=== PATIENT | female | born 1955 | race Caucasian/White ===

== ENCOUNTER 2017-12-14 11:47 | Day surgery (SDC) | payer MEDICARE, MEDICAID, SELFPAY ==
[2017-12-14 12:25] VITALS: BP 111/62; PULSE 62; RESP 16; TEMP 37.2; O2SAT 94; BMI 36.0
--- NOTE | 2017-12-14 13:45 | RAD_ITS ---
STUDY: LOW BACK PAIN. REASON FOR EXAM: Female, 62 years old. Intraoperative imaging provided for epidural block at the L4-L5 level. FLUOROSCOPY TIME (if supplied): (0:21) minutes/seconds TECHNIQUE: Fluoroscopic images were obtained. The needle is seen along the posterior aspect of the L4-L5 disc space. COMPARISON: None. FINDINGS: Intraoperative imaging provided for epidural block at the L4-L5 level. RAD/Spine 1 View Any Level IMPRESSION: Intraoperative imaging provided for epidural block at the L4-L5 level. Electronically Signed: Josh Flanagan MD at 15:03 EDT Tel [phone], Service support ,
--- NOTE | 2017-12-14 13:46 | PCM.DC ---
- Discharge Diagnoses Current Active Problems: Degenerative disc disease and lumbar radiculopathy with foraminal stenosis You will use the following diet at home:: No restrictions Your food should be the consistency of: Regular Discharge Activity: Return to Normal Activity Return to work on:: 12/04/17 May shower in (days): 1 May resume sexual activity in: No Restrictions Weight Bearing Status: Weight bearing as tolerated Call your doctor if your incision/area has: Continuous Slow Oozing, Increased Pain/ Swelling, Increased Redness, Foul Smelling Discharge, Swelling at the incision site Call your doctor if you observe: Coldness, Increased Pain, Numbness or Tingling, Inability to urinate, Inability to have a bowel movement, Uncontrolled pain Suture Line Care: Avoid Pulling/Pushing, Avoid Pinching/Bending Cleanse incision/area with: Soap & Water Allergies/Adverse Reactions: Allergies adhesive Allergy (Verified 12/11/17 15:45) Rash latex Allergy (Verified 12/11/17 15:45) Rash codeine Adverse Reaction (Verified 12/11/17 15:45) Other SEIZURES Medications to take at Discharge ALPRAZolam [Xanax] 0.5 mg PO TID 12/11/17 Aspirin [Adult Aspirin] 81 mg PO DAILY 12/11/17 Baclofen 10 mg PO BID 12/11/17 Cetirizine HCl [Zyrtec] 10 mg PO DAILY 12/11/17 Cyanocobalamin (Vitamin B-12) [Vitamin B-12] 1,000 mcg PO DAILY 12/11/17 Dicyclomine HCl 20 mg PO DAILY 12/11/17 Divalproex (ER) [Depakote ER] 250 mg PO BID 12/11/17 Duloxetine Hcl [Cymbalta] 60 mg PO DAILY 12/11/17 Escitalopram Oxalate [Lexapro] 20 mg PO DAILY 12/11/17 Fenofibrate [Lipofen] 160 mg PO DAILY 12/11/17 Furosemide [Lasix] 20 mg PO MOWEFR 12/11/17 Isosorbide Dinitrate 30 mg PO DAILY 12/11/17 Levothyroxine Sodium [Synthroid] 175 mcg PO DAILY 12/11/17 Lisinopril [Zestril] 5 mg PO DAILY 12/11/17 Metoprolol Succinate [Toprol Xl] 12.5 mg PO BID 12/11/17 Nitroglycerin [Nitrostat] 0.4 mg SUBLINGUAL Q5M PRN 12/11/17 Omeprazole 40 mg PO DAILY 12/11/17 Potassium Chloride [K-Dur] 20 meq PO DAILY 12/11/17 Pyridoxine HCl [Vitamin B-6] 50 mg PO DAILY 12/11/17 Tiotropium [place] [Spiriva 18 MCG] 1 puff INHALATION BID 12/11/17 traMADol [Ultram (G)] 50 mg PO Q6H PRN PRN 12/11/17 Primary Care Physician: Alison Craven [Primary Care Provider] - Test Results: Test results from this visit will be discussed in further detail at your follow-up appointment, if applicable. Please Follow Up With: Hayley Bernard MD
[2017-12-14] MEDS: Triamcinolone Acetonide 40 MG/ML Vial (13:55)
--- NOTE | 2017-12-14 13:56 | DCINST_ITS ---
- Discharge Diagnoses Current Active Problems: Degenerative disc disease and lumbar radiculopathy with foraminal stenosis You will use the following diet at home:: No restrictions Your food should be the consistency of: Regular Discharge Activity: Return to Normal Activity Return to work on:: 12/04/17 May shower in (days): 1 May resume sexual activity in: No Restrictions Weight Bearing Status: Weight bearing as tolerated Call your doctor if your incision/area has: Continuous Slow Oozing, Increased Pain/ Swelling, Increased Redness, Foul Smelling Discharge, Swelling at the incision site Call your doctor if you observe: Coldness, Increased Pain, Numbness or Tingling , Inability to urinate, Inability to have a bowel movement, Uncontrolled pain Suture Line Care: Avoid Pulling/Pushing, Avoid Pinching/Bending Cleanse incision/area with: Soap & Water Allergies/Adverse Reactions: Allergies adhesive Allergy (Verified 12/11/17 15:45) Rash latex Allergy (Verified 12/11/17 15:45) Rash codeine Adverse Reaction (Verified 12/11/17 15:45) Other SEIZURES Medications to take at Discharge ALPRAZolam [Xanax] 0.5 mg PO TID 12/11/17 Aspirin [Adult Aspirin] 81 mg PO DAILY 12/11/17 Baclofen 10 mg PO BID 12/11/17 Cetirizine HCl [Zyrtec] 10 mg PO DAILY 12/11/17 Cyanocobalamin (Vitamin B-12) [Vitamin B-12] 1,000 mcg PO DAILY 12/11/17 Dicyclomine HCl 20 mg PO DAILY 12/11/17 Divalproex (ER) [Depakote ER] 250 mg PO BID 12/11/17 Duloxetine Hcl [Cymbalta] 60 mg PO DAILY 12/11/17 Escitalopram Oxalate [Lexapro] 20 mg PO DAILY 12/11/17 Fenofibrate [Lipofen] 160 mg PO DAILY 12/11/17 Furosemide [Lasix] 20 mg PO MOWEFR 12/11/17 Isosorbide Dinitrate 30 mg PO DAILY 12/11/17 Levothyroxine Sodium [Synthroid] 175 mcg PO DAILY 12/11/17 Lisinopril [Zestril] 5 mg PO DAILY 12/11/17 Metoprolol Succinate [Toprol Xl] 12.5 mg PO BID 12/11/17 Nitroglycerin [Nitrostat] 0.4 mg SUBLINGUAL Q5M PRN 12/11/17 Omeprazole 40 mg PO DAILY 12/11/17 Potassium Chloride [K-Dur] 20 meq PO DAILY 12/11/17 Pyridoxine HCl [Vitamin B-6] 50 mg PO DAILY 12/11/17 Tiotropium [place] [Spiriva 18 MCG] 1 puff INHALATION BID 12/11/17 traMADol [Ultram (G)] 50 mg PO Q6H PRN PRN 12/11/17 Primary Care Physician: Alison Craven [Primary Care Provider] - Test Results: Test results from this visit will be discussed in further detail at your follow- up appointment, if applicable. Please Follow Up With: Hayley Bernard MD
[2017-12-14 14:00] VITALS: BP 111/62; BP 129/63; PULSE 64; RESP 16; TEMP 36.6; O2SAT 97
--- NOTE | 2017-12-14 14:00 | OP.PCM_ITS ---
Problem List (1) Intervertebral disc disorder with radiculopathy of lumbar region Status: Acute (2) Intervertebral disc disorder with radiculopathy of lumbar region Status: Acute Operative Report Date of Procedure: 12/14/17 Interlaminar lumbar epidural steroid injection at the level of the L4-5 under fluoroscopy guidance Under sterile conditions. Patient placed in the prone position, pressure points were padded, patient was ready from the nursing and the anesthesia team. After identification of the side and the target area for the block under guided fluoroscopy, the entry site was marked with marking pen. I used Betadine for sterilization of the skin, sterile draping were applied. Using 25-gauge needle to infiltrate the skin with local anesthesia using preservative-free lidocaine 0.5% injected 2.5 mL at site of entry. Using guided fluoroscopy, accessed the the posterior epidural space using 18- gauge Touhy needles under midline approach, rates level at L4-5 accessed the site was assisted with lateral fluoroscopy, followed by using loss-of- resistance technique using preservative-free normal saline, negative aspiration of CSF and blood. Injected contrast solution [2.5] mL under live fluoroscopy which showed good spread of the contrast to the posterior epidural space and to the targeted area of the injection at[ L4-5]. Injected [5] mL of mixture of preservative-free lidocaine and Kenalog [80] mg for the procedure which showed appropriate spread in the epidural space. [place] was removed, pressure dressing were applied. Patient tolerated the procedure well and was taken to the recovery.
[2017-12-14 14:05] VITALS: BP 111/50; BP 111/62; PULSE 62; RESP 16; O2SAT 95
--- NOTE | 2017-12-14 14:09 | OP.PCM_ITS ---
Problem List (1) Intervertebral disc disorder with radiculopathy of lumbar region Status: Acute (2) Intervertebral disc disorder with radiculopathy of lumbar region Status: Acute Report of Operation Date of Procedure: 12/14/17 Pre-Operative Diagnosis: Lumbar degenerative disease and lumbar radiculopathy Post-Operative Diagnosis: Same Surgery/Procedure Performed:: Lumbar epidural steroid injection, interlaminar mid. Approach at the L4-5 under fluoroscopy Description of Surgical Findings:: Under sterile conditions. Patient placed in the prone position, pressure points were padded, patient was ready from the nursing and the anesthesia team. After identification of the side and the target area for the block under guided fluoroscopy, the entry site was marked with marking pen. I used Betadine for sterilization of the skin, sterile draping were applied. Using 25-gauge needle to infiltrate the skin with local anesthesia using preservative-free lidocaine 0.5% injected 2.5 mL at site of entry. Using guided fluoroscopy, accessed the the posterior epidural space using 18- gauge Touhy needles under midline approach, accessed the site was assisted with lateral fluoroscopy, followed by using [id number] technique using preservative-free normal saline, negative aspiration of CSF and blood. Injected contrast solution [2.5] mL under live fluoroscopy which showed good spread of the contrast to the posterior epidural space and to the targeted area of the injection at[ L4-5]. Injected [5] mL of mixture of preservative-free lidocaine and Kenalog [80] mg for the procedure which showed appropriate spread in the epidural space. [place] was removed, pressure dressing were applied. Patient tolerated the procedure well and was taken to the recovery. Type of Anesthesia:: MAC Description of Procedure: As above noted - Complications None
[2017-12-14 14:10] VITALS: BP 103/51; BP 111/62; PULSE 61; RESP 16; O2SAT 95
[2017-12-14 14:15] VITALS: BP 108/49; BP 111/62; PULSE 61; RESP 16; TEMP 36.6; O2SAT 96
[2017-12-14 14:38] VITALS: BP 111/62
== END 2017-12-14 14:40 | disposition home or self-care (01) ==
LOC: SDC 11:55 → AC 11:56
PROVIDERS: Family Provider Internal Medicine; PCP Internal Medicine; Visit Provider Anesthesiology
PROC: 3E0S3BZ Introduction of Anesthetic Agent into Epidural Space, Percutaneous Approach (ICD-10-PCS; CPT 62322; principal; 2017-12-14 13:25)
DX: M51.16 Intervertebral disc disorders with radiculopathy, lumbar region (principal); M47.816 Spondylosis without myelopathy or radiculopathy, lumbar region; M54.40 Lumbago with sciatica, unspecified side; M70.62 Trochanteric bursitis, left hip; M13.852 Other specified arthritis, left hip; M54.6 Pain in thoracic spine; J45.909 Unspecified asthma, uncomplicated; I10 Essential (primary) hypertension; F17.200 Nicotine dependence, unspecified, uncomplicated; D64.9 Anemia, unspecified; J44.9 Chronic obstructive pulmonary disease, unspecified; K21.9 Gastro-esophageal reflux disease without esophagitis; E78.00 Pure hypercholesterolemia, unspecified; Z87.440 Personal history of urinary (tract) infections; F41.9 Anxiety disorder, unspecified; F32.9 Major depressive disorder, single episode, unspecified; E06.9 Thyroiditis, unspecified; Z79.82 Long term (current) use of aspirin; Z79.891 Long term (current) use of opiate analgesic; Z79.899 Other long term (current) drug therapy
CPT/HCPCS: 01992; 62323; 64520 ×2; 64483; 72020; 72100; J7120

== ENCOUNTER 2018-03-01 11:20 | Day surgery (SDC) | payer MEDICARE, MEDICAID, SELFPAY ==
[2018-03-01 12:05] VITALS: BP 126/59; PULSE 80; RESP 16; TEMP 36.1; O2SAT 96; BMI 37.6
--- NOTE | 2018-03-01 13:15 | RAD_ITS ---
STUDY: INTRAOPERATIVE FLUOROSCOPY. REASON FOR EXAM: Female, 62 years old. Epidural block L4-L5. TECHNIQUE: 2 frontal and a single lateral view of the lumbar spine obtained fluoroscopically are submitted for interpretation. Fluoroscopy time 16 seconds. (This dictation documents intraoperative imaging only, not the procedure). COMPARISON: None. FINDINGS: Images depict placement of needle just to the right of midline through the L4-L5 interlaminar foramen, with injection of contrast layering in the posterior epidural space posterior to L4 and L5. RAD/Spine 1 View Any Level IMPRESSION: Imaging depicts epidural injection at L4-L5 to the right of midline. Correlate with operative report. Electronically Signed: Tapan Del Cid, at 16:17 EDT Tel , Service support ,
[2018-03-01] MEDS: Triamcinolone Acetonide 40 MG/ML Vial (13:25)
[2018-03-01 13:35] VITALS: BP 126/59; BP 130/59; PULSE 84; RESP 16; TEMP 36.9; O2SAT 98
[2018-03-01 13:42] VITALS: BP 114/57; BP 126/59; PULSE 78; RESP 16; O2SAT 95
[2018-03-01 13:47] VITALS: BP 118/61; BP 126/59; PULSE 77; RESP 16; O2SAT 94
[2018-03-01 13:53] VITALS: BP 116/60; BP 126/59; PULSE 76; RESP 16; TEMP 35.9; O2SAT 93
--- NOTE | 2018-03-01 13:56 | DCINST_ITS ---
- Discharge Diagnoses Current Active Problems: Lower back pain and lumbar radiculopathy Reason(s) for Visit for Discharge Instructions: Receiving lumbar epidural steroid injection under fluoroscopy at the level of the L4-5 You will use the following diet at home:: No restrictions Your food should be the consistency of: Regular Your liquids should be the consistency of: Regular/Thin Discharge Activity: Return to Normal Activity, May not drive while taking narcotic pain medications. May shower in (days): 1 May resume sexual activity in: No Restrictions Weight Bearing Status: Weight bearing as tolerated Call your doctor if your incision/area has: Increased Pain/ Swelling, Swelling at the incision site Call your doctor if you observe: Coldness, Increased Pain, Calf discomfort, Uncontrolled pain Suture Line Care: Avoid Pulling/Pushing, Avoid Pinching/Bending Remove Dressing in (days):: 1 Cleanse incision/area with: Soap & Water Allergies/Adverse Reactions: Allergies adhesive Allergy (Verified 03/01/18 12:06) Rash latex Allergy (Verified 03/01/18 12:06) Rash codeine Adverse Reaction (Verified 03/01/18 12:06) Other SEIZURES tramadol Adverse Reaction (Verified 03/01/18 12:06) Itching Medications to take at Discharge ALPRAZolam [Xanax] 0.5 mg PO TID 12/11/17 Aspirin [Adult Aspirin] 81 mg PO DAILY 12/11/17 Baclofen 10 mg PO BID 12/11/17 Cetirizine HCl [Zyrtec] 10 mg PO DAILY 12/11/17 Cyanocobalamin (Vitamin B-12) [Vitamin B-12] 1,000 mcg PO DAILY 12/11/17 Dicyclomine HCl 20 mg PO DAILY 12/11/17 Divalproex (ER) [Depakote ER] 250 mg PO BID 12/11/17 Duloxetine Hcl [Cymbalta] 60 mg PO DAILY 12/11/17 Escitalopram Oxalate [Lexapro] 20 mg PO DAILY 12/11/17 Fenofibrate [Lipofen] 160 mg PO DAILY 12/11/17 Furosemide [Lasix] 20 mg PO MOWEFR 12/11/17 Isosorbide Dinitrate 30 mg PO DAILY 12/11/17 Levothyroxine Sodium [Synthroid] 175 mcg PO DAILY 12/11/17 Lisinopril [Zestril] 5 mg PO DAILY 12/11/17 Metoprolol Succinate [Toprol Xl] 12.5 mg PO BID 12/11/17 Nitroglycerin [Nitrostat] 0.4 mg SUBLINGUAL Q5M PRN 12/11/17 Omeprazole 40 mg PO DAILY 12/11/17 Potassium Chloride [K-Dur] 20 meq PO DAILY 12/11/17 Pyridoxine HCl [Vitamin B-6] 50 mg PO DAILY 12/11/17 Tiotropium [place] [Spiriva 18 MCG] 1 puff INHALATION BID 12/11/17 Primary Care Physician: Alison Craven [Primary Care Provider] - Test Results: Test results from this visit will be discussed in further detail at your follow- up appointment, if applicable. Please Follow Up With: Hayley Bernard MD - yo
--- NOTE | 2018-03-01 13:57 | PCM.OPRPT ---
Problem List (1) Intervertebral disc disorder with radiculopathy of lumbar region Status: Acute (2) Intervertebral disc disorder with radiculopathy of lumbar region Status: Acute Report of Operation Date of Procedure: 03/01/18 Pre-Operative Diagnosis: Lumbar degenerative disc disease and lumbar radiculopathy Post-Operative Diagnosis: Same Surgery/Procedure Performed:: Lumbar epidural steroid injection at the level of the L4-5 under fluoroscopy and conscious sedation Description of Surgical Findings:: Under sterile conditions. Patient placed in the prone position, pressure points were padded, patient was ready from the nursing and the anesthesia team. After identification of the side and the target area for the block under guided fluoroscopy, the entry site was marked with marking pen. I used Betadine for sterilization of the skin, sterile draping were applied. Using 25-gauge needle to infiltrate the skin with local anesthesia using preservative-free lidocaine 0.5% injected 2.5 mL at site of entry. Using guided fluoroscopy, accessed the the posterior epidural space using 18-gauge Touhy needles under midline approach, accessed the site was assisted with lateral fluoroscopy, followed by using [id number] technique using preservative-free normal saline, negative aspiration of CSF and blood. Injected contrast solution [2.5] mL under live fluoroscopy which showed good spread of the contrast to the posterior epidural space and to the targeted area of the injection at[ L4-5]. Injected [5] mL of mixture of preservative-free lidocaine and Kenalog [40] mg for the procedure which showed appropriate spread in the epidural space. [place] was removed, pressure dressing were applied. Patient tolerated the procedure well and was taken to the recovery. Type of Anesthesia:: Block,Axillary, Local MAC Special Medications: Lidocaine/preservative-free normal saline 0.5%. Isovue contrast. Kenalog 40 mg - Complications None
[2018-03-01 14:06] VITALS: BP 126/59
== END 2018-03-01 14:10 | disposition home or self-care (01) ==
LOC: SDC 11:22 → AC 11:31
PROVIDERS: Family Provider Internal Medicine; PCP Internal Medicine; Visit Provider Anesthesiology
PROC: 3E0S3BZ Introduction of Anesthetic Agent into Epidural Space, Percutaneous Approach (ICD-10-PCS; CPT 62322; principal; 2018-03-01 12:25)
DX: M51.16 Intervertebral disc disorders with radiculopathy, lumbar region (principal); E11.9 Type 2 diabetes mellitus without complications; I10 Essential (primary) hypertension; M19.90 Unspecified osteoarthritis, unspecified site; Z79.899 Other long term (current) drug therapy; K58.9 Irritable bowel syndrome, unspecified; E78.00 Pure hypercholesterolemia, unspecified; K21.9 Gastro-esophageal reflux disease without esophagitis; Z79.82 Long term (current) use of aspirin
CPT/HCPCS: 01992; 62323; 64483; 72020; J7120; J3490

== ENCOUNTER 2018-09-20 10:56 | Day surgery (SDC) | payer MEDICARE, MEDICAID, SELFPAY ==
[2018-09-20 12:26] VITALS: BP 120/58; PULSE 84; RESP 18; TEMP 36.4; O2SAT 95; BMI 38.5
--- NOTE | 2018-09-20 13:00 | RAD_ITS ---
PROCEDURE: Lumbar epidural L4-L5. DATE OF EXAMINATION: 20 September 2018. INDICATION: Female, 62 years old. Back pain. PHYSICIAN: Joana FLUOROSCOPY TIME (if supplied): (0:18) minutes/seconds PROCEDURE/TECHNIQUE 4, intraprocedural, fluoroscopic spot images of the L4-L5 region are submitted. A needle appears to be inserted at the L4-L5 level. There are no significant incidental findings. RAD/Spine 1 View Any Level IMPRESSION: 4, intraprocedural, fluoroscopic spot images of the L4-L5 region are submitted. A needle appears to be inserted at the L4-L5 level. There are no significant incidental findings. Comment: Fluoroscopy services provided for clinical procedure. Please refer to operating physician's procedure note for additional detail. Electronically Signed: Javier Azul MD at 11:18 EDT , Service support ,
--- NOTE | 2018-09-20 14:31 | DCINST_ITS ---
- Discharge Diagnoses Current Active Problems: Lower back pain /lower extremity pain with walking and activities due to lumbar disc degeneration, disc disorders causing lumbar radiculopathy Reason(s) for Visit for Discharge Instructions: Lumbar epidural steroid injection at the level of the L4-5 under fluoroscopy guidance You will use the following diet at home:: No restrictions, Regular, Calorie/Carbohydrate Controlled (specify 1200, 1400, etc) Your food should be the consistency of: Regular Your liquids should be the consistency of: Regular/Thin Discharge Activity: Return to Normal Activity, No Restrictions May shower in (days): 1 May resume sexual activity in: No Restrictions Weight Bearing Status: Weight bearing as tolerated Call your doctor if your incision/area has: Continuous Slow Oozing, Sudden Increased Bleeding, Increased Pain/ Swelling, Increased Redness, Foul Smelling Discharge, Swelling at the incision site Call your doctor if you observe: Fever of 101 or Higher, Coldness, Increased Pain, Calf discomfort, Uncontrolled pain Suture Line Care: Avoid Pulling/Pushing, Avoid Pinching/Bending Remove Dressing in (days):: 1 Cleanse incision/area with: Soap & Water Allergies/Adverse Reactions: Allergies adhesive Allergy (Verified 03/01/18 12:06) Rash latex Allergy (Verified 03/01/18 12:06) Rash codeine Adverse Reaction (Verified 03/01/18 12:06) Other SEIZURES tramadol Adverse Reaction (Verified 03/01/18 12:06) Itching Medications to take at Discharge ALPRAZolam [Xanax] 0.5 mg PO TID 12/11/17 Aspirin [Adult Aspirin] 81 mg PO DAILY 12/11/17 Baclofen 10 mg PO BID 12/11/17 Cetirizine HCl [Zyrtec] 10 mg PO DAILY 12/11/17 Cyanocobalamin (Vitamin B-12) [Vitamin B-12] 1,000 mcg PO DAILY 12/11/17 Dicyclomine HCl 20 mg PO DAILY 12/11/17 Divalproex (ER) [Depakote ER] 250 mg PO BID 12/11/17 Duloxetine Hcl [Cymbalta] 60 mg PO DAILY 12/11/17 Escitalopram Oxalate [Lexapro] 20 mg PO DAILY 12/11/17 Fenofibrate [Lipofen] 160 mg PO DAILY 12/11/17 Furosemide [Lasix] 20 mg PO MOWEFR 12/11/17 Isosorbide Dinitrate 30 mg PO DAILY 12/11/17 Levothyroxine Sodium [Synthroid] 175 mcg PO DAILY 12/11/17 Lisinopril [Zestril] 5 mg PO DAILY 12/11/17 Metoprolol Succinate [Toprol Xl] 12.5 mg PO BID 12/11/17 Nitroglycerin [Nitrostat] 0.4 mg SUBLINGUAL Q5M PRN 12/11/17 Omeprazole 40 mg PO DAILY 12/11/17 Potassium Chloride [K-Dur] 20 meq PO DAILY 12/11/17 Pyridoxine HCl [Vitamin B-6] 50 mg PO DAILY 12/11/17 Tiotropium [place] [Spiriva 18 MCG] 1 puff INHALATION BID 12/11/17 Primary Care Physician: Alison Craven [Primary Care Provider] - Test Results: Test results from this visit will be discussed in further detail at your follow- up appointment, if applicable. Please Follow Up With: Hayley Bernard MD
--- NOTE | 2018-09-20 14:34 | OP.PCM_ITS ---
Problem List (1) Other intervertebral disc degeneration, lumbar region Status: Acute (2) Other intervertebral disc degeneration, lumbar region Status: Acute (3) Low back pain with right-sided sciatica Status: Acute (4) Low back pain with right-sided sciatica Status: Acute (5) Low back pain with left-sided sciatica Status: Acute (6) Low back pain with left-sided sciatica Status: Acute (7) Acute bilateral low back pain with sciatica Status: Acute (8) Acute bilateral low back pain with sciatica Status: Acute (9) Intervertebral disc disorder with radiculopathy of lumbar region Status: Acute (10) Intervertebral disc disorder with radiculopathy of lumbar region Status: Acute Report of Operation Date of Procedure: 09/20/18 Pre-Operative Diagnosis: Lumbar degenerative disc disease with lumbar radiculopathy Post-Operative Diagnosis: Lumbar disc disorders with lumbar radiculopathy Surgery/Procedure Performed:: Lumbar epidural steroid injection at the level of the L4-5 under fluoroscopy guidance Description of Surgical Findings:: Under sterile conditions. Patient placed in the prone position, pressure points were padded, patient was ready from the nursing and the anesthesia team. After identification of the side and the target area for the block under guided fluoroscopy, the entry site was marked with marking pen. I used Betadine for sterilization of the skin, sterile draping were applied. Using 25-gauge needle to infiltrate the skin with local anesthesia using preservative-free lidocaine 0.5% injected 2.5 mL at site of entry. Using guided fluoroscopy, accessed the the posterior epidural space using 18- gauge Touhy needles under midline approach, accessed the site was assisted with lateral fluoroscopy, followed by using [id number]-ga-[id number] technique using preservative-free normal saline, negative aspiration of CSF and blood. Injected contrast solution [2.5] mL under live fluoroscopy which showed good spread of the contrast to the posterior epidural space and to the targeted area of the injection at[ L4-5]. Injected [5] mL of mixture of preservative-free lidocaine and Kenalog [40] mg for the procedure which showed appropriate spread in the epidural space. [place] was removed, pressure dressing were applied. Patient tolerated the procedure well and was taken to the recovery. Type of Anesthesia:: Local MAC Estimated Blood Loss (mL): None Description of Procedure: See above - Complications None
[2018-09-20] MEDS: Triamcinolone Acetonide 40 MG/ML Vial (14:43)
[2018-09-20 14:50] VITALS: BP 111/81; BP 120/58; PULSE 98; RESP 16; TEMP 36.4; O2SAT 95
[2018-09-20 14:55] VITALS: BP 120/58; BP 123/57; PULSE 93; RESP 16; O2SAT 93
[2018-09-20 15:00] VITALS: BP 120/58; BP 121/64; PULSE 92; RESP 16; O2SAT 92
[2018-09-20 15:05] VITALS: BP 120/58; BP 127/58; PULSE 93; RESP 16; TEMP 36.9; O2SAT 93
[2018-09-20 15:32] VITALS: BP 120/58
== END 2018-09-20 15:36 | disposition home or self-care (01) ==
LOC: SDC 11:04 → AC 11:46
PROVIDERS: Family Provider Internal Medicine; PCP Internal Medicine; Referring Provider Anesthesiology; Visit Provider Anesthesiology
PROC: 3E0S3BZ Introduction of Anesthetic Agent into Epidural Space, Percutaneous Approach (ICD-10-PCS; CPT 62322; principal; 2018-09-20 12:55)
DX: M51.16 Intervertebral disc disorders with radiculopathy, lumbar region (principal); M54.41 Lumbago with sciatica, right side; M54.42 Lumbago with sciatica, left side; M47.26 Other spondylosis with radiculopathy, lumbar region; M70.62 Trochanteric bursitis, left hip; F17.200 Nicotine dependence, unspecified, uncomplicated; K21.9 Gastro-esophageal reflux disease without esophagitis; E78.00 Pure hypercholesterolemia, unspecified; E11.9 Type 2 diabetes mellitus without complications; F41.9 Anxiety disorder, unspecified; F32.9 Major depressive disorder, single episode, unspecified; E06.9 Thyroiditis, unspecified; I10 Essential (primary) hypertension; J44.9 Chronic obstructive pulmonary disease, unspecified; Z87.440 Personal history of urinary (tract) infections; Z79.82 Long term (current) use of aspirin; Z79.899 Other long term (current) drug therapy
CPT/HCPCS: 62323; 64483; 72020; J7120; J3490

== ENCOUNTER → 2018-12-20 | Outpatient (CLI) | payer MEDICARE, MEDICAID, SELFPAY ==
--- NOTE | 2018-12-20 15:43 | RAD_ITS ---
STUDY: X-RAY - RIGHT SHOULDER REASON FOR EXAM: Female, 63 years old. Right shoulder 1 TECHNIQUE: 4 view(s) of the shoulder. COMPARISON: None. FINDINGS: Normal glenohumeral articulation. Normal acromioclavicular joint. Normal acromion. Normal humeral head and visualized proximal humerus. The soft tissue structures are unremarkable. There is a small calcific density lateral to the acromion. Normal visualized pulmonary apex. RAD/Shoulder min 2 Views IMPRESSION: Possible small remote avulsion fracture, spur or calcific peritendinitis. Electronically Signed: Rashard Rush MD at 16:15 EDT , Service support ,
== END | disposition home or self-care (01) ==
LOC: RAD 15:40
PROVIDERS: Family Provider Internal Medicine; PCP Internal Medicine; Referring Provider Anesthesiology; Visit Provider Anesthesiology
DX: M25.511 Pain in right shoulder (principal)
CPT/HCPCS: 73030

== ENCOUNTER → 2018-12-24 09:32 | Outpatient (CLI) | payer MEDICARE, MEDICAID, SELFPAY | PROVIDERS: Family Provider Internal Medicine; PCP Internal Medicine; Referring Provider Anesthesiology; Visit Provider Anesthesiology | DX: M54.5 Low back pain (principal) ==

== ENCOUNTER 2019-01-24 11:51 | Day surgery (SDC) | payer MEDICARE, MEDICAID, SELFPAY ==
[2019-01-24 12:30] VITALS: BP 115/65; PULSE 66; RESP 16; TEMP 36.2; O2SAT 94; BMI 37.6
[2019-01-24] MEDS: Lactated Ringers 1,000 ML 75 ML IV (12:56)
--- NOTE | 2019-01-24 14:35 | PCM.DC ---
- Discharge Diagnoses Current Active Problems: Lower back pain and lumbar radiculopathy Reason(s) for Visit for Discharge Instructions: Lumbar epidural steroid injection under fluoroscopy You will use the following diet at home:: No restrictions Your food should be the consistency of: Regular Discharge Activity: Return to Normal Activity May shower in (days): 1 May resume sexual activity in: No Restrictions Weight Bearing Status: Weight bearing as tolerated Call your doctor if your incision/area has: Continuous Slow Oozing, Increased Pain/ Swelling, Foul Smelling Discharge Call your doctor if you observe: Fever of 101 or Higher, Coldness, Increased Pain, Numbness or Tingling, Uncontrolled pain Suture Line Care: Avoid Pulling/Pushing, Avoid Pinching/Bending Remove Dressing in (days):: 1 Cleanse incision/area with: Soap & Water Instructions: What Is Osteoarthritis?, Living with Osteoarthritis, Osteoarthritis: Common Sites, Understanding Osteoarthritis, Osteoarthritis: Coping with Pain, Osteoarthritis: Managing Pain, Osteoarthritis: Injections or Surgery, Osteoarthritis: Tips for Daily Living, Osteoarthritis: Exercise Allergies/Adverse Reactions: Allergies adhesive Allergy (Verified 01/23/19 08:55) Rash latex Allergy (Verified 01/23/19 08:55) Rash codeine Adverse Reaction (Verified 01/23/19 08:55) Other SEIZURES tramadol Adverse Reaction (Verified 01/23/19 08:55) Itching Medications to take at Discharge ALPRAZolam [Xanax] 0.5 mg PO TID 12/11/17 Aspirin [Adult Aspirin] 81 mg PO DAILY 12/11/17 Baclofen 10 mg PO BID 12/11/17 Cetirizine HCl [Zyrtec] 10 mg PO DAILY 12/11/17 Cyanocobalamin (Vitamin B-12) [Vitamin B-12] 1,000 mcg PO DAILY 12/11/17 Dicyclomine HCl 20 mg PO DAILY 12/11/17 Divalproex (ER) [Depakote ER] 250 mg PO BID 12/11/17 Duloxetine Hcl [Cymbalta] 60 mg PO BID 12/11/17 Escitalopram Oxalate [Lexapro] 20 mg PO DAILY 12/11/17 Fenofibrate [Lipofen] 160 mg PO DAILY 12/11/17 Furosemide [Lasix] 20 mg PO MOWEFR 12/11/17 Isosorbide Dinitrate 30 mg PO DAILY 12/11/17 Levothyroxine Sodium [Synthroid] 175 mcg PO DAILY 12/11/17 Lisinopril [Zestril] 5 mg PO DAILY 12/11/17 Metoprolol Succinate [Toprol Xl] 12.5 mg PO BID 12/11/17 Nitroglycerin (INPATIENT USE) [Nitrostat] 0.4 mg SUBLINGUAL Q5M PRN 12/11/17 Omeprazole 40 mg PO DAILY 12/11/17 Potassium Chloride [K-Dur] 20 meq PO DAILY 12/11/17 Pyridoxine HCl [Vitamin B-6] 50 mg PO DAILY 12/11/17 Tiotropium [place] [Spiriva 18 MCG] 1 puff INHALATION BID 12/11/17 Alirocumab [Praluent Pen] 75 mg SQ QWEEK 01/23/19 Primary Care Physician: Alison Craven [Primary Care Provider] - Test Results: Test results from this visit will be discussed in further detail at your follow-up appointment, if applicable. Please Follow Up With: Hayley Bernard MD
--- NOTE | 2019-01-24 14:37 | PCM.OPRPT ---
Problem List (1) Other intervertebral disc degeneration, lumbar region Status: Acute (2) Other intervertebral disc degeneration, lumbar region Status: Acute (3) Low back pain with right-sided sciatica Status: Acute (4) Low back pain with right-sided sciatica Status: Acute (5) Low back pain with left-sided sciatica Status: Acute (6) Low back pain with left-sided sciatica Status: Acute (7) Acute bilateral low back pain with sciatica Status: Acute (8) Acute bilateral low back pain with sciatica Status: Acute (9) Intervertebral disc disorder with radiculopathy of lumbar region Status: Acute (10) Intervertebral disc disorder with radiculopathy of lumbar region Status: Acute Report of Operation Date of Procedure: 01/24/19 Pre-Operative Diagnosis: Lumbar degenerative disc disease, lumbar disc displacement, lumbar radiculopathy Post-Operative Diagnosis: Same Surgery/Procedure Performed:: Lumbar epidural steroid injection at L4-5 under fluoroscopy guidance Description of Surgical Findings:: Under sterile conditions. Patient placed in the prone position, pressure points were padded, patient was ready from the nursing and the anesthesia team. After identification of the side and the target area for the block under guided fluoroscopy, the entry site was marked with marking pen. I used Betadine for sterilization of the skin, sterile draping were applied. Using 25-gauge needle to infiltrate the skin with local anesthesia using preservative-free lidocaine 0.5% injected 2.5 mL at site of entry. Using guided fluoroscopy, accessed the the posterior epidural space using 18-gauge Touhy needles under midline approach, accessed the site was assisted with lateral fluoroscopy, followed by using [id number] technique using preservative-free normal saline, negative aspiration of CSF and blood. Injected contrast solution [2.5] mL under live fluoroscopy which showed good spread of the contrast to the posterior epidural space and to the targeted area of the injection at[ L4-5]. Injected [5] mL of mixture of preservative-free lidocaine and Kenalog [80] mg for the procedure which showed appropriate spread in the epidural space. [place] was removed, pressure dressing were applied. Patient tolerated the procedure well and was taken to the recovery. Type of Anesthesia:: Local MAC Estimated Blood Loss (mL): None Description of Procedure: See above - Complications None
[2019-01-24 14:41] LABS: Bedside Glucose 126 mg/dL (70-110)
--- NOTE | 2019-01-24 15:00 | RAD_ITS ---
PROCEDURE: Epidural block. DATE OF EXAMINATION: January 24, 2019. INDICATION: Female, 63 years old. Back pain. FLUOROSCOPY TIME (if supplied): (0:16) minutes/seconds single coned down AP view was obtained intraoperatively. The spinal needle is seen at the L4-L5 level. RAD/Spine 1 View Any Level IMPRESSION: The spinal needle is seen overlying the L4-L5 level. Electronically Signed: Josh Flanagan, at 8:45 EDT , Service support ,
[2019-01-24] MEDS: Triamcinolone Acetonide 40 MG/ML Vial (15:12)
[2019-01-24 15:22] VITALS: BP 115/65; BP 122/71; PULSE 75; RESP 18; TEMP 36.7; O2SAT 96
[2019-01-24 15:25] VITALS: BP 115/65; BP 121/67; PULSE 73; RESP 18; O2SAT 95
[2019-01-24 15:30] VITALS: BP 115/65; BP 117/68; PULSE 73; RESP 18; O2SAT 94
[2019-01-24 15:35] VITALS: BP 115/65; BP 132/58; PULSE 77; RESP 18; TEMP 36.2; O2SAT 95
[2019-01-24 15:51] VITALS: BP 115/65
== END 2019-01-24 15:52 | disposition home or self-care (01) ==
LOC: SDC 11:52 → AC 12:09
PROVIDERS: Family Provider Internal Medicine; PCP Internal Medicine; Referring Provider Anesthesiology; Visit Provider Anesthesiology
PROC: 3E0S3BZ Introduction of Anesthetic Agent into Epidural Space, Percutaneous Approach (ICD-10-PCS; CPT 62322; principal; 2019-01-24 13:25)
DX: M51.16 Intervertebral disc disorders with radiculopathy, lumbar region (principal); M51.17 Intervertebral disc disorders with radiculopathy, lumbosacral region; E11.9 Type 2 diabetes mellitus without complications; I10 Essential (primary) hypertension; K21.9 Gastro-esophageal reflux disease without esophagitis; E78.5 Hyperlipidemia, unspecified; F41.9 Anxiety disorder, unspecified; F32.9 Major depressive disorder, single episode, unspecified; E06.9 Thyroiditis, unspecified; J44.9 Chronic obstructive pulmonary disease, unspecified; F17.200 Nicotine dependence, unspecified, uncomplicated; Z79.82 Long term (current) use of aspirin; Z79.51 Long term (current) use of inhaled steroids; Z79.891 Long term (current) use of opiate analgesic; Z79.1 Long term (current) use of non-steroidal anti-inflammatories (NSAID)
CPT/HCPCS: 62323; 64483; 72020; 82962; J7120

== ENCOUNTER → 2019-02-25 | Outpatient (CLI) | payer MEDICARE, MEDICAID, SELFPAY ==
[2019-02-25 13:34] VITALS: BMI 37.6
--- NOTE | 2019-02-25 13:36 | RAD_ITS ---
STUDY: X-RAY - LUMBAR SPINE REASON FOR EXAM: Female, 63 years old. Low back pain TECHNIQUE: 4 view(s) of the lumbar spine were obtained. COMPARISON: None FINDINGS: Normal lumbar lordosis. There is no substantial scoliosis. There is a normal alignment of the vertebrae. There is multilevel endplate spondylosis of the lumbar vertebrae. There is multi-level degenerative disc disease with multi-level disc space narrowing. There is no demonstrated fracture. No evidence of instability on the flexion or extension views. The soft tissue structures are unremarkable. RAD/L/S Spine Min 4 Views IMPRESSION: Degenerative changes of the spine, as detailed above. Electronically Signed: Lester Ladd MD at 16:38 EDT , Service support ,
== END | disposition home or self-care (01) ==
LOC: HPRAD 13:36
PROVIDERS: Family Provider Internal Medicine; PCP Internal Medicine; Visit Provider Orthopaedic Surgery
DX: M54.5 Low back pain (principal)
CPT/HCPCS: 72110

== ENCOUNTER → 2019-10-23 13:51 | Outpatient (CLI) | payer OTHER, MEDICARE, MEDICAID, SELFPAY ==
[2019-10-09 14:38] VITALS: BMI 37.3
--- NOTE | 2019-10-23 14:01 | CT_ITS ---
STUDY: LOW DOSE CT LUNG CANCER SCREENING REASON FOR EXAM: Female, 63 years old. PT STATED PULM NODULE F/U, SMOKER X 50 YEARS, 1.5 PPD RADIATION DOSAGE (If Supplied By Facility): CTDIvol = ( 4.02 ) mGy, DLP = ( 147.98 ) mGycm TECHNIQUE: No contrast was administered. Low dose technique was utilized (average mAS-20 and kVp 120). COMPARISON: No relevant priors. FINDINGS: Heart and great vessels: Heart size normal. No aneurysm of the thoracic aorta. Lipomatous hypertrophy of the interatrial septum. Mild calcific atherosclerosis of the thoracic aorta. Lungs, pleura: No pneumonia, edema, or acute abnormality in the lungs. No pleural effusion. No pneumothorax. No emphysema. Nodules: 5 mm solid nodule subpleural aspect right middle lobe series 2 image 128. 2 mm diameter nodules (3 of them) posterior aspect left lung base, coronal images 195 (medially) and 214 (posteriorly) and more anteriorly coronal image 188. Mediastinum: No adenopathy or mass or hematoma. Prior thyroidectomy. Osseous:No fracture or acute osseous abnormality. Chest wall: No concerning findings. Upper abdomen: No acute findings. Prior cholecystectomy. CT/Chest without Contrast IMPRESSION: Lung RADS category 2. Suggest continued annual screening. Lipomatous hypertrophy of the interatrial septum incidentally noted. IMPORTANT NOTES FOR USE: ACR Lung-RADS Version 1.0 Assessment Categories Release Date: September 29, 2013 Category: Coded 0-4 bases on nodule(s) with highest degree of suspicion. Negative screen is defined as categories 1 and 2; a positive screen is defined as categories 3 and 4. Category 3 and 4A nodules that are unchanged on interval CT should be coded as category 2, and individuals returned to screening in 12 months. Category 4X: Category 3 or 4 nodules with additional imaging findings that increase the suspicion of lung cancer, such as spiculation, GGN that doubles in size in 1 year, enlarged lymph notes, etc. Category Modifiers: S (significant finding unrelated to lung cancer) and C (prior history of treated lung cancer) may be added to the 0-4 Lung-RADS Electronically Signed: Keon Duarte, at 22:39 EDT Tel , Service support ,
== END ==
PROVIDERS: PCP Internal Medicine; Referring Provider Internal Medicine Pulmonary Disease; Visit Provider Internal Medicine Pulmonary Disease
DX: R91.1 Solitary pulmonary nodule (principal)
CPT/HCPCS: 71250

== ENCOUNTER → 2019-12-08 11:13 | Outpatient (CLI) | payer MEDICARE, MEDICAID, SELFPAY ==
[2019-10-09 14:38] VITALS: BMI 37.3
[2019-12-08 12:03] LABS: Erythrocyte Sedimentation Rate 37 mm/hr (0-30)
[2019-12-08 12:04] LABS: Absolute Neutrophil Count 4.9 X10^3/uL (2.0-7.7); Basophil% 1.2 % (0-1); Eosinophil# 0.17 X10^3/uL; Hematocrit 39.8 % (37-47); Lymphocyte % 26.7 % (19-41); Mean Corp Hgb Conc 30.2 g/dL (32-36); Mean Corpuscular Hgb 22.4 pg (27.0-32.0); Mean Corpuscular Volume 74.3 fL (81-99); Mean Platelet Vol. 9.5 fl (6.2-12.0); Monocyte# 1.14 X10^3/uL; Monocyte% 13.2 % (0-10); NRBC Flagged by Analyzer 0 % (0-5); Neutrophil # 4.87 X10^3/uL (2.7-7.7); Neutrophil % 56.4 % (47-70); Platelet Count 370 K/mm3 (150-450); RBC Distribution Width CV 15.9 % (11.6-14.6); RBC Distribution Width SD 41.9 fl (35.1-43.9); Red Blood Count 5.36 M/mm3 (4.2-5.4); White Blood Count 8.6 K/mm3 (4.4-11.0)
== END ==
PROVIDERS: PCP Internal Medicine; Referring Provider Specialist; Visit Provider Specialist
DX: Z96.651 Presence of right artificial knee joint (principal)
CPT/HCPCS: 36415; 85025; 85652; 86140

== ENCOUNTER → 2019-12-15 11:44 | Outpatient (CLI) | payer MEDICARE, MEDICAID, SELFPAY ==
[2019-10-09 14:38] VITALS: BMI 37.3
[2019-12-15 13:35] LABS: AUTO B FLUID DILUENT BKGD CT WBC <0.1 RBC <0.01 (W<.1,R<.01)
[2019-12-15 13:36] LABS: Appearance /Synovial Fluid Sl Cl (CLEAR); Color / Synovial Fluid Yellow (Pale Yellow); RBC /Synovial Fluid 93 /mm3 (0)
[2019-12-15 13:37] LABS: Body Fluid QC Type(s) BF1Q; Synovial Fld Mononuclear WBC # 0.418 10^3/ul; Synovial Fld Mononuclear WBC % 40.9 %; Synovial Fld Polynuclear WBC # 0.604 10^3/uL; Synovial Fld Polynuclear WBC % 59.1 %
[2019-12-15 13:41] LABS: Lymph 13 %; Monocyte /Synovial Fluid 82 %; Plasma Cell /Synovial Fluid 5 %
[2019-12-16 12:43] LABS: Pathologist Comment Reviewed
== END ==
PROVIDERS: PCP Internal Medicine; Referring Provider Specialist; Visit Provider Specialist
DX: Z96.651 Presence of right artificial knee joint (principal)
CPT/HCPCS: 87015; 87070; 87075; 87101; 87116; 87205; 87206; 89050; 89051

== ENCOUNTER → 2020-10-29 11:51 | Outpatient (CLI) | payer MEDICARE, MEDICAID, SELFPAY ==
[2020-10-29 11:16] VITALS: BMI 41.4
[2020-10-29 13:35] LABS: T4 Free Direct 1.11 ng/dL (0.76-1.46)
== END ==
PROVIDERS: PCP Internal Medicine; Visit Provider Internal Medicine Endocrinology, Diabetes & Metabolism
DX: E03.9 Hypothyroidism, unspecified (principal)
CPT/HCPCS: 36415; 84439; 84443

== ENCOUNTER → 2021-05-23 15:19 | Outpatient (CLI) | payer MEDICARE, MEDICAID, SELFPAY ==
--- NOTE | 2021-05-23 15:21 | CT_ITS ---
STUDY: LOW DOSE CT LUNG CANCER SCREENING REASON FOR EXAM: Female, 65 years old. Long history of smoking. Screening for lung cancer. RADIATION DOSAGE (If Supplied By Facility): CTDIvol = ( 4.02 ) mGy, DLP = ( 137.93 ) mGycm TECHNIQUE: No contrast was administered. Low dose technique was utilized (average mAS-38 and kVp 120). 1.25 mm axial source images with a slice interval of 1.25-mm were reconstructed in lung windows. 2.5 mm axial source images with a slice interval of 2.5-mm were reconstructed in lung windows. 5.0 mm axial source images with a slice interval of 5.0-mm were reconstructed in soft tissue windows. Nodule measured using lung windows on PACS and/or independent workstation with automated measurement of minimum and maximum diameter. Nodule measurement reported as average diameter rounded to the nearest whole number. Growth is defined as an increase ins size of greater than 1.5 mm. COMPARISON: 10/23/2019. NODULES: 5 mm solid nodule subpleural aspect right middle lobe series 2 image 124. 2 mm diameter nodules (3 of them) posterior aspect left lung base There are no suspicious lung nodules There are no endobronchial lesions. There is no demonstrated pleural abnormality. Normal heart and pericardium. Lipomatous hypertrophy of the interatrial septum incidentally noted. Normal mediastinum. Normal hilar regions. Normal unenhanced pulmonary arteries. Normal aorta arch and descending thoracic aorta. Normal osseous structures. There is no demonstrated abnormality of the visualized upper abdomen. CT/Low Dose CT Lung Screening IMPRESSION: Lung-RADS category 2. Benign findings. Stable bilateral lung nodules. Recommendation: Routine screening CT scan in one year. IMPORTANT NOTES FOR USE: ACR Lung-RADS Version 1.0 Assessment Categories Release Date: September 29, 2013 Category: Coded 0-4 bases on nodule(s) with highest degree of suspicion. Negative screen is defined as categories 1 and 2; a positive screen is defined as categories 3 and 4. Category 3 and 4A nodules that are unchanged on interval CT should be coded as category 2, and individuals returned to screening in 12 months. Category 4X: Category 3 or 4 nodules with additional imaging findings that increase the suspicion of lung cancer, such as spiculation, GGN that doubles in size in 1 year, enlarged lymph notes, etc. Category Modifiers: S (significant finding unrelated to lung cancer) and C (prior history of treated lung cancer) may be added to the 0-4 Lung-RADS Electronically Signed: Ronnie Bond MD at 6:41 EST Tel , Service support ,
== END ==
PROVIDERS: PCP Internal Medicine; Referring Provider Internal Medicine Pulmonary Disease; Visit Provider Internal Medicine Pulmonary Disease
DX: Z87.891 Personal history of nicotine dependence (principal); Z12.2 Encounter for screening for malignant neoplasm of respiratory organs
CPT/HCPCS: 71271

== ENCOUNTER → 2022-01-24 | Outpatient (CLI) | payer MEDICARE, MEDICAID, SELFPAY ==
--- NOTE | 2022-01-24 15:43 | RAD_ITS ---
INDICATION: SUSPECT PNEUMONIA/ COPD EXAMINATION/TECHNIQUE: X-RAY - XR Chest 2 Views COMPARISON: None. FINDINGS: The lungs are clear. Tortuous and calcified thoracic aorta. The heart is not enlarged. No pleural effusion or pneumothorax. No acute osseous abnormalities. RAD/Chest PA and Lateral IMPRESSION: No acute radiographic abnormalities. Electronically Signed: Rk Armenta MD at 16:47 EDT ,
== END | disposition home or self-care (01) ==
LOC: MTRAD 15:42
PROVIDERS: PCP Internal Medicine; Referring Provider Internal Medicine Pulmonary Disease; Visit Provider Internal Medicine Pulmonary Disease
DX: J44.9 Chronic obstructive pulmonary disease, unspecified (principal)
CPT/HCPCS: 71046

== ENCOUNTER 2022-06-02 15:14 | Outpatient (CLI) | payer MEDICARE, MEDICAID, SELFPAY ==
[2022-06-02 16:13] LABS: Absolute Lymphocyte Count 1.43 X10^3/uL (0.83-4.51); Absolute Neutrophil Count 12.5 X10^3/uL (2.0-7.7); Basophil# 0.03 X10^3/uL; Basophil% 0.2 % (0-1); Eosinophil# 0.01 X10^3/uL; Eosinophils% 0.1 % (0-5); Hematocrit 46.3 % (37-47); Hemoglobin 15.4 g/dL (12.0-15.0); Lymphocyte # 1.43 X10^3/ul (0.83-4.51); Lymphocyte % 9.5 % (19-41); Mean Corp Hgb Conc 33.3 g/dL (32-36); Mean Corpuscular Hgb 26.7 pg (27.0-32.0); Mean Corpuscular Volume 80.4 fL (81-99); Monocyte# 0.83 X10^3/uL; Monocyte% 5.5 % (0-10); NRBC Flagged by Analyzer 0 % (0-5); Neutrophil # 12.52 X10^3/uL (2.7-7.7); Neutrophil % 83.4 % (47-70); Platelet Count 364 K/mm3 (150-450); RBC Distribution Width CV 15.6 % (11.6-14.6); RBC Distribution Width SD 44.6 fl (35.1-43.9); Red Blood Count 5.76 M/mm3 (4.2-5.4)
[2022-06-02 16:58] LABS: Estradiol 11.4 pg/mL; Follicle Stimulating Hormone 80.7 mIU/mL; Luteinizing Hormone 63.9 mIU/mL; T4 Free Direct 1.36 ng/dL (0.76-1.46); Thyroid Stim Hormone (TSH) 1.99 uIU/mL (0.358-3.74)
== END 2022-06-02 23:59 | disposition home or self-care (01) ==
LOC: WOBLAB 15:17
PROVIDERS: PCP Internal Medicine; Visit Provider Obstetrics & Gynecology
DX: N95.1 Menopausal and female climacteric states (principal)
CPT/HCPCS: 36415; 82670; 83001; 83002; 84439; 84443; 85025

== ENCOUNTER → 2023-07-06 | Outpatient (CLI) | payer MEDICARE, MEDICAID, SELFPAY ==
--- NOTE | 2023-07-06 13:57 | CT_ITS ---
STUDY: LOW DOSE CT LUNG CANCER SCREENING REASON FOR EXAM: Female, 67 years old. TOBACCO ABUSE. The patient smoked one half pack per day for 53 years. RADIATION DOSAGE (If Supplied By Facility): CTDIvol = ( 3.18 ) mGy, DLP = ( 98.87 ) mGycm TECHNIQUE: No contrast was administered. Low dose technique was utilized (average mAS-38 and kVp 120). 1.25 mm axial source images with a slice interval of 1.25-mm were reconstructed in lung windows. 2.5 mm axial source images with a slice interval of 2.5-mm were reconstructed in lung windows. 5.0 mm axial source images with a slice interval of 5.0-mm were reconstructed in soft tissue windows. COMPARISON: Comparison is made with prior study dated May 23, 2021. NODULES: Stable 5 mm partially calcified nodule in the anterior aspect of the right middle lobe as seen on axial image #124. Emphysema: Mild increased markings in the posterior aspect of the lingular segment of the left upper lobe suggestive of atelectasis and/or scarring. Endobronchial lesion: None Aorta: Atherosclerotic plaque formation. CORONARY ARTERIES: Coronary artery calcification is seen. Heart: Unremarkable Pulmonary artery: Unremarkable Mediastinal nodes: Small mediastinal lymph nodes. Other chest and abdominal findings: CT/Low Dose CT Lung Screening IMPRESSION: Lung-RADS category 2 - Continue annual screening with LDCT in 12 months. IMPORTANT NOTES FOR USE: ACR Lung-RADS Version 1.1 Assessment Categories Release Date: 2018 Category: Coded 0-4 bases on nodule(s) with highest degree of suspicion. Negative screen is defined as categories 1 and 2; a positive screen is defined as categories 3 and 4. Category 3 and 4A nodules that are unchanged on interval CT should be coded as category 2, and individuals returned to screening in 12 months. Category 4X: Category 3 or 4 nodules with additional imaging findings that increase the suspicion of lung cancer, such as spiculation, GGN that doubles in size in 1 year, enlarged lymph notes, etc. Category Modifiers: S (significant finding unrelated to lung cancer) Electronically Signed: Josh Flanagan MD at 15:24 EST ,
== END | disposition home or self-care (01) ==
LOC: CT 13:54
PROVIDERS: PCP Internal Medicine; Referring Provider Internal Medicine Pulmonary Disease; Visit Provider Internal Medicine Pulmonary Disease
DX: Z12.2 Encounter for screening for malignant neoplasm of respiratory organs (principal); Z87.891 Personal history of nicotine dependence
CPT/HCPCS: 71271

== ENCOUNTER → 2023-07-13 | Outpatient (CLI) | payer MEDICARE, MEDICAID, SELFPAY ==
--- NOTE | 2023-07-13 09:47 | VDLE_ITS ---
Reason For Study: RLE PAIN/SWELLING RIGHT LEFT GSV is normal. CFV is compressible, spontaneous, phasic, CFV is compressible, spontaneous, phasic, competent, and demonstrates normal competent and demonstrates normal augmentation. augmentation. FV is compressible, spontaneous, phasic, competent and demonstrates normal augmentation. POP V is compressible, spontaneous, phasic, competent and demonstrates normal augmentation. T/P Trunk is compressible. PTV is compressible. RT PerV is compressible. Procedure This is a venous duplex using B-mode, color flow and spectral Doppler. Exam performed in department. A preliminary report was called and/or faxed to Dr. Craven @ 10:20 am @ [phone]. VL/Venous Duplex US, Unilateral Interpretation Summary Deep veins of the right lower extremity are patent and compressible segmentally . There is no evidence of right lower extremity deep vein thrombosis. The right great sapheno us vein appears patent and compressible segmentally. Ordering Physician: Alison Craven Referring Physician: Alison Craven Performed By: Divya Goodrich, TAD, RVT
== END | disposition home or self-care (01) ==
LOC: CVS 09:46
PROVIDERS: PCP Internal Medicine; Referring Provider Internal Medicine; Visit Provider Internal Medicine
DX: M79.604 Pain in right leg (principal)
CPT/HCPCS: 93971

== ENCOUNTER 2023-10-30 13:46 | Emergency (ER) | payer MEDICARE, MEDICAID, SELFPAY ==
[2023-10-30 13:46] VITALS: BP 157/75; PULSE 82; RESP 14; TEMP 36.6; O2SAT 94; BMI 37.5
[2023-10-30 14:36] LABS: Red Blood Cells-Urine 0 SEEN /hpf (0-5); White Blood Cells 0 SEEN /hpf (0-5)
[2023-10-30 14:38] LABS: Absolute Lymphocyte Count 2.68 X10^3/uL (0.83-4.51); Absolute Neutrophil Count 7.5 X10^3/uL (2.0-7.7); Bacteria 0 SEEN /hpf (None Seen); Basophil# 0.11 X10^3/uL; Basophil% 0.9 % (0-1); Eosinophil# 0.16 X10^3/uL; Eosinophils% 1.3 % (0-5); Hematocrit 48.8 % (37-47); Hemoglobin 15.3 g/dL (12.0-15.0); Lymphocyte # 2.68 X10^3/ul (0.83-4.51); Lymphocyte % 21.8 % (19-41); Mean Corp Hgb Conc 31.4 g/dL (32-36); Mean Corpuscular Hgb 22.9 pg (27.0-32.0); Mean Corpuscular Volume 72.9 fL (81-99); Mean Platelet Vol. 9.2 fl (6.2-12.0); Monocyte# 1.77 X10^3/uL; Monocyte% 14.4 % (0-10); Mucous, Urine 0 SEEN /hpf (<or=2+); NRBC Flagged by Analyzer 0 % (0-5); Neutrophil # 7.54 X10^3/uL (2.7-7.7); Neutrophil % 61.3 % (47-70); POSITIVE DIFFERENTIAL YES; Platelet Count 373 K/mm3 (150-450); RBC Distribution Width SD 42.3 fl (35.1-43.9); Red Blood Count 6.69 M/mm3 (4.2-5.4); White Blood Count 12.3 K/mm3 (4.4-11.0)
[2023-10-30 14:39] LABS: Color, Urine Yellow (Yellow); Glucose, Dipstick Normal (Normal); Ketone-Dipstick Negative (Negative); Leukocyte Esterase-Dipstick Negative /ul (Negative); Nitrite-Dipstick Negative (Negative); Occult Blood-Urine Negative /ul (Negative); Protein-Dipstick Negative (Negative); Urine Bilirubin Dipstick Negative (Negative); Urine Clarity Sl. Cloudy (Clear); Urine Urobilinogen Normal (Normal); Urine pH 6.5 (5.0 - 8.0)
[2023-10-30 14:45] LABS: Squamous Epithelial Cells - UA 0-5 SEEN /hpf (5-10)
[2023-10-30 14:52] LABS: Anion Gap 5 (5-15); BUN 7 mg/dL (7-18); BUN/Creat Ratio 11.1 RATIO (10-20); Calcium,Total 9.9 mg/dL (8.5-10.1); Chloride 106 mmol/L (98-107); Creatinine, Serum 0.63 mg/dL (0.55-1.02); EST Glomerular Filtration Rate 99 mL/min (>60); Est Glom Filt Rate - Afr Amer 120 mL/min (>60); Estimated Creatinine Clearance 79.91 ml/min; Glucose 122 mg/dL (74-106); Potassium 3.4 mmol/L (3.5-5.1); Sodium Level 141 mmol/L (136-145)
[2023-10-30 15:05] LABS: Differential Indicated SCAN CRITERIA MET
[2023-10-30 15:16] LABS: Differential Comment SCANNED
[2023-10-30] MEDS: 0.9% Normal Saline (1000mL) 1,000 ML 150 ML IV (15:22)
[2023-10-30] MEDS: Potassium Chloride Oral Tablet 20 MEQ 40 MEQ PO (15:22)
[2023-10-30] MEDS: fentaNYL 100 MCG/2 ML Ampul 25 MCG IV (15:23)
--- NOTE | 2023-10-30 16:19 | CT_ITS ---
INDICATION: colitis EXAMINATION: CT Abdomen And Pelvis W/ Contrast Injection TECHNIQUE: Helically acquired images were obtained of the abdomen and pelvis after IV contrast. A radiation dose optimization technique was used for this scan. IV Contrast dosage and agent: IV 100mL Isovue-300 Oral contrast: None. COMPARISON: None. FINDINGS: Visualized lung bases: Unremarkable Liver: Unremarkable Gallbladder: Surgically absent. Spleen: Unremarkable Pancreas: Unremarkable Adrenal Glands: Unremarkable Kidneys: Unremarkable Vasculature: Severe aortoiliac atherosclerotic disease. GI Tract: There is circumferential long segment wall thickening of nearly the entire colon with minimal surrounding mesenteric fat stranding. Lymphadenopathy: None Peritoneum: Low-density masslike lesion in the presacral space measuring 4.6 x 4.3 x 4.1 cm. Bladder: Unremarkable Reproductive organs: Status post hysterectomy. Bones/Soft tissues: Mild scattered degenerative changes of the visualized spine. CT/Abdomen/Pelvis W IV Cont ONLY IMPRESSION: Findings suspicious for infectious versus inflammatory colitis. No focal fluid collection or free air. 4.6 cm masslike lesion in the presacral space is indeterminate. Recommend pelvic MRI with and without contrast. Electronically Signed: Rk Armenta MD at 17:18 EDT ,
--- NOTE | 2023-10-30 16:39 | EX.ED.DYSGE1 ---
HPI History of Present Illness Chief Complaint: Diarrhea Informant: patient Onset/Context/Timing Onset: Weeks Narrative Narrative: Patient presents with 3-week history of diarrhea. She states she is having multiple episodes of diarrhea daily. She does not know if there is blood in the stool as she does take iron supplements chronically. She does have a history of IBS but does not follow with a GI doctor regularly. She does not believe this is consistent with her prior IBS flares. She has not been on recent antibiotics. She has been taking Lomotil [id number] without improvement. She called her PCP a week ago and he put her on famotidine twice a day. [facility] Medical History Obesity Prediabetes Postoperative primary hypothyroidism Vitamin deficiency Vision problem Thyroid disease Rheumatoid arthritis GERD (gastroesophageal reflux disease) Osteoporosis Osteoarthritis IBS (irritable bowel syndrome) Hearing problem Frequent headaches Calcium deficiency High cholesterol High triglycerides Blood transfusion during current hospitalization Goiter COPD (chronic obstructive pulmonary disease) Diabetes Chronic bronchitis Breast lump Bleeding disorder UTI (urinary tract infection) Bone fracture Back problem Arthritis Anemia Home Medications ?Medication ?Instructions ?Recorded ?Last Taken ?Type cyanocobalamin (vitamin B-12) 1,000 mcg PO DAILY SUPPLEMENT 12/11/17 03/01/18 09:00 History 1,000 mcg tablet 1000 MCG dicyclomine 20 mg tablet 20 mg PO DAILY 12/11/17 03/01/18 09:00 History 20 MG divalproex 250 mg tablet,extended 250 mg PO BID MIGRAINES 12/11/17 03/01/18 09:00 History release 24 hr 250 MG furosemide 20 mg tablet 20 mg PO MOWEFR 12/11/17 Unknown History isosorbide dinitrate 30 mg tablet 30 mg PO DAILY HEART 12/11/17 03/01/18 09:00 History 30 MG metoprolol succinate 25 mg 12.5 mg PO BID BP 12/11/17 01/24/19 09:00 History tablet,extended release 24 hr nitroglycerin 0.4 mg sublingual 0.4 mg sublingual Q5M PRN Chest 12/11/17 Unknown History tablet Pain omeprazole 40 mg capsule,delayed 40 mg PO DAILY GERD 12/11/17 01/24/19 09:00 History release alirocumab 75 mg/mL subcutaneous 75 mg subcut .qow 10/29/20 Unknown History pen injector clonazepam 0.5 mg tablet 0.5 mg PO BID PRN 10/29/20 Unknown History gabapentin 300 mg capsule 300 mg PO TID 10/29/20 Unknown History levothyroxine 137 mcg tablet 137 mcg PO DAILY 10/29/20 Unknown History magnesium 250 mg tablet 250 mg PO DAILY 10/29/20 Unknown History ondansetron 4 mg disintegrating 4 mg PO Q8H 10/29/20 Unknown History tablet potassium chloride 20 mEq 20 meq PO DAILY 10/29/20 Unknown History tablet,extended release(part/cryst) (Klor-Con M) pyridoxine (vitamin B6) 50 mg 100 mg PO DAILY SUPPLEMENT 10/29/20 Unknown History tablet quetiapine 100 mg tablet 100 mg PO QHS 10/29/20 Unknown History similia 2 puff inhalation BID 10/29/20 Unknown History sumatriptan succinate 25 mg tablet tablet PO 10/29/20 Unknown History tizanidine 4 mg tablet 4 mg PO ONCE 10/29/20 Unknown History ciprofloxacin HCl 500 mg tablet 500 mg PO BID #20 tabs 10/30/23 Unknown Rx (Cipro) metronidazole 500 mg tablet 500 mg PO BID 10 days #20 tabs 10/30/23 Unknown Rx Allergy/AdvReac Type Severity Reaction Status Date / Time Sulfa (Sulfonamide Allergy Intermediate unknown Verified 10/30/23 13:47 Antibiotics) adhesive Allergy Rash Verified 10/30/23 13:47 latex Allergy Rash Verified 10/30/23 13:47 codeine AdvReac Other Verified 10/30/23 13:47 tramadol AdvReac Itching Verified 10/30/23 13:47 Family History Other Anemia Angina at rest Anxiety Arthritis Bleeding disorder Blood clot in vein Blood transfusion during current hospitalisation Bowel disease Colon cancer Depression Diabetes High cholesterol Hypertension Osteoporosis Respiratory disease Severe allergic reaction Thyroid disorder Surgical History H/O endoscopy h/o 5 goiters removed H/O: h/o hysterectomy h/o appendectomy h/o bilateral carpal tunnel surgery h/o right ankle surgery h/o bilateral shoulder surgery h/o right knee replacement Social History Smoking Status: Current every day smoker tobacco type: cigarettes alcohol intake: current alcohol intake frequency: 0-2 drinks per day substance use type: does not use what type of physical activity do you participate in: none ROS ROS ED Constitutional Constitutional ED: Denies chills or fever(s) Eyes Eyes: Denies change in vision ENT ENT ED: Denies rhinorrhea or sore throat Cardiovascular Cardiovascular: Denies chest pain or palpitations Respiratory/Chest Respiratory/Chest: Denies cough or dyspnea Gastrointestinal Gastrointestinal: Reports abdominal pain and diarrhea; Denies nausea or vomiting Genitourinary Genitourinary ED: Denies difficulty urinating or dysuria Musculoskeletal Musculoskeletal: Denies back pain or extremity pain Integumentary Denies Abrasions or rash Neurologic Neurologic: Denies headache(s) or weakness Allergic/Immunologic Allergic/Immunologic ED: Denies lip swelling or urticaria EXAM Physical Exam Const Vital Signs: 10/30/23 13:46 10/30/23 16:50 Temperature 98 F 98.0 F Temperature Source Temporal Oral Pulse Rate 82 77 Respiratory Rate 14 16 Blood Pressure 157/75 H 122/50 H Blood Pressure Mean 102 74 Pulse Ox 94 95 Oxygen Delivery Method Room Air Room Air Positive well nourished and well developed General Appearance ED: well developed HEENT Reports moist mucous membranes Eyes EOMs intact bilaterally Chest Wall inspection of chest normal and palpation of chest normal Resp normal respiratory effort and clear to auscultation bilaterally Cardio regular rate and regular rhythm GI GI Narrative: Abdomen soft with mild diffuse tenderness. No guarding or rebound. Active bowel sounds are noted. Extremity normal to inspection Neuro oriented x3 and no sensory deficits noted Motor Exam: strength 5/5 throughout Psych mental status grossly normal Skin no rashes or lesions noted MDM MDM MDM Narrative Medical decision making narrative: IV line established. Patient given IV fluids along with a dose of fentanyl for pain. Labwork obtained to evaluate for leukocytosis, anemia, and electrolyte derangement. Stool studies are ordered. CT scan with IV contrast obtained to evaluate for bowel wall thickening given her history of IBS. History & Record Review Discussion w/independent historian: Patient Lab Data Attestation: I reviewed the patient's lab results. Labs: Laboratory Results - last 24 hr 10/30/23 14:25 WBC 12.3 H RBC 6.69 H Hgb 15.3 H Hct 48.8 H MCV 72.9 L MCH 22.9 L MCHC 31.4 L RDW Std Deviation 42.3 RDW Coeff of Gus 18.0 H Plt Count 373 MPV 9.2 Immature Gran % (Auto) 0.300 Neut % (Auto) 61.3 Lymph % (Auto) 21.8 [place] % (Auto) 14.4 H Eos % (Auto) 1.3 Baso % (Auto) 0.9 Absolute Neuts (auto) 7.5 Absolute Lymphs (auto) 2.68 Nucleated RBC % 0 Differential Comment SCANNED Diff Path Review October foll Sodium 141 Potassium 3.4 L Chloride 106 Carbon Dioxide 30.0 Anion Gap 5 BUN 7 Creatinine 0.63 Estim Creat Clear Calc 79.91 Est GFR (MDRD) Af Amer 120 Est GFR (MDRD) Non-Af 99 BUN/Creatinine Ratio 11.1 Glucose 122 H Calcium 9.9 Urine Color Yellow Urine Clarity Sl. Cloudy Urine pH 6.5 Ur Specific [place] 1.010 Urine Protein Negative Urine Glucose (UA) Normal Urine Ketones Negative Urine Occult Blood Negative Urine Nitrite Negative Urine Bilirubin Negative Urine Urobilinogen Normal Ur Leukocyte Esterase Negative Urine RBC 0 SEEN Urine WBC 0 SEEN Ur Squamous Epith Cells 0-5 SEEN Urine Bacteria 0 SEEN Urine Mucus 0 SEEN Radiography Diagnostic Testing: Clinical Impression(s) from Imaging Studies Abdomen/Pelvis CT 10/30/23 16:19 IMPRESSION: Findings suspicious for infectious versus inflammatory colitis. No focal fluid collection or free air. 4.6 cm masslike lesion in the presacral space is indeterminate. Recommend pelvic MRI with and without contrast. Electronically Signed: Rk Armenta MD at 17:18 EDT , Treatment and Re-Evaluation :: White count slightly increased to 12.3 with normal differential. Hemoglobin concentrated at 15.3. Chemistry studies reveal slightly low potassium at 3.4. This is replaced orally. Urinalysis is unremarkable. CT scan with IV contrast is obtained. This reveals findings suspicious for infectious versus inflammatory colitis. No focal fluid collection or free air. There is a 4.6 masslike lesion in the presacral space that is indeterminate. Pelvic MRI is recommended. Test results were discussed with the patient. She does report previous knowledge of this masslike lesion in her presacral space. She states that she had it evaluated and it was determined that it was too high risk to try to biopsy the lesion. At this time we will give the patient Cipro and Flagyl for her colitis. She will follow with her primary care physician as well as Dr. Levine who she is seen in the past. Discharge Plan Triage Chief Complaint: Diarrhea ED Provider: Yue Arreguin Dx/Rx/DC Orders Clinical Impression: Colitis Instructions: ED Understanding Colitis Prescriptions: New ciprofloxacin HCl [Cipro] 500 mg tablet 500 mg PO BID Qty: 20 0RF metronidazole 500 mg tablet 500 mg PO BID 10 Days Qty: 20 0RF No Action tizanidine 4 mg tablet 4 mg PO ONCE quetiapine 100 mg tablet 100 mg PO QHS Patient Comments: TAKE 1 TABLET BY MOUTH EVERY DAY AT BEDTIME NEEDED FOR SLEEP levothyroxine 137 mcg tablet 137 mcg PO DAILY Patient Comments: TAKE 1 TABLET BY MOUTH ONCE DAILY gabapentin 300 mg capsule 300 mg PO TID sumatriptan succinate 25 mg tablet PO ondansetron 4 mg tablet,disintegrating 4 mg PO Q8H magnesium 250 mg tablet 250 mg PO DAILY clonazepam 0.5 mg tablet 0.5 mg PO BID PRN potassium chloride [Klor-Con M20] 20 mEq tablet,ER particles/crystals 20 meq PO DAILY similia 2 puff inhalation BID cyanocobalamin (vitamin B-12) 1,000 MCG tablet 1,000 mcg PO DAILY omeprazole 40 MG capsule,delayed release(DR/EC) 40 mg PO DAILY isosorbide dinitrate 30 MG tablet 30 mg PO DAILY dicyclomine 20 MG tablet 20 mg PO DAILY nitroglycerin 0.4 MG tablet 0.4 mg sublingual Q5M PRN (Reason: Chest Pain) furosemide 20 MG tablet 20 mg PO MOWEFR metoprolol succinate 25 MG tablet extended release 24 hr 12.5 mg PO BID divalproex 250 MG tablet 250 mg PO BID pyridoxine (vitamin B6) 50 mg tablet 100 mg PO DAILY alirocumab 75 mg/mL pen injector 75 mg subcut .qow Rx Instructions: EVERY OTHER WEEK Primary Care Provider: Alison Craven Referrals: Alison Craven MD [Primary Care Provider] - 1 Week Crescencio Levine MD [Non-Staff] - 10-14 Days if not better Print Language: Sudanese Disposition Disposition: Home, Self Care
[2023-10-30 16:50] VITALS: BP 122/50; PULSE 77; RESP 16; TEMP 36.7; O2SAT 95
[2023-10-30] MEDS: Ciprofloxacin 500 MG Tablet PO (17:47)
[2023-10-30] MEDS: metroNIDAZOLE 500 MG Tablet PO (17:47)
[2023-10-30] MEDS: HYDROcodone Bitartrate/Apap 5/325 Tablet PO (17:48)
[2023-10-31 14:06] LABS: Pathologist Review Reviewed
== END 2023-10-30 17:59 | disposition home or self-care (01) ==
PROVIDERS: Emergency Provider Emergency Medicine; PCP Internal Medicine; Visit Provider Emergency Medicine
DX: K52.9 Noninfective gastroenteritis and colitis, unspecified (principal); J44.9 Chronic obstructive pulmonary disease, unspecified; F17.210 Nicotine dependence, cigarettes, uncomplicated
CPT/HCPCS: 74177; 80048; 81001; 85025; 96374; 99284; J7030; Q9967

== ENCOUNTER → 2023-11-09 | Outpatient (CLI) | payer MEDICARE, MEDICAID, SELFPAY ==
[2023-11-09 17:02] LABS: Potassium 3.9 mmol/L (3.5-5.1)
== END | disposition home or self-care (01) ==
LOC: LAB 15:45
PROVIDERS: PCP Internal Medicine; Referring Provider Internal Medicine; Visit Provider Internal Medicine
DX: E87.6 Hypokalemia (principal)
CPT/HCPCS: 36415; 84132

== ENCOUNTER → 2023-11-28 | Outpatient (CLI) | payer MEDICARE, MEDICAID, SELFPAY ==
[2023-11-28 17:44] LABS: Hematocrit 42.9 % (37-47); Hemoglobin 13.5 g/dL (12.0-15.0); Mean Corp Hgb Conc 31.5 g/dL (32-36); Mean Platelet Vol. 9.3 fl (6.2-12.0); Platelet Count 241 K/mm3 (150-450); RBC Distribution Width CV 19.8 % (11.6-14.6); RBC Distribution Width SD 48.4 fl (35.1-43.9); Red Blood Count 5.88 M/mm3 (4.2-5.4); White Blood Count 9.9 K/mm3 (4.4-11.0)
[2023-11-28 18:05] LABS: Erythrocyte Sedimentation Rate 35 mm/hr (0-30)
[2023-11-30 15:09] LABS: Endomysial Antibody IgA Negative (Negative); Immunoglobulin A 181 mg/dL (87-352); t-Transglutaminase IgA <2 U/mL (0-3)
== END | disposition home or self-care (01) ==
PROVIDERS: PCP Internal Medicine; Referring Provider Internal Medicine Gastroenterology; Visit Provider Internal Medicine Gastroenterology
DX: R19.7 Diarrhea, unspecified (principal)
CPT/HCPCS: 36415; 82784; 83516; 85027; 85652; 86140; 86255

== ENCOUNTER → 2024-01-16 | Outpatient (CLI) | payer MEDICARE, MEDICAID, SELFPAY ==
--- NOTE | 2024-01-16 11:15 | MRI_ITS ---
EXAM: MR PELVIS WITHOUT AND WITH INTRAVENOUS CONTRAST CLINICAL INDICATION: SOFT TTISSUE MASS TECHNIQUE: Multiplanar and multisequence MR images of the pelvis without and with intravenous contrast. CONTRAST: IV 20ml clariscan COMPARISON: CT abdomen and pelvis October 30, 2023 FINDINGS: BOWEL: Circumferential thickening of the wall of the rectum. No adjacent fluid. APPENDIX: No evidence of acute appendicitis. INTRAPERITONEAL SPACE: Unremarkable. No ascites or other fluid collection. BLADDER: Unremarkable. OVARIES: Unremarkable as visualized. No mass or complex cyst. UTERUS/CERVIX: Unremarkable. No mass. Endometrial stripe is normal in thickness and appearance. SUBPERITONEAL SPACE: 5.5 x 3.9 cm solid enhancing mass in the presacral region, is unchanged in size compared to prior study. Along the posterior superior aspect of this mass there is at least one if not 2 other similar appearing masses which are likely related. BONES/JOINTS: Unremarkable. No suspicious lytic or blastic abnormality. SOFT TISSUES: Enhancement/signal alteration along the left greater trochanter. No pelvic wall hernia. LYMPH NODES: Unremarkable. No enlarged lymph nodes. MRI/Pelvis W/WO Contrast IMPRESSION: 1. 5.5 x 3.9 cm solid enhancing mass in the presacral region, is unchanged in size compared to prior study. Along the posterior superior aspect of this mass there is at least one if not 2 other similar appearing masses which are likely related. There is nonspecific and differential includes benign and malignant neoplasms including the possibility of sarcoma. Consider PET/CT for further evaluation as well as the possibility of CT-guided tissue diagnosis. 2. Circumferential thickening of the wall of the rectum. This may be inflammatory or related to nondistention of the rectum and is less likely neoplastic. Follow-up suggested however. 3. Mild left trochanteric bursitis suggested. Electronically Signed: Itz Lehman MD at 22:55 EDT ,
[2024-01-16 11:47] LABS: CREATININE FINGERSTICK < 1.0 mg/dL (0.55-1.02)
== END | disposition home or self-care (01) ==
PROVIDERS: PCP Internal Medicine; Referring Provider Internal Medicine; Visit Provider Internal Medicine
DX: R19.00 Intra-abdominal and pelvic swelling, mass and lump, unspecified site (principal)
CPT/HCPCS: 72197; A9575

== ENCOUNTER → 2024-04-04 | Outpatient (CLI) | payer MEDICARE, MEDICAID, SELFPAY ==
--- NOTE | 2024-04-04 15:08 | MRI_ITS ---
EXAM: MR LUMBAR SPINE WITHOUT INTRAVENOUS CONTRAST CLINICAL INDICATION: RADICULOPATHY TECHNIQUE: Multiplanar and multisequence MR images of the lumbar spine without intravenous contrast. COMPARISON: CT abdomen and pelvis, 10/30/2023 FINDINGS: VERTEBRAE: There is a T12 vertebral body hemangioma. No suspicious marrow space signal abnormalities are identified. No fracture. Normal lumbar lordosis. No spondylolysis or spondylolisthesis. SPINAL CORD: No significant abnormality. Normal position and signal intensity of the conus medullaris. Nerve roots of the cauda equina appear normal. SOFT TISSUES: No significant abnormality. VASCULATURE: Atherosclerosis of the aorta. DISCS/SPINAL CANAL/NEURAL FORAMINA: L1-L2: Mild bilateral facet arthrosis. No disc herniation, spinal canal stenosis, or neural foraminal narrowing. L2-L3: Mild bilateral facet arthrosis. No disc herniation, spinal canal stenosis, or neural foraminal narrowing. L3-L4: Mild bilateral facet arthrosis. No disc herniation, spinal canal stenosis, or neural foraminal narrowing. L4-L5: Mild bilateral facet arthrosis. No disc herniation, spinal canal stenosis, or neural foraminal narrowing. L5-S1: No significant abnormality. No disc herniation, spinal canal stenosis, or neural foraminal narrowing. MRI/Spine Lumbar (Routine) IMPRESSION: Mild degenerative changes. No disc herniation, spinal canal stenosis, or neural foraminal narrowing. No nerve root impingement. Electronically Signed: Bryan Olson DO at 12:33 EST ,
== END | disposition home or self-care (01) ==
LOC: MRI 14:53
PROVIDERS: PCP Internal Medicine
DX: M54.17 Radiculopathy, lumbosacral region (principal)
CPT/HCPCS: 72148

== ENCOUNTER 2024-04-13 16:55 | Emergency (ER) | payer MEDICARE, MEDICAID, SELFPAY ==
[2024-04-13 16:57] VITALS: BP 128/66; PULSE 77; RESP 18; TEMP 36.7; O2SAT 94
[2024-04-13 17:20] VITALS: BP 134/60; PULSE 75; RESP 19; TEMP 36.6; O2SAT 98
[2024-04-13 17:21] LABS: Absolute Lymphocyte Count 2.37 X10^3/uL (0.83-4.51); Absolute Neutrophil Count 8.3 X10^3/uL (2.0-7.7); Basophil# 0.11 X10^3/uL; Basophil% 0.9 % (0-1); Eosinophil# 0.12 X10^3/uL; Hemoglobin 12.6 g/dL (12.0-15.0); Lymphocyte # 2.37 X10^3/ul (0.83-4.51); Lymphocyte % 19.4 % (19-41); Mean Corp Hgb Conc 30.7 g/dL (32-36); Mean Corpuscular Hgb 21.2 pg (27.0-32.0); Mean Corpuscular Volume 68.9 fL (81-99); Mean Platelet Vol. 8.7 fl (6.2-12.0); Monocyte# 1.24 X10^3/uL; Monocyte% 10.1 % (0-10); NRBC Flagged by Analyzer 0 % (0-5); Neutrophil # 8.32 X10^3/uL (2.7-7.7); Neutrophil % 68.1 % (47-70); Platelet Count 418 K/mm3 (150-450); RBC Distribution Width CV 19.8 % (11.6-14.6); Red Blood Count 5.95 M/mm3 (4.2-5.4); White Blood Count 12.2 K/mm3 (4.4-11.0)
[2024-04-13] MEDS: Ondansetron 4 MG/2 ML Vial IV (17:21)
[2024-04-13] MEDS: Morphine 4 MG/ML Syringe IV ×2 (17:21→18:55)
[2024-04-13] MEDS: Dicyclomine 10 MG Capsule 20 MG PO (17:42)
[2024-04-13 17:45] LABS: Mucous, Urine 0 SEEN /hpf (<or=2+); Red Blood Cells-Urine 0 SEEN /hpf (0-5)
[2024-04-13 17:50] LABS: Color, Urine Yellow (Yellow); Glucose, Dipstick Normal (Normal); Ketone-Dipstick Negative (Negative); Leukocyte Esterase-Dipstick 100 /ul (Negative); Nitrite-Dipstick Negative (Negative); Occult Blood-Urine Negative /ul (Negative); Protein-Dipstick Negative (Negative); Urine Bilirubin Dipstick Negative (Negative); Urine Clarity Clear (Clear); Urine Urobilinogen Normal (Normal); Urine pH 6.5 (5.0 - 8.0)
[2024-04-13 18:01] VITALS: BP 122/75; PULSE 75; RESP 14; TEMP 36.4; O2SAT 95
[2024-04-13 18:03] LABS: Bacteria 3+ /hpf (None Seen); Squamous Epithelial Cells - UA 0-5 SEEN /hpf (5-10)
[2024-04-13 18:04] LABS: ALB/GLOB Ratio 0.8 RATIO (0.9-2.4); AST(SGOT) 21 U/L (15-37); Alanine Aminotransfer ALT/SGPT 19 U/L (13-56); Alkaline Phosphatase 52 U/L (45-117); Anion Gap 5 (5-15); BUN 7 mg/dL (7-18); BUN/Creat Ratio 10.3 RATIO (10-20); Calcium,Total 8.9 mg/dL (8.5-10.1); Chloride 102 mmol/L (98-107); Creatinine, Serum 0.68 mg/dL (0.55-1.02); EST Glomerular Filtration Rate 91 mL/min (>60); Est Glom Filt Rate - Afr Amer 110 mL/min (>60); Globulin 3.7 g/dL (2.2-4.2); Glucose 118 mg/dL (74-106); Lipase 18 U/L (13-75); Potassium 3.6 mmol/L (3.5-5.1); Protein, Total 6.7 g/dL (6.4-8.2); Sodium Level 138 mmol/L (136-145); Troponin-I HS 4 pg/mL (3.0-54.0)
[2024-04-13 18:04] LABS: White Blood Cells 5-10 SEEN /hpf (0-5)
[2024-04-13] MEDS: Metoclopramide 10 MG/2 ML Vial 5 MG IV (18:54)
[2024-04-13 19:00] VITALS: BP 112/54; PULSE 73; RESP 18; TEMP 36.8; O2SAT 96
[2024-04-13 20:00] VITALS: BP 144/89; PULSE 78
[2024-04-13] MEDS: Cephalexin 250 MG Capsule 500 MG PO (20:14)
[2024-04-13 20:29] VITALS: BP 144/89; PULSE 78; RESP 20; TEMP 36.9; O2SAT 97
== END 2024-04-13 20:38 | disposition home or self-care (01) ==
PROVIDERS: Emergency Provider Emergency Medicine; PCP Internal Medicine; Referring Provider Emergency Medicine; Visit Provider Emergency Medicine
DX: N39.0 Urinary tract infection, site not specified (principal); M45.9 Ankylosing spondylitis of unspecified sites in spine; M06.9 Rheumatoid arthritis, unspecified; J44.9 Chronic obstructive pulmonary disease, unspecified; E11.9 Type 2 diabetes mellitus without complications; R10.9 Unspecified abdominal pain; R11.2 Nausea with vomiting, unspecified; R19.09 Other intra-abdominal and pelvic swelling, mass and lump; F17.210 Nicotine dependence, cigarettes, uncomplicated; K58.9 Irritable bowel syndrome, unspecified; K40.90 Unilateral inguinal hernia, without obstruction or gangrene, not specified as recurrent; Q27.33 Arteriovenous malformation of digestive system vessel; E66.9 Obesity, unspecified; K21.9 Gastro-esophageal reflux disease without esophagitis; E78.2 Mixed hyperlipidemia; E89.0 Postprocedural hypothyroidism; M81.0 Age-related osteoporosis without current pathological fracture; Z88.2 Allergy status to sulfonamides; Z90.49 Acquired absence of other specified parts of digestive tract; Z87.440 Personal history of urinary (tract) infections; Z79.899 Other long term (current) drug therapy; Z79.890 Hormone replacement therapy; Z96.651 Presence of right artificial knee joint
CPT/HCPCS: 74177; 80053; 81001; 83690; 84484; 85025; 87077; 87086; 87088; 87186; 93005; 96374; 96375; 96376; 99284; Q9967; A4216; J2405

== ENCOUNTER 2025-01-25 14:17 | Emergency (ER) | payer MEDICARE, MEDICAID, SELFPAY ==
[2025-01-25 14:20] VITALS: BP 123/68; PULSE 71; RESP 18; TEMP 36.6; O2SAT 98
--- NOTE | 2025-01-25 14:35 | CT_ITS ---
PROCEDURE: ABDOMEN/PELVIS W IV CONT ONLY 01/25/2025 REASON FOR EXAM: ABD PAIN, N/V/D TECHNIQUE: ABDOMEN/PELVIS W IV CONT ONLY Coronal and Sagittal reconstruction series were provided. CONTRAST: Isovue 370 VOLUME: 93 mL One or more dose reduction techniques were used (e.g., Automated exposure control, adjustment of the mA and/or kV according to patient size, use of iterative reconstruction technique. RADIATION DOSE SUMMARY: CTDlvol: 19.95 and 23.14 mGy DLP: 1108.25 mGycm COMPARISON: April 13, 2024 CT FINDINGS: Lung bases: Clear. No pleural effusions. Liver: Unremarkable Gallbladder: Cholecystectomy clips in the gallbladder fossa. Spleen: Normal size and appearance. Pancreas: Normal appearance. No inflammatory fat stranding. Adrenals: Normal Kidneys: Simple 2 cm left kidney cortical cysts, Bosniak 1, requiring no follow- up. Kidneys are otherwise normal size, location and contour Bladder: Unremarkable Reproductive Organs: Status post hysterectomy Bowel: Normal caliber and appearance. Appendix: No evidence of appendicitis. Appendix not identified. Lymph nodes: No adenopathy. Vasculature: No significant abnormality. Peritoneum / Retroperitoneum: A 4.6 cm low-density presacral mass identified. Bones: No aggressive osseous lesion. CT/Abdomen/Pelvis W IV Cont ONLY IMPRESSION: Pre sacral low-density mass, differential diagnostic considerations would inclu de abscess, inflammatory change, infectious etiology and less likely neoplasm. No convincing evidence of enteritis or colitis Reading [facility]
--- NOTE | 2025-01-25 14:39 | EDS_ITS ---
HPI History of Present Illness Chief Complaint: Nausea/Vomiting/Diarrhea Narrative Narrative: Patient is a 69-year-old female with past medical history of prediabetes, hypothyroidism, rheumatoid arthritis, GERD, IBS, AV malformation of intestine, COPD, anemia who presents to the emergency department the chief complaint of abdominal pain nausea vomiting. Patient states that she has had her gallbladder removed as well as her appendix. She states that she for the last several weeks has not been really able to eat anything and has noted a weight loss associated with this. She states that she does not have a family doctor at this point in time therefore she has not followed up with anybody about this. Patient denies any blood in her stool. She states that she is on iron supplementation. [facility] Medical History Osteoarthritis of right knee Right knee pain Calcific tendinitis of left shoulder Left shoulder pain Obesity Prediabetes Postoperative primary hypothyroidism Vitamin deficiency Vision problem Thyroid disease Rheumatoid arthritis GERD (gastroesophageal reflux disease) Osteoporosis Osteoarthritis IBS (irritable bowel syndrome) Hearing problem Frequent headaches Calcium deficiency High cholesterol High triglycerides Blood transfusion during current hospitalization Goiter COPD (chronic obstructive pulmonary disease) Diabetes Chronic bronchitis Breast lump Bleeding disorder UTI (urinary tract infection) Bone fracture Back problem Arthritis Anemia Home Medications ?Medication ?Instructions ?Recorded ?Last Taken ?Type cyanocobalamin (vitamin B-12) 1,000 mcg PO DAILY SUPPL EMENT 12/11/17 03/01/18 09:00 History 1,000 mcg tablet 1000 MCG dicyclomine 20 mg tablet 20 mg PO DAILY 12/11/17 09/2 01/19 09:00 History 20 MG divalproex 250 mg tablet,extended 250 mg PO BID MIGRAI ROBERT 12/11/17 03/01/18 09:00 History release 24 hr 250 MG furosemide 20 mg tablet 20 mg PO MOWEFR 12/11/17 Unk nown History isosorbide dinitrate 30 mg tablet 30 mg PO DAILY HEART 12/11/17 03/01/18 09:00 History 30 MG metoprolol succinate 25 mg 12.5 mg PO BID BP 12/11/17 01/24/19 09:00 History tablet,extended release 24 hr nitroglycerin 0.4 mg sublingual 0.4 mg sublingual Q5M PRN Chest 12/11/17 Unknown History tablet Pain omeprazole 40 mg capsule,delayed 40 mg PO DAILY GERD 0 12/11/17 01/24/19 09:00 History release alirocumab 75 mg/mL subcutaneous 75 mg subcut .qow Unknown History pen injector clonazepam 0.5 mg tablet 0.5 mg PO BID PRN 10/29/20 U nknown History gabapentin 300 mg capsule 300 mg PO TID 10/29/20 Unkno wn History levothyroxine 137 mcg tablet 137 mcg PO DAILY 10/29/20 Unknown History magnesium 250 mg tablet 250 mg PO DAILY 10/29/20 Unk nown History ondansetron 4 mg disintegrating 4 mg PO Q8H 10/29/20 U nknown History tablet potassium chloride 20 mEq 20 meq PO DAILY 10/29/20 Unk nown History tablet,extended release(part/cryst) (Klor-Con M) pyridoxine (vitamin B6) 50 mg 100 mg PO DAILY SUPPLEME NT 10/29/20 Unknown History tablet quetiapine 100 mg tablet 100 mg PO QHS 10/29/20 Unkno wn History similia 2 puff inhalation BID Unknown History sumatriptan succinate 25 mg tablet tablet PO 10/29/20 Unknown History tizanidine 4 mg tablet 4 mg PO ONCE 10/29/20 Unknow n History ciprofloxacin HCl 500 mg tablet 500 mg PO BID #20 tabs 10/30/23 Unknown Rx (Cipro) metronidazole 500 mg tablet 500 mg PO BID 10 days #20 tabs 10/30/23 Unknown Rx cephalexin 500 mg capsule 500 mg PO Q12H 7 days #14 ca ps 04/13/24 Unknown Rx ondansetron 4 mg disintegrating 4 mg PO Q6H PRN nausea and 04/13/24 Unknown Rx tablet vomiting #20 tabs cephalexin 500 mg capsule 500 mg PO BID 5 days #10 cap s 01/25/25 Unknown Rx ondansetron 4 mg disintegrating 4 mg PO Q6H PRN nausea and 01/25/25 Unknown Rx tablet vomiting #20 tabs Allergy/AdvReac Type Severity Reaction Status Date / Time Sulfa (Sulfonamide Allergy Intermediate unknown Verified 01/25/25 14:23 Antibiotics) adhesive Allergy Rash Verified 01/25/25 14:23 latex Allergy Rash Verified 01/25/25 14:23 morphine Allergy Itching Verified 01/25/25 14:23 zolpidem (From Ambien) Allergy Other Verified 01/25/25 14:23 codeine AdvReac Other Verified 01/25/25 14:23 tramadol AdvReac Itching Verified 01/25/25 14:23 Family History Other Anemia Angina at rest Anxiety Arthritis Bleeding disorder Blood clot in vein Blood transfusion during current hospitalisation Bowel disease Colon cancer Depression Diabetes High cholesterol Hypertension Osteoporosis Respiratory disease Severe allergic reaction Thyroid disorder Surgical History H/O endoscopy h/o 5 goiters removed H/O: h/o hysterectomy h/o appendectomy h/o bilateral carpal tunnel surgery h/o right ankle surgery h/o bilateral shoulder surgery h/o right knee replacement Social History Smoking Status: Current every day smoker tobacco type: cigarettes alcohol intake: current alcohol intake frequency: 0-2 drinks per day substance use type: does not use what type of physical activity do you participate in: none ROS ROS ED ROS Narrative Constitutional: Complains of weight loss as noted above denies any fevers or chills Eyes: Denies double vision Cardiovascular: Denies chest pain Respiratory: Denies shortness of breath Abdomen: Complains of abdominal pain nausea vomiting diarrhea as noted above : States that she may have a urinary tract infection Neurological: Denies any numbness, weakness, tingling Musculoskeletal: Denies back pain Skin: Denies any rashes or lesions EXAM Physical Exam Narrative Exam Narrative: General: Patient was lying in bed rest comfortably did not appear to be acute distress Head: Atraumatic, normocephalic Eyes: PERRL bilaterally, EOMI Black no conjunctival injection noted Neck: Soft, supple, trachea midline Cardiovascular: Regular rate and rhythm Respiratory: Clear to auscultation bilaterally Abdomen: Tenderness to palpation in the right upper quadrant, epigastric region no rebound or guarding on exam Extremities: +5/5 strength noted in the bilateral lower extremities, radial pulses +2/4 in the bladder extremities, no pedal edema on exam Neurological: Patient following commands knew that she was at [facility] the year is 2024 Skin: Warm, dry, intact no rashes or lesions noted Const Vital Signs: 01/25/25 14:20 01/25/25 17:44 Temperature 97.9 F 97.8 F Temperature Source Oral Oral Pulse Rate 71 78 Respiratory Rate 18 14 Blood Pressure 123/68 H 145/77 H Blood Pressure Mean 86 99 Pulse Ox 98 97 Oxygen Delivery Method Room Air Room Air MDM MDM MDM Narrative Medical decision making narrative: Patient is a 69-year-old female who presented to the emergency department the chief complaint of abdominal pain nausea vomiting not tolerating oral intake. On the differential diagnosis includes but, to viral gastroenteritis, bowel obstruction, intra-abdominal mass. Once the workup is obtained reviewed she will be reevaluated. Patient will be given IV fluids and Zofran. Patient's CBC reviewed which showed no evidence leukocytosis white blood count was noted to be 10.1, hemoglobin stable 13.5, plate count of 315. Patient sodium normal 138, potassium normal 4.1, creatinine was 0.64. Patient's AST and ALT were 25 and 16 respectively. Patient lipase normal at 14. Patient uri nalysis showed positive nitrates 500 leukocyte esterase 10-25 white cells with 4+ bacteria. Patient was given a gram of Rocephin in the emergency department this was sent for culture. Patient's CT abdomen pelvis with IV contrast reviewed which showed a presacral low-density mass, differential diagnostic considerations include abscess, inflammatory change, infectious etiology and less likely neoplasm no convincing evidence of enteritis colitis. Patient is given hard copies results for her on record to follow-up with her doctors on. Called and discussed case with on-call general surgeon Dr. Wick who reviewed imaging and is recommending follow-up in the outpatient setting. Will give follow-up with him and will refer her to a new primary care physician as well. She was advised to take the antibiotics for her urinary tract infection as prescribed and return with worsening symptoms or any concerns. She also given prescription for Zofran. All question concerns answered she was discharged home in stable condition. Lab Data Labs: Laboratory Results - last 24 hr 01/25/25 01/25/25 14:50 16:10 WBC 10.1 RBC 6.09 H Hgb 13.5 Hct 43.2 MCV 70.9 L MCH 22.2 L MCHC 31.3 L RDW Std Deviation 48.3 H RDW Coeff of Gus 20.0 H Plt Count 315 MPV 9.3 Immature Gran % (Auto) 0.400 Neut % (Auto) 67.5 Lymph % (Auto) 19.8 [place] % (Auto) 10.6 H Eos % (Auto) 1.0 Baso % (Auto) 0.7 Absolute Neuts (auto) 6.8 Absolute Lymphs (auto) 2.00 Nucleated RBC % 0 Sodium 138 Potassium 4.1 Chloride 102 Carbon Dioxide 23.3 Anion Gap 13 BUN 4 Creatinine 0.64 L Estim Creat Clear Calc 72.06 Est GFR (MDRD) Non-Af 95 BUN/Creatinine Ratio 7.0 L Glucose 126 H Calcium 9.6 Total Bilirubin 0.31 AST 25 ALT 16 Alkaline Phosphatase 42 Total Protein 6.6 Albumin 3.8 Globulin 2.8 Albumin/Globulin Ratio 1.3 Lipase 14 Urine Color Yellow Urine Clarity Sl. Cloudy Urine pH 6.5 Ur Specific Mcfall 1.010 Urine Protein 30 H Urine Glucose (UA) Normal Urine Ketones Negative Urine Occult Blood 25 H Urine Nitrite Positive H Urine Bilirubin Negative Urine Urobilinogen Normal Ur Leukocyte Esterase 500 H Urine RBC 0-5 SEEN Urine WBC 10-25 SEEN Ur Squamous Epith Cells 0-5 SEEN Urine Bacteria 4+ Urine Mucus 0 SEEN Radiography Diagnostic Testing: Clinical Impression(s) from Imaging Studies Abdomen/Pelvis CT 01/25/25 14:35 IMPRESSION: Pre sacral low-density mass, differential diagnostic considerations would include abscess, inflammatory change, infectious etiology and less likely neoplasm. No convincing evidence of enteritis or colitis Reading [facility] Discharge Plan Triage Chief Complaint: Nausea/Vomiting/Diarrhea ED Provider: Jos Westfall Dx/Rx/DC Orders Clinical Impression: Abnormal computed tomography of abdomen and pelvis, Urinary tract infection, Nausea & vomiting Prescriptions: New cephalexin 500 mg capsule 500 mg PO BID 5 Days Qty: 10 0RF ondansetron 4 mg tablet,disintegrating 4 mg PO Q6H PRN (Reason: nausea and vomiting) Qty: 20 0RF No Action tizanidine 4 mg tablet 4 mg PO ONCE quetiapine 100 mg tablet 100 mg PO QHS Patient Comments: TAKE 1 TABLET BY MOUTH EVERY DAY AT BEDTIME NEEDED FOR SLEEP levothyroxine 137 mcg tablet 137 mcg PO DAILY Patient Comments: TAKE 1 TABLET BY MOUTH ONCE DAILY gabapentin 300 mg capsule 300 mg PO TID sumatriptan succinate 25 mg tablet PO ondansetron 4 mg tablet,disintegrating 4 mg PO Q8H magnesium 250 mg tablet 250 mg PO DAILY clonazepam 0.5 mg tablet 0.5 mg PO BID PRN potassium chloride [Klor-Con M20] 20 mEq tablet,ER particles/crystals 20 meq PO DAILY similia 2 puff inhalation BID cyanocobalamin (vitamin B-12) 1,000 MCG tablet 1,000 mcg PO DAILY omeprazole 40 MG capsule,delayed release(DR/EC) 40 mg PO DAILY isosorbide dinitrate 30 MG tablet 30 mg PO DAILY dicyclomine 20 MG tablet 20 mg PO DAILY nitroglycerin 0.4 MG tablet 0.4 mg sublingual Q5M PRN (Reason: Chest Pain) furosemide 20 MG tablet 20 mg PO MOWEFR metoprolol succinate 25 MG tablet extended release 24 hr 12.5 mg PO BID divalproex 250 MG tablet 250 mg PO BID pyridoxine (vitamin B6) 50 mg tablet 100 mg PO DAILY alirocumab 75 mg/mL pen injector 75 mg subcut .qow Rx Instructions: EVERY OTHER WEEK ciprofloxacin HCl [Cipro] 500 mg tablet 500 mg PO BID Qty: 20 0RF metronidazole 500 mg tablet 500 mg PO BID 10 Days Qty: 20 0RF cephalexin 500 mg capsule 500 mg PO Q12H 7 Days Qty: 14 0RF ondansetron 4 mg tablet,disintegrating 4 mg PO Q6H PRN (Reason: nausea and vomiting) Qty: 20 0RF Primary Care Provider: Alison Craven Referrals: Alison Craven MD [Primary Care Provider] - Rk Lamb MD [Med Staff - Transfer And Line Up Worker] - Braulio Wick MD [Med Staff - Active Staff] - Activity Restrictions/Additional Instructions: Follow-up on urine culture. Take antibiotics as prescribed. Return with worsening symptoms or other concerns. Show the CT scan results to your doctor that you are going to follow-up with that you were referred to. Print Language: Hong Konger Disposition Disposition: Home, Self Care
[2025-01-25] MEDS: 0.9% Normal Saline (1000mL) 1,000 ML 999 ML IV (14:52)
[2025-01-25 14:55] VITALS: BMI 32.5
[2025-01-25 14:59] LABS: Hematocrit 43.2 % (37-47); Hemoglobin 13.5 g/dL (12.0-15.0); Immature Granulocytes Count 0.040 X10^3/uL (0.0-0.0); Mean Corp Hgb Conc 31.3 g/dL (32-36); Mean Corpuscular Volume 70.9 fL (81-99); Mean Platelet Vol. 9.3 fl (6.2-12.0); NRBC Flagged by Analyzer 0 % (0-5); Platelet Count 315 K/mm3 (150-450); RBC Distribution Width CV 20.0 % (11.6-14.6); RBC Distribution Width SD 48.3 fl (35.1-43.9); Red Blood Count 6.09 M/mm3 (4.2-5.4); White Blood Count 10.1 K/mm3 (4.4-11.0)
--- OUTSIDE RECORDS SUMMARY | 2025-01-25 15:16 | XMS RPT_ITS | CCD ---
Author Organization [facility] ion [facility] Care Team Providers Care Track Walker Name Role Phone ARNULFO, TOSHIA Unavailable Unavailable ARNULFO, TOSHIA Unavailable Unavailable IMCA Unavailable Unavailable UNKNOWN, PROVIDER Unavailable Unavailable Apolonia Craven P Unavailable Unavailable Apolonia Craven MD Primary Care Provider [phone] Apolonia Craven MD Primary Care Provider [phone] DR APOLONIA CRAVEN MD Primary Care Physician JARED ROWLAND MD Attending Unavailable MARY JANE STOREY., DR. BARKSDALE Primary Care Unavailab JARED Zamudio MD Attending Unavailable MARY JANE STOREY., DR. BARKSDALE Primary Care Unavailab MD LITA Weathers Admitting Unavailabl tracy CRAVEN MD., DR. BARKSDALE Primary Care Unavailab chris WINN MD, YESSENIA Consulting Unavailable SAMSON COX MD Attending Unavailable Apolonia Craven MD Primary Care Provider [phone] MONICO POTTS Referring Unavailable LATOUF, BUTROS Primary Care Unavailable MONICO POTTS Referring Unavailable LATOUF, BUTROS Primary Care Unavailable Zulay STOREY, Rui Unavailable Dr. Apolonia Craven Primary Care Provider Dr. Anthony Pulido Attending Provider JARED ROWLAND Referring Unavailable ITAF, APOLONIA Primary Care Unavailable Apolonia Craven MD Primary Care Provider TATA BOWIE Attending Unavaila ble KELLY, MEREDYTHE A Referring Unavailable LATOUF, BUTROS Primary Care Unavailable KELLY, MEREDYTHE A Attending Unavailable KELLY, MEREDYTHE A Referring Unavailable LATOUF, BUTROS Primary Care Unavailable Crescencio Levine Attending Unavailable Crescencio Levine Referring Unavailable Latouf, Butros Primary Care Unavailable Latouf, Butros Primary Care Unavailable Yue Arreguin Attending Unavailable WestfallJos Referring Unavailable Latouf, Butros Primary Care Unavailable Jos Westfall Attending Unavailable Latouf, Butros Attending Unavailable Latouf, Butros Referring Unavailable Latouf, Butros Primary Care Unavailable Monico Babb Attending Unavailable Latouf, Butros Referring Unavailable Latouf, Butros Primary Care Unavailable Monico Babb Attending Unavailable Latouf, Butros Referring Unavailable Latouf, Butros Primary Care Unavailable Latouf, Butros Attending Unavailable Latouf, Butros Referring Unavailable Latouf, Butros Primary Care Unavailable CHRISTA COTTRELL Attending Unavailable Latouf, Butros Primary Care Unavailable LATBRITTNEYF , DR BARKSDALE Primary Care Unavailable XI PARADI TENDER-ANALOG IC DESIGN ENGINEER, PJ Lemus Attending Roland CRAVEN MD, BUTARIEL Primary Care Unavailable XI PURI-ANALOG IC DESIGN ENGINEER, PJ Lemus Attending Roland CRAVEN MD, BUTARIEL Primary Care Unavailable XI PURI-ANALOG IC DESIGN ENGINEER, PJ Lemus Attending Roland CRAVEN MD, DR BARKSDALE Primary Care Unavailable SAVANNAH PARADI TENDER-ANALOG IC DESIGN ENGINEER, FAMILIA Moran Attending Unavaila ble APOLONIA CRAVEN MD Consulting Unavailable LEÓN VILLAREAL Primary Care Unavailable LEÓN VILLAREAL Admitting Unavailable APOLONIA CRAVEN MD Referring Unavailable LEÓN VILLAREAL Attending Unavailable PROVIDER, UNKNOWN Consulting Unavailable PROVIDER, UNKNOWN Consulting Unavailable PROVIDER, UNKNOWN Consulting Unavailable APOLONIA CRAVEN MD Consulting Unavailable ALIDA VELASCO MD Attending Unavailable ALIDA VELASCO MD Admitting Unavailable ALIDA VELASCO MD Primary Care Unavailable APOLONIA CRAVEN MD Referring Unavailable PROVIDER, UNKNOWN Consulting Unavailable PROVIDER, UNKNOWN Consulting Unavailable PROVIDER, UNKNOWN Consulting Unavailable ABDULKADIRSeptember RENATO Consulting Unavailable APOLONIA CRAVEN MD Primary Care Unavailable FAMILIA NUÑEZ NP Referring Unavailable APOLONIA CRAVEN MD Attending Unavailable APOLONIA CRAVEN MD Admitting Unavailable PROVIDER, UNKNOWN Consulting Unavailable PROVIDER, UNKNOWN Consulting Unavailable APOLONIA CRAVEN MD Primary Care Unavailable LATOUF, APOLONIA STOREY Consulting Unavailable LATOUF, APOLONIA STOREY Admitting Unavailable LATOUF, APOLONIA STOREY Attending Unavailable PROVIDER, UNKNOWN Consulting Unavailable PROVIDER, UNKNOWN Consulting Unavailable PROVIDER, UNKNOWN Consulting Unavailable APOLONIA CRAVEN MD Consulting Unavailable CHRISTA DESAI DO Attending Unavailable CHRISTA DESAI DO Admitting Unavailable CHRISTA DESAI DO Primary Care Unavailable APOLONIA CRAVEN MD Referring Unavailable PROVIDER, UNKNOWN Consulting Unavailable PROVIDER, UNKNOWN Consulting Unavailable PROVIDER, UNKNOWN Consulting Unavailable APRIL GARY DO Attending Unavailable APRIL GARY DO Admitting Unavailable LATAPOLONIA LEBLANC MD Consulting Unavailable APRIL GARY DO Primary Care Unavailable LATDEANA, APOLONIA STOREY Referring Unavailable PROVIDER, UNKNOWN Consulting Unavailable PROVIDER, UNKNOWN Consulting Unavailable PROVIDER, UNKNOWN Consulting Unavailable DIONNA LEÓN E Primary Care Unavailable DIONNA LEÓN E Admitting Unavailable , SEPTEMBER ANALOG IC DESIGN ENGINEER Consulting Unavailable DIONNA LEÓN E Attending Unavailable PROVIDER, UNKNOWN Consulting Unavailable PROVIDER, UNKNOWN Consulting Unavailable APOLONIA CRAVEN MD Primary Care Unavailable LATOUNick, APOLONIA STOREY Consulting Unavailable LATOUNick, APOLONIA STOREY Admitting Unavailable LATOUF, APOLONIA STOREY Attending Unavailable PROVIDER, UNKNOWN Consulting Unavailable PROVIDER, UNKNOWN Consulting Unavailable PROVIDER, UNKNOWN Consulting Unavailable MARY JANE, APOLONIA STOREY Primary Care Unavailable LATOUNick, APOLONIA STOREY Consulting Unavailable LATOUF, APOLONIA STOREY Attending Unavailable LATOUNick, APOLONIA STOREY Admitting Unavailable PROVIDER, UNKNOWN Consulting Unavailable PROVIDER, UNKNOWN Consulting Unavailable PROVIDER, UNKNOWN Consulting Unavailable APOLONIA CRAVEN MD Primary Care Unavailable APOLONIA CRAVEN MD Consulting Unavailable LATDEANA, APOLONIA STOREY Attending Unavailable LATDEANA, APOLONIA STOREY Admitting Unavailable PROVIDER, UNKNOWN Consulting Unavailable PROVIDER, UNKNOWN Consulting Unavailable PROVIDER, UNKNOWN Consulting Unavailable APOLONIA CRAVEN MD Primary Care Unavailable LATOUAPOLONIA Romero MD Consulting Unavailable LATOUNick, APOLONIA STOREY Admitting Unavailable LATOUNick, APOLONIA STOREY Attending Unavailable PROVIDER, UNKNOWN Consulting Unavailable PROVIDER, UNKNOWN Consulting Unavailable PROVIDER, UNKNOWN Consulting Unavailable APOLONIA CRAVEN MD Primary Care Unavailable LATOUF, APOLONIA STOREY Consulting Unavailable LATOUNick, APOLONIA STOREY Admitting Unavailable LATOUNick, APOLONIA STOREY Attending Unavailable PROVIDER, UNKNOWN Consulting Unavailable PROVIDER, UNKNOWN Consulting Unavailable PROVIDER, UNKNOWN Consulting Unavailable APOLONIA CRAVEN MD Consulting Unavailable FAMILIA NUÑEZ ROPE MAKER Attending Unavailable FAMILIA NUÑEZ ROPE MAKER Admitting Unavailable FRIES, FAMILIA ROPE MAKER Primary Care Unavailable PROVIDER, UNKNOWN Consulting Unavailable PROVIDER, UNKNOWN Consulting Unavailable PROVIDER, UNKNOWN Consulting Unavailable LPAZA, MEMO Attending Unavailable PLAZA, MEMO Admitting Unavailable PLAZA, MEMO Primary Care Unavailable APOLONIA CRAVEN MD Consulting Unavailable PROVIDER, UNKNOWN Consulting Unavailable PROVIDER, UNKNOWN Consulting Unavailable PROVIDER, UNKNOWN Consulting Unavailable PLAZA, MEMO Attending Unavailable PLAZA, MEMO Admitting Unavailable PLAZA, MEMO Primary Care Unavailable APOLONIA CRAVEN MD Consulting Unavailable PROVIDER, UNKNOWN Consulting Unavailable PROVIDER, UNKNOWN Consulting Unavailable PROVIDER, UNKNOWN Consulting Unavailable PLAZA, MEMO Admitting Unavailable PLAZA, MEMO Primary Care Unavailable APOLONIA CRAVEN MD Consulting Unavailable MELA, MEMO Attending Unavailable PROVIDER, UNKNOWN Consulting Unavailable PROVIDER, UNKNOWN Consulting Unavailable PROVIDER, UNKNOWN Consulting Unavailable APOLONIA CRAVEN MD Primary Care Unavailable APOLONIA CRAVEN MD Consulting Unavailable APOLONIA CRAVEN MD Admitting Unavailable APOLONIA CRAVEN MD Attending Unavailable PROVIDER, UNKNOWN Consulting Unavailable PROVIDER, UNKNOWN Consulting Unavailable PROVIDER, UNKNOWN Consulting Unavailable KELLY, MEREDYTHE Attending Unavailable KELLY, MEREDYTHE Admitting Unavailable APOLONIA CRAVEN MD Consulting Unavailable KELLY, MEREDYTHE Primary Care Unavailable PROVIDER, UNKNOWN Consulting Unavailable PROVIDER, UNKNOWN Consulting Unavailable PROVIDER, UNKNOWN Consulting Unavailable APOLONIA CRAVEN MD Consulting Unavailable APOLONIA CRAVEN MD Primary Care Unavailable APOLONIA CRAVEN MD Admitting Unavailable APOLONIA CRAVEN MD Attending Unavailable PROVIDER, UNKNOWN Consulting Unavailable PROVIDER, UNKNOWN Consulting Unavailable PROVIDER, UNKNOWN Consulting Unavailable APOLONIA CRAVEN MD Consulting Unavailable DIONNA, LEÓN E Admitting Unavailable DIONNA, LEÓN E Primary Care Unavailable APOLONIA CRAVEN MD Referring Unavailable DIONNA, LEÓN E Attending Unavailable PROVIDER, UNKNOWN Consulting Unavailable PROVIDER, UNKNOWN Consulting Unavailable PROVIDER, UNKNOWN Consulting Unavailable APOLONIA CRAVEN MD Consulting Unavailable IRINEO GARCIA Attending Unavailable LEMIRINEO MARCIAL Admitting Unavailable IRINEO GARCIA Primary Care Unavailable APOLONIA CRAVEN MD Referring Unavailable PROVIDER, UNKNOWN Consulting Unavailable PROVIDER, UNKNOWN Consulting Unavailable PROVIDER, UNKNOWN Consulting Unavailable MELA, MEMO Attending Unavailable PLAZA, MEMO Admitting Unavailable PLAZA, MEMO Primary Care Unavailable APOLONIA CRAVEN MD Consulting Unavailable PROVIDER, UNKNOWN Consulting Unavailable PROVIDER, UNKNOWN Consulting Unavailable PROVIDER, UNKNOWN Consulting Unavailable APOLONIA CRAVEN MD Primary Care Unavailable APOLONIA CRAVEN MD Consulting Unavailable APOLONIA CRAVEN MD Attending Unavailable APOLONIA CRAVEN MD Admitting Unavailable PROVIDER, UNKNOWN Consulting Unavailable PROVIDER, UNKNOWN Consulting Unavailable PROVIDER, UNKNOWN Consulting Unavailable LATOUF, APOLONIA STOREY Primary Care Unavailable LATOUF, APOLONIA STOREY Consulting Unavailable LATOUF, APOLONIA STOREY Attending Unavailable LATOUF, APOLONIA STOREY Admitting Unavailable PROVIDER, UNKNOWN Consulting Unavailable PROVIDER, UNKNOWN Consulting Unavailable PROVIDER, UNKNOWN Consulting Unavailable MEMO PLAZA Attending Unavailable MELA, MEMO Admitting Unavailable MEMO PLAZA Primary Care Unavailable LATOUF, APOLONIA STOREY Consulting Unavailable PROVIDER, UNKNOWN Consulting Unavailable PROVIDER, UNKNOWN Consulting Unavailable PROVIDER, UNKNOWN Consulting Unavailable LATOUF, APOLONIA STOREY Primary Care Unavailable LATOUF, APOLONIA STOREY Consulting Unavailable LATOUF, APOLONIA STOREY Attending Unavailable LATOUF, APOLONIA STOREY Admitting Unavailable PROVIDER, UNKNOWN Consulting Unavailable PROVIDER, UNKNOWN Consulting Unavailable PROVIDER, UNKNOWN Consulting Unavailable MEMO PLAZA Attending Unavailable MELA, MEMO Admitting Unavailable PLAZA, MEMO Primary Care Unavailable ABDULKADIR, SEPTEMBER ANALOG IC DESIGN ENGINEER Consulting Unavailable PROVIDER, UNKNOWN Consulting Unavailable PROVIDER, UNKNOWN Consulting Unavailable LATOUF, BUTROS Primary Care Unavailable ALBERTO, ANNE-MARIE Referring Unavailable LATOUF, BUTROS Primary Care Unavailable ALBERTO, ANNE-MARIE Referring Unavailable ALBERTO, ANNE-MARIE Referring Unavailable LATOUF, BUTROS Primary Care Unavailable LATOUF, BUTROS Primary Care Unavailable ALBERTO, ANNE-MARIE Referring Unavailable LATOUF, BUTROS Primary Care Unavailable ALBERTO, ANNE-MARIE Referring Unavailable LATOUF, BUTROS Primary Care Unavailable ALBERTO, ANNE-MARIE Referring Unavailable Allergies Allergy Classification Reported Allergen(s) Allergy Type Date of Onset Reaction(s) Facility (20 sources) Adhesive agent; Translations: [ADHESIVE] Propensity to adverse reactions (disorder) 7 Other: See Comments [facility] Repository (20 sources) codeine; Translations: [CODEINE] Drug Allergy 7 Other: See Comments [facility] Repository (20 sources) natural latex rubber; Translations: [LATEX, NATURAL RUBBER] Propensity to adverse reactions (disorder) 7 Other: See Comments [facility] Repository (20 sources) traMADol; Translations: [TRAMADOL] Drug Allergy 8 Itching [facility] Repository Comment on above: itching (20 sources) zolpidem; Translations: [ZOLPIDEM TARTRATE] Drug Allergy 9 Other: See Comments [facility] Other [place] Repository (12 sources) Non-steroidal anti-inflammator y agent; Translations: [NSAIDS (NON-STEROIDAL ANTI-INFLAMMATOR Y DRUG)] Propensity to adverse reactions to drug 0 GI Upset [facility] Work Phone: (20 sources) Non-steroidal anti-inflammator y agent Propensity to adverse reactions to drug 0 GI Upset [facility] Work Phone: (6 sources) Latex; Translations: [LATEX] Allergy to substance 9 Rash, Blisters [facility] (5 sources) Sulfonamides (Antibiotic); Translations: [SULFA (SULFONAMIDE ANTIBIOTICS)] Allergy to substance 1 unknown [facility] (3 sources) Adhesive Tape; Translations: [TAPE] Drug allergy [facility] (2 sources) Aspirin; Translations: [aspirin] Drug Allergy [facility] Comment on above: History of GI bleed (2 sources) Cephalexin; Translations: [cephalexin] Drug Allergy [facility] (2 sources) ezetimibe; Translations: [ezetimibe] Drug Allergy Unknown [facility] Comment on above: Muscle pain (2 sources) HMG-CoA reductase inhibitor; Translations: [statins] Drug allergy Muscle pain (finding) [facility] (20 sources) Meperidine; Translations: [meperidine] [facility] Sulfonamides (Antibiotic); Translations: [sulfa drugs] [facility] zolpidem; Translations: [zolpidem] Drug Allergy [facility] (1 source) Sulfonamide; Translations: [sulfa drugs] Drug allergy [facility] (1 source) Latex Drug allergy (disorder) 5 [facility] Repository (1 source) Sulfonamides (Antibiotic) Drug allergy (disorder) 5 [facility] Repository (1 source) zolpidem Drug Allergy 5 [facility] Repository (1 source) Cephalexin Drug Allergy [facility] Repository (1 source) Meperidine Drug Allergy [facility] Repository (1 source) Morphine Drug Allergy [facility] Repository (1 source) Sulfonamides (Antibiotic) Drug allergy (disorder) [facility] Repository (1 source) zolpidem Drug Allergy [facility] Repository (1 source) STATINS (HMG-COA REDUCTASE INHIBITORS) Drug allergy (disorder) [facility] Repository Medications Current Medications Medication Drug Class(es) Dates Sig (Normalized) Sig (Original) Albuterol (20 sources) beta2-Adrenergic Agonist Start: 04-07-2022 albuterol 0.5, 0 Refill(s) Start Date: 04/07/22 Status: Ordered Start: 08-10-2021 albuterol (PRO VENTIL) 2.5 mg /3 mL (0.083 %) nebulizer solution Indications: Pulmonary emphysema, unspecified emphysema type (HCC) Use 3 mL via nebulizer every 6 hours as needed for wheezing/shortness of breath. OVER 5-15 MINUTES. FOR WHEEZING AND SHORTNESS OF BREATH. 3 mL 11 08/10/2021 Active Comment on above: Use 3 mL via nebuliz er every 6 hours as needed for wheezing/shortness of breath. OVER 5-15 MINUTES. FOR WHEEZING AND SHORTNESS OF BREATH. bumetanide 1 mg oral tablet (20 sources) Loop Diuretic Start: 09-15-2024 bumetanide 1 mg oral tablet Dose : 1 mg = 1 tab(s), Oral, BID, # 60 tab(s), 0 Refill(s), Pharmacy: [id number], 165.1, cm, 02/28/23 16:00:00 EDT, Height, kg, 02/28/23 16:00:00 EDT, Dosing Weight Start Date: 09/15/24 Status: Ordered Quantity: 60.0 Unit: tab(s) Repeat number: 1 Comment on above: Take 1 mg by mouth t wo times a day. busPIRone hydrochloride 7.5 mg oral tablet (20 sources) Start: 02-28-2023 busPIRone 7.5 mg oral tablet Dose : 7.5 mg = 1 tab(s), Oral, BID, # 90 tab(s), 0 Refill(s) Start Date: 02/28/23 Status: Ordered Quantity: 90.0 Unit: tab(s) Repeat number: 1 Start: 11-11-2021 take 7.5 tablets by mouth twice daily busPIRone 5 mg oral tablet 7.5, Oral, BID, 0 Refill(s) Start Date: 11/11/21 Status: Ordered take 1 tablet by fiona th twice daily busPIRone (BUSPAR) 10 mg tablet Take 10 mg by mouth two times a day. Active Comment on above: Take 10 mg by mouth two times a day. calcium carbonate 1500 mg oral tablet (20 sources) Start: 04-07-2022 calcium (as carbonate) 600 mg oral tablet Dose : 600 mg = 1 tab(s), Oral, Daily, 0 Refill(s) Start Date: 04/07/22 Status: Ordered take 1 tablet by mouth twice juan ly calcium carbonate (CALCIUM 600 ORAL) Take 1 tablet by mouth two times a day. Active take 1 tablet by mouth twice juan ly calcium carbonate (CALCIUM 600 ORAL) Take 1 tablet by mouth two times a day. 0 Active take 1 tablet by mouth once teresa y calcium carbonate (CALCIUM 600 ORAL) Take 1 tablet by mouth once daily. 0 Active Comment on above: Take 1 tablet by fiona th once daily. Take 1 tablet by fiona th two times a day. cholecalciferol 0.125 mg oral tablet (20 sources) Vitamin D take 1 tablet by mouth once daily cholecalciferol (VITAMIN D-3) 5,000 unit tab Take 5,000 Units by mouth once daily. Active Comment on above: Take 5,000 Units by mouth once daily. clonazePAM 0.5 mg oral tablet (20 sources) Benzodiazepine Start: 021 take 0.5 mg by mouth twice daily Clonazepam Active 0.5 MG PO TWICE A DAY October 28, 2020 11:00pm End: 04-10-2024 take 2 tablets by mouth every twelve hours as needed clonazePAM orally disintegrating (KLONOPIN WAFER) 0.25 mg disintegrating tablet Take 0.5 mg by mouth twice daily as needed. 04/10/2024 Discontinued Comment on above: Take 0.5 mg by mouth twice daily as needed. cyclobenzaprine hydrochloride 10 mg oral tablet (20 sources) Muscle Relaxant take 1 tablet by mouth every eight hours as needed cyclobenzaprine (FLEXERIL) 10 mg tablet Take 10 mg by mouth three times daily as needed. Active Comment on above: Take 10 mg by mouth three times daily as needed. dicyclomine hydrochloride 20 mg oral tablet (20 sources) Anticholinergic Start: 018 Bentyl 20 mg oral tablet Dose : 20 mg = 1 tab(s), Oral, QID, 0 Refill(s) Start Date: 05/08/18 Status: Ordered Repeat number: 1 take 1 tablet by mouth every six hours dicyclomine (BENTYL) 20 mg tablet Indications: Iron deficiency anemia due to chronic blood loss , Intermittent left lower quadrant abdominal pain , Mass of perirectal soft tissue Take 20 mg by mouth every 6 hours. Active Comment on above: Take 20 mg by mouth every 6 hours. 24 hr dilTIAZem hydrochloride 120 mg extended release oral capsule (20 sources) Calcium Channel Rusty Start: 3 Cartia XT 120 mg/24 hours oral capsule, extended release Dose : 120 mg = 1 cap(s), Oral, qDay, # 30 cap(s), 0 Refill(s) Start Date: 02/28/23 Status: Ordered Quantity: 30.0 Unit: cap(s) Repeat number: 1 Comment on above: Take 120 mg by mouth once daily. Famotidine (11 sources) Histamine-2 Receptor Antagonist FAMOTIDINE ORAL Take by mouth. Active ferrous sulfate 325 mg oral tablet (20 sources) Start: 2 take 1 tablet by mouth twice daily ferrous sulfate (IRON) 325 mg (65 mg iron) tablet Indications: Iron deficiency anemia due to chronic blood loss Take 1 tablet by mouth twice daily. 60 tablet 2 01/30/2022 Active Start: 08-19-2020 IRON (ferrous sulfate 325 mg) 65 mg oral tablet Dose : 325 mg = 1 tab(s), Oral, BIDM, Take with food., # 60 tab(s), 3 Refill(s) Start Date: 08/19/20 Status: Ordered Comment on above: Take 1 tablet by fiona twice daily. fluticasone propionate 0.05 mg/actuat metered dose nasal spray (20 sources) Corticosteroid Start: 10-25-2011 fluticasone 0.05 mg/inh nasal spray Dose = 2 spray(s), Nasal, qHS, 0 Refill(s) Start Date: 10/25/11 Status: Ordered Repeat number: 1 take 1 spray(s) nasal route once daily fluticasone (FLONASE) 50 mcg/actuation nasal spray Use 1 Mosier in each nostril once daily. Active Comment on above: Use 1 Mosier in each nostril once daily. 30 actuat fluticasone furoate 0.1 mg/actuat / umeclidinium 0.0625 mg/actuat / vilanterol 0.025 mg/actuat dry powder inhaler (20 sources) Anticholinergic, Corticosteroid, beta2-Adrenergic Agonist Start: 11-11-2021 vkjugqjsmtv-ydlzpjifs-b ilanter (TRELEGY ELLIPTA) 100-62.5-25 mcg inhalation powder Take by mouth DAILY (6 AM). 11/11/2021 Active Comment on above: Take by mouth DAILY (6 AM). folic acid 1 mg oral tablet (20 sources) Start: 02-28-2023 folic acid 1 mg oral tablet Dose : 1 mg = 1 tab(s), Oral, qDay, # 30 tab(s), 0 Refill(s) Start Date: 02/28/23 Status: Ordered Quantity: 30.0 Unit: tab(s) Repeat number: 1 Comment on above: Take 1 mg by mouth o nce daily. furosemide 20 mg oral tablet (20 sources) Loop Diuretic Start: 10-25-2011 Furosemide Active 20 MG PO December 10, 2017 11:00pm End: 04-10-2024 take 1 tablet by mouth once furosemide (LASIX) 20 mg tablet Take 20 mg by mouth every Sunday,Sunday,Sunday. 04/10/2024 Discontinued Comment on above: Take 20 mg by mouth every Sunday,Sunday,Sunday. gabapentin 300 mg oral capsule (20 sources) Anti-epileptic Agent Start: 021 take 300 mg by mouth three times daily Gabapentin Active 300 MG PO THREE TIMES A DAY October 28, 2020 11:00pm take 1 capsule by mouth twice da bernadette gabapentin (NEURONTIN) 300 mg capsule Take 300 mg by mouth two times a day. Active Comment on above: Take 300 mg by mouth two times a day. ipratropium bromide 0.2 mg/ml inhalation solution (20 sources) Anticholinergic ipratropium (ATROVENT) 0.02 % nebulizer solution Use 0.5 mg via nebulizer four times daily. PRN Active Comment on above: Use 0.5 mg via nebul izer four times daily. PRN 24 hr isosorbide mononitrate 30 mg extended release oral tablet (20 sources) Nitrate Vasodilator Start: 04-11-20 isosorbide mononitrate 30 mg oral tablet, extended release Dose : 30 mg = 1 tab(s), Oral, qAM, 0 Refill(s) Start Date: 04/11/18 Status: Ordered Repeat number: 1 Comment on above: Take 30 mg by mouth once daily. isosorbide dinitrate 30 mg oral tablet (3 sources) Nitrate Vasodilator Start: 12-12-19 take 30 mg by mouth once daily Isosorbide Dinitrate Active 30 MG PO DAILY December 10, 2017 11:00pm levothyroxine sodium 0.3 mg oral tablet (20 sources) l-Thyroxine Start: 09-27-19 levothyroxine 300 mcg (0.3 mg) oral tablet 0 Refill(s) Start Date: 09/26/24 Status: Ordered Repeat number: 1 Start: 11-11-2021 take 1 tablet by fiona th every other day levothyroxine 200 mcg (0.2 mg) oral tablet TAKE 1 TABLET BY MOUTH EVERY OTHER DAY ALTERNATING WITH 175 MCG Start Date: 11/11/21 Status: Ordered Start: 11-11-2021 levothyroxine 175 mcg (0.175 mg) oral tablet TAKE 1 TABLET BY MOUTH EVERY OTHER MORNING ALTERNATING WITH 200 MCG EVERY OTHER MORNING Start Date: 11/11/21 Status: Ordered Start: 10-29-2020 take 137 ug by mouth once daily Levothyroxine Active 137 MCG PO DAILY October 28, 2020 11:00pm Start: 12-11-2017 End: 10-29-2020 take 175 ug by mouth once daily Levothyroxine Discontinued 175 MCG PO DAILY December 10, 2017 11:00pm October 29, 2020 11:36am take 1 tablet by fiona th once daily levothyroxine (SYNTHROID) 300 mcg tablet Take 300 mcg by mouth once daily. Active End: 04-10-2024 levothyroxine (SYNTHROID) 20 0 mcg tablet Take 250 mcg by mouth every other day. 04/10/2024 Discontinued End: 04-10-2024 take 1 tablet by mouth every other day levothyroxine (SYNTHROID) 175 mcg tablet Take 175 mcg by mouth every other day. 04/10/2024 Discontinued take 1 tablet by fiona th every other day levothyroxine (SYNTHROID) 200 mcg tablet Take 200 mcg by mouth every other day. 0 Active Comment on above: Take 175 mcg by mout h every other day. Take 200 mcg by mout h every other day. Take 250 mcg by mout h every other day. Take 300 mcg by mout h once daily. Magnesium (3 sources) Start: 10-29-2020 take 250 mg by mouth once daily Magnesium Active 250 MG PO DAILY October 28, 2020 11:00pm Start: 10-29-2020 take 250 mg by mouth once teresa y Magnesium Active 250 MG PO DAILY October 29, 2020 12:00am magnesium oxide 400 mg oral tablet (20 sources) Start: 08-19-2020 magnesium oxid e 400 mg (240 mg elemental magnesium) oral tablet Dose : 400 mg = 1 tab(s), Oral, qDay, # 100 tab(s), 0 Refill(s) Start Date: 08/19/20 Status: Ordered Comment on above: Take by mouth once d aily. metoprolol tartrate 25 mg oral tablet (20 sources) beta-Adrenergic Rusty Start: 09-09-2020 End: 04-08-2022 metoprolol tartrate 25 mg oral tablet Dose : 25 mg = 1 tab(s), Oral, BID, Take with food, # 180 tab(s), 3 Refill(s), Pharmacy: [id number], 165.1, cm, 08/19/20 9:16:00 EDT, Height, kg, 08/19/20 9:16:00 EDT, Dosing Weight Start Date: 09/09/20 Status: Ordered Quantity: 180.0 Unit: tab(s) Repeat number: 4 Start: 12-11-2017 take 12.5 mg by mout h twice daily Metoprolol Succinate Active 12.5 MG PO TWICE A DAY December 10, 2017 11:00pm take 1 tablet by fiona th twice daily metoprolol succinate ER (TOPROL XL) 25 mg 24 hr tablet Take 25 mg by mouth twice daily. Active Comment on above: Take 25 mg by mouth twice daily. mirtazapine 15 mg oral tablet (20 sources) take 1 tablet by mouth once daily at bedtime mirtazapine (REMERON) 15 mg tablet Take 15 mg by mouth daily at bedtime. Active Comment on above: Take 15 mg by mouth daily at bedtime. nateglinide 60 mg oral tablet (20 sources) Glinide Start: 06-17-2021 take 1 tablet by mouth three times daily before mealtime nateglinide (STARLIX) 60 mg tablet Take 60 mg by mouth three times a day before meals. 06/17/2021 Active Start: 06-17-2021 take 1 tablet by fiona th once daily nateglinide (STARLIX) 60 mg tablet TAKE 1 TABLET BY MOUTH ONCE DAILY BEFORE SUPPER 0 06/17/2021 Active Comment on above: TAKE 1 TABLET BY FIONA TH ONCE DAILY BEFORE SUPPER Take 60 mg by mouth three times a day before meals. nitroglycerin 0.4 mg sublingual tablet (20 sources) Nitrate Vasodilator Start: 11-15-2021 Nitrostat 0.4 mg sublingual tablet Dose : 0.4 mg = 1 tab(s), Sublingual, q5min, PRN for chest pain, # 30 tab(s), 6 Refill(s), Pharmacy: [id number], 165.1, cm, 11/11/21 13:24:00 EDT, Height, kg, 11/11/21 13:24:00 EDT, Dosing Weight Start Date: 11/15/21 Status: Ordered Quantity: 30.0 Unit: tab(s) Repeat number: 7 Start: 12-11-2017 Nitroglycerin Active 0.4 MG SL Q5M December 10, 2017 11:00pm NITROGLYCERIN (N ITROSTAT SUBLINGUAL) Dissolve under the tongue as needed. Active NITROGLYCERIN (N ITROSTAT SUBLINGUAL) Dissolve under the tongue as needed. 0 Active Comment on above: Dissolve under the t ongue as needed. nystatin [id number] unt/ml topical cream (2 sources) Polyene Antifungal Start: nystatin 100,000 units/g topical cream Apply 1 benjy, Topical, BID, # 15 gram(s), 0 Refill(s), Cream, 105.7 Start Date: 04/07/22 Status: Ordered Quantity: 15.0 Unit: g Repeat number: 1 omeprazole 40 mg delayed release oral capsule (20 sources) Proton Pump Inhibitor Start: 8 take 1 capsule by mouth twice daily 30 minutes before breakfast omeprazole (PRILOSEC) 40 mg capsule TAKE 1 CAPSULE BY MOUTH TWICE DAILY. TAKE 30 MINUTES BEFORE BREAKFAST AND DINNER 180 capsule 3 06/10/2020 Active Start: 12-11-2017 take 40 mg by mouth once daily Omeprazole Active 40 MG PO DAILY December 10, 2017 11:00pm Comment on above: TAKE 1 CAPSULE BY [facility] TWICE DAILY. TAKE 30 MINUTES BEFORE BREAKFAST AND DINNER ondansetron 4 mg oral tablet (5 sources) Serotonin-3 Receptor Antagonist Start: 11-11-2021 Zofran 4 mg oral tablet Dose : 4 mg = 1 tab(s), Oral, q8h, 0 Refill(s) Start Date: 11/11/21 Status: Ordered Repeat number: 1 Start: 10-29-2020 take 4 mg by mouth e very eight hours Ondansetron Active 4 MG PO Q8H October 28, 2020 11:00pm potassium chloride 20 meq oral tablet (20 sources) Start: 05-08-2018 take 1 tablet by mouth at mealtime potassium chloride 20 mEq oral tablet, extended release Dose : 20 mEq = 1 tab(s), Oral, 12 (noon), Take with food, 0 Refill(s) Start Date: 05/08/18 Status: Ordered Repeat number: 1 Start: 12-11-2017 End: 10-29-2020 Potassium Chloride (Klor-Con M20) 20 mEq tablet,ER particles/crystals Active 20 MEQ PO DAILY October 28, 2020 11:00pm take 1 tablet by fiona th once daily potassium chloride 20 mEq TbER Indications: Iron deficiency anemia due to chronic blood loss , Intermittent left lower quadrant abdominal pain , Mass of perirectal soft tissue Take 1 tablet by mouth once daily. Active Comment on above: Take 1 tablet by fiona once daily. pyridoxine HCl, vitamin B6, (VITAMIN B-6 ORAL) (20 sources) take 1 tablet by mouth once daily pyridoxine HCl, vitamin B6, (VITAMIN B-6 ORAL) Indications: Iron deficiency anemia due to chronic blood loss , Intermittent left lower quadrant abdominal pain , Mass of perirectal soft tissue Take 1 tablet by mouth once daily. Active take 1 tablet by mouth once teresa y pyridoxine HCl, vitamin B6, (VITAMIN B-6 ORAL) Indications: Iron deficiency anemia due to chronic blood loss , Intermittent left lower quadrant abdominal pain , Mass of perirectal soft tissue Take 1 tablet by mouth once daily. 0 Active Comment on above: Take 1 tablet by fiona th once daily. QUEtiapine 100 mg oral tablet (20 sources) Atypical Antipsychotic Start: 10-30-19 take 100 mg by mouth at bedtime Quetiapine Active 100 MG PO AT BEDTIME October 28, 2020 11:00pm Comment on above: Take 100 mg by mouth daily at bedtime. similia (3 sources) Start: 10-30-19 take 1 puff(s) by inhalation twice daily similia Active 2 PUFF INHALATION TWICE A DAY October 28, 2020 11:00pm Start: 10-29-2020 take 1 puff(s) by in halation twice daily similia Active 2 PUFF INHALATION TWICE A DAY October 29, 2020 12:00am SUMAtriptan 25 mg oral tablet (20 sources) Serotonin-1b and Serotonin-1d Receptor Agonist Start: 10-29-2020 Sumatriptan Succinat e Active TAB PO October 28, 2020 11:00pm Start: 08-19-2020 End: 04-10-2024 SUMAtriptan 25 mg oral table t Dose : 25 mg = 1 tab(s), Oral, qDay, PRN as needed for migraine headache, 1 tab onset , may repeat in 2 hrs. MAX 8 tab(s)/24hrs, # 9 tab(s), 0 Refill(s) Start Date: 08/19/20 Status: Ordered Quantity: 9.0 Unit: tab(s) Repeat number: 1 Comment on above: Take 25 mg by mouth as needed for Migraine Headache (see administration instructions). tiZANidine 4 mg oral tablet (20 sources) Central alpha-2 Adrenergic Agonist Start: take 4 mg by mouth once Tizanidine Active 4 MG PO ONCE October 28, 2020 11:00pm Start: 08-19-2020 tiZANidine 4 m g oral capsule Dose : 4 mg = 1 cap(s), Oral, q8h, # 270 cap(s), 0 Refill(s) Start Date: 08/19/20 Status: Ordered take 1 tablet by fiona every eight hours as needed tiZANidine (ZANAFLEX) 4 mg tablet Take 4 mg by mouth every 8 hours as needed. Active Comment on above: Take 4 mg by mouth e very 8 hours as needed. traMADol hydrochloride 50 mg oral tablet (1 source) Opioid Agonist Start: 5 take 1 tablet by mouth every eight hours as needed traMADol 50 mg oral tablet TAKE 1 TABLET BY MOUTH EVERY 8 HOURS NEEDED Start Date: 09/26/24 Status: Ordered Repeat number: 1 traZODone hydrochloride 100 mg oral tablet (19 sources) Serotonin Reuptake Inhibitor take 1 tablet by mouth once daily at bedtime traZODone (DESYREL) 100 mg tablet Take 100 mg by mouth daily at bedtime. Active Comment on above: Take 100 mg by mouth daily at bedtime. Trelegy Ellipta 100 mcg-62.5 mcg-25 mcg/inh inhalation powder (2 sources) Start: 3 take 1 dose by mouth once daily Trelegy Ellipta 100 mcg-62.5 mcg-25 mcg/inh inhalation powder Dose = 1 puff(s), Inhalation, qDay, at the same time every day. Following administration, rinse mouth with water after use (do not swallow)., # 60 EA, 0 Refill(s) Start Date: 02/28/23 Status: Ordered Quantity: 60.0 Unit: EA Repeat number: 1 Start: 11-11-2021 take 1 puff(s) by [facility] once daily Trelegy Ellipta 100 mcg-62.5 mcg-25 mcg/inh inhalation powder INHALE 1 PUFF DAILY WITH GOOD ORAL CARE AFTER USE Start Date: 11/11/21 Status: Ordered divalproex sodium 250 mg delayed release oral tablet (20 sources) Mood Stabilizer, Anti-epileptic Agent Start: 04-09-2018 Depakote 250 mg oral delayed release tablet Dose : 250 mg = 1 tab(s), Oral, qDay, # 90 tab(s), 0 Refill(s) Start Date: 02/28/23 Status: Ordered Quantity: 90.0 Unit: tab(s) Repeat number: 1 Start: 12-11-2017 take 250 mg by mouth twice daily Divalproex Active 250 MG PO TWICE A DAY December 10, 2017 11:00pm Comment on above: Take 250 mg by mouth once daily. vitamin b12 1 mg oral tablet (3 sources) Vitamin B12 Start: 12-11-2017 take 1000 ug by mouth once daily Cyanocobalamin (Vitamin B-12) Active 1000 MCG PO DAILY December 10, 2017 11:00pm Vitamin B12 100 mcg oral tablet (1 source) Start: 11-26-2018 Vitamin B12 100 mcg oral tablet Dose : 100 mcg = 1 tab(s), Oral, qDay, 0 Refill(s) Start Date: 11/26/18 Status: Ordered vitamin b6 50 mg oral tablet (6 sources) Start: 10-29-2020 take 100 mg by mouth once daily Pyridoxine (Vitamin B6) Active 100 MG PO DAILY October 29, 2020 11:34am Start: 12-11-2017 End: 10-29-2020 take 50 mg by mouth once daily Pyridoxine (Vitamin B6) Discontinued 50 MG PO DAILY December 10, 2017 11:00pm October 29, 2020 11:37am Vitamin B6 100 mg oral table t (2 sources) Start: 05-08-2018 Vitamin B6 100 mg oral tablet Dose : 100 mg = 1 tab(s), Oral, qAM, 0 Refill(s) Start Date: 05/08/18 Status: Ordered Repeat number: 1 Start: 05-08-2018 Vitamin B6 100 mg oral tablet Dose : 100 mg = 1 tab(s), Oral, qAM, 0 Refill(s) Start Date: 05/08/18 Status: Ordered Vitamin D3 5000 intl units oral capsule (2 sources) Start: 05-08-2018 Vitamin D3 500 0 intl units oral capsule Dose : 5,000 International_Unit = 1 cap(s), Oral, 12 (noon), 0 Refill(s) Start Date: 05/08/18 Status: Ordered Repeat number: 1 Start: 05-08-2018 Vitamin D3 500 0 intl units oral capsule Dose : 5,000 International_Unit = 1 cap(s), Oral, 12 (noon), 0 Refill(s) Start Date: 05/08/18 Status: Ordered Completed/Discontinued Medications Medication Drug Class(es) Dates Sig (Normalized) Sig (Original) acetaminophen 325 mg / HYDROcodone bitartrate 5 mg oral tablet (20 sources) Opioid Agonist Start: 02-06-2023 End: 04-10-2024 take 1 tablet by mouth every eight hours as needed HYDROcodone-acetami nophen (NORCO) 5-325 mg per tablet Take 1 tablet by mouth every 8 hours as needed. 02/06/2023 04/10/2024 Discontinued take 1 tablet by fiona th every eight hours as needed HYDROcodone-Acetaminophen (NORCO) 7.5-32 5 mg per tablet Take 1 tablet by mouth every 8 hours as needed for pain. Active Comment on above: Take 1 tablet by fiona th every 8 hours as needed. Take 1 tablet by fiona th every 8 hours as needed for pain. 1 ml alirocumab 75 mg/ml auto-injector (20 sources) PCSK9 Inhibitor Start: 12-30-19 inject 1 mL by subcutaneous injection every other week Praluent Pen 75 mg/mL subcutaneous solution Dose : 75 mg = 1 mL, Subcutaneous, q2wk, # 3 mL, 3 Refill(s), Pharmacy: [id number], 165.1, cm, 02/28/23 16:00:00 EDT, Height, kg, 02/28/23 16:00:00 EDT, Dosing Weight Start Date: 07/30/23 Status: Ordered Quantity: 3.0 Unit: mL Repeat number: 4 Start: 10-29-2020 Alirocumab Act zeinab 75 MG SC .qow October 29, 2020 11:35am EVERY OTHER WEEK Start: 01-23-2019 End: 10-29-2020 inject 75 mg by subcutaneous injection every week Alirocumab Discontinued 75 MG SQ EVERY WEEK January 22, 2019 11:00pm October 29, 2020 11:37am EVERY OTHER WEEK Comment on above: Inject 75 mg subcuta neously every other week. ALPRAZolam 0.5 mg oral tablet (3 sources) Benzodiazepine Start: 12-12-19 End: 10-30-19 take 0.5 mg by mouth three times daily Alprazolam Discontinued 0.5 MG PO THREE TIMES A DAY December 10, 2017 11:00pm October 29, 2020 11:38am aspirin 81 mg delayed release oral tablet (3 sources) Platelet Aggregation Inhibitor, Nonsteroidal Anti-inflammatory Drug Start: 12-12-19 End: 10-30-19 21 take 81 mg by mouth once daily Aspirin Discontinued 81 MG PO DAILY December 10, 2017 11:00pm October 29, 2020 11:38am baclofen 10 mg oral tablet (3 sources) gamma-Aminobutyric Acid-ergic Agonist Start: 12-12-19 18 End: 10-30-19 21 take 10 mg by mouth twice daily Baclofen Discontinued 10 MG PO TWICE A DAY December 10, 2017 11:00pm October 29, 2020 11:38am cetirizine hydrochloride 10 mg oral tablet (3 sources) Histamine-1 Receptor Antagonist Start: 12-12-19 End: 10-30-19 21 take 10 mg by mouth once daily Cetirizine Discontinued 10 MG PO DAILY December 10, 2017 11:00pm October 29, 2020 11:39am CYANOCOBALAMIN, VITAMIN B-12, (VITAMIN B-12 ORAL) (20 sources) End: 04-10-20 24 take 1000 mg by mouth once daily CYANOCOBALAMIN, VITAMIN B-12, (VITAMIN B-12 ORAL) Take 1,000 mg by mouth once daily. 04/10/2024 Discontinued take 1000 mg by mouth once daily CYANOCOBALAMIN, VITAMIN B-12, (VITAMIN B-12 ORAL) Take 1,000 mg by mouth once daily. Active take 1000 mg by mouth once daily CYANOCOBALAMIN, VITAMIN B-12, (VITAMIN B-12 ORAL) Take 1,000 mg by mouth once daily. 0 Active Comment on above: Take 1,000 mg by fiona th once daily. DULoxetine 60 mg delayed release oral capsule (20 sources) Serotonin and Norepinephrine Reuptake Inhibitor Start: 12-12-19 End: 10-30-19 21 take 60 mg by mouth twice daily Duloxetine Discontinued 60 MG PO TWICE A DAY December 10, 2017 11:00pm October 29, 2020 11:39am Comment on above: Take 60 mg by mouth twice daily. escitalopram 20 mg oral tablet (20 sources) Serotonin Reuptake Inhibitor Start: 12-12-19 End: 10-30-19 21 take 20 mg by mouth once daily Escitalopram Oxalate Discontinued 20 MG PO DAILY December 10, 2017 11:00pm October 29, 2020 11:39am Comment on above: Take 20 mg by mouth once daily. fenofibrate 150 mg oral capsule (3 sources) Peroxisome Proliferator Receptor alpha Agonist Start: 12-12-19 End: 10-30-19 take 160 mg by mouth once daily Fenofibrate Discontinued 160 MG PO DAILY December 10, 2017 11:00pm October 29, 2020 11:39am 1 ml fentaNYL 0.05 mg/ml injection (1 source) Opioid Agonist Start: 04-10-20 End: 04-10-20 50 mcg, INTRAVENOUS, EVERY 10 MINUTES NEEDED, 2 doses, Starting on Litzy 04/10/24 at 1148, Until Litzy 04/10/24 at 1221, Severe Pain (>/=7) - Parenteral Fluconazole (1 source) Azole Antifungal Start: 04-07-20 fluconazole Dose : 150 mg =, Oral, Daily, 0 Refill(s), 105.7 Start Date: 04/07/22 Status: Ordered 10 ml iron sucrose 20 mg/ml injection (5 sources) Parenteral Iron Replacement Start: 08-30-19 End: 08-30-19 200 mg, INTRAVENOUS, ONCE, 1 dose, On Sun08/29/24 at 1600, Please conduct a 30 minute post dose observation. Start: 08-22-2024 End: 08-22-2024 200 mg, INTRAVENOUS, ONCE, 1 dose, On Sun08/22/24 at 1530, Please conduct a 30 minute post dose observation. Start: 08-15-2024 End: 08-15-2024 200 mg, INTRAVENOUS, ONCE, 1 dose, On Sun08/15/24 at 1530, Please conduct a 30 minute post dose observation. Start: 08-04-2024 End: 08-04-2024 200 mg, INTRAVENOUS, ONCE, 1 dose, On Sun08/04/24 at 1600, Please conduct a 30 minute post dose observation. Start: 04-04-2024 End: 04-04-2024 200 mg, INTRAVENOUS, ONCE, 1 dose, On Sun04/04/24 at 1100, Please conduct a 30 minute post dose observation. lidocaine 1% buffered with sodium bicarbonate 8.4% (10:1) injection 1 mL (1 source) Start: 04-10-2024 End: 04-10-2024 1 mL, INTRADERMAL, ONCE, 1 dose, On Litzy 04/10/24 at 1030, Refrigerate, Preprocedure lisinopril 5 mg oral tablet (3 sources) Angiotensin Converting Enzyme Inhibitor Start: 12-11-2017 End: 10-29-2020 take 5 mg by mouth once daily Lisinopril Discontinued 5 MG PO DAILY December 10, 2017 11:00pm October 29, 2020 11:39am predniSONE 10 mg oral tablet (15 sources) End: 04-10-2024 take 1 tablet by mouth once daily predniSONE (DELTASONE) 10 mg tablet Take 10 mg by mouth once daily. 04/10/2024 Discontinued Comment on above: Take 10 mg by mouth once daily. tiotropium 0.018 mg inhalation powder (20 sources) Anticholinergic Start: 12-11-2017 End: 10-29-2020 take 1 puff(s) by inhalation twice daily Tiotropium [place] Discontinued 1 PUFF INHALATION TWICE A DAY December 10, 2017 11:00pm October 29, 2020 11:39am take 1 puff(s) by inhalation onc e daily tiotropium bromide (SPIRIVA RESPIMAT) 1.25 mcg/actuation mist Inhale 1 Puff as instructed once daily. Active take 1 puff(s) by inhalation onc e daily tiotropium bromide (SPIRIVA RESPIMAT) 1.25 mcg/actuation mist Inhale 1 Puff as instructed once daily. 0 Active Comment on above: Inhale 1 Puff as ins tructed once daily. Problems Active Problems Problem Classification Problem Date Documented Da te Episodic/Chronic Anxiety disorders (4 sources) Anxiety; Translations: [Posttraumatic stress disorder] 04-09-2018 Chronic Cardiac and circulatory congenital anomalies (1 source) Vascular disorder; Translations: [Arteriovenous malformation, site unspecified] 08-03-2023 Chronic Cardiac dysrhythmias (2 sources) Palpitations 07-31-2019 Episodic Chronic obstructive pulmonary disease and bronchiectasis (20 sources) Pulmonary emphysema; Translations: [Emphysema, unspecified] Onset: 1 05-03-2021 Chronic Complications of surgical procedures or medical care (3 sources) Postoperative hypothyroidism; Translations: [Postprocedural hypothyroidism] 10-31-2020 Chronic Coronary atherosclerosis and other heart disease (20 sources) Angina pectoris; Translations: [Angina pectoris, unspecified] Onset: 7 04-12-2017 Chronic Deficiency and other anemia (1 source) Iron deficiency anemia secondary to blood loss (chronic) Onset: 8 Chronic Deficiency and other anemia (20 sources) Iron deficiency anemia due to blood loss; Translations: [Iron deficiency anemia secondary to blood loss (chronic)] Onset: 7 04-12-2017 Chronic Deficiency and other anemia (20 sources) Thalassemia; Translations: [Thalassemia, unspecified] Onset: 1 05-03-2021 Chronic Deficiency and other anemia (1 source) Iron deficiency anemia secondary to blood loss (chronic); Translations: [Iron deficiency anemia due to chronic blood loss] Onset: 7 Chronic Deficiency and other anemia (4 sources) Iron deficiency anemia, unspecified; Translations: [Iron deficiency anemia, unspecified] Onset: 5 Episodic Diabetes mellitus with complications (1 source) Type 2 diabetes mellitus with other specified complication; Translations: [Type 2 diabetes mellitus with other specified complication] Onset: 4 Chronic Diabetes mellitus without complication (20 sources) Type 2 diabetes mellitus without complication; Translations: [Type 2 diabetes mellitus without complications] Onset: 7 04-12-2017 Chronic Comment on above: diet controlled Diabetes mellitus without complication (3 sources) Prediabetes; Translations: [Prediabetes] 10-31-2020 Episodic Disorders of lipid metabolism (20 sources) Hyperlipidemia; Translations: [Hyperlipidemia, unspecified] Onset: 7 04-12-2017 Chronic Comment on above: 08/08/15: Chol 172, Tr ig 225, HDL 36, LDL 91. Esophageal disorders (20 sources) Gastroesophageal reflux disease; Translations: [Gastro-esophageal reflux disease without esophagitis] Onset: 7 04-12-2017 Chronic Esophageal disorders (1 source) Esophageal disorders; Translations: [Gastroesophageal reflux disease with esophagitis, unspecified whether hemorrhage] Onset: 4 Essential hypertension (20 sources) Essential hypertension; Translations: [Essential (primary) hypertension] Onset: 7 04-12-2017 Chronic Genitourinary symptoms and ill-defined conditions (1 source) Dysuria; Translations: [Dysuria] Onset: 5 Episodic Headache; including migraine (20 sources) Refractory migraine with aura; Translations: [Migraine with aura, intractable, without status migrainosus] Onset: 7 04-12-2017 Chronic Nonmalignant breast conditions (1 source) Breast lump 03-25-2024 Episodic Nutritional deficiencies (3 sources) Vitamin D deficiency, unspecified; Translations: [Vitamin D deficiency, unspecified] Onset: 5 Chronic Occlusion or stenosis of precerebral arteries (20 sources) Carotid artery stenosis; Translations: [Occlusion and stenosis of unspecified carotid artery] Onset: 6 07-31-2019 Chronic Osteoarthritis (1 source) Primary osteoarthritis, left shoulder; Translations: [Primary osteoarthritis, left shoulder] Onset: 5 Chronic Osteoporosis (1 source) Age-related osteoporosis without current pathological fracture; Translations: [Age-related osteoporosis without current pathological fracture] Onset: 4 Chronic Other connective tissue disease (1 source) Presence of right artificial knee joint; Translations: [Presence of right artificial knee joint] Onset: 5 Chronic Other connective tissue disease (1 source) Calcific tendinitis of left shoulder; Translations: [Calcific tendinitis of left shoulder] Onset: 5 Episodic Other gastrointestinal disorders (20 sources) Irritable bowel syndrome with diarrhea; Translations: [Irritable bowel syndrome with diarrhea] Onset: 7 04-12-2017 Chronic Other gastrointestinal disorders (20 sources) Malabsorption - iron; Translations: [Intestinal malabsorption, unspecified] Onset: 0 05-24-2020 Chronic Other gastrointestinal disorders (1 source) Intestinal malabsorption, unspecified; Translations: [Iron malabsorption (HCC)] Onset: 0 Chronic Other gastrointestinal disorders (1 source) Irritable bowel syndrome with diarrhea; Translations: [Irritable bowel syndrome with diarrhea] Onset: 7 Chronic Other gastrointestinal disorders (1 source) Dysphagia; Translations: [Dysphagia, unspecified] 01-18-2023 Episodic Other gastrointestinal disorders (1 source) Oropharyngeal dysphagia; Translations: [Dysphagia, oropharyngeal phase] 01-18-2023 Episodic Other gastrointestinal disorders (1 source) Dysphagia, oropharyngeal phase; Translations: [Oropharyngeal dysphagia] Onset: 3 Episodic Other gastrointestinal disorders (1 source) Acquired arteriovenous malformation; Translations: [Angiodysplasia of colon without hemorrhage] 07-19-2023 Episodic Other gastrointestinal disorders (2 sources) Disorder of gastrointestinal tract; Translations: [Angiodysplasia of colon without hemorrhage] 04-02-2024 Episodic Other gastrointestinal disorders (4 sources) Diarrhea, unspecified; Translations: [Diarrhea, unspecified] Onset: 4 Episodic Other lower respiratory disease (2 sources) Dyspnea on exertion 11-11-2021 Episodic Other lower respiratory disease (2 sources) History of chronic obstructive airway disease 08-04-2019 Episodic Other nervous system disorders (2 sources) Chronic pain syndrome 05-08-2018 Chronic Other nutritional; endocrine; and metabolic disorders (14 sources) Obesity; Translations: [Obesity, unspecified] Onset: 4 10-31-2020 Chronic Other nutritional; endocrine; and metabolic disorders (1 source) Other disorders of plasma-protein metabolism, not elsewhere classified; Translations: [Other disorders of plasma-protein metabolism, not elsewhere classified] Onset: 5 Chronic Other nutritional; endocrine; and metabolic disorders (1 source) Obesity, unspecified; Translations: [Obesity, unspecified] Onset: 5 Chronic Other nutritional; endocrine; and metabolic disorders (2 sources) Overweight 08-04-2019 Episodic Peripheral and visceral atherosclerosis (19 sources) Carotid atherosclerosis; Translations: [Intermittent claudication] Onset: 4 08-04-2019 Chronic Comment on above: Last ABIs on 010 demonstrated a [id number] obstructive disease. Residual codes; unclassified (2 sources) Preoperative state 08-04-2019 Episodic Spondylosis; intervertebral disc disorders; other back problems (8 sources) Degeneration of lumbar intervertebral disc; Translations: [Other intervertebral disc degeneration, lumbar region] Onset: 5 01-24-2019 Chronic Substance-related disorders (20 sources) Heavy cigarette smoker; Translations: [Nicotine dependence, cigarettes, uncomplicated] Onset: 8 01-15-2018 Chronic Thyroid disorders (15 sources) Hypothyroidism; Translations: [Hypothyroidism, unspecified] Onset: 3 04-09-2018 Chronic Unclassified (2 sources) Unknown / UNK(Unknown) Onset: 7 Unclassified (1 source) Breast finding 03-25-2024 Unclassified (1 source) Other intervertebral disc degeneration, lumbar region without mention of lumbar back pain or lower extremity pain; Translations: [Other intervertebral disc degeneration, lumbar region without mention of lumbar back pain or lower extremity pain] Onset: 5 Unclassified (1 source) Other intervertebral disc degeneration, lumbosacral region without mention of lumbar back pain or lower extremity pain; Translations: [Other intervertebral disc degeneration, lumbosacral region without mention of lumbar back pain or lower extremity pain] Onset: 5 Unclassified (1 source) Long-term (current) use of injectable non-insulin antidiabetic drugs; Translations: [Long-term (current) use of injectable non-insulin antidiabetic drugs] Onset: 5 Past or Other Problems Problem Classification Problem Date Documented Da te Episodic/Chronic Abdominal pain (1 source) Unspecified abdominal pain; Translations: [Unspecified abdominal pain] Onset: 4 Episodic Allergic reactions (3 sources) Allergy status to other drugs, medicaments and biological substances status; Translations: [Allergy status to narcotic agent status] Onset: 5 Episodic Deficiency and other anemia (20 sources) Iron deficiency anemia; Translations: [Iron deficiency anemia, unspecified] Onset: 8 06-07-2017 Episodic Deficiency and other anemia (1 source) Anemia, unspecified; Translations: [Anemia, unspecified] Onset: 4 Episodic E Codes: Adverse effects of medical drugs (20 sources) Iron adverse reaction; Translations: [Adverse effect of iron and its compounds, initial encounter] Onset: 7 04-13-2017 Episodic E Codes: Fall (1 source) Fall on same level from slipping, tripping and stumbling without subsequent striking against object, initial encounter; Translations: [Fall on same level from slipping, tripping and stumbling without subsequent striking against object, initial encounter] Onset: 5 Episodic E Codes: Place of occurrence (1 source) Kitchen of single-family (private) house as the place of occurrence of the external cause; Translations: [Kitchen of single-family (private) house as the place of occurrence of the external cause] Onset: 5 Episodic Fluid and electrolyte disorders (1 source) Hypokalemia; Translations: [Hypokalemia] Onset: 4 Episodic Gastrointestinal hemorrhage (20 sources) Small intestinal hemorrhage; Translations: [Gastrointestinal hemorrhage, unspecified] Onset: 4 04-02-2024 Episodic Malaise and fatigue (1 source) Other fatigue; Translations: [Other fatigue] Onset: 5 Episodic Nonspecific chest pain (5 sources) Chest pain; Translations: [Chest pain, unspecified] Onset: 5 08-04-2019 Episodic Open wounds of extremities (1 source) Laceration without foreign body of right forearm, initial encounter; Translations: [Laceration without foreign body of right forearm, initial encounter] Onset: 5 Episodic Other aftercare (1 source) Other 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 (current) 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 therapy; Translations: [Other termite 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 (current) drug therapy] Onset: 5 Episodic Other aftercare (1 source) senior care (current) use of opiate analgesic; Translations: [senior care (current) use of opiate analgesic] Onset: 5 Episodic Other aftercare (1 source) 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; Translations: [senior care (current) use of oral hypoglycemic drugs] Onset: 5 Episodic Other bone disease and musculoskeletal deformities (1 source) Other specified disorders of bone density and structure, unspecified site; Translations: [Other specified disorders of bone density and structure, unspecified site] Onset: 4 Episodic Other connective tissue disease (1 source) Trochanteric bursitis, left hip; Translations: [Trochanteric bursitis, left hip] Onset: 5 Episodic Other gastrointestinal disorders (20 sources) Congenital arteriovenous malformation of small intestine; Translations: [Angiodysplasia of colon without hemorrhage] Onset: 1 04-06-2021 Episodic Other gastrointestinal disorders (2 sources) Angiodysplasia of colon without hemorrhage; Translations: [Arteriovenous malformation of gastrointestinal tract] Onset: 4 Episodic Other gastrointestinal disorders (1 source) Intra-abdominal and pelvic swelling, mass and lump, unspecified site; Translations: [Intra-abdominal and pelvic swelling, mass and lump, unspecified site] Onset: 4 Episodic Other hematologic conditions (20 sources) Secondary polycythemia; Translations: [Secondary polycythemia] Onset: 2 08-10-2021 Episodic Other non-traumatic joint disorders (3 sources) Pain in right knee; Translations: [Pain in right knee] Onset: 9 Episodic Other non-traumatic joint disorders (3 sources) Pain in left shoulder; Translations: [Pain in left shoulder] Onset: 5 Episodic Other screening for suspected conditions (not mental disorders or infectious disease) (10 sources) Imaging of gastrointestinal tract abnormal; Translations: [Abnormal findings on diagnostic imaging of other parts of digestive tract] Onset: 4 04-02-2024 Episodic Residual codes; unclassified (1 source) Acquired absence of other specified parts of digestive tract; Translations: [Acquired absence of other specified parts of digestive tract] Onset: 5 Episodic Residual codes; unclassified (1 source) Acquired absence of other genital organ(s); Translations: [Acquired absence of other genital organ(s)] Onset: 5 Episodic Spondylosis; intervertebral disc disorders; other back problems (20 sources) Radiculopathy due to lumbar intervertebral disc disorder; Translations: [Intervertebral disc disorders with radiculopathy, lumbar region] Onset: 4 04-09-2018 Episodic Superficial injury; contusion (2 sources) Contusion of right knee, initial encounter; Translations: [Contusion of right front wall of thorax, initial encounter] Onset: 5 Episodic Unclassified (1 source) LDCT LUNG CA SCREENING Onset: 7 Unclassified (3 sources) 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 Unclassified (3 sources) h/o bilateral carpal tunnel surgery 12-21-2021 Unclassified (3 sources) h/o bilateral shoulder surgery 12-21-2021 Unclassified (3 sources) h/o right ankle surgery 12-21-2021 Unclassified (3 sources) h/o right knee replacement 12-21-2021 Results Test Name Value Interpretation Reference Range Facility CBC + DIFFon 01-17-2025 Baso # 0.03 x10EE3/UL Normal 0.00 - 0.10 [facility] Comment on above: Performed By: #### 2 85315 ####[facility],[address] [place], [place] [id number] Basophils/100 WBC (Bld) 0.3 % Normal 0.0 - 2.0 [facility] Comment on above: Performed By: #### 2 21773 ####[facility],[address] [place] [address] CBC + DIFF Normal [facility] Comment on above: Result Comment: CBC- COMPLETE BLOOD COUNT Performed By: #### 2 70931 ####[facility],[address] [place] [address] EO # 0.16 x10EE3/UL Normal 0.00 - 0.50 [facility] Comment on above: Performed By: #### 2 84974 ####[facility],[address] [place] [address] Eosinophils/100 WBC (Bld) 1.9 % Normal 0.0 - 7.0 [facility] Comment on above: Performed By: #### 2 15541 ####[facility],[address] [place] [address] Erythrocyte distribution width (RBC) [Ratio] 19.7 % High 12.0 - 15.6 [facility] Comment on above: Performed By: #### 2 24027 ####[facility],[address] [place] [address] Hematocrit (Bld) [Volume fraction] 41.5 % Normal 34.0 - 46.0 [facility] Comment on above: Performed By: #### 2 84253 ####[facility],[address] [place], [place] [id number] Hemoglobin (Bld) [Mass/Vol] 13.7 g/dL Normal 12.0 - 16.0 [facility] Comment on above: Performed By: #### 2 81325 ####[facility],[address] [place], [place] [address] Lymph # 1.78 x10EE3/UL Normal 0.80 - 2.80 [facility] Comment on above: Performed By: #### 2 75375 ####[facility],[address] [place] [address] 91030 Lymphocytes/100 WBC (Bld) 20.8 % Normal 20.0 - 45.0 [facility] Comment on above: Performed By: #### 2 67342 ####[facility],[address] [place] [address] MANUAL DIFF N/A Normal [facility] Comment on above: Performed By: #### 2 77308 ####[facility],[address] [place] [address] 78529 MCH (RBC) [Entitic mass] 23 pg Low 27 - 33 [facility] Comment on above: Performed By: #### 2 94214 ####[facility],[address] [place] [address] MCHC 33 X10 3 Normal 32 - 36 [facility] Comment on above: Performed By: #### 2 84032 ####[facility],[address] [place] [address] 64428 MCV (RBC) [Entitic vol] 70 fL Low 80 - 99 [facility] Comment on above: Performed By: #### 2 11813 ####[facility],[address] [place] [address] 61161 Hockley # 0.86 x10EE3/UL Normal 0.20 - 1.00 [facility] Comment on above: Performed By: #### 2 80704 ####[facility],[address] [place] [address] 38974 MONOS % 10.1 % High 0.0 - 10.0 [facility] Comment on above: Performed By: #### 2 93359 ####[facility],[address] [place] [address] 69750 Morphology Fabian (Bld) [Interp] N/A Normal [facility] Comment on above: Performed By: #### 2 09893 ####[facility],[address] [place] [address] 21916 Neut # 5.72 x10EE3/UL Normal 1.50 - 7.10 [facility] Comment on above: Performed By: #### 2 19975 ####[facility],[address] [place] [address] 54629 Neutrophils/100 WBC (Bld) 67.0 % Normal 46.0 - 76.0 [facility] Comment on above: Performed By: #### 2 90139 ####[facility],[address] [place] [address] 38844 PLATELET 322 x10EE3/UL Normal 150 - 450 [facility] Comment on above: Performed By: #### 2 83399 ####[facility],[address] [place] [address] 80930 Platelet mean volume (Bld) [Entitic vol] 8.0 fL Normal 6.6 - 10.5 [facility] Comment on above: Result Comment: AUTO MATED DIFFERENTIAL Performed By: #### 2 15273 ####[facility],[address] [place] [address] 29791 RBC 5.93 x 10EE6/UL High 4.10 - 5.30 [facility] Comment on above: Performed By: #### 2 20704 ####[facility],[address] [place] [address] 97082 WBC 8.5 x 10EE3/UL Normal 4.5 - 10.8 [facility] Comment on above: Performed By: #### 2 64327 ####[facility],[address] [place] [address] 98754 CMP with eGFRon 01-17-2025 AGE 69 years Normal [facility] Comment on above: Performed By: #### 2 88441 ####[facility],[address] [place] [address] 54367 Albumin [Mass/Vol] 3.0 g/dL Low 3.4 - 5.0 [facility] Comment on above: Performed By: #### 2 65593 ####[facility],[address] [place] [address] 43804 Albumin/Globulin [Mass ratio] 0.9 {ratio} Normal 0.9 - 1.6 [facility] Comment on above: Performed By: #### 2 78292 ####[facility],[address] [place] [address] 27510 ALK PHOS 43 U/L Low 46 - 116 [facility] Comment on above: Performed By: #### 2 28982 ####[facility],[address] [place] [address] 92391 ALT [Catalytic activity/Vol] 22 U/L Normal 16 - 63 [facility] Comment on above: Performed By: #### 2 57176 ####[facility],[address] [place] [address] 58439 Anion gap [Moles/Vol] 12 mmol/L Normal 10 - 20 [facility] Comment on above: Performed By: #### 2 99615 ####[facility],[address] [place] [address] 97692 AST [Catalytic activity/Vol] 19 U/L Normal 13 - 39 [facility] Comment on above: Performed By: #### 2 56564 ####[facility],[address] [place] [address] 35156 B/C RATIO 8 ratio Normal 0 - 30 [facility] Comment on above: Performed By: #### 2 46447 ####[facility],[address] [place] [address] 55180 Bilirubin [Mass/Vol] 0.4 mg/dL Normal 0.2 - 1.0 [facility] Comment on above: Performed By: #### 2 32086 ####[facility],[address] [place] [address] 21083 Calcium [Mass/Vol] 9.6 mg/dL Normal 8.5 - 10.1 [facility] Comment on above: Performed By: #### 2 20040 ####[facility],[address] [place] [address] Chloride [Moles/Vol] 105 mmol/L Normal 98 - 107 [facility] Comment on above: Performed By: #### 2 86123 ####[facility],[address] [place] [address] CMP with eGFR Normal [facility] Comment on above: Result Comment: COMP REHENSIVE METABOLIC PANEL Performed By: #### 2 61726 ####[facility],[address] [place] [address] CO2 [Moles/Vol] 26.4 mmol/L Normal 21.0 - 32.0 [facility] Comment on above: Performed By: #### 2 28563 ####[facility],[address] [place] [address] Creatinine [Mass/Vol] 0.50 mg/dL Low 0.55 - 1.02 [facility] Comment on above: Performed By: #### 2 88075 ####[facility],[address] [place] [address] GFR/1.73 sq M.predicted among non-blacks MDRD (S/P/Bld) [Vol rate/Area] mL/min/{1.73_m2} Normal 60 - 999 [facility] Comment on above: Performed By: #### 2 71672 ####[facility],[address] [place] [address] Result Comment: ACCO RDING TO THE NATIONAL KIDNEY DISEASE EDUCATION PROGRAM(NKDE), A NORMAL eGFRIS A VALUE GREATER THAN OR EQUAL TO 60 ML/MIN/1.73 SQ METERS.CHRONIC KIDNEY DISEASE: <60mL/MIN/1.73 SQ METERSKIDNEY FAILURE: <15mL/MIN/1.73 SQ METERSTHIS TEST SHOULD ONLY BE USED FOR PATIENTS 18 YEARS OF AGE AND OLDER. Globulin (S) [Mass/Vol] 3.3 g/dL Normal 1.5 - 3.8 [facility] Comment on above: Performed By: #### 2 32377 ####[facility],[address] [place] [address] 79093 Glucose [Mass/Vol] 110 mg/dL High 74 - 106 [facility] Comment on above: Performed By: #### 2 40022 ####[facility],[address] [place] [address] 56428 Potassium [Moles/Vol] 3.8 mmol/L Normal 3.5 - 5.1 [facility] Comment on above: Performed By: #### 2 29081 ####[facility],[address] [place] [address] 09953 Protein [Mass/Vol] 6.3 g/dL Low 6.4 - 8.2 [facility] Comment on above: Performed By: #### 2 54059 ####[facility],[address] [place] [address] 15394 Sodium [Moles/Vol] 140 mmol/L Normal 136 - 145 [facility] Comment on above: Performed By: #### 2 31660 ####[facility],[address] [place] [address] 33479 Urea nitrogen [Mass/Vol] 4 mg/dL Low 7 - 18 [facility] Comment on above: Performed By: #### 2 43334 ####[facility],[address] [place] [address] 61006 ED MED ADMINISTRATION DETAIL on 01-17-2025 ED MED ADMINISTRATION DETAIL Normal [facility] ED NURSES CLINICAL NOTEon ED NURSES CLINICAL NOTE Normal [facility] ED ORDER SHEET (CPOE ONLY)on 01-17-2025 ED ORDER SHEET (CPOE ONLY) Normal [facility] ED PHYSICIAN CLINICAL REPORT on 01-17-2025 ED PHYSICIAN CLINICAL REPORT Normal [facility] ED SUPER BILLon 01-17-2025 ED SUPER BILL Normal [facility] ED VISIT SUMMARYon ED VISIT SUMMARY Normal [facility] ED VITALS FLOW SHEETon 01-17 ED VITALS FLOW SHEET Normal [facility] LIPASEon 01-17-2025 Lipase [Catalytic activity/Vol] 19.0 U/L Normal 15.0 - 78.0 [facility] Comment on above: Result Comment: *PLE ASE NOTE THAT RANGES FOR LIPASE HAVE CHANGED OF 06/01/23 DUE TO AN ASSAYUPDATE BY THE [employer]UT[employer] CONSULTANT.THE NEW ASSAY RANGE IS 6-250 U/L, WITH A REFERENCERANGE OF 16-77 U/L. Performed By: #### 2 43782 ####[facility],[address] [place] [address] 01-15-2025 [facility] [place] [place] JEN ESTRADA ([id number]) 1955 [facility] Date Time Provider Department 01/15/25 ANNE-MARIE ALBERTO During your visit today, we recorded the following information about you: Lona Gonzalez 01/15/2025 2:58 PM Signed Patient called stating Dr. Craven retired before providing blood results for her. Blood work was done at [facility] 2-3 weeks ago. Patient is asking if we can request the results and review them with her. Stating she knows she lost a lot of blood, feeling very tired, grumpy and pale. Please advise Erlinda Vargas LPN 01/16/2025 8:44 AM Signed Contacted [facility] and requested lab results. They are faxing. TANISHA Polo Kara, LPN 01/22/2025 3:38 PM Signed Scanned. TANISHA Polo Brianna 01/22/2025 4:13 PM Addendum Her Hgb is normal 13.6 and has continued to improve. No anemia. She should follow up with whoever is managing thyroid though. TSH is low and T4 is high, not sure what she is currently taking but her synthroid may need to be adjusted. Anne-Marie Alberto APRN.RENATO Angie DrummondTANISHA 01/23/2025 8:21 AM Signed Left message for pt. To contact office concerning results. Angie TANISHA GlynnAngie starrTANISHA 01/23/2025 8:32 AM Signed Spoke with pts. Daughter informed her mother should follow up with whoever is managing thyroid though. TSH is low and T4 is high, not sure what she is currently taking but her synthroid may need to be adjusted. No anemia, HGB is normal and continues to improve. Daughter voiced understanding. Angie Drummond LPN Allergies As of Date: 01/15/2025 Noted Allergy Reaction ADHESIVE 04/20/2017 14 - Other: See Comments Comments: Blisters skin AMBIEN (ZOLPIDEM TARTRATE) 07/01/2018 14 - Other: See Comments CODEINE 04/20/2017 14 - Other: See Comments Comments: Seizure as a child DEMEROL (MEPERIDINE) 03/06/2023 9 - Itching LATEX, NATURAL RUBBER 04/20/2017 14 - Other: See Comments Comments: blisters NSAIDS (NON-STEROIDAL ANTI-INFLAM*03/08/2020 8 - GI Upset Comments: Has had GI bleed SULFA (SULFONAMIDE ANTIBIOTICS) 04/01/2024 9 - Itching TRAMADOL 12/18/2017 9 - Itching Date Reviewed: 08/29/2024 Reviewed by: Adrien Pike, RN - Fully Assessed Reason for Visit: Patient Question [8907] Prescriptions as of 01/23/2025 - FAMOTIDINE ORAL Take by mouth. - HYDROcodone-Acetaminop hen (NORCO) 7.5-325 mg per tablet Take 1 tablet by mouth every 8 hours as needed for pain. - bumetanide (BUMEX) 1 mg tablet Take 1 mg by mouth two times a day. - dilTIAZem CD (CARTIA XT) 120 mg 24 hr capsule Take 120 mg by mouth once daily. - busPIRone (BUSPAR) 10 mg tablet Take 10 mg by mouth two times a day. - traZODone (DESYREL) 100 mg tablet Take 100 mg by mouth daily at bedtime. - folic acid 1 mg tablet Take 1 mg by mouth once daily. - gabapentin (NEURONTIN) 300 mg capsule Take 300 mg by mouth two times a day. - levothyroxine (SYNTHROID) 300 mcg tablet Take 300 mcg by mouth once daily. - fluticasone-umeclidin- vilanter (TRELEGY ELLIPTA) 100-62.5-25 mcg inhalation powder Take by mouth DAILY (6 AM). - cyclobenzaprine (FLEXERIL) 10 mg tablet Take 10 mg by mouth three times daily as needed. - ferrous sulfate (IRON) 325 mg (65 mg iron) tablet Take 1 tablet by mouth twice daily. - nateglinide (STARLIX) 60 mg tablet Take 60 mg by mouth three times a day before meals. - albuterol (PROVENTIL) 2.5 mg /3 mL (0.083 %) nebulizer solution Use 3 mL via nebulizer every 6 hours as needed for wheezing/shortness of breath. OVER 5-15 MINUTES. FOR WHEEZING AND SHORTNESS OF BREATH. - ipratropium (ATROVENT) 0.02 % nebulizer solution Use 0.5 mg via nebulizer four times daily. PRN - tiZANidine (ZANAFLEX) 4 mg tablet Take 4 mg by mouth every 8 hours as needed. - calcium carbonate (CALCIUM 600 ORAL) Take 1 tablet by mouth two times a day. - omeprazole (PRILOSEC) 40 mg capsule TAKE 1 CAPSULE BY MOUTH TWICE DAILY. TAKE 30 MINUTES BEFORE BREAKFAST AND DINNER - mirtazapine (REMERON) 15 mg tablet Take 15 mg by mouth daily at bedtime. - QUEtiapine (SEROQUEL) 100 mg tablet Take 100 mg by mouth daily at bedtime. - alirocumab (PRALUENT PEN) 75 mg/mL Inject 75 mg subcutaneously every other week. - cholecalciferol (VITAMIN D-3) 5,000 unit tab Take 5,000 Units by mouth once daily. - magnesium oxide 400 mg magnesium tab Take by mouth once daily. - DULoxetine (CYMBALTA) 60 mg capsule Take 60 mg by mouth twice daily. - metoprolol succinate ER (TOPROL XL) 25 mg 24 hr tablet Take 25 mg by mouth twice daily. - tiotropium bromide (SPIRIVA RESPIMAT) 1.25 mcg/actuation mist Inhale 1 Puff as instructed once daily. - divalproex DR (DEPAKOTE) 250 mg EC tablet Take 250 mg by mouth once daily. - dicyclomine (BENTYL) 20 mg tablet Take 20 mg by mouth every 6 hours. - isosorbide mononitrat (more content not included)... Normal [facility] CBC + DIFFon 12-26-2024 Baso # 0.04 x10EE3/UL Normal 0.00 - 0.10 [facility] Comment on above: Performed By: #### 2 08980 ####[facility],[address] [place] [address] 34977 Basophils/100 WBC (Bld) 0.5 % Normal 0.0 - 2.0 [facility] Comment on above: Performed By: #### 2 59575 ####[facility],[address] [place] [address] CBC + DIFF Normal [facility] Comment on above: Result Comment: CBC- COMPLETE BLOOD COUNT Performed By: #### 2 85659 ####[facility],[address] [place] [address] 46219 EO # 0.20 x10EE3/UL Normal 0.00 - 0.50 [facility] Comment on above: Performed By: #### 2 23950 ####[facility],[address] [place] [address] 19399 Eosinophils/100 WBC (Bld) 2.3 % Normal 0.0 - 7.0 [facility] Comment on above: Performed By: #### 2 98457 ####[facility],[address] [place], [place] [address] Erythrocyte distribution width (RBC) [Ratio] 19.9 % High 12.0 - 15.6 [facility] Comment on above: Performed By: #### 2 60234 ####[facility],[address] [place] [address] 36163 Hematocrit (Bld) [Volume fraction] 40.6 % Normal 34.0 - 46.0 [facility] Comment on above: Performed By: #### 2 94724 ####[facility],[address] [place] [address] 93742 Hemoglobin (Bld) [Mass/Vol] 13.6 g/dL Normal 12.0 - 16.0 [facility] Comment on above: Performed By: #### 2 72487 ####[facility],[address] [place] [address] 25809 Lymph # 1.88 x10EE3/UL Normal 0.80 - 2.80 [facility] Comment on above: Performed By: #### 2 03916 ####[facility],[address] [place] [address] 62718 Lymphocytes/100 WBC (Bld) 22.4 % Normal 20.0 - 45.0 [facility] Comment on above: Performed By: #### 2 75082 ####[facility],[address] [place] [address] 21837 MANUAL DIFF N/A Normal [facility] Comment on above: Performed By: #### 2 65561 ####[facility],[address] [place] [address] 47532 MCH (RBC) [Entitic mass] 23 pg Low 27 - 33 [facility] Comment on above: Performed By: #### 2 25293 ####[facility],[address] [place] [address] 38858 MCHC 33 X10 3 Normal 32 - 36 [facility] Comment on above: Performed By: #### 2 80460 ####[facility],[address] [place] [address] 38730 MCV (RBC) [Entitic vol] 68 fL Low 80 - 99 [facility] Comment on above: Performed By: #### 2 94991 ####[facility],[address] [place] [address] 58900 Hockley # 0.64 x10EE3/UL Normal 0.20 - 1.00 [facility] Comment on above: Performed By: #### 2 92228 ####[facility],[address] [place] [address] 91259 MONOS % 7.6 % Normal 0.0 - 10.0 [facility] Comment on above: Performed By: #### 2 97941 ####[facility],[address] [place] [address] 33363 Morphology Fabian (Bld) [Interp] N/A Normal [facility] Comment on above: Performed By: #### 2 11838 ####[facility],[address] [place] [address] 77701 Neut # 5.64 x10EE3/UL Normal 1.50 - 7.10 [facility] Comment on above: Performed By: #### 2 30214 ####[facility],[address] [place] [address] 55057 Neutrophils/100 WBC (Bld) 67.1 % Normal 46.0 - 76.0 [facility] Comment on above: Performed By: #### 2 19693 ####[facility],[address] [place] [address] 88543 PLATELET 351 x10EE3/UL Normal 150 - 450 [facility] Comment on above: Performed By: #### 2 83805 ####[facility],[address] [place] [address] 98442 Platelet mean volume (Bld) [Entitic vol] 7.4 fL Normal 6.6 - 10.5 [facility] Comment on above: Result Comment: AUTO MATED DIFFERENTIAL Performed By: #### 2 38967 ####[facility],[address] [place] [address] 80672 RBC 5.96 x 10EE6/UL High 4.10 - 5.30 [facility] [facility] Comment on above: Performed By: #### 2 96154 ####[facility],[address] [place] [address] WBC 8.4 x 10EE3/UL Normal 4.5 - 10.8 [facility] Comment on above: Performed By: #### 2 98890 ####[facility],[address] [place] [address]29 FERRITIN [CCL]on 12-26-2024 Ferritin [Mass/Vol] 22.1 ng/mL Normal 14.7-205.1 [facility] Comment on above: Result Comment: [id number] [place], [place] [address]Abraham Maguire III, M.D.[id number] Performed By: #### 2 24989 ####[facility],[address] [place] [address] Order Comment: Speci men Type: BLOOD SPECIMEN Ordering Facility: [facility] Address: [address] [place] [address] Performed By: #### 2 276-4 #### [facility] CLIA [id number] [address] [place] [address] [facility] HEMOGLOBIN A1C (POM)on 12-26 Glucose [Mass/Vol] 139.9 mg/dL High 0.0 - 0.0 [facility] Comment on above: Result Comment: BLDo HEMOGLOBIN A1C REFERENCE RANGESBLDo Suggested Diagnosis HbA1c(%) HbA1C (mmol/mol Diabetic >/=6.5 >/=48 Prediabetes 5.7 - 6.4 39 - 47 Normal <5.7 <39 Performed By: #### 2 02610 ####[facility],[address] [place] [address] HbA1c (Bld) [Mass fraction] 6.5 % Normal 0.0 - 6.5 [facility] Comment on above: Performed By: #### 2 63485 ####[facility],[address] [place] [address] IRON AND TIBCon 12-26-2024 %SATURATION 5 % Normal [facility] Comment on above: Performed By: #### 2 95044 ####[facility],[address] [place], [place] [address] Iron [Mass/Vol] 18 ug/dL Low 50 - 170 [facility] Comment on above: Performed By: #### 2 15324 ####[facility],[address] [place] [address] TIBC 358 ug/dl Normal 250 - 450 [facility] Comment on above: Performed By: #### 2 73108 ####[facility],[address] [place] [address] UIBC 340 ug/dL Normal 155 - 355 [facility] Comment on above: Performed By: #### 2 79040 ####[facility],[address] [place], [place] [address] T4-FREE (FREE THYROXINE)on 0 12-26-2024 Free T4 [Mass/Vol] 1.93 ng/dL High 0.76 - 1.46 [facility] Comment on above: Result Comment: P otential of falsely elevated results when biotin concentrations are > 10ng/mL. Performed By: #### 2 85673 ####[facility],[address] [place] [address] 27894 TSHon 12-26-2024 TSH Qn 0.22 m[IU]/L Low 0.35 - 3.74 [facility] Comment on above: Performed By: #### 2 20259 ####[facility],[address] [place] [address] 18957 URINE MICROALBUMIN W/CREATIN INE, RANDOMon 12-26-2024 CREATININE UR 49.85 mg/dl Normal [facility] Comment on above: Performed By: #### 2 52884 ####[facility],[address],[place] [address] MICROALBUMIN UR 1.1 mg/dL Normal 0.1 - 11.6 [facility] Comment on above: Performed By: #### 2 98628 ####[facility],[address] [place] [address] 55425 UACR 22 mg/g Normal [facility] Comment on above: Performed By: #### 2 44340 ####[facility],[address] [place] [address] 85008 ANALYST FOOD AND BEVERAGE REPORTon 11-20-19 [employer]NA[employer]EVER[employer] REPORT Normal [facility] CBC W Auto Differential pane l (Bld)on 11-14-2024 Basophils (Bld) [#/Vol] 0.11 10*3/uL High <0.11 [facility] Comment on above: Order Comment: Speci men Type: BLOOD SPECIMEN Ordering Facility: [facility] Address: [address] [place] [address] Performed By: #### 5 7021-8 #### [facility] CLIA [id number] [address] [place] [address] [place] Basophils/100 WBC (Bld) 1.1 % Normal [facility] Comment on above: Order Comment: Speci men Type: BLOOD SPECIMEN Ordering Facility: [facility] Address: [address] [place] [address] Performed By: #### 5 7021-8 #### [facility] CLIA [id number] [address] [place] [address] [place] Differential cell count method Nom (Bld) Auto Normal [facility] Comment on above: Order Comment: Speci men Type: BLOOD SPECIMEN Ordering Facility: [facility] Address: [address] [place] [address] Performed By: #### 5 7021-8 #### [facility] CLIA [id number] [address] [place] [address] [place] Eosinophils (Bld) [#/Vol] 0.07 10*3/uL Normal <0.46 [facility] Comment on above: Order Comment: Speci men Type: BLOOD SPECIMEN Ordering Facility: [facility] Address: [address] [place] [address] Performed By: #### 5 7021-8 #### [facility] CLIA [id number] [address] [place] [address] [place] Eosinophils/100 WBC (Bld) 0.7 % Normal [facility] Comment on above: Order Comment: Speci men Type: BLOOD SPECIMEN Ordering Facility: [facility] Address: [address] [place] [address] Performed By: #### 5 7021-8 #### [facility] CLIA [id number] [address] [place] [address] [place] Erythrocyte distribution width (RBC) [Ratio] 18.5 % High 11.5-15.0 [facility] Comment on above: Order Comment: Speci men Type: BLOOD SPECIMEN Ordering Facility: [facility] Address: [address] [place] [address] Performed By: #### 5 7021-8 #### [facility] CLIA [id number] [address] [place] [address] [place] Hematocrit (Bld) [Volume fraction] 40.4 % Normal 36.0-46.0 [facility] Comment on above: Order Comment: Speci men Type: BLOOD SPECIMEN Ordering Facility: [facility] Address: [address] [place] [address] Performed By: #### 5 7021-8 #### [facility] CLIA [id number] [address] [place] [address] [place] Hemoglobin (Bld) [Mass/Vol] 12.8 g/dL Normal 11.5-15.5 [facility] Comment on above: Order Comment: Speci men Type: BLOOD SPECIMEN Ordering Facility: [facility] Address: [address] [place] [address] Performed By: #### 5 7021-8 #### [facility] CLIA [id number] [address] [place] [address] [place] Immature granulocytes (Bld) [#/Vol] 0.04 10*3/uL Normal <0.10 [facility] Comment on above: Order Comment: Speci men Type: BLOOD SPECIMEN Ordering Facility: [facility] Address: [address] [place] [address] Performed By: #### 5 7021-8 #### [facility] CLIA [id number] [address] [place] [address] [place] Immature granulocytes/100 WBC (Bld) 0.4 % Normal [facility] Comment on above: Order Comment: Speci men Type: BLOOD SPECIMEN Ordering Facility: [facility] Address: [address] [place] [address] Performed By: #### 5 7021-8 #### [facility] CLIA [id number] [address] [place] [address] [place] Lymphocytes (Bld) [#/Vol] 1.88 10*3/uL Normal 1.00-4.00 [facility] Comment on above: Order Comment: Speci men Type: BLOOD SPECIMEN Ordering Facility: [facility] Address: [address] [place] [address] Performed By: #### 5 7021-8 #### [facility] CLIA [id number] [address] [place] [address] [place] Lymphocytes/100 WBC (Bld) 19.2 % Normal [facility] Comment on above: Order Comment: Speci men Type: BLOOD SPECIMEN Ordering Facility: [facility] Address: [address] [place] [address] Performed By: #### 5 7021-8 #### [facility] CLIA [id number] [address] [place] [address] [place] MCH (RBC) [Entitic mass] 21.9 pg Low 26.0-34.0 [facility] Comment on above: Order Comment: Speci men Type: BLOOD SPECIMEN Ordering Facility: [facility] Address: [address] [place] [address] Performed By: #### 5 7021-8 #### [facility] CLIA [id number] [address] [place] [address] [place] MCHC (RBC) [Mass/Vol] 31.7 g/dL Normal 30.5-36.0 [facility] Comment on above: Order Comment: Speci men Type: BLOOD SPECIMEN Ordering Facility: [facility] Address: [address] [place] [address] Performed By: #### 5 7021-8 #### [facility] CLIA [id number] [address] [place] [address] [place] MCV (RBC) [Entitic vol] 69.1 fL Low 80.0-100.0 [facility] Comment on above: Order Comment: Speci men Type: BLOOD SPECIMEN Ordering Facility: [facility] Address: [address] [place] [address] Performed By: #### 5 7021-8 #### [facility] CLIA [id number] [address] [place] [address] [place] Monocytes (Bld) [#/Vol] 0.85 10*3/uL Normal <0.87 [facility] Comment on above: Order Comment: Speci men Type: BLOOD SPECIMEN Ordering Facility: [facility] Address: [address] [place] [address] Performed By: #### 5 7021-8 #### [facility] CLIA [id number] [address] [place] [address] [place] Monocytes/100 WBC (Bld) 8.7 % Normal [facility] Comment on above: Order Comment: Speci men Type: BLOOD SPECIMEN Ordering Facility: [facility] Address: [address] [place] [address] Performed By: #### 5 7021-8 #### [facility] CLIA [id number] [address] [place] [address] [place] Neutrophils (Bld) [#/Vol] 6.82 10*3/uL Normal 1.45-7.50 [facility] Comment on above: Order Comment: Speci men Type: BLOOD SPECIMEN Ordering Facility: [facility] Address: [address] [place] [address] Performed By: #### 5 7021-8 #### [facility] CLIA [id number] [address] [place] [address] [place] Neutrophils/100 WBC (Bld) 69.9 % Normal [facility] Comment on above: Order Comment: Speci men Type: BLOOD SPECIMEN Ordering Facility: [facility] Address: [address] [place] [address] Performed By: #### 5 7021-8 #### [facility] CLIA [id number] [address] [place] [address] [place] Nucleated RBC (Bld) [#/Vol] 10*3/uL Normal <0.01 [facility] Comment on above: Order Comment: Speci men Type: BLOOD SPECIMEN Ordering Facility: [facility] Address: [address] [place] [address] Performed By: #### 5 7021-8 #### [facility] CLIA [id number] [address] [place] [address] [place] Nucleated RBC/100 WBC (Bld) [Ratio] 0.0 /100 WBC Normal [facility] Comment on above: Order Comment: Speci men Type: BLOOD SPECIMEN Ordering Facility: [facility] Address: [address] [place] [address] Performed By: #### 5 7021-8 #### [facility] CLIA [id number] [address] [place] [address] [place] Platelet mean volume (Bld) [Entitic vol] 8.8 fL Low 9.0-12.7 [facility] Comment on above: Order Comment: Speci men Type: BLOOD SPECIMEN Ordering Facility: [facility] Address: [address] [place] [address] Performed By: #### 5 7021-8 #### [facility] CLIA [id number] [address] [place] [address] [place] Platelets (Bld) [#/Vol] 438 10*3/uL High 150-400 [facility] Comment on above: Order Comment: Speci men Type: BLOOD SPECIMEN Ordering Facility: [facility] Address: [address] [place] [address] Performed By: #### 5 7021-8 #### [facility] CLIA [id number] [address] [place] [address] [place] RBC (Bld) [#/Vol] 5.85 10*6/uL High 3.90-5.20 [facility] Comment on above: Order Comment: Speci men Type: BLOOD SPECIMEN Ordering Facility: [facility] Address: [address] [place] [address] Performed By: #### 5 7021-8 #### [facility] CLIA [id number] [address] [place] [address] [place] WBC (Bld) [#/Vol] 9.77 10*3/uL Normal 3.70-11.00 [facility] Comment on above: Order Comment: Speci men Type: BLOOD SPECIMEN Ordering Facility: [facility] Address: [address] [place] [address] Performed By: #### 5 7021-8 #### [facility] CLIA [id number] [address] [place] [address] [place] Ferritin SerPl-mCncon 06-13- 2025 Ferritin [Mass/Vol] 22.6 ng/mL Normal 14.7-205.1 [facility] Comment on above: Order Comment: Speci men Type: BLOOD SPECIMEN Ordering Facility: [facility] Address: [address] [place] [address] Performed By: #### 5 0190-8, 2275-4 #### [facility] CLIA [id number] [address] [place] [address] [place] Iron and Iron binding capaci ty panelon 11-14-2024 Iron [Mass/Vol] 13 ug/dL Low 41-186 [facility] Comment on above: Order Comment: Speci men Type: BLOOD SPECIMEN Ordering Facility: [facility] Address: [address] [place] [address] Performed By: #### 5 0190-8, 2275-09 #### [facility] CLIA [id number] [address] [place] [address] [place] [facility] Iron binding capacity [Mass/Vol] 326 ug/dL Normal 232-386 [facility] Comment on above: Order Comment: Speci men Type: BLOOD SPECIMEN Ordering Facility: [facility] Address: [address] [place] [address] Performed By: #### 5 0190-8, 2275-09 #### [facility] CLIA [id number] [address] [place] [address] [place] Iron/TIBC [Molar ratio] 4.0 % Low 15.0-57.0 [facility] Comment on above: Order Comment: Speci men Type: BLOOD SPECIMEN Ordering Facility: [facility] Address: [address] [place] [address] Performed By: #### 5 0190-8, 2275-09 #### [facility] CLIA [id number] [address] [place] [address] [place] Bacteria Ur Culton 5 Bacteria identified Cx Nom (U) ORGANISM ID: 1 50,000-<100,000 CFU/ml Normal urogenital mana Normal [facility] Comment on above: Performed By: #### 5 0190-8, 2276-4 #### [facility] CLIA [id number] [address] [place] [address] [place] URINALYSIS WITH MICROSCOPYon 10-30-2024 Amorphous NONE Normal [facility] Comment on above: Performed By: #### 2 45978 ####[facility],[address] [place] [address] 28979 Bacteria NONE Normal [facility] Comment on above: Performed By: #### 2 86582 ####[facility],[address] [place] [address] 22646 Bilirubin Ql (U) Negative Normal NORMAL: NEGATIVE [facility] Comment on above: Performed By: #### 2 13657 ####[facility],[address] [place] [address] 60161 Casts NONE Normal [facility] Comment on above: Performed By: #### 2 31266 ####[facility],[address] [place] [address] 21843 Clarity (U) clear Normal NORMAL: CLEAR [facility] Comment on above: Performed By: #### 2 93683 ####[facility],[address] [place] [address] 66081 Color (U) p.yel Normal NORMAL: YELLOW [facility] Comment on above: Performed By: #### 2 93891 ####[facility],[address] [place] [address] 95619 Crystals LM Nom (Urine sed) NONE Normal [facility] Comment on above: Performed By: #### 2 96977 ####[facility],[address] [place] [address] 34510 Epi Cells FEW Normal [facility] Comment on above: Performed By: #### 2 62626 ####[facility],[address] [place] [address] 05959 Glucose Ql (U) NORM Normal NORMAL: NORMAL [facility] Comment on above: Performed By: #### 2 20959 ####[facility],[address] [place] [address] 61382 Hemoglobin Ql (U) Negative Normal NORMAL: NEGATIVE [facility] Comment on above: Performed By: #### 2 89493 ####[facility],[address] [place] [address] 87303 Ketone Negative Normal NORMAL: NEGATIVE [facility] Comment on above: Performed By: #### 2 88204 ####[facility],[address] [place] [address] 47430 Leukocytes Negative Normal NORMAL: NEGATIVE [facility] Comment on above: Result Comment: URIN E MICROSCOPIC Performed By: #### 2 85714 ####[facility],[address] [place] [address] 33168 Mucous NONE Normal [facility] Comment on above: Performed By: #### 2 89525 ####[facility],[address] [place] [address] 99801 Nitrite Ql (U) Negative Normal NORMAL: NEGATIVE [facility] Comment on above: Performed By: #### 2 47108 ####[facility],[address] [place] [address] 85178 pH (U) 6 [pH] Normal NORMAL: 5.0-8.0 [facility] Comment on above: Performed By: #### 2 96209 ####[facility],[address] [place] [address] 17241 Protein Ql (U) Negative Normal NORMAL: NEGATIVE [facility] Comment on above: Performed By: #### 2 87065 ####[facility],[address] [place] [address] 12935 Rbc NONE Normal 0-3 / hpf [facility] Comment on above: Performed By: #### 2 23770 ####[facility],[address] [place] [address] Sp [place] 1.010 Normal NORMAL: 1.010-1.030 [facility] Comment on above: Performed By: #### 2 02607 ####[facility],[address] [place] [address] Specimen Type R Normal [facility] Comment on above: Performed By: #### 2 99752 ####[facility],[address] [place] [address] URINALYSIS WITH MICROSCOPY Normal [facility] Comment on above: Result Comment: URIN ALYSIS Performed By: #### 2 74055 ####[facility],[address] [place] [address] Urobilinog NORM Normal NORMAL: NORMAL [facility] Comment on above: Performed By: #### 2 47152 ####[facility],[address] [place] [address] Wbc NONE Normal 0-5 / hpf [facility] Comment on above: Performed By: #### 2 67701 ####[facility],[address] [place] [address] Yeast NONE Normal [facility] Comment on above: Performed By: #### 2 45238 ####[facility],[address] [place] [address] URINE CULTURE [CCL]on 2024 Bacteria identified Cx Nom (U) Normal [facility] Comment on above: Performed By: #### 2 73868 ####[facility],[address] [place], [place] [address] URINE MICROALBUMIN W/CREATIN INE, RANDOMon 10-30-2024 CREATININE UR 32.95 mg/dl Normal [facility] Comment on above: Performed By: #### 2 78246 ####[facility],[address] [place], [place] [address] MICROALBUMIN UR 0.5 mg/dL Normal 0.1 - 11.6 [facility] Comment on above: Performed By: #### 2 03194 ####[facility],[address] [place], [place] [address] UACR 15 mg/g Normal [facility] Comment on above: Performed By: #### 2 36771 ####[facility],[address] [place], [place] [address] ED MED ADMINISTRATION DETAIL on 10-28-2024 ED MED ADMINISTRATION DETAIL Normal [facility] ED NURSES CLINICAL NOTEon ED NURSES CLINICAL NOTE Normal [facility] ED ORDER SHEET (CPOE ONLY)on 10-28-2024 ED ORDER SHEET (CPOE ONLY) Normal [facility] ED PHYSICIAN CLINICAL REPORT on 10-28-2024 ED PHYSICIAN CLINICAL REPORT Normal [facility] ED SUPER BILLon 10-28-2024 ED SUPER BILL Normal [facility] ED VISIT SUMMARYon 5 ED VISIT SUMMARY Normal [facility] ED VITALS FLOW SHEETon 10-28 ED VITALS FLOW SHEET Normal [facility] ANKLE COMPLETE LTon 10-28-19 25 ANKLE COMPLETE LT Normal [facility] FOOT COMPLETE LTon 5 FOOT COMPLETE LT Normal [facility] ED MED ADMINISTRATION DETAIL on 10-20-2024 ED MED ADMINISTRATION DETAIL Normal [facility] ED NURSES CLINICAL NOTEon ED NURSES CLINICAL NOTE Normal [facility] ED ORDER SHEET (CPOE ONLY)on 10-20-2024 ED ORDER SHEET (CPOE ONLY) Normal [facility] ED PHYSICIAN CLINICAL REPORT on 10-20-2024 ED PHYSICIAN CLINICAL REPORT Normal [facility] ED SUPER BILLon 10-20-2024 ED SUPER BILL Normal [facility] ED VISIT SUMMARYon 5 ED VISIT SUMMARY Normal [facility] ED VITALS FLOW SHEETon 10-20 ED VITALS FLOW SHEET Normal [facility] CT CHEST (PE PROTOCOL)on CT CHEST (PE PROTOCOL) Normal [facility] ED MED ADMINISTRATION DETAIL on 10-03-2024 ED MED ADMINISTRATION DETAIL Normal [facility] ED NURSES CLINICAL NOTEon ED NURSES CLINICAL NOTE Normal [facility] ED ORDER SHEET (CPOE ONLY)on 10-03-2024 ED ORDER SHEET (CPOE ONLY) Normal [facility] ED PHYSICIAN CLINICAL REPORT on 10-03-2024 ED PHYSICIAN CLINICAL REPORT Normal [facility] ED SUPER BILLon 10-03-2024 ED SUPER BILL Normal [facility] ED VISIT SUMMARYon ED VISIT SUMMARY Normal [facility] ED VITALS FLOW SHEETon 10-03 ED VITALS FLOW SHEET Normal [facility] CT CHEST W/O CONTRASTon CT CHEST W/O CONTRAST Normal [facility] BMP with eGFRon 09-30-2024 AGE 68 years Normal [facility] Comment on above: Performed By: #### 2 57897 ####[facility],[address] [place], [place] [address] Anion gap [Moles/Vol] 9 mmol/L Low 10 - 20 [facility] Comment on above: Performed By: #### 2 45305 ####[facility],[address] [place], [place] [address] BMP with eGFR Normal [facility] Comment on above: Result Comment: BASI C METABOLIC PANEL Performed By: #### 2 15431 ####[facility],[address] [place] [address] 29596 Calcium [Mass/Vol] 9.5 mg/dL Normal 8.5 - 10.1 [facility] Comment on above: Performed By: #### 2 72365 ####[facility],[address] [place], [place] [address] Chloride [Moles/Vol] 103 mmol/L Normal 98 - 107 [facility] Comment on above: Performed By: #### 2 07153 ####[facility],[address] [place] [address] 65915 CO2 [Moles/Vol] 30.1 mmol/L Normal 21.0 - 32.0 [facility] Comment on above: Performed By: #### 2 74066 ####[facility],[address] [place] [address] 57994 Creatinine [Mass/Vol] 0.71 mg/dL Normal 0.55 - 1.02 [facility] Comment on above: Performed By: #### 2 71265 ####[facility],[address] [place] [address] 00948 GFR/1.73 sq M.predicted among non-blacks MDRD (S/P/Bld) [Vol rate/Area] mL/min/{1.73_m2} Normal 60 - 999 [facility] Comment on above: Performed By: #### 2 12870 ####[facility],[address] [place], [place] [address] Result Comment: ACCO RDING TO THE NATIONAL KIDNEY DISEASE EDUCATION PROGRAM(NKDE), A NORMAL eGFRIS A VALUE GREATER THAN OR EQUAL TO 60 ML/MIN/1.73 SQ METERS.CHRONIC KIDNEY DISEASE: <60mL/MIN/1.73 SQ METERSKIDNEY FAILURE: <15mL/MIN/1.73 SQ METERSTHIS TEST SHOULD ONLY BE USED FOR PATIENTS 18 YEARS OF AGE AND OLDER. Glucose [Mass/Vol] 120 mg/dL High 74 - 106 [facility] Comment on above: Performed By: #### 2 34260 ####[facility],[address] [place] [address] 63719 Potassium [Moles/Vol] 4.3 mmol/L Normal 3.5 - 5.1 [facility] [facility] Comment on above: Performed By: #### 2 36162 ####[facility],[address] [place] [address] 14925 Sodium [Moles/Vol] 138 mmol/L Normal 136 - 145 [facility] Comment on above: Performed By: #### 2 92141 ####[facility],[address] [place] [address] 77073 Urea nitrogen [Mass/Vol] 16 mg/dL Normal 7 - 18 [facility] Comment on above: Performed By: #### 2 20236 ####[facility],[address] [place] [address] 53618 HEMOGLOBIN A1C (POM)on 09-30 Glucose [Mass/Vol] 125.5 mg/dL High 0.0 - 0.0 [facility] Comment on above: Result Comment: Do HEMOGLOBIN A1C REFERENCE RANGESBLDo Suggested Diagnosis HbA1c(%) HbA1C (mmol/mol Diabetic >/=6.5 >/=48 Prediabetes 5.7 - 6.4 39 - 47 Normal <5.7 <39 Performed By: #### 2 41524 ####[facility],[address] [place] [address] 39730 HbA1c (Bld) [Mass fraction] 6.0 % Normal 0.0 - 6.5 [facility] Comment on above: Performed By: #### 2 21589 ####[facility],[address] [place] [address] 86276 LIPID PROFILEon 09-30-2024 Cholesterol [Mass/Vol] 159 mg/dL Normal 0 - 240 [facility] Comment on above: Performed By: #### 2 53820 ####[facility],[address] [place] [address] 32120 Cholesterol in HDL [Mass/Vol] 65 mg/dL High 40 - 60 [facility] Comment on above: Performed By: #### 2 10063 ####[facility],[address] [place] [address] 00106 Cholesterol in LDL [Mass/Vol] 74 mg/dL Normal 0 - 129 [facility] Comment on above: Performed By: #### 2 01196 ####[facility],[address] [place] [address] 12729 Cholesterol.total/Cho lesterol in HDL [Mass ratio] 2.4 {ratio} Normal 0.0 - 5.0 [facility] Comment on above: Performed By: #### 2 62669 ####[facility],[address] [place] [address] Lipid 1996 panel Normal [facility] Comment on above: Result Comment: LIPI D PROFILE Performed By: #### 2 11776 ####[facility],[address] [place] [address] Triglyceride [Mass/Vol] 102 mg/dL Normal 0 - 150 [facility] Comment on above: Performed By: #### 2 12996 ####[place] [address] RIBS RT UNILAT W/CHEST EXPIR ATIONon 09-30-2024 RIBS RT UNILAT W/CHEST EXPIRATION Normal [facility] SGOT (AST)on 09-30-2024 AST [Catalytic activity/Vol] 17 U/L Normal 13 - 39 [facility] Comment on above: Performed By: #### 2 63797 ####[facility],[address] [place] [address] SGPT (ALT)on 09-30-2024 ALT [Catalytic activity/Vol] 31 U/L Normal 16 - 63 [facility] Comment on above: Performed By: #### 2 86038 ####[facility],[address] [place] [address] T4-FREE (FREE THYROXINE)on 0 09-30-2024 Free T4 [Mass/Vol] 1.62 ng/dL High 0.76 - 1.46 [facility] Comment on above: Result Comment: P otential of falsely elevated results when biotin concentrations are > 10ng/mL. Performed By: #### 2 51657 ####[facility],[address] [place], [place] [address] TSHon 09-30-2024 TSH Qn 0.30 m[IU]/L Low 0.35 - 3.74 [facility] Comment on above: Performed By: #### 2 94415 ####[facility],[address] [place] [address] VITAMIN D, 25 HYDROXYon 09-03 VitD 65.00 ng/mL Normal 30.00 - 100 [facility] Comment on above: Result Comment: 25-O HD3 indicates both endogenous production and supplementation. 25-OHD2 is anindicator of exogenous sources, such as diet or supplementation. Therapy isbased on measurement of Total 25-OHD, with levels <20 ng/mL indicative ofVitamin D deficiency, while levels between 20 ng/mL and 30 ng/mL suggestinsufficiency. Optimal levels are >=30ng/mL.Vitamin D, 25-OH D3 Not EstablishedVitamin D, 25-OH D2 Not Established Performed By: #### 2 68718 ####[facility],[address] [place] [address] [place] MAMMOGRAM DIAGNOSTIC BILA TERAL W/TOMOon 09-26-2024 MA MAMMOGRAM DIAGNOSTIC BILATERAL W/OLI ORIGINAL FROM: [address] [address] PROCEDURE FOR: JEN ESTRADA [address] [place] [id number] Home: PID#: [id number] Exam#: [id number] : 1955 Age: 68 TO: PJ LAYNE [employer] [address] Fax: NO FAX EXAMINATION: DIAGNOSTIC BILATERAL MAMMOGRAM WITH TOMOSYNTHESIS, 09/26/2024 11:18 am TECHNIQUE: Tomosynthesis was performed as part of the diagnostic bilateral mammogram. 2D standard and 3D tomosynthesis combination imaging performed. Current study was also evaluated with a Computer Aided Detection (CAD) system. COMPARISON: 02/28/2024, 02/05/2024, 12/06/2021 mammograms, 03/13/2024 bilateral breast ultrasound HISTORY: ORDERING SYSTEM PROVIDED HISTORY: Reason for Exam: Left asymmetry on outside imaging. Prior breast reduction surgery. FINDINGS: BREAST DENSITY: The breasts are heterogeneously dense, which may obscure small masses. There is an asymmetry in the left breast which is stable dating back 2 12/06/2021, there may be some minimal associated calcifications which are not significantly changed dating back to 02/05/2020. There are bilateral benign breast calcifications. There are no other visible masses, area of microcalcification architectural distortion to suggest malignancy. IMPRESSION: Stable left breast asymmetry, this is stable dating back to 2021. Minimal associated calcifications are stable dating back to 02/05/2024. These findings are probably benign six-month follow-up left breast mammogram to document stability of the calcifications is recommended. Barrett zi risk calculations, generated with the history provided, report this patient's 10 year risk and lifetime risk for developing breast cancer at 3.0% and 5.1%, respectively. Based on this assessment tool, if the patient's calculated lifetime risk is below 20%, then the patient is considered at average risk for developing breast cancer. If the patient's calculated lifetime risk is at or above 20%, then the patient is considered high risk for developing breast cancer and may be a candidate for supplemental breast MRI screening in addition to annual mammographic screening per the [employer]. BIRADS: BI-RADS: 3: Probably Benign RECALL: 6 month follow-up RECALL TYPE: mammo LETTER SENT: Probably Benign BI-RADS 3 Interpreted by: Braulio Jacob MD Preliminary Report By: Braulio Jacob MD Electronically signed By Braulio Jacob MD Dictated Date: 09/26/2024 11:54:02 AM Prelim Date: 09/26/2024 1:02:57 PM Sign Date: 09/26/2024 1:02:57 PM Ordering Provider: PJ LAYNE Income Tax Preparer: NIDA ALBARRAN RT(R)(M) letter sent: Probably Benign BI-RADS 3 Mammogram BI-RADS: 3 Probably benign Normal [facility] ANALYST FOOD AND BEVERAGE REPORTon 09-25-19 ANALYST FOOD AND BEVERAGE REPORT Normal [facility] ED MED ADMINISTRATION DETAIL on 09-24-2024 ED MED ADMINISTRATION DETAIL Normal [facility] ED NURSES CLINICAL NOTEon ED NURSES CLINICAL NOTE Normal [facility] ED ORDER SHEET (CPOE ONLY)on 09-24-2024 ED ORDER SHEET (CPOE ONLY) Normal [facility] ED PHYSICIAN CLINICAL REPORT on 09-24-2024 ED PHYSICIAN CLINICAL REPORT Normal [facility] ED SUPER BILLon 09-24-2024 ED SUPER BILL Normal [facility] ED VISIT SUMMARYon ED VISIT SUMMARY Normal [facility] ED VITALS FLOW SHEETon 09-24 ED VITALS FLOW SHEET Normal [facility] KNEE COMPLETE RT MIN 4 VIEWS on 09-24-2024 KNEE COMPLETE RT MIN 4 VIEWS Normal [facility] RIBS RT UNILAT W/CHEST EXPIR ATIONon 09-24-2024 RIBS RT UNILAT W/CHEST EXPIRATION Normal [facility] Orthopedic Visit Reporton Orthopedic Visit Report [facility] [address] [place] [address] OFFICE VISIT Date of Service: 09/23/24 MR#: [id number] Acct: [id number] Name: JEN ESTRADA Rep #: [id number] : 1955 Provider: Dr. Monico lora MD Age/Sex: 68/F Location: [facility] Status: Signed Intake Vital Signs 04/13/24 16:57 09/23/24 14:35 Height 5 ft 5 in 5 ft 5 in Weight: 207 lb BMI 34.4 Intake Visit Reasons: LEFT SHOULDER Chief Complaint: Left shoulder pain Accompanied by: Self Is patient in pain?: Yes Pain scale (1-10): 6 Allergies Sulfa (Sulfonamide Antibiotics) Allergy (Intermediate, Verified 09/23/24 14:37) unknown adhesive Allergy (Verified 09/23/24 14:37) Rash latex Allergy (Verified 09/23/24 14:37) Rash zolpidem (From Ambien) Allergy (Verified 09/23/24 14:37) Other codeine Adverse Reaction (Verified 09/23/24 14:37) Other tramadol Adverse Reaction (Verified 09/23/24 14:37) Itching Medications ???Medication ???Instructions ???Recorded ???Confirmed ???Type cyanocobalamin (vitamin B-12) 1,000 mcg PO DAILY SUPPLEMENT 12/0209/23/24 History 1,000 mcg tablet dicyclomine 20 mg tablet 20 mg PO DAILY 12/11/17 09/23/24 H istory divalproex 250 mg tablet,extended 250 mg PO BID MIGRAINES 12/11/17 09/23/24 History release 24 hr furosemide 20 mg tablet 20 mg PO MOWEFR 12/11/17 09/23/24 History isosorbide dinitrate 30 mg tablet 30 mg PO DAILY HEART 12/11/17 History metoprolol succinate 25 mg 12.5 mg PO BID BP 12/11/17 5 History tablet,extended release 24 hr nitroglycerin 0.4 mg sublingual 0.4 mg sublingual Q5M PRN Chest 09/23/24 History tablet Pain omeprazole 40 mg capsule,delayed 40 mg PO DAILY GERD 12/11/1709/23 History release alirocumab 75 mg/mL subcutaneous 75 mg subcut .qow 10/29/20 5 History pen injector clonazepam 0.5 mg tablet 0.5 mg PO BID PRN 10/29/20 5 History gabapentin 300 mg capsule 300 mg PO TID 10/29/20 09/23/24 Hi story levothyroxine 137 mcg tablet 137 mcg PO DAILY 10/29/20 09/23/24 History magnesium 250 mg tablet 250 mg PO DAILY 10/29/20 09/23/24 History ondansetron 4 mg disintegrating 4 mg PO Q8H 10/29/20 09/23/24 Hist ory tablet potassium chloride 20 mEq 20 meq PO DAILY 10/29/20 09/23/24 History tablet,extended release(part/cryst) (Klor-Con M) pyridoxine (vitamin B6) 50 mg 100 mg PO DAILY SUPPLEMENT 1 09/23/24 History tablet quetiapine 100 mg tablet 100 mg PO QHS 10/29/20 09/23/24 Hi story similia 2 puff inhalation BID 10/29/20 History sumatriptan succinate 25 mg tablet tablet PO 10/29/20 09/23/24 Hist ory tizanidine 4 mg tablet 4 mg PO ONCE 10/29/20 09/23/24 His tory ciprofloxacin HCl 500 mg tablet 500 mg PO BID #20 tabs 10/30/23 Rx (Cipro) metronidazole 500 mg tablet 500 mg PO BID 10 days #20 tabs 09/23/24 Rx cephalexin 500 mg capsule 500 mg PO Q12H 7 days #14 caps 03/2709/23/24 Rx ondansetron 4 mg disintegrating 4 mg PO Q6H PRN nausea and 4 09/23/24 Rx tablet vomiting #20 tabs Have you fallen in the past year?: No PFSH Medical History Calcific tendinitis of left shoulder Left shoulder pain Obesity Prediabetes Postoperative primary hypothyroidism Vitamin deficiency Vision problem Thyroid disease Rheumatoid arthritis GERD (gastroesophageal reflux disease) Osteoporosis Osteoarthritis IBS (irritable bowel syndrome) Hearing problem Frequent headaches Calcium deficiency High cholesterol High triglycerides Blood transfusion during current hospitalization Goiter COPD (chronic obstructive pulmonary disease) Diabetes Chronic bronchitis Breast lump Bleeding disorder UTI (urinary tract infection) Bone fracture Back problem Arthritis Anemia Surgical History H/O endoscopy h/o 5 goiters removed H/O: h/o hysterectomy h/o appendectomy h/o bilateral carpal tunnel surgery h/o right ankle surgery h/o bilateral shoulder surgery h/o right knee replacement Family History Other Anemia Angina at rest Anxiety Arthritis Bleeding disorder Blood clot in vein Blood transfusion during current hospitalisation Bowel disease Colon cancer Depression Diabetes High cholesterol Hypertension Osteoporosis Respiratory disease Severe allergic reaction Thyroid disorder Social History Smoking Status: Current every day smoker tobacco type: cigarettes alcohol intake: current a (more content not included)... Normal [facility] ED MED ADMINISTRATION DETAIL on 09-04-2024 ED MED ADMINISTRATION DETAIL Normal [facility] ED NURSES CLINICAL NOTEon ED NURSES CLINICAL NOTE Normal [facility] ED ORDER SHEET (CPOE ONLY)on 09-04-2024 ED ORDER SHEET (CPOE ONLY) Normal [facility] ED PHYSICIAN CLINICAL REPORT on 09-04-2024 ED PHYSICIAN CLINICAL REPORT Normal [facility] ED PHYSICIAN DISCHARGE REPOR Ton 09-04-2024 ED PHYSICIAN DISCHARGE REPORT Normal [facility] ED SUPER BILLon 09-04-2024 ED SUPER BILL Normal [facility] ED VISIT SUMMARYon ED VISIT SUMMARY Normal [facility] ED VITALS FLOW SHEETon 09-04 ED VITALS FLOW SHEET Normal [facility] SHOULDER COMPLETE LTon 09-04 SHOULDER COMPLETE LT Normal [facility] CNPNon 09-02-2024 CNPN Telephone (HEMAWS) JEN ESTRADA ([id number]) 1955 F T Date Time Provider Department 09/02/24 RUI GRIDER During your visit today, we recorded the following information about you: Crispinmichael Reilly Connie 09/02/2024 10:20 AM Signed Patient called stating her iron is down to 5 and PCP informed her to call office for infusions. Please advise. Fern Obregon RN 09/02/2024 10:32 AM Signed Anne-Marie- She just completed 4 doses of Iron on 08/29/24. Care everywhere has labs from 08/26 and 08/29/24. JEREMY Coates Brianna 09/02/2024 11:03 AM Signed She just completed IV iron series. Ferritin is high at 221. Hgb is normal. She does not need additional IV iron at this time. It was too soon to check her labs following IV iron administration. Repeat labs in 8 weeks with OV with following week. CBC, iron studies. Happy to speak with Dr. Latouf's office if they have questions. Anne-Marie Alberto APRN.RENATO Connie Mittal 09/03/2024 9:50 AM Signed Scheduled with patient Allergies As of Date: 09/02/2024 Noted Allergy Reaction ADHESIVE 04/20/2017 14 - Other: See Comments Comments: Blisters skin AMBIEN (ZOLPIDEM TARTRATE) 07/01/2018 14 - Other: See Comments CODEINE 04/20/2017 14 - Other: See Comments Comments: Seizure as a child DEMEROL (MEPERIDINE) 03/06/2023 9 - Itching LATEX, NATURAL RUBBER 04/20/2017 14 - Other: See Comments Comments: blisters NSAIDS (NON-STEROIDAL ANTI-INFLAM*03/08/2020 8 - GI Upset Comments: Has had GI bleed SULFA (SULFONAMIDE ANTIBIOTICS) 04/01/2024 9 - Itching TRAMADOL 12/18/2017 9 - Itching Date Reviewed: 08/29/2024 Reviewed by: Adrien Pike RN - Fully Assessed Reason for Visit: Appointment [186] Primary Visit Diagnosis:Iron deficiency anemia due to chronic blood loss [D50.0] Order(s):COMPLETE BLOOD COUNT AND DIFFERENTIAL [SQCBCDIF] Order #: [id number] FUTURE FERRITIN [SQFERR] Order #: [id number] FUTURE IRON AND TIBC [SQIRON] Order #: [id number] FUTURE Prescriptions as of 09/03/2024 - FAMOTIDINE ORAL Take by mouth. - HYDROcodone-Acetaminop hen (NORCO) 7.5-325 mg per tablet Take 1 tablet by mouth every 8 hours as needed for pain. - bumetanide (BUMEX) 1 mg tablet Take 1 mg by mouth two times a day. - dilTIAZem CD (CARTIA XT) 120 mg 24 hr capsule Take 120 mg by mouth once daily. - busPIRone (BUSPAR) 10 mg tablet Take 10 mg by mouth two times a day. - traZODone (DESYREL) 100 mg tablet Take 100 mg by mouth daily at bedtime. - folic acid 1 mg tablet Take 1 mg by mouth once daily. - gabapentin (NEURONTIN) 300 mg capsule Take 300 mg by mouth two times a day. - levothyroxine (SYNTHROID) 300 mcg tablet Take 300 mcg by mouth once daily. - fluticasone-umeclidin- vilanter (TRELEGY ELLIPTA) 100-62.5-25 mcg inhalation powder Take by mouth DAILY (6 AM). - cyclobenzaprine (FLEXERIL) 10 mg tablet Take 10 mg by mouth three times daily as needed. - ferrous sulfate (IRON) 325 mg (65 mg iron) tablet Take 1 tablet by mouth twice daily. - nateglinide (STARLIX) 60 mg tablet Take 60 mg by mouth three times a day before meals. - albuterol (PROVENTIL) 2.5 mg /3 mL (0.083 %) nebulizer solution Use 3 mL via nebulizer every 6 hours as needed for wheezing/shortness of breath. OVER 5-15 MINUTES. FOR WHEEZING AND SHORTNESS OF BREATH. - ipratropium (ATROVENT) 0.02 % nebulizer solution Use 0.5 mg via nebulizer four times daily. PRN - tiZANidine (ZANAFLEX) 4 mg tablet Take 4 mg by mouth every 8 hours as needed. - calcium carbonate (CALCIUM 600 ORAL) Take 1 tablet by mouth two times a day. - omeprazole (PRILOSEC) 40 mg capsule TAKE 1 CAPSULE BY MOUTH TWICE DAILY. TAKE 30 MINUTES BEFORE BREAKFAST AND DINNER - mirtazapine (REMERON) 15 mg tablet Take 15 mg by mouth daily at bedtime. - QUEtiapine (SEROQUEL) 100 mg tablet Take 100 mg by mouth daily at bedtime. - alirocumab (PRALUENT PEN) 75 mg/mL Inject 75 mg subcutaneously every other week. - cholecalciferol (VITAMIN D-3) 5,000 unit tab Take 5,000 Units by mouth once daily. - magnesium oxide 400 mg magnesium tab Take by mouth once daily. - DULoxetine (CYMBALTA) 60 mg capsule Take 60 mg by mouth twice daily. - metoprolol succinate ER (TOPROL XL) 25 mg 24 hr tablet Take 25 mg by mouth twice daily. - tiotropium bromide (SPIRIVA RESPIMAT) 1.25 mcg/actuation mist Inhale 1 Puff as instructed once daily. - divalproex DR (DEPAKOTE) 250 mg EC tablet Take 250 mg by mouth once daily. - dicyclomine (BENTYL) 20 mg tablet Take 20 mg by mouth every 6 hours. - isosorbide mononitrate ER (IMDUR) 30 mg 24 hr tablet Take 30 mg by mouth once daily. - escitalopram oxalate (LEXAPRO) 20 mg tablet Take 20 mg by mouth once daily. - potassium chloride 20 mEq TbER Take 1 tablet by mouth once daily. - pyridoxine HCl, vitamin B6, (VITAMIN B-6 ORAL) Take 1 tablet by mouth once daily. - fluticasone (FL (more content not included)... Normal [facility] FERRITIN [CCL]on 08-27-2024 Ferritin [Mass/Vol] 221.0 ng/mL High 14.7-205.1 [facility] Comment on above: Result Comment: [facility] [place] [place] [address]Abraham Maguire III, M.D.[id number] Performed By: #### 2 44133 ####[address] [address] Order Comment: Speci men Type: BLOOD SPECIMEN Ordering Facility: [facility] Address: [address] [place] [address] Performed By: #### 2 276-4 #### [facility] CLIA [id number] [address] [place] [address] [facility] PRE-ALBUMIN [CCL]on 08-28-19 25 Prealbumin [Mass/Vol] 12 mg/dL Low 17-36 [facility] Comment on above: Result Comment: [facility] [place], [place] [address]VxzdbqAbraham Maguire III, M.D.[id number] Performed By: #### 2 73878 ####[address] [address] CBC + DIFFon 08-26-2024 ANISO 1+ Normal [facility] Comment on above: Performed By: #### 2 01382 ####[facility],[address] [place], [place] [address] Baso # 0.09 x10EE3/UL Normal 0.00 - 0.10 [facility] Comment on above: Performed By: #### 2 88094 ####[facility],[address] [place] [address] Basophils/100 WBC (Bld) 0.7 % Normal 0.0 - 2.0 [facility] Comment on above: Performed By: #### 2 51484 ####[facility],[address] [place] [address] CBC + DIFF Normal [facility] Comment on above: Result Comment: CBC- COMPLETE BLOOD COUNT Performed By: #### 2 62303 ####[place] [address] EO # 0.14 x10EE3/UL Normal 0.00 - 0.50 [facility] Comment on above: Performed By: #### 2 53452 ####[facility],[address] [place] [address] Eosinophils/100 WBC (Bld) 1.1 % Normal 0.0 - 7.0 [facility] Comment on above: Performed By: #### 2 04148 ####[facility],[address] [place] [address] Erythrocyte distribution width (RBC) [Ratio] 25.1 % High 12.0 - 15.6 [facility] Comment on above: Performed By: #### 2 64663 ####[facility],[address] [place] [address] Hematocrit (Bld) [Volume fraction] 38.8 % Normal 34.0 - 46.0 [facility] Comment on above: Performed By: #### 2 75864 ####[facility],[address] [place] [address] Hemoglobin (Bld) [Mass/Vol] 12.7 g/dL Normal 12.0 - 16.0 [facility] Comment on above: Performed By: #### 2 06122 ####[facility],[address] [place] [address] Lymph # 2.00 x10EE3/UL Normal 0.80 - 2.80 [facility] Comment on above: Performed By: #### 2 77782 ####[facility],[address] [place] [address] Lymphocytes/100 WBC (Bld) 15.5 % Low 20.0 - 45.0 [facility] Comment on above: Performed By: #### 2 74953 ####[facility],[address] [place] [address] 46380 MANUAL DIFF N/A Normal [facility] Comment on above: Performed By: #### 2 27104 ####[facility],[address] [place] [address] 41844 MCH (RBC) [Entitic mass] 22 pg Low 27 - 33 [facility] Comment on above: Performed By: #### 2 04358 ####[facility],[address] [place] [address] MCHC 33 X10 3 Normal 32 - 36 [facility] Comment on above: Performed By: #### 2 99669 ####[facility],[address] [place] [address] 39954 MCV (RBC) [Entitic vol] 67 fL Low 80 - 99 [facility] Comment on above: Performed By: #### 2 37182 ####[facility],[address] [place] [address]6738 MICROCYTES 1+ Normal [facility] Comment on above: Performed By: #### 2 47770 ####[facility],[address] [place] [address] Hockley # 1.30 x10EE3/UL High 0.20 - 1.00 [facility] Comment on above: Performed By: #### 2 26623 ####[facility],[address] [place] [address] MONOS % 10.2 % High 0.0 - 10.0 [facility] Comment on above: Performed By: #### 2 17694 ####[facility],[address] [place] [address]47 Morphology Fabian (Bld) [Interp] SEE BELOW Normal [facility] Comment on above: Performed By: #### 2 38914 ####[facility],[address] [place] [address] Neut # 9.32 x10EE3/UL High 1.50 - 7.10 [facility] Comment on above: Performed By: #### 2 02739 ####[address] [address] Neutrophils/100 WBC (Bld) 72.5 % Normal 46.0 - 76.0 [facility] Comment on above: Performed By: #### 2 89210 ####[facility],[address] [place] [address] PLATELET 391 x10EE3/UL Normal 150 - 450 [facility] Comment on above: Performed By: #### 2 28771 ####[address] [address] Platelet mean volume (Bld) [Entitic vol] 7.6 fL Normal 6.6 - 10.5 [facility] Comment on above: Result Comment: AUTO MATED DIFFERENTIAL Performed By: #### 2 41281 ####[facility],[address] [place] [address] RBC 5.78 x 10EE6/UL High 4.10 - 5.30 [facility] Comment on above: Performed By: #### 2 42041 ####[facility],[address] [place] [address] WBC 12.9 x 10EE3/UL High 4.5 - 10.8 [facility] Comment on above: Performed By: #### 2 16766 ####[address],[place] [address] Other GIANT PLATELETS SEEN Normal [facility] Comment on above: Performed By: #### 2 79167 ####[facility],[address] [place], [place] [address] HEPATIC FUNCTION PANELon Albumin [Mass/Vol] 2.9 g/dL Low 3.4 - 5.0 [facility] Comment on above: Performed By: #### 2 02330 ####[facility],[address] [place], [place] [address] ALK PHOS 50 U/L Normal 46 - 116 [facility] Comment on above: Performed By: #### 2 57444 ####[facility],[address] [place], [place] [address] ALT [Catalytic activity/Vol] 21 U/L Normal 16 - 63 [facility] Comment on above: Performed By: #### 2 18362 ####[facility],[address] [place], [place] [address] AST [Catalytic activity/Vol] 21 U/L Normal 13 - 39 [facility] Comment on above: Performed By: #### 2 59213 ####[facility],[address] [place] [address] Bilirubin [Mass/Vol] 0.3 mg/dL Normal 0.2 - 1.0 [facility] Comment on above: Performed By: #### 2 92274 ####[facility],[address] [place] [address] Bilirubin.direct [Mass/Vol] 0.1 mg/dL Normal 0.0 - 0.2 [facility] [facility] Comment on above: Performed By: #### 2 63031 ####[facility],[address] [place] [address] 58318 Hepatic function 2000 panel Normal [facility] Comment on above: Result Comment: HEPA TIC FUNCTION PROFILE Performed By: #### 2 62793 ####[facility],[address] [place] [address] 31508 Protein [Mass/Vol] 7.0 g/dL Normal 6.4 - 8.2 [facility] Comment on above: Performed By: #### 2 84554 ####[facility],[address] [place] [address] 12377 IRON AND TIBCon 08-26-2024 %SATURATION 5 % Normal [facility] Comment on above: Performed By: #### 2 56470 ####[facility],[address] [place] [address] 20456 Iron [Mass/Vol] 20 ug/dL Low 50 - 170 [facility] Comment on above: Performed By: #### 2 41011 ####[facility],[address] [place] [address] 80077 TIBC 402 ug/dl Normal 250 - 450 [facility] Comment on above: Performed By: #### 2 01253 ####[facility],[address] [place] [address] 65323 UIBC 382 ug/dL High 155 - 355 [facility] Comment on above: Performed By: #### 2 55806 ####[facility],[address] [place] [address] 42745 Prealb SerPl-mCncon 08-27-19 25 Prealbumin [Mass/Vol] 12 mg/dL Low 17-36 [facility] Comment on above: Order Comment: Speci men Type: BLOOD SPECIMEN Ordering Facility: [facility] Address: [address] [place] [address] Performed By: #### 1 4338-8 #### [facility] CLIA [id number] [address] [place] [address] [place] FT4on 08-05-2024 Free T4 [Mass/Vol] 1.56 ng/dL Normal 0.89-1.76 [facility] Comment on above: Result Comment: No te - New Reference Range in effect 19 Performed By: #### T SH, FT4 #### [facility] [address] [place] [address] 86730 TSHon 08-05-2024 TSH 5.085 mIU/mL High 0.550-4.780 [facility] Comment on above: Performed By: #### T SH, FT4 #### [facility] [address] [place] [address] 97544 CNPFara 07-22-2024 CHRISS Telephone (HEMAWS) JEN ESTRADA ([id number]) 1955 F CHT Date Time Provider Department 07/22/24 RUI GRIDER During your visit today, we recorded the following information about you: Connie Mittal 07/22/2024 10:58 AM Signed Patient called stating she had labs drawn at [place] and Dr. Craven informed her she needs iron. She states her number was at 3. Erlinda Yanes LPN 07/23/2024 4:26 PM Signed Called and left a VM at the PCP office asking for lab results. Does not have a follow up. Last apt here August 03 2023 AVS F/U in 3 months TANISHA Polo Brianna 07/24/2024 8:46 AM Signed Looks like she No Showed her 3 month OV in November with Dr. Ayon as well as the last series of IV iron that we scheduled based off of her labs in April. Her iron was very low in Mar if she has not received iron elsewhere she still needs IV iron. Does she want to come here or schedule elsewhere? Anne-Marie Alberto APRN.Erlinda Bosch LPN 07/24/2024 11:20 AM Signed Please assist in rescheduling her IV iron, was scheduled in Apr and no showed. TANISHA Polo Angela 07/24/2024 4:13 PM Addendum Spoke with patient and scheduled 1 Iron appointment. Patient wanted to schedule 4 doses. Does patient need labs and OV? Please file new order as auth has now Please advise Anne-Marie Alberto 07/25/2024 8:48 AM Signed Pt should be scheduled for 4 doses. Labs were drawn at OSH by PCP. Anne-Marie Alberto APRN.Connie Jacome 07/25/2024 12:07 PM Signed Scheduled remaining appointments. Start email sent Allergies As of Date: 07/22/2024 Noted Allergy Reaction ADHESIVE 04/20/2017 14 - Other: See Comments Comments: Blisters skin AMBIEN (ZOLPIDEM TARTRATE) 07/01/2018 14 - Other: See Comments CODEINE 04/20/2017 14 - Other: See Comments Comments: Seizure as a child DEMEROL (MEPERIDINE) 03/06/2023 9 - Itching LATEX, NATURAL RUBBER 04/20/2017 14 - Other: See Comments Comments: blisters NSAIDS (NON-STEROIDAL ANTI-INFLAM*03/08/2020 8 - GI Upset Comments: Has had GI bleed SULFA (SULFONAMIDE ANTIBIOTICS) 04/01/2024 9 - Itching TRAMADOL 12/18/2017 9 - Itching Date Reviewed: 04/10/2024 Reviewed by: Irasema Regalado RN - Fully Assessed Reason for Visit: Appointment [186] Prescriptions as of 07/25/2024 - FAMOTIDINE ORAL Take by mouth. - HYDROcodone-Acetaminop hen (NORCO) 7.5-325 mg per tablet Take 1 tablet by mouth every 8 hours as needed for pain. - bumetanide (BUMEX) 1 mg tablet Take 1 mg by mouth two times a day. - dilTIAZem CD (CARTIA XT) 120 mg 24 hr capsule Take 120 mg by mouth once daily. - busPIRone (BUSPAR) 10 mg tablet Take 10 mg by mouth two times a day. - traZODone (DESYREL) 100 mg tablet Take 100 mg by mouth daily at bedtime. - folic acid 1 mg tablet Take 1 mg by mouth once daily. - gabapentin (NEURONTIN) 300 mg capsule Take 300 mg by mouth two times a day. - levothyroxine (SYNTHROID) 300 mcg tablet Take 300 mcg by mouth once daily. - fluticasone-umeclidin- vilanter (TRELEGY ELLIPTA) 100-62.5-25 mcg inhalation powder Take by mouth DAILY (6 AM). - cyclobenzaprine (FLEXERIL) 10 mg tablet Take 10 mg by mouth three times daily as needed. - ferrous sulfate (IRON) 325 mg (65 mg iron) tablet Take 1 tablet by mouth twice daily. - nateglinide (STARLIX) 60 mg tablet Take 60 mg by mouth three times a day before meals. - albuterol (PROVENTIL) 2.5 mg /3 mL (0.083 %) nebulizer solution Use 3 mL via nebulizer every 6 hours as needed for wheezing/shortness of breath. OVER 5-15 MINUTES. FOR WHEEZING AND SHORTNESS OF BREATH. - ipratropium (ATROVENT) 0.02 % nebulizer solution Use 0.5 mg via nebulizer four times daily. PRN - tiZANidine (ZANAFLEX) 4 mg tablet Take 4 mg by mouth every 8 hours as needed. - calcium carbonate (CALCIUM 600 ORAL) Take 1 tablet by mouth two times a day. - omeprazole (PRILOSEC) 40 mg capsule TAKE 1 CAPSULE BY MOUTH TWICE DAILY. TAKE 30 MINUTES BEFORE BREAKFAST AND DINNER - mirtazapine (REMERON) 15 mg tablet Take 15 mg by mouth daily at bedtime. - QUEtiapine (SEROQUEL) 100 mg tablet Take 100 mg by mouth daily at bedtime. - alirocumab (PRALUENT PEN) 75 mg/mL Inject 75 mg subcutaneously every other week. - cholecalciferol (VITAMIN D-3) 5,000 unit tab Take 5,000 Units by mouth once daily. - magnesium oxide 400 mg magnesium tab Take by mouth once daily. - DULoxetine (CYMBALTA) 60 mg capsule Take 60 mg by mouth twice daily. - metoprolol succinate ER (TOPROL XL) 25 mg 24 hr tablet Take 25 mg by mouth twice daily. - tiotropium bromide (SPIRIVA RESPIMAT) 1.25 mcg/actuation mist Inhale 1 Puff as instructed once daily. - divalproex DR (DEPAKOTE) 250 mg EC tablet Take 250 mg by mouth once daily. - dicyclomine (BENTYL) 20 mg tablet Take 20 mg by mouth every 6 hours. - isosorbide mononitrate ER (IMDUR) 30 mg 24 hr table (more content not included)... Normal [facility] CBC + DIFF DAILYon 5 ANISO 2+ Normal [facility] Comment on above: Performed By: #### 2 23732 ####[facility],[address] [place] [address] Baso # 0.04 x10EE3/UL Normal 0.00 - 0.10 [facility] Comment on above: Performed By: #### 2 11365 ####[facility],[address] [place] [address] 37885 Basophils/100 WBC (Bld) 0.3 % Normal 0.0 - 2.0 [facility] Comment on above: Performed By: #### 2 39973 ####[facility],[address] [place] [address] CBC + DIFF DAILY Normal [facility] Comment on above: Result Comment: CBC- COMPLETE BLOOD COUNT Performed By: #### 2 29556 ####[facility],[address] [place] [address] EO # 0.05 x10EE3/UL Normal 0.00 - 0.50 [facility] Comment on above: Performed By: #### 2 80579 ####[facility],[address] [place] [address] 00876 Eosinophils/100 WBC (Bld) 0.4 % Normal 0.0 - 7.0 [facility] Comment on above: Performed By: #### 2 20837 ####[facility],[address] [place] [address] Erythrocyte distribution width (RBC) [Ratio] 20.7 % High 12.0 - 15.6 [facility] Comment on above: Performed By: #### 2 35894 ####[place] [address] Hematocrit (Bld) [Volume fraction] 34.8 % Normal 34.0 - 46.0 [facility] Comment on above: Performed By: #### 2 53362 ####[facility],[address] [place] [address] Hemoglobin (Bld) [Mass/Vol] 11.1 g/dL Low 12.0 - 16.0 [facility] Comment on above: Performed By: #### 2 61473 ####[facility],[address] [place] [address] HYPOCHROM 1+ Normal [facility] Comment on above: Performed By: #### 2 59844 ####[facility],[address] [place] [address] Lymph # 2.08 x10EE3/UL Normal 0.80 - 2.80 [facility] Comment on above: Performed By: #### 2 20775 ####[facility],[address] [place] [address] Lymphocytes/100 WBC (Bld) 17.1 % Low 20.0 - 45.0 [facility] Comment on above: Performed By: #### 2 24837 ####[facility],[address] [place] [address] MANUAL DIFF N/A Normal [facility] Comment on above: Performed By: #### 2 12328 ####[facility],[address] [place] [address] MCH (RBC) [Entitic mass] 21 pg Low 27 - 33 [facility] Comment on above: Performed By: #### 2 51041 ####[place] [address] MCHC 32 X10 3 Normal 32 - 36 [facility] Comment on above: Performed By: #### 2 79710 ####[facility],[address] [place] [address] MCV (RBC) [Entitic vol] 65 fL Low 80 - 99 [facility] Comment on above: Performed By: #### 2 96674 ####[facility],[address] [place] [address] 50551 MICROCYTES 2+ Normal [facility] Comment on above: Performed By: #### 2 77411 ####[facility],[address] [place] [address] 06381 Hockley # 0.89 x10EE3/UL Normal 0.20 - 1.00 [facility] Comment on above: Performed By: #### 2 72163 ####[facility],[address] [place] [address] 73052 MONOS % 7.3 % Normal 0.0 - 10.0 [facility] Comment on above: Performed By: #### 2 36592 ####[facility],[address] [place] [address] 82139 Morphology Fabian (Bld) [Interp] SEE BELOW Normal [facility] Comment on above: Performed By: #### 2 65770 ####[facility],[address] [place] [address] 10311 Neut # 9.12 x10EE3/UL High 1.50 - 7.10 [facility] Comment on above: Performed By: #### 2 77256 ####[facility],[address] [place] [address] 12614 Neutrophils/100 WBC (Bld) 74.9 % Normal 46.0 - 76.0 [facility] Comment on above: Performed By: #### 2 22013 ####[facility],[address] [place] [address] 10894 PLATELET 367 x10EE3/UL Normal 150 - 450 [facility] Comment on above: Performed By: #### 2 09320 ####[facility],[address] [place] [address] 48039 Platelet mean volume (Bld) [Entitic vol] 7.8 fL Normal 6.6 - 10.5 [facility] Comment on above: Result Comment: AUTO MATED DIFFERENTIAL Performed By: #### 2 17340 ####[facility],[address] [place] [address] 53953 PLT EST NORMAL Normal [facility] Comment on above: Performed By: #### 2 59719 ####[facility],[address] [place] [address] 69827 RBC 5.35 x 10EE6/UL High 4.10 - 5.30 [facility] Comment on above: Performed By: #### 2 69037 ####[facility],[address] [place] [address] 76600 WBC 12.2 x 10EE3/UL High 4.5 - 10.8 [facility] Comment on above: Performed By: #### 2 98934 ####[facility],[address] [place] [address] 58205 CMP with eGFR - DAILYon 06-06 AGE 68 years Normal [facility] Comment on above: Performed By: #### 2 71948 ####[facility],[address] [place] [address] 03788 Albumin [Mass/Vol] 2.7 g/dL Low 3.4 - 5.0 [facility] Comment on above: Performed By: #### 2 94864 ####[facility],[address] [place] [address] 54552 Albumin/Globulin [Mass ratio] 0.8 {ratio} Low 0.9 - 1.6 [facility] Comment on above: Performed By: #### 2 04286 ####[facility],[address] [place] [address] 18966 ALK PHOS 49 U/L Normal 46 - 116 [facility] Comment on above: Performed By: #### 2 16808 ####[facility],[address] [place] [address] 84646 ALT [Catalytic activity/Vol] 17 U/L Normal 16 - 63 [facility] Comment on above: Performed By: #### 2 34332 ####[facility],[address] [place] [address] 11957 Anion gap [Moles/Vol] 9 mmol/L Low 10 - 20 [facility] Comment on above: Performed By: #### 2 26433 ####[facility],[address] [place] [address] 32750 AST [Catalytic activity/Vol] 15 U/L Normal 13 - 39 [facility] Comment on above: Performed By: #### 2 22538 ####[facility],[address] [place] [address] 78698 B/C RATIO 17 ratio Normal 0 - 30 [facility] Comment on above: Performed By: #### 2 47172 ####[facility],[address] [place] [address] 60666 Bilirubin [Mass/Vol] 0.2 mg/dL Normal 0.2 - 1.0 [facility] Comment on above: Performed By: #### 2 45123 ####[facility],[address] [place] [address] 92904 Calcium [Mass/Vol] 8.7 mg/dL Normal 8.5 - 10.1 [facility] Comment on above: Performed By: #### 2 23281 ####[facility],[address] [place] [address] 51578 Chloride [Moles/Vol] 105 mmol/L Normal 98 - 107 [facility] Comment on above: Performed By: #### 2 39628 ####[facility],[address] [place] [address] 98511 CMP with eGFR - DAILY Normal [facility] Comment on above: Result Comment: COMP REHENSIVE METABOLIC PANEL Performed By: #### 2 90820 ####[facility],[address] [place] [address] 10704 CO2 [Moles/Vol] 31.0 mmol/L Normal 21.0 - 32.0 [facility] Comment on above: Performed By: #### 2 08089 ####[facility],[address] [place], [place] [address] Creatinine [Mass/Vol] 0.63 mg/dL Normal 0.55 - 1.02 [facility] Comment on above: Performed By: #### 2 99467 ####[facility],[address] [place] [address] GFR/1.73 sq M.predicted among non-blacks MDRD (S/P/Bld) [Vol rate/Area] mL/min/{1.73_m2} Normal 60 - 999 [facility] Comment on above: Performed By: #### 2 77311 ####[facility],[address] [place] [address] Result Comment: ACCO RDING TO THE NATIONAL KIDNEY DISEASE EDUCATION PROGRAM(NKDE), A NORMAL eGFRIS A VALUE GREATER THAN OR EQUAL TO 60 ML/MIN/1.73 SQ METERS.CHRONIC KIDNEY DISEASE: <60mL/MIN/1.73 SQ METERSKIDNEY FAILURE: <15mL/MIN/1.73 SQ METERS Globulin (S) [Mass/Vol] 3.6 g/dL Normal 1.5 - 3.8 [facility] Comment on above: Performed By: #### 2 31563 ####[facility],[address] [place], [place] [address] Glucose [Mass/Vol] 120 mg/dL High 74 - 106 [facility] Comment on above: Performed By: #### 2 18976 ####[facility],[address] [place] [address] 29228 Potassium [Moles/Vol] 4.4 mmol/L Normal 3.5 - 5.1 [facility] Comment on above: Performed By: #### 2 02872 ####[facility],[address] [place], [place] [address] Protein [Mass/Vol] 6.3 g/dL Low 6.4 - 8.2 [facility] Comment on above: Performed By: #### 2 46271 ####[facility],[address] [place] [address] 36732 Sodium [Moles/Vol] 141 mmol/L Normal 136 - 145 [facility] Comment on above: Performed By: #### 2 20905 ####[facility],[address] [place] [address] 14052 Urea nitrogen [Mass/Vol] 11 mg/dL Normal 7 - 18 [facility] Comment on above: Performed By: #### 2 88747 ####[facility],[address] [place] [address] 50502 LIPID PROFILEon 07-04-2024 Cholesterol [Mass/Vol] 170 mg/dL Normal 0 - 240 [facility] Comment on above: Performed By: #### 2 60436 ####[facility],[address] [place] [address] 43975 Cholesterol in HDL [Mass/Vol] 53 mg/dL Normal 40 - 60 [facility] Comment on above: Performed By: #### 2 76532 ####[facility],[address] [place] [address] 82820 Cholesterol in LDL [Mass/Vol] 99 mg/dL Normal 0 - 129 [facility] Comment on above: Performed By: #### 2 48729 ####[facility],[address] [place] [address] 78791 Cholesterol.total/Cho lesterol in HDL [Mass ratio] 3.2 {ratio} Normal 0.0 - 5.0 [facility] Comment on above: Performed By: #### 2 64666 ####[facility],[address] [place] [address] 90271 Lipid 1996 panel Normal [facility] Comment on above: Result Comment: LIPI D PROFILE Performed By: #### 2 00424 ####[facility],[address] [place] [address] 30647 Triglyceride [Mass/Vol] 92 mg/dL Normal 0 - 150 [facility] Comment on above: Performed By: #### 2 59114 ####[facility],[address] [place] [address] NM CARDIAC STRESS (SPECT) W/ LEXISCANon 07-04-2024 NM CARDIAC STRESS (SPECT) W/LEXISCAN Normal [facility] NM EXERCISE STRESS TEST (W/C ARDIAC STUDYon 07-04-2024 NM EXERCISE STRESS TEST (W/CARDIAC STUDY Normal [facility] TROPONIN I, HIGH SENSITIVITY on 07-04-2024 HS TROPONIN <4.0 Normal 0.0 - 51.4 [facility] Comment on above: Performed By: #### 2 37257 ####[facility],[address] [place] [address] HS TROPONIN 4.2 pg/mL Normal 0.0 - 51.4 [facility] Comment on above: Performed By: #### 2 91160 ####[facility],[address] [place] [address] CBC + DIFFon 07-03-2024 ANISO 2+ Normal [facility] Comment on above: Performed By: #### 2 25665 ####[facility],[address] [place] [address] Baso # 0.07 x10EE3/UL Normal 0.00 - 0.10 [facility] Comment on above: Performed By: #### 2 29450 ####[facility],[address] [place] [address] Basophils/100 WBC (Bld) 0.5 % Normal 0.0 - 2.0 [facility] Comment on above: Performed By: #### 2 46042 ####[facility],[address] [place] [address] CBC + DIFF Normal [facility] Comment on above: Result Comment: CBC- COMPLETE BLOOD COUNT Performed By: #### 2 10730 ####[facility],[address] [place] [address] EO # 0.07 x10EE3/UL Normal 0.00 - 0.50 [facility] Comment on above: Performed By: #### 2 14235 ####[facility],[address] [place] [address] 83333 Eosinophils/100 WBC (Bld) 0.5 % Normal 0.0 - 7.0 [facility] Comment on above: Performed By: #### 2 59938 ####[facility],[address] [place], [place] [address] Erythrocyte distribution width (RBC) [Ratio] 21.1 % High 12.0 - 15.6 [facility] Comment on above: Performed By: #### 2 96552 ####[facility],[address] [place] [address] Hematocrit (Bld) [Volume fraction] 36.0 % Normal 34.0 - 46.0 [facility] Comment on above: Performed By: #### 2 78311 ####[facility],[address] [place], [place] [address] Hemoglobin (Bld) [Mass/Vol] 12.0 g/dL Normal 12.0 - 16.0 [facility] Comment on above: Performed By: #### 2 65972 ####[facility],[address] [place] [address] 78913 HYPOCHROM 2+ Normal [facility] Comment on above: Performed By: #### 2 58763 ####[facility],[address] [place] [address] 40256 Lymph # 1.86 x10EE3/UL Normal 0.80 - 2.80 [facility] Comment on above: Performed By: #### 2 93879 ####[facility],[address] [place] [address] 27629 Lymphocytes/100 WBC (Bld) 12.5 % Low 20.0 - 45.0 [facility] Comment on above: Performed By: #### 2 57006 ####[facility],[address] [place] [address] Macrocytes Ql (Bld) 1+ Normal [facility] Comment on above: Performed By: #### 2 26957 ####[facility],[address] [place] [address] MANUAL DIFF N/A Normal [facility] Comment on above: Performed By: #### 2 96130 ####[facility],[address] [place] [address] MCH (RBC) [Entitic mass] 22 pg Low 27 - 33 [facility] Comment on above: Performed By: #### 2 33029 ####[facility],[address] [place] [address] MCHC 33 X10 3 Normal 32 - 36 [facility] Comment on above: Performed By: #### 2 74963 ####[facility],[address] [place] [address] MCV (RBC) [Entitic vol] 65 fL Low 80 - 99 [facility] Comment on above: Performed By: #### 2 31819 ####[facility],[address] [place] [address] MICROCYTES 2+ Normal [facility] Comment on above: Performed By: #### 2 01334 ####[facility],[address] [place] [address] Hockley # 1.31 x10EE3/UL High 0.20 - 1.00 [facility] Comment on above: Performed By: #### 2 74916 ####[facility],[address] [place] [address] MONOS % 8.8 % Normal 0.0 - 10.0 [facility] Comment on above: Performed By: #### 2 76913 ####[facility],[address] [place], [place] [address] Morphology Fabian (Bld) [Interp] SEE BELOW Normal [facility] Comment on above: Performed By: #### 2 75717 ####[facility],[address] [place] [address] 34901 Neut # 11.60 x10EE3/UL High 1.50 - 7.10 [facility] Comment on above: Performed By: #### 2 45004 ####[facility],[address] [place] [address] 26649 Neutrophils/100 WBC (Bld) 77.8 % High 46.0 - 76.0 [facility] Comment on above: Performed By: #### 2 54428 ####[facility],[address] [place] [address] 64634 PLATELET 400 x10EE3/UL Normal 150 - 450 [facility] Comment on above: Performed By: #### 2 35853 ####[facility],[address] [place] [address] 23037 Platelet mean volume (Bld) [Entitic vol] 7.1 fL Normal 6.6 - 10.5 [facility] Comment on above: Result Comment: AUTO MATED DIFFERENTIAL Performed By: #### 2 04027 ####[facility],[address] [place] [address] 01174 PLT EST NORMAL Normal [facility] Comment on above: Performed By: #### 2 52894 ####[facility],[address] [place] [address] 24368 RBC 5.56 x 10EE6/UL High 4.10 - 5.30 [facility] Comment on above: Performed By: #### 2 35748 ####[facility],[address] [place] [address] 77653 WBC 14.9 x 10EE3/UL High 4.5 - 10.8 [facility] Comment on above: Performed By: #### 2 57153 ####[facility],[address] [place] [address] 79351 Other LG PLTS PRESENT Normal [facility] Comment on above: Performed By: #### 2 33421 ####[facility],[address] [place] [address] 00554 CHEST 1 VIEWon 07-03-2024 CHEST 1 VIEW Normal [facility] CMP with eGFRon 07-03-2024 AGE 68 years Normal [facility] Comment on above: Performed By: #### 2 13368 ####[facility],[address] [place] [address] 05689 Albumin [Mass/Vol] 2.8 g/dL Low 3.4 - 5.0 [facility] Comment on above: Performed By: #### 2 71382 ####[facility],[address] [place] [address] 50938 Albumin/Globulin [Mass ratio] 0.7 {ratio} Low 0.9 - 1.6 [facility] Comment on above: Performed By: #### 2 95565 ####[facility],[address] [place] [address] 33075 ALK PHOS 53 U/L Normal 46 - 116 [facility] Comment on above: Performed By: #### 2 66443 ####[facility],[address] [place] [address] 06983 ALT [Catalytic activity/Vol] 21 U/L Normal 16 - 63 [facility] Comment on above: Performed By: #### 2 72833 ####[facility],[address] [place] [address] 29900 Anion gap [Moles/Vol] 14 mmol/L Normal 10 - 20 [facility] Comment on above: Performed By: #### 2 20433 ####[facility],[address] [place] [address] 96490 AST [Catalytic activity/Vol] 19 U/L Normal 13 - 39 [facility] Comment on above: Performed By: #### 2 99608 ####[facility],[address] [place] [address] 68114 B/C RATIO 13 ratio Normal 0 - 30 [facility] Comment on above: Performed By: #### 2 51043 ####[facility],[address] [place], [place] [address] Bilirubin [Mass/Vol] 0.2 mg/dL Normal 0.2 - 1.0 [facility] Comment on above: Performed By: #### 2 36819 ####[facility],[address] [place] [address] Calcium [Mass/Vol] 8.8 mg/dL Normal 8.5 - 10.1 [facility] Comment on above: Performed By: #### 2 95681 ####[facility],[address] [place] [address] Chloride [Moles/Vol] 102 mmol/L Normal 98 - 107 [facility] Comment on above: Performed By: #### 2 78630 ####[facility],[address] [place] [address] CMP with eGFR Normal [facility] Comment on above: Result Comment: COMP REHENSIVE METABOLIC PANEL Performed By: #### 2 95603 ####[facility],[address] [place], [place] [address] CO2 [Moles/Vol] 25.7 mmol/L Normal 21.0 - 32.0 [facility] Comment on above: Performed By: #### 2 71263 ####[facility],[address] [place], [place] [address] Creatinine [Mass/Vol] 0.71 mg/dL Normal 0.55 - 1.02 [facility] Comment on above: Performed By: #### 2 77379 ####[facility],[address] [place], [place] [address] GFR/1.73 sq M.predicted among non-blacks MDRD (S/P/Bld) [Vol rate/Area] mL/min/{1.73_m2} Normal 60 - 999 [facility] Comment on above: Performed By: #### 2 99349 ####[facility],[address] [place] [address] 48848 Result Comment: ACCO RDING TO THE NATIONAL KIDNEY DISEASE EDUCATION PROGRAM(NKDE), A NORMAL eGFRIS A VALUE GREATER THAN OR EQUAL TO 60 ML/MIN/1.73 SQ METERS.CHRONIC KIDNEY DISEASE: <60mL/MIN/1.73 SQ METERSKIDNEY FAILURE: <15mL/MIN/1.73 SQ METERSTHIS TEST SHOULD ONLY BE USED FOR PATIENTS 18 YEARS OF AGE AND OLDER. Globulin (S) [Mass/Vol] 4.0 g/dL High 1.5 - 3.8 [facility] Comment on above: Performed By: #### 2 67176 ####[facility],[address] [place] [address] 03967 Glucose [Mass/Vol] 173 mg/dL High 74 - 106 [facility] Comment on above: Performed By: #### 2 99528 ####[facility],[address] [place] [address] 13462 Potassium [Moles/Vol] 4.1 mmol/L Normal 3.5 - 5.1 [facility] Comment on above: Performed By: #### 2 04408 ####[facility],[address] [place] [address] 17127 Protein [Mass/Vol] 6.8 g/dL Normal 6.4 - 8.2 [facility] Comment on above: Performed By: #### 2 79386 ####[facility],[address] [place] [address] 17739 Sodium [Moles/Vol] 138 mmol/L Normal 136 - 145 [facility] Comment on above: Performed By: #### 2 17350 ####[facility],[address] [place] [address] 65813 Urea nitrogen [Mass/Vol] 9 mg/dL Normal 7 - 18 [facility] Comment on above: Performed By: #### 2 11206 ####[facility],[address] [place], [place] [address] ANALYST FOOD AND BEVERAGE REPORTon 07-03-19 ANALYST FOOD AND BEVERAGE REPORT Normal [facility] CT CHEST (PE PROTOCOL)on CT CHEST (PE PROTOCOL) Normal [facility] D-DIMER, QUANTITATIVEon 06-06 D-DIMER QUANT 290 ng/ml High 0 - 230 [facility] Comment on above: Performed By: #### 2 84690 ####[facility],[address] [place], [place] [address] D-DIMER, QUANTITATIVE Normal [facility] Comment on above: Result Comment: RYDER T D-DIMER Performed By: #### 2 98626 ####[facility],[address] [place], [place] [address] ED MED ADMINISTRATION DETAIL on 07-03-2024 ED MED ADMINISTRATION DETAIL Normal [facility] ED NURSES CLINICAL NOTEon ED NURSES CLINICAL NOTE Normal [facility] ED PHYSICIAN CLINICAL REPORT on 07-03-2024 ED PHYSICIAN CLINICAL REPORT Normal [facility] ED PHYSICIAN DISCHARGE REPOR Ton 07-03-2024 ED PHYSICIAN DISCHARGE REPORT Normal [facility] ED SUPER BILLon 07-03-2024 ED SUPER BILL Normal [facility] ED VISIT SUMMARYon ED VISIT SUMMARY Normal [facility] ED VITALS FLOW SHEETon 07-03 ED VITALS FLOW SHEET Normal [facility] NT-proBNPon 07-03-2024 Natriuretic peptide B (Bld) [Mass/Vol] 202 pg/mL High 0 - 125 [facility] Comment on above: Performed By: #### 2 65226 ####[facility],[address] [place], [place] [address] OPERATIVE PROCEDURESon 07-03 OPERATIVE PROCEDURES Normal [facility] TROPONINon 07-03-2024 HS TROPONIN 4.1 pg/mL Normal 0.0 - 51.4 [facility] Comment on above: Performed By: #### 2 28206 ####[facility],[address] [place] [address] 29894 HS TROPONIN 5.1 pg/mL Normal 0.0 - 51.4 [facility] Comment on above: Performed By: #### 2 23258 ####[facility],[address] [place] [address] 08730 C-REACTIVE PROTEINon 025 CRP 3.81 mg/dl High 0.00 - 0.90 [facility] Comment on above: Performed By: #### 2 71934 ####[facility],[address] [place] [address] 00125 CBC + DIFFon 07-02-2024 ANISO 2+ Normal [facility] Comment on above: Performed By: #### 2 24020 ####[facility],[address] [place] [address] 99676 Baso # 0.05 x10EE3/UL Normal 0.00 - 0.10 [facility] Comment on above: Performed By: #### 2 30320 ####[facility],[address] [place] [address] 25512 Basophils/100 WBC (Bld) 0.5 % Normal 0.0 - 2.0 [facility] Comment on above: Performed By: #### 2 65672 ####[facility],[address] [place] [address] 18484 CBC + DIFF Normal [facility] Comment on above: Result Comment: CBC- COMPLETE BLOOD COUNT Performed By: #### 2 08713 ####[facility],[address] [place] [address] 20262 EO # 0.20 x10EE3/UL Normal 0.00 - 0.50 [facility] Comment on above: Performed By: #### 2 08403 ####[facility],[address] [place] [address] 19715 Eosinophils/100 WBC (Bld) 2.1 % Normal 0.0 - 7.0 [facility] Comment on above: Performed By: #### 2 54778 ####[facility],[address] [place] [address] Erythrocyte distribution width (RBC) [Ratio] 20.6 % High 12.0 - 15.6 [facility] Comment on above: Performed By: #### 2 90059 ####[facility],[address] [place] [address] Hematocrit (Bld) [Volume fraction] 38.7 % Normal 34.0 - 46.0 [facility] Comment on above: Performed By: #### 2 77885 ####[facility],[address] [place] [address] Hemoglobin (Bld) [Mass/Vol] 12.4 g/dL Normal 12.0 - 16.0 [facility] Comment on above: Performed By: #### 2 99244 ####[facility],[address] [place] [address] Lymph # 2.12 x10EE3/UL Normal 0.80 - 2.80 [facility] Comment on above: Performed By: #### 2 23174 ####[facility],[address] [place] [address] Lymphocytes/100 WBC (Bld) 21.8 % Normal 20.0 - 45.0 [facility] Comment on above: Performed By: #### 2 16093 ####[facility],[address] [place], [place] [address] MANUAL DIFF N/A Normal [facility] Comment on above: Performed By: #### 2 97030 ####[place] [id number] MCH (RBC) [Entitic mass] 20 pg Low 27 - 33 [facility] Comment on above: Performed By: #### 2 25597 ####[place] [address] MCHC 32 X10 3 Normal 32 - 36 [facility] Comment on above: Performed By: #### 2 16687 ####[facility],[address] [place] [address] 15286 MCV (RBC) [Entitic vol] 64 fL Low 80 - 99 [facility] Comment on above: Performed By: #### 2 30958 ####[facility],[address] [place] [address] 24611 MICROCYTES 2+ Normal [facility] Comment on above: Performed By: #### 2 24761 ####[facility],[address] [place] [address] 62076 Hockley # 0.79 x10EE3/UL Normal 0.20 - 1.00 [facility] Comment on above: Performed By: #### 2 05590 ####[facility],[address] [place] [address] 54245 MONOS % 8.1 % Normal 0.0 - 10.0 [facility] Comment on above: Performed By: #### 2 98759 ####[facility],[address] [place] [address] 75066 Morphology Fabian (Bld) [Interp] SEE BELOW Normal [facility] Comment on above: Performed By: #### 2 45505 ####[facility],[address] [place] [address] 04804 Neut # 6.53 x10EE3/UL Normal 1.50 - 7.10 [facility] Comment on above: Performed By: #### 2 77330 ####[facility],[address] [place] [address] 08834 Neutrophils/100 WBC (Bld) 67.4 % Normal 46.0 - 76.0 [facility] Comment on above: Performed By: #### 2 89077 ####[facility],[address] [place] [address] 23286 PLATELET 465 x10EE3/UL High 150 - 450 [facility] Comment on above: Performed By: #### 2 09108 ####[facility],[address] [place] [address] 87429 Platelet mean volume (Bld) [Entitic vol] 7.6 fL Normal 6.6 - 10.5 [facility] Comment on above: Result Comment: AUTO MATED DIFFERENTIAL Performed By: #### 2 85544 ####[facility],[address] [place] [address] 49167 PLT EST NORMAL Normal [facility] Comment on above: Performed By: #### 2 16316 ####[facility],[address] [place] [address] 30262 RBC 6.06 x 10EE6/UL High 4.10 - 5.30 [facility] Comment on above: Performed By: #### 2 47541 ####[facility],[address] [place] [address] 57503 WBC 9.7 x 10EE3/UL Normal 4.5 - 10.8 [facility] Comment on above: Performed By: #### 2 44628 ####[facility],[address] [place] [address] 38944 CMP with eGFRon 07-02-2024 AGE 68 years Normal [facility] Comment on above: Performed By: #### 2 79313 ####[facility],[address] [place] [address] 29455 Albumin [Mass/Vol] 3.0 g/dL Low 3.4 - 5.0 [facility] Comment on above: Performed By: #### 2 11380 ####[facility],[address] [place] [address] 05955 Albumin/Globulin [Mass ratio] 0.7 {ratio} Low 0.9 - 1.6 [facility] Comment on above: Performed By: #### 2 53449 ####[facility],[address] [place] [address] 52087 ALK PHOS 50 U/L Normal 46 - 116 [facility] Comment on above: Performed By: #### 2 45147 ####[facility],[address] [place] [address] 54052 ALT [Catalytic activity/Vol] 22 U/L Normal 16 - 63 [facility] Comment on above: Performed By: #### 2 61945 ####[facility],[address] [place] [address] 17118 Anion gap [Moles/Vol] 7 mmol/L Low 10 - 20 [facility] Comment on above: Performed By: #### 2 57122 ####[facility],[address] [place] [address] 60950 AST [Catalytic activity/Vol] 18 U/L Normal 13 - 39 [facility] Comment on above: Performed By: #### 2 23943 ####[facility],[address] [place] [address] 10534 B/C RATIO 8 ratio Normal 0 - 30 [facility] Comment on above: Performed By: #### 2 24124 ####[facility],[address] [place] [address] 53991 Bilirubin [Mass/Vol] 0.3 mg/dL Normal 0.2 - 1.0 [facility] Comment on above: Performed By: #### 2 09644 ####[facility],[address] [place] [address] 12700 Calcium [Mass/Vol] 9.4 mg/dL Normal 8.5 - 10.1 [facility] Comment on above: Performed By: #### 2 82243 ####[facility],[address] [place] [address] 23623 Chloride [Moles/Vol] 103 mmol/L Normal 98 - 107 [facility] Comment on above: Performed By: #### 2 03682 ####[facility],[address] [place] [address] 81684 CMP with eGFR Normal [facility] Comment on above: Result Comment: COMP REHENSIVE METABOLIC PANEL Performed By: #### 2 26655 ####[facility],[address] [place] [address] 53699 CO2 [Moles/Vol] 31.5 mmol/L Normal 21.0 - 32.0 [facility] Comment on above: Performed By: #### 2 17050 ####[facility],[address] [place] [address] 87448 Creatinine [Mass/Vol] 0.73 mg/dL Normal 0.55 - 1.02 [facility] Comment on above: Performed By: #### 2 65056 ####[facility],[address] [place] [address] 37877 GFR/1.73 sq M.predicted among non-blacks MDRD (S/P/Bld) [Vol rate/Area] mL/min/{1.73_m2} Normal 60 - 999 [facility] Comment on above: Performed By: #### 2 65286 ####[facility],[address] [place] [address] 60191 Result Comment: ACCO RDING TO THE NATIONAL KIDNEY DISEASE EDUCATION PROGRAM(NKDE), A NORMAL eGFRIS A VALUE GREATER THAN OR EQUAL TO 60 ML/MIN/1.73 SQ METERS.CHRONIC KIDNEY DISEASE: <60mL/MIN/1.73 SQ METERSKIDNEY FAILURE: <15mL/MIN/1.73 SQ METERSTHIS TEST SHOULD ONLY BE USED FOR PATIENTS 18 YEARS OF AGE AND OLDER. Globulin (S) [Mass/Vol] 4.1 g/dL High 1.5 - 3.8 [facility] Comment on above: Performed By: #### 2 63978 ####[facility],[address] [place] [address] 86294 Glucose [Mass/Vol] 126 mg/dL High 74 - 106 [facility] Comment on above: Performed By: #### 2 58759 ####[facility],[address] [place] [address] 40114 Potassium [Moles/Vol] 4.0 mmol/L Normal 3.5 - 5.1 [facility] Comment on above: Performed By: #### 2 84841 ####[facility],[address] [place] [address] Protein [Mass/Vol] 7.1 g/dL Normal 6.4 - 8.2 [facility] Comment on above: Performed By: #### 2 60618 ####[facility],[address] [place] [address] Sodium [Moles/Vol] 137 mmol/L Normal 136 - 145 [facility] Comment on above: Performed By: #### 2 38370 ####[facility],[address] [place] [address] Urea nitrogen [Mass/Vol] 6 mg/dL Low 7 - 18 [facility] Comment on above: Performed By: #### 2 60221 ####[facility],[address] [place] [address] CPKon 07-02-2024 CPK 18 U/L Low 26 - 192 [facility] Comment on above: Performed By: #### 2 59913 ####[facility],[address] [place], [place] [address] DRUG SCREEN URINE MEDICon AMPHETAMINES Negative [facility] Comment on above: Performed By: #### 2 25436 ####[facility],[address] [place], [place] [address] B-DIAZEPINES Negative Normal [facility] Comment on above: Performed By: #### 2 79336 ####[facility],[address] [place], [place] [address] BARBITURATES Negative [facility] Comment on above: Performed By: #### 2 92639 ####[facility],[address] [place] [address] COCAINE Negative [facility] Comment on above: Performed By: #### 2 85021 ####[facility],[address] [place] [address] 29144 DRUG SCREEN URINE MEDIC Normal [facility] Comment on above: Result Comment: DRUG SCREEN - URINE Performed By: #### 2 68907 ####[facility],[address] [place] [address] 44909 METHADONE Negative Normal [facility] Comment on above: Performed By: #### 2 36230 ####[facility],[address] [place] [address] 93711 OPIATES Positive Normal [facility] Comment on above: Performed By: #### 2 38850 ####[facility],[address] [place] [address],[facility] [address] PCP Negative Normal [facility] Comment on above: Performed By: #### 2 80823 ####[facility],[address] [place], [place] [address] THC Negative Normal [facility] Comment on above: Result Comment: JARED ENTS RECEIVING PROTON PUMP INHIBITORS MAY DEMONSTRATE FALSE POSITIVETHC/CANNABINOID RESULTS. AN ALTERNATIVE CONFIRMATORY METHOD SHOULD BE CONSIDEREDTO VERIFY POSITIVE RESULTS. Performed By: #### 2 27222 ####[facility],[address] [place] [address] 93357 FERRITINon 07-02-2024 Ferritin [Mass/Vol] 15 ng/mL Normal 8 - 388 [facility] Comment on above: Performed By: #### 2 06114 ####[facility],[address] [place], [place] [address] IRON AND TIBCon 07-02-2024 %SATURATION 3 % Normal [facility] Comment on above: Performed By: #### 2 17964 ####[facility],[address] [place] [address] 89162 Iron [Mass/Vol] 12 ug/dL Low 50 - 170 [facility] Comment on above: Performed By: #### 2 25343 ####[facility],[address] [place] [address] 94295 TIBC 362 ug/dl Normal 250 - 450 [facility] Comment on above: Performed By: #### 2 42160 ####[facility],[address] [place] [address] 75153 UIBC 350 ug/dL Normal 155 - 355 [facility] Comment on above: Performed By: #### 2 70069 ####[facility],[address] [place] [address] 00944 LIPID PROFILEon 07-02-2024 Cholesterol [Mass/Vol] 201 mg/dL Normal 0 - 240 [facility] Comment on above: Performed By: #### 2 09786 ####[facility],[address] [place] [address] 14555 Cholesterol in HDL [Mass/Vol] 54 mg/dL Normal 40 - 60 [facility] Comment on above: Performed By: #### 2 42941 ####[facility],[address] [place] [address] 88380 Cholesterol in LDL [Mass/Vol] 121 mg/dL Normal 0 - 129 [facility] Comment on above: Performed By: #### 2 01210 ####[facility],[address] [place] [address] 74885 Cholesterol.total/Cho lesterol in HDL [Mass ratio] 3.7 {ratio} Normal 0.0 - 5.0 [facility] Comment on above: Performed By: #### 2 89865 ####[facility],[address] [place] [address] 70255 Lipid 1996 panel Normal [facility] Comment on above: Result Comment: LIPI D PROFILE Performed By: #### 2 05283 ####[facility],[address] [place] [address] 78930 Triglyceride [Mass/Vol] 130 mg/dL Normal 0 - 150 [facility] Comment on above: Performed By: #### 2 69463 ####[facility],[address] [place] [address] 44311 MAGNESIUMon 07-02-2024 Magnesium [Mass/Vol] 2.0 mg/dL Normal 1.8 - 2.4 [facility] Comment on above: Performed By: #### 2 90887 ####[facility],[address] [place] [address] 86950 SEDRATEon 07-02-2024 SEDRATE 28 mm/hr Normal 0 - 30 [facility] Comment on above: Performed By: #### 2 42290 ####[facility],[address] [place] [address] 03169 VITAMIN B-12on 07-02-2024 Cobalamin (Vitamin B12) [Mass/Vol] 813 pg/mL Normal 193 - 986 [facility] Comment on above: Performed By: #### 2 46407 ####[facility],[address] [place] [address] 52542 VITAMIN D, 25 HYDROXYon 06-05 VitD 55.60 ng/mL Normal 30.00 - 100 [facility] Comment on above: Result Comment: 25-O HD3 indicates both endogenous production and supplementation. 25-OHD2 is anindicator of exogenous sources, such as diet or supplementation. Therapy isbased on measurement of Total 25-OHD, with levels <20 ng/mL indicative ofVitamin D deficiency, while levels between 20 ng/mL and 30 ng/mL suggestinsufficiency. Optimal levels are >=30ng/mL.Vitamin D, 25-OH D3 Not EstablishedVitamin D, 25-OH D2 Not Established Performed By: #### 2 24617 ####[facility],[address] [place] [address] 51473 Urine Cultureon 04-15-2024 [facility] Klebsiella pneumonia e sp pneum [place]bon Count >100,000 Klebsiella pneumoniae sp pneum: REACTION Ampicillin Islt EDA Ampicillin+Sulbac Islt EDA <=2 S ceFAZolin Islt EDA <=4 S Cefepime Islt EDA <=0.12 S cefTRIAXone Islt EDA <=0.25 S Ciprofloxacin Islt EDA <=0.25 S B-Lactamase Extended Susc Islt NEG Gentamicin Islt EDA <=1 S Imipenem Islt EDA <=0.25 S levoFLOXacin Islt EDA <=0.12 S Nitrofurantoin Islt EDA 64 I Pip+Tazo Islt EDA <=4 S Tobramycin Islt EDA <=1 S TMP SMX Islt EDA <=20 S Normal [facility] Comment on above: Performed By: #### M 100.2200 ####[facility] [address] [place], [place], [address] 12 Lead EKGon 04-13-2024 12 Lead EKG [facility] Cardiovascular Services [address] [facility] [place] [address] 12 Lead EKG 04/13/24 1719 MR#: [id number] Acct: [id number] Name: JEN ESTRADA Rep #: [id number] : 1955 68 From: Gonzalez Guillermo MD Attending Dr: Status: DEP ER Ordering Dr: Jos Westfall DO Date: 04/13/24 Location: ED Sex: F C Admitted: Test Reason : ABD PAIN Blood Pressure : */* mmHG Vent. Rate : 72 BPM Atrial Rate : 72 BPM P-R Int : 164 ms QRS Dur : 98 ms QT Int : 416 ms P-R-T Axes : 61 46 65 degrees QTcB Int : 455 ms Normal sinus rhythm Incomplete right bundle branch block Borderline ECG Confirmed by JAYSON STOREY, GONZALEZ ([id number]), fan mail editor KARTHIKEYAN HORTON ([id number]) on 04/14/2024 10:21:17 AM Referred By: Jos Westfall Confirmed By: GONZALEZ GUILLERMO MD 04/14/24 1021 Date Gonzalez Guillermo MD CC: Dr. Apolonia Craven MD; Dr. Jos Westfall DO Signed Normal [facility] Abdomen/Pelvis W IV Cont ONL Yon 04-13-2024 Abdomen/Pelvis W IV Cont ONLY [facility] Imaging Services [address] [place] [address] Abdomen/Pelvis W IV Cont ONLY MR#: [id number] Acct: [id number] Name: JEN ESTRADA Rep #: [id number] : 1955 F 68 From: [place] Bob PCP: Dr. Apolonia Craven MD Status: REG ER Study: Abdomen/Pelvis W IV Cont ONLY Date of Exam: Exam# [id number] Ordering Dr: Jos Westfall DO [id number] INDICATION: abd pain EXAMINATION: CT ABDOMEN AND PELVIS with CONTRAST - CT Abdomen And Pelvis W/ Contrast Injection TECHNIQUE: Multiple axial images were obtained of the abdomen and pelvis following administration of IV contrast. Planar reconstructions obtained. A radiation dose optimization technique was used for this scan. RADIATION DOSAGE (If Supplied By Facility): CTDIvol = ( 17.21 ) mGy, DLP = ( 1087.28 ) mGycm IV Contrast dosage and agent: 100 mL Isovue-370 Oral contrast: None. COMPARISON: No pertinent previous studies for comparison.. FINDINGS: LOWER CHEST: 1. Lung bases are clear. 2. No cardiomegaly or pericardial effusion. 3. No significant coronary vascular calcifications. HEPATOBILIARY: Liver: The liver is homogeneous and shows no evidence of focal lesion. Gallbladder: The gallbladder surgically absent. No ductal dilatation. No abnormal fluid collections. Pancreas: Pancreas is normal size configuration and density. No mass is noted. Spleen: The spleen is homogeneous and normal in size. . BOWEL: Stomach: The stomach is normal in size configuration, no evidence of focal masses, abnormal calcifications. No hiatal hernia noted. Bowel: Small and large have normal configuration, no masses or bowel obstruction noted. Appendix: The appendix is not adequately visualized.: GENITOURINARY: Adrenals: Both adrenal glands are normal in size. Kidneys: Kidneys appear symmetric in size. No calcifications are seen in the collecting system. There is no hydronephrosis or surrounding fluid. There is a benign-appearing LEFT renal cyst measuring 2.2 x 2.3 cm. No evidence of masses, calcifications or obstructive uropathy. Bladder: Bladder is decompressed, no masses or calcifications. Pelvic organs: Postop changes of prior hysterectomy. There is a presacral mass which is mildly lobulated, measuring approximately 5.3 x 4.1 x 3.7 cm. Allowing for differences in technique there has been negligible interval change. No other pelvic masses or abnormal fluid collections. This mass does not appear to be arising from the rectal vault. RETROPERITONEUM: Diffuse aortic calcifications without aneurysmal dilatation. LYMPH NODES: No evidence of retroperitoneal or para-aortic masses fluid collections or adenopathy. PERITONEAL CAVITY: No ascites noted ANTERIOR ABDOMINAL WALL: There is a fat-containing RIGHT inguinal hernia without bowel involvement. BONES AND SOFT TISSUES: The skeleton shows no evidence for fractures or destructive lesions. OTHER: None CT/Abdomen/Pelvis W IV Cont ONLY IMPRESSION: 1. No bowel obstruction abscess free fluid or free air. The appendix is not visualized however no evidence of appendicitis. 2. Redemonstration of a lobulated presacral mass measuring 5.3 x 4.1 x 3.7 cm. There has been negligible change. Differential as previously reported on. 3. Bosniak type I benign-appearing LEFT renal cysts, no follow-up required. 4. No evidence of obstructive uropathy. 5. Status post cholecystectomy. 6. Incidental note of a fat-containing RIGHT inguinal hernia without bowel involvement. Incidental Findings Reference Guidance And Recommendations: Renal Cyst: Bosniak class I and II cysts are considered benign, and require no additional imaging follow-up based on consensus guidelines (JACR 2010; 7:753-773). Electronically Signed: Tapan Marsh MD at 19:45 EST , CC: Dr. Apolonia Craven MD; Dr. Jos Westfall DO Associate Music Professor: Signed Normal [facility] CBC W/Diff, Automatedon 11- 0-2023 Absolute Lymph 2.37 X10 3/uL Normal 0.83-4.51 [facility] Comment on above: Performed By: #### L 100.0100, L501.4020, L501.2450, L500.4050 ####[facility] [address] [place], [address] Absolute Neut 8.3 X10 3/uL High 2.0-7.7 [facility] Comment on above: Performed By: #### L 100.0100, L501.4020, L501.2450, L500.4050 ####[facility] [address] [place], [address] Basophils/100 WBC (Bld) 0.9 % Normal 0-1 [facility] Comment on above: Performed By: #### L 100.0100, L501.4020, L501.2450, L500.4050 ####[facility] [address] [place], [address] Eosinophils/100 WBC (Bld) 1.0 % Normal 0-5 [facility] Comment on above: Performed By: #### L 100.0100, L501.4020, L501.2450, L500.4050 ####[facility] [address] [place], [address] Erythrocyte distribution width (RBC) [Ratio] 19.8 % High 11.6-14.6 [facility] Comment on above: Performed By: #### L 100.0100, L501.4020, L501.2450, L500.4050 ####[facility] [address] [place], [address] Hematocrit (Bld) [Volume fraction] 41.0 % Normal 37-47 [facility] Comment on above: Performed By: #### L 100.0100, L501.4020, L501.2450, L500.4050 ####[facility] [address] [place], [address] Hemoglobin (Bld) [Mass/Vol] 12.6 g/dL Normal 12.0-15.0 [facility] Comment on above: Performed By: #### L 100.0100, L501.4020, L501.2450, L500.4050 ####[facility] [address] [place], [address] IG% 0.500 Normal 0.0-0.9 [facility] Comment on above: Result Comment: IG% - Immature Granulocytes (promyelocytes, myelocytes and metamyelocytes) > 1% indicates that a LEFT SHIFT is Present. Performed By: #### L 100.0100, L501.4020, L501.2450, L500.4050 ####[facility] [address] [place], [address] Lymphocytes/100 WBC (Bld) 19.4 % Normal 19-41 [facility] Comment on above: Performed By: #### L 100.0100, L501.4020, L501.2450, L500.4050 ####[facility] [address] [place], [address] MCH (RBC) [Entitic mass] 21.2 pg Low 27.0-32.0 [facility] Comment on above: Performed By: #### L 100.0100, L501.4020, L501.2450, L500.4050 ####[facility] [address] [place], [address] MCHC (RBC) [Mass/Vol] 30.7 g/dL Low 32-36 [facility] Comment on above: Performed By: #### L 100.0100, L501.4020, L501.2450, L500.4050 ####[facility] [address] [place], [address] MCV (RBC) [Entitic vol] 68.9 fL Low 81-99 [facility] Comment on above: Performed By: #### L 100.0100, L501.4020, L501.2450, L500.4050 ####[facility] [address] [place], [address] Monocytes/100 WBC (Bld) 10.1 % High 0-10 [facility] Comment on above: Performed By: #### L 100.0100, L501.4020, L501.2450, L500.4050 ####[facility] [address] [place], [address] Neutrophils/100 WBC (Bld) 68.1 % Normal 47-70 [facility] Comment on above: Performed By: #### L 100.0100, L501.4020, L501.2450, L500.4050 ####[facility] [address] [place], [address] Nucleated RBC (Bld) [#/Vol] 0 10*3/uL Normal 0-5 [facility] Comment on above: Performed By: #### L 100.0100, L501.4020, L501.2450, L500.4050 ####[facility] [address] [place], [address] Platelet mean volume (Bld) [Entitic vol] 8.7 fL Normal 6.2-12.0 [facility] Comment on above: Performed By: #### L 100.0100, L501.4020, L501.2450, L500.4050 ####[facility] [address] [place], [address] Platelets (Bld) [#/Vol] 418 10*3/uL Normal 150-450 [facility] Comment on above: Performed By: #### L 100.0100, L501.4020, L501.2450, L500.4050 ####[facility] [address] [place], [address] RBC (Bld) [#/Vol] 5.95 10*6/uL High 4.2-5.4 [facility] Comment on above: Performed By: #### L 100.0100, L501.4020, L501.2450, L500.4050 ####[facility] [address] [place], [address] RDW SD 44.0 fl High 35.1-43.9 [facility] Comment on above: Performed By: #### L 100.0100, L501.4020, L501.2450, L500.4050 ####[facility] [address] [place], [address] WBC (Bld) [#/Vol] 12.2 10*3/uL High 4.4-11.0 [facility] Comment on above: Performed By: #### L 100.0100, L501.4020, L501.2450, L500.4050 ####[facility] [address] [place], [address] Comprehensive Metabolic Prof ronnie 04-13-2024 Albumin [Mass/Vol] 3.0 g/dL Low 3.2-5.0 [facility] Comment on above: Order Comment: 'TROP ' Serial specimen #1, #2 or #3: 1 Performed By: #### L 100.0100, L501.4020, L501.2450, L500.4050 ####[facility] [address] [place], [address] Albumin/Globulin [Mass ratio] 0.8 {ratio} Low 0.9-2.4 [facility] Comment on above: Order Comment: 'TROP ' Serial specimen #1, #2 or #3: 1 Performed By: #### L 100.0100, L501.4020, L501.2450, L500.4050 ####[facility] [address] [place], [address] ALK P 52 U/L Normal 45-117 [facility] Comment on above: Order Comment: 'TROP ' Serial specimen #1, #2 or #3: 1 Performed By: #### L 100.0100, L501.4020, L501.2450, L500.4050 ####[facility] [address] [place], [address] ALT [Catalytic activity/Vol] 19 U/L Normal 13-56 [facility] Comment on above: Order Comment: 'TROP ' Serial specimen #1, #2 or #3: 1 Performed By: #### L 100.0100, L501.4020, L501.2450, L500.4050 ####[facility] [address] [place], [address] AST [Catalytic activity/Vol] 21 U/L Normal 15-37 [facility] Comment on above: Order Comment: 'TROP ' Serial specimen #1, #2 or #3: 1 Performed By: #### L 100.0100, L501.4020, L501.2450, L500.4050 ####[facility] [address] [place], [address] Bilirubin [Mass/Vol] 0.40 mg/dL Normal 0.20-1.00 [facility] Comment on above: Order Comment: 'TROP ' Serial specimen #1, #2 or #3: 1 Result Comment: For patients on eltrombopag therapy, use of Dimension [place] TBIL is not recommended. Performed By: #### L 100.0100, L501.4020, L501.2450, L500.4050 ####[facility] [address] [place], [address] BUN/CRE 10.3 RATIO Normal 10-20 [facility] Comment on above: Order Comment: 'TROP ' Serial specimen #1, #2 or #3: 1 Performed By: #### L 100.0100, L501.4020, L501.2450, L500.4050 ####[facility] [address] [place], [address] CA,Total 8.9 mg/dL Normal 8.5-10.1 [facility] Comment on above: Order Comment: 'TROP ' Serial specimen #1, #2 or #3: 1 Performed By: #### L 100.0100, L501.4020, L501.2450, L500.4050 ####[facility] [address] [place], [address] Chloride [Moles/Vol] 102 mmol/L Normal 98-107 [facility] Comment on above: Order Comment: 'TROP ' Serial specimen #1, #2 or #3: 1 Performed By: #### L 100.0100, L501.4020, L501.2450, L500.4050 ####[facility] [address] [place], [address] CO2 [Moles/Vol] 30.0 mmol/L Normal 21.0-32.0 [facility] Comment on above: Order Comment: 'TROP ' Serial specimen #1, #2 or #3: 1 Performed By: #### L 100.0100, L501.4020, L501.2450, L500.4050 ####[facility] [address] [place], [address] Creatinine [Mass/Vol] 0.68 mg/dL Normal 0.55-1.02 [facility] Comment on above: Order Comment: 'TROP ' Serial specimen #1, #2 or #3: 1 Result Comment: The validity of the calculated GFR GFRAA in patients over 70 years has not been determined. Clinical correlation is essential. Performed By: #### L 100.0100, L501.4020, L501.2450, L500.4050 ####[facility] [address] [place], [address] EST GFR - AA 110 mL/min Normal >60 [facility] Comment on above: Order Comment: 'TROP ' Serial specimen #1, #2 or #3: 1 Result Comment: Afri can [place] GFR Calc Performed By: #### L 100.0100, L501.4020, L501.2450, L500.4050 ####[facility] [address] [place], [address] GAP 5 Normal 5-15 [facility] Comment on above: Order Comment: 'TROP ' Serial specimen #1, #2 or #3: 1 Performed By: #### L 100.0100, L501.4020, L501.2450, L500.4050 ####[facility] [address] [place], [address] GFR/1.73 sq M.predicted among non-blacks MDRD (S/P/Bld) [Vol rate/Area] 91 mL/min/{1.73_m2} Normal >60 [facility] Comment on above: Order Comment: 'TROP ' Serial specimen #1, #2 or #3: 1 Result Comment: Non- GFR Calc Performed By: #### L 100.0100, L501.4020, L501.2450, L500.4050 ####[facility] [address] [place], [address] Globulin (S) [Mass/Vol] 3.7 g/dL Normal 2.2-4.2 [facility] Comment on above: Order Comment: 'TROP ' Serial specimen #1, #2 or #3: 1 Performed By: #### L 100.0100, L501.4020, L501.2450, L500.4050 ####[facility] [address] [place], [address] Glucose [Mass/Vol] 118 mg/dL High 74-106 [facility] Comment on above: Order Comment: 'TROP ' Serial specimen #1, #2 or #3: 1 Result Comment: Fast ing Glucose result from 100 to 125 mg/dL suggests IMPAIRED HOMEOSTASIS per A.D.A. criteria. Performed By: #### L 100.0100, L501.4020, L501.2450, L500.4050 ####[facility] [address] [place], [address] Potassium [Moles/Vol] 3.6 mmol/L Normal 3.5-5.1 [facility] Comment on above: Order Comment: 'TROP ' Serial specimen #1, #2 or #3: 1 Performed By: #### L 100.0100, L501.4020, L501.2450, L500.4050 ####[facility] [address] [place], [address] Sodium [Moles/Vol] 138 mmol/L Normal 136-145 [facility] Comment on above: Order Comment: 'TROP ' Serial specimen #1, #2 or #3: 1 Performed By: #### L 100.0100, L501.4020, L501.2450, L500.4050 ####[facility] [address] [place], [address] T PROT 6.7 g/dL Normal 6.4-8.2 [facility] Comment on above: Order Comment: 'TROP ' Serial specimen #1, #2 or #3: 1 Performed By: #### L 100.0100, L501.4020, L501.2450, L500.4050 ####[facility] [address] [place], [address] Urea nitrogen [Mass/Vol] 7 mg/dL Normal 7-18 [facility] Comment on above: Order Comment: 'TROP ' Serial specimen #1, #2 or #3: 1 Performed By: #### L 100.0100, L501.4020, L501.2450, L500.4050 ####[facility] [address] [place], [address] Emergency Department Summary on 04-13-2024 Emergency Department Summary [facility] Medical Records Department [address] [place] [address] Emergency Department Summary 04/13/24 MR#: [id number] Acct: [id number] Name: JEN ESTRADA Rep #: [id number] : 1955 68 From: Jos Westfall DO PCP: Dr. 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 Patient states that on she was at [facility] And had a scope with cauterization for her AV malformation. States that she has had worsening abdominal pain. States that she has had diarrhea for 2 weeks now and notes that she has not been on any recent antibiotics. Patient rates her abdominal pain a 7 of 10. States that she has severe cramping noted in the lower portion of her abdomen. Patient denies any sick contacts. [facility] Medical History Obesity Prediabetes Postoperative primary hypothyroidism Vitamin deficiency Vision problem Thyroid disease Rheumatoid arthritis GERD (gastroesophageal reflux disease) Osteoporosis Osteoarthritis IBS (irritable bowel syndrome) Hearing problem Frequent headaches Calcium deficiency High cholesterol High triglycerides Blood transfusion during current hospitalization Goiter COPD (chronic obstructive pulmonary disease) Diabetes Chronic bronchitis Breast lump Bleeding disorder UTI (urinary tract infection) Bone fracture Back problem Arthritis Anemia Home Medications ???Medication ???Instructions ???Recorded ???Last Taken ???Type cyanocobalamin (vitamin B-12) 1,000 mcg PO DAILY SUPPLEMENT 12/11/17 03/01/18 09:00 History 1,000 mcg tablet 1000 MCG dicyclomine 20 mg tablet 20 mg PO DAILY 12/11/17 03/01/18 09:00 History 20 MG divalproex 250 mg tablet,extended 250 mg PO BID MIGRAINES 12/11/17 03/01/18 09:00 History release 24 hr 250 MG furosemide 20 mg tablet 20 mg PO MOWEFR 12/11/17 Unknown History isosorbide dinitrate 30 mg tablet 30 mg PO DAILY HEART 12/11/17 03/01/18 09:00 History 30 MG metoprolol succinate 25 mg 12.5 mg PO BID BP 12/11/17 01/24/19 09:00 History tablet,extended release 24 hr nitroglycerin 0.4 mg sublingual 0.4 mg sublingual Q5M PRN Chest 12/11/17 Unknown History tablet Pain omeprazole 40 mg capsule,delayed 40 mg PO DAILY GERD 12/11/17 01/24/19 09:00 History release alirocumab 75 mg/mL subcutaneous 75 mg subcut .qow 10/29/20 Unknown History pen injector clonazepam 0.5 mg tablet 0.5 mg PO BID PRN 10/29/20 Unknown History gabapentin 300 mg capsule 300 mg PO TID 10/29/20 Unknown History levothyroxine 137 mcg tablet 137 mcg PO DAILY 10/29/20 Unknown History magnesium 250 mg tablet 250 mg PO DAILY 10/29/20 Unknown History ondansetron 4 mg disintegrating 4 mg PO Q8H 10/29/20 Unknown History tablet potassium chloride 20 mEq 20 meq PO DAILY 10/29/20 Unknown History tablet,extended release(part/cryst) (Klor-Con M) pyridoxine (vitamin B6) 50 mg 100 mg PO DAILY SUPPLEMENT 10/29/20 Unknown History tablet quetiapine 100 mg tablet 100 mg PO QHS 10/29/20 Unknown History similia 2 puff inhalation BID 10/29/20 Unknown History sumatriptan succinate 25 mg tablet tablet PO 10/29/20 Unknown History tizanidine 4 mg tablet 4 mg PO ONCE 10/29/20 Unknown History ciprofloxacin HCl 500 mg tablet 500 mg PO BID #20 tabs 10/30/23 Unknown Rx (Cipro) metronidazole 500 mg tablet 500 mg PO BID 10 days #20 tabs 10/30/23 Unknown Rx cephalexin 500 mg capsule 500 mg PO Q12H 7 days #14 caps 04/13/24 Unknown Rx ondansetron 4 mg disintegrating 4 mg PO Q6H PRN nausea and 04/13/24 Unknown Rx tablet vomiting #20 tabs Allergy/AdvReac Type Severity Reaction Status Date / Time Sulfa (Sulfonamide Allergy Intermediate unknown Verified 04/13/24 16:57 Antibiotics) adhesive Allergy Rash Verified 04/13/24 16:57 latex Allergy Rash Verified 04/13/24 16:57 zolpidem (From Ambien) Allergy Other Verified 04/13/24 16:57 codeine AdvReac Other Verified 04/13/24 16:57 tramadol AdvReac Itching Verified 04/13/24 16:57 Family History Other Anemia Angina at rest Anxiety Arthritis Bleeding disorder Blood clot in vein Blood transfusion during current hospitalisation Bowel disease Colon cancer Depression Diabetes High cholesterol Hypertension Osteoporosis Respiratory disease Severe allergic reaction Thyroid disorder Surgical History H/O endoscopy h/o 5 goite (more content not included)... Normal [facility] L501.4020on 04-13-2024 TROPONIN-I HS 4 pg/mL Normal 3.0-54.0 [facility] Comment on above: Order Comment: 'TROP ' Serial specimen #1, #2 or #3: 1 Result Comment: Plea se Note: New Test Units and Gender Specific Reference Ranges. For more information see Policy Stat Procedure [place] High Sensitivity Troponin (TNIH) and attachments. Performed By: #### L 100.0100, L501.4020, L501.2450, L500.4050 ####[facility] [address] [place], [address] Lipaseon 04-13-2024 Lipase [Catalytic activity/Vol] 18 U/L Normal 13-75 [facility] Comment on above: Order Comment: 'TROP ' Serial specimen #1, #2 or #3: 1 Result Comment: Plea se note: LIPASE revised reference range effective 22. New Lipase methodology. Expected to produce lower values than the previous assay method. NEW Reference Range: 13 - 75 U/L Performed By: #### L 100.0100, L501.4020, L501.2450, L500.4050 ####[facility] [address] [place], [address] Urinalysis, Completeon 04-13 WBC 5-10 SEEN Normal 0-5 [facility] Comment on above: Order Comment: CLEAN CATCH Performed By: #### L 400.0001 ####[facility] [address] [place], [address] BACTERIA 3+ /hpf Normal None Seen [facility] Comment on above: Order Comment: CLEAN CATCH Performed By: #### L 400.0001 ####[facility] [address] [place], [address] EPI,SQUAMOUS 0-5 SEEN Normal 5-10 [facility] Comment on above: Order Comment: CLEAN CATCH Performed By: #### L 400.0001 ####[facility] [address] [place], [address] Mucus Ql (Urine sed) 0 SEEN Normal [facility] Comment on above: Order Comment: CLEAN CATCH Performed By: #### L 400.0001 ####[facility] [address] [place], [address] RBC 0 SEEN Normal 0-5 [facility] Comment on above: Order Comment: CLEAN CATCH Performed By: #### L 400.0001 ####[facility] [address] [place], [address] ANES POSTPROC EVALon 024 ANES POSTPROC EVAL HNO ID: [id number] Author: SULMA REYNA MD Service: Anesthesiology Author Type: Anesthesiologist Type: Anesthesia Postprocedure Evaluation Filed: 04/10/2024 13:35 Note Text: POST ANESTHESIA EVALUATION NOTE : 1955 Procedure Summary Date: 04/10/24 Room / Location: [facility] Anesthesia Start: 1025 Anesthesia Stop: 1121 Procedure: ENTEROSCOPY Diagnosis: Small bowel bleed not requiring more than 4 units of blood in 24 hours, ICU, or surgery Arteriovenous malformation of gastrointestinal tract Abnormal findings on examination of gastrointestinal tract Blood in stool (Obscure gastrointestinal bleeding) Scheduled Providers: Tata Bowie MD Responsible Provider: Sulma Reyna MD Anesthesia Type: MAC ASA Status: 3 Anesthesia Type: MAC Last Vitals Vitals Value Taken Time BP 120/64 04/10/24 1250 Temp 36.3 ?C (97.3 ?F) 04/10/24 1117 Pulse 68 04/10/24 1250 Resp 16 04/10/24 1250 SpO2 94 % 04/10/24 1250 Post Anesthesia Patient Status Patient Evaluation: PACU. PACU/ICU Patient Condition: stable. Anticipated Disposition: phase 2 then home. Neurological Status: aware and responsive. Pulmonary Status: breathing comfortably on room air Airway Control: returned to baseline unsupported. Cardiovascular Status: stable. Pain Management: clinically adequate Postoperative Hydration: acceptable. Intraoperative Events: no significant anesthesia events Post Operative Nausea/Vomiting Status: no significant post operative nausea or vomiting Recommendation: continue current plan of care. Anesthesia Observations No Documentation SIGNATURE: Sulma Reyna MD PATIENT NAME: Jen Estrada DATE: April 10, 2024 TIME: 1:35 PM CSN: [id number] Normal [facility] ANES PRE-OPon 04-10-2024 ANES PRE-OP HNO ID: [id number] Author: SULMA REYNA MD Service: Anesthesiology Author Type: Anesthesiologist Type: Anesthesia Preprocedure Evaluation Filed: 04/10/2024 10:20 Note Text: ANESTHESIOLOGY DAY OF SURGERY NOTE : 1955 Procedure Information Date/Time: 04/10/24 1015 Scheduled providers: Tata Bowie MD Procedure: ENTEROSCOPY [facility]: [facility] Estimated body mass index is 36.94 kg/m? as calculated from the following: Height as of this encounter: 165.1 cm (5' 5). Weight as of this encounter: 100.7 kg (222 lb). Most recent hematocrit and potassium results: Hematocrit 46.1 08/03/2023 Potassium 4.3 11/17/2021 Relevant Problems CARDIO (+) Angina pectoris without myocardial infarction (HCC) (+) Carotid atherosclerosis (+) Essential hypertension (+) Intractable migraine with aura without status migrainosus (+) Jejunal AV malformation (+) Stenosis of carotid artery ENDO (+) Controlled type 2 diabetes mellitus without complication, without long-term current use of insulin (HCC) (+) Hypothyroidism GI (+) Gastroesophageal reflux disease NEURO-PSYCH (+) Intractable migraine with aura without status migrainosus PULMONARY (+) Pulmonary emphysema (HCC) I - PHYSICAL EVALUATION AIRWAY Patient intubated: No. Mallampati: II. TM distance: >3 FB. Neck ROM: full ROM without neurological symptoms. Mouth opening: adequate. Short neck: no. Thick neck: no II - ANESTHESIA PLAN ASA Score: 3 Anesthetic Plan: MAC The patient is a current smoker. NPO Status: adequate Beta Rusty Administration of chronic beta rusty medication planned. Monitoring Plan Monitoring plan: standard ASA. Post Procedure Analgesic Plan Postoperative analgesic plan: parenteral or oral opioids. Informed Consent Anesthetic risks, benefits, alternatives, personnel and consent discussed: yes. Patient / Responsible Alliance Party agrees to proceed: yes Patient / Surrogate agrees to blood products: blood products not planned Significant changes in the patient condition since the History and Physical, not otherwise documented in primary service progress note: no. Potential Anesthesia issues that may suggest increased risk of complications or contraindication to planned procedure: none. Vitals Value Taken Time BP 148/67 04/10/24 1013 Pulse 73 04/10/24 1013 Resp 25 04/10/24 1013 Temp 36.3 ?C (97.3 ?F) 04/10/24 1013 SpO2 96 % 04/10/24 1013 Outpatient Medications as of 04/10/2024 Medication Sig FAMOTIDINE ORAL Take by mouth. HYDROcodone-Acetaminop hen (NORCO) 7.5-325 mg per tablet Take 1 tablet by mouth every 8 hours as needed for pain. bumetanide (BUMEX) 1 mg tablet Take 1 mg by mouth two times a day. dilTIAZem CD (CARTIA XT) 120 mg 24 hr capsule Take 120 mg by mouth once daily. busPIRone (BUSPAR) 10 mg tablet Take 10 mg by mouth two times a day. folic acid 1 mg tablet Take 1 mg by mouth once daily. gabapentin (NEURONTIN) 300 mg capsule Take 300 mg by mouth two times a day. levothyroxine (SYNTHROID) 300 mcg tablet Take 300 mcg by mouth once daily. predniSONE (DELTASONE) 10 mg tablet Take 10 mg by mouth once daily. fluticasone-umeclidin- vilanter (TRELEGY ELLIPTA) 100-62.5-25 mcg inhalation powder Take by mouth DAILY (6 AM). cyclobenzaprine (FLEXERIL) 10 mg tablet Take 10 mg by mouth three times daily as needed. ferrous sulfate (IRON) 325 mg (65 mg iron) tablet Take 1 tablet by mouth twice daily. nateglinide (STARLIX) 60 mg tablet Take 60 mg by mouth three times a day before meals. tiZANidine (ZANAFLEX) 4 mg tablet Take 4 mg by mouth every 8 hours as needed. calcium carbonate (CALCIUM 600 ORAL) Take 1 tablet by mouth two times a day. omeprazole (PRILOSEC) 40 mg capsule TAKE 1 CAPSULE BY MOUTH TWICE DAILY. TAKE 30 MINUTES BEFORE BREAKFAST AND DINNER (Patient taking differently: Take 40 mg by mouth once daily.) cholecalciferol (VITAMIN D-3) 5,000 unit tab Take 5,000 Units by mouth once daily. magnesium oxide 400 mg magnesium tab Take by mouth once daily. DULoxetine (CYMBALTA) 60 mg capsule Take 60 mg by mouth twice daily. metoprolol succinate ER (TOPROL XL) 25 mg 24 hr tablet Take 25 mg by mouth twice daily. isosorbide mononitrate ER (IMDUR) 30 mg 24 hr tablet Take 30 mg by mouth once daily. escitalopram oxalate (LEXAPRO) 20 mg tablet Take 20 mg by mouth once daily. pyridoxine HCl, vitamin B6, (VITAMIN B-6 ORAL) Take 1 tablet by mouth once daily. traZODone (DESYREL) 100 mg tablet Take 100 mg by mouth daily at bedtime. (Patient not taking: Reported on 04/02/2024) HYDROcodone-acetaminop hen (NORCO) 5-325 mg per tablet Take 1 tablet by mouth every 8 hours as needed. levothyroxine (SYNTHROID) 175 mcg tablet Take 175 mcg by mouth every other day. (Patient not taking: Reported on 02/23/2023) levothyroxine (SYNTHROID) 200 mcg tablet Take 250 mcg by mouth every other day. albuterol (PROVENTIL) 2.5 mg /3 mL (0.083 %) nebulizer solution Use 3 mL via neb (more content not included)... Normal [facility] Enteroscopy Study observatio n Narrativeon 04-10-2024 [facility] Gastrointestinal Endoscopy Patient Name: Jen Estrada Procedure Date: 04/10/2024 10:08 AM Date of : 1955 Admit Type: Outpatient Room: [place] [id number] Gender: Female Note Status: Finalized Attending MD: Tata Bowie MD, [id number] Procedure: Small bowel enteroscopy Indications: Obscure gastrointestinal bleeding. History of AVMs. Providers: Tata Bowie MD Patient Profile: Refer to note in patient chart for documentation of history and physical. Referring Physician: Kelvin Campbell MD (Referring MD) Medicines: Monitored Anesthesia Care Complications: No immediate complications. Requesting Provider: Kelvin Campbell MD Procedure: Pre-Anesthesia Assessment: - Prior to the procedure, a History and Physical was performed, and patient medications and allergies were reviewed. The patient is competent. The risks and benefits of the procedure and the sedation options and risks were discussed with the patient. All questions were answered and informed consent was obtained. Patient identification and proposed procedure were verified by the physician, the nurse and the anesthesiologist in the procedure room. Mental Status Examination: alert and oriented. Airway Examination: normal oropharyngeal airway and neck mobility. Respiratory Examination: clear to auscultation. CV Examination: normal. Prophylactic Antibiotics: The patient does not require prophylactic antibiotics. Prior Anticoagulants: The patient has taken no anticoagulant or antiplatelet agents. ASA Grade Assessment: III - A patient with severe systemic disease. After reviewing the risks and benefits, the patient was deemed in satisfactory condition to undergo the procedure. The anesthesia plan was to use monitored anesthesia care (MAC). Immediately prior to administration of medications, the patient was re-assessed for adequacy to receive sedatives. The heart rate, respiratory rate, oxygen saturations, blood pressure, adequacy of pulmonary ventilation, and response to care were monitored throughout the procedure. The physical status of the patient was re-assessed after the procedure. After obtaining informed consent, the endoscope was passed under direct vision. Throughout the procedure, the patient's blood pressure, pulse, and oxygen saturations were monitored continuously. The Colonoscope was introduced through the mouth and advanced to the proximal ileum. I was present and participated during the entire procedure, including non-garcia portions, and during the administration and monitoring of Moderate Sedation. The small bowel enteroscopy was accomplished without difficulty. The patient tolerated the procedure well. Moderate Sedation: An independent trained observer was present and continuously monitored the patient. Findings: The examined esophagus was normal. Diffuse moderately erythematous mucosa with linear erythema without bleeding was found in the gastric antrum. This was suggestive of GAVE. Biopsies were taken with a cold forceps for histology to evaluate for H. Pylori, dysplasia and GAVE. One angiodysplastic lesion with no bleeding was found in the duodenal bulb. Coagulation for hemostasis using argon plasma at 0.8 liters/minute and 20 tatum was successful. Three angiodysplastic lesions, one of them bleeding, were found in the proximal jejunum and in the mid-jejunum. Coagulation for hemostasis using argon beam at 0.8 liters/minute and 20 tatum was successful. An area in the proximal ileum was successfully injected with 1 mL Debi ink for tattooing. Estimated Blood Loss: (more content not included)... PROVATION [facility] Radiology Study observation (narrative) [facility] GLUCOSE, BLOOD (POC)on 04-10 Glucose [Mass/Vol] 193 mg/dL Abnormal 74 - 99 mg/dL [facility] Comment on above: Location:[facility], [address], [place], [address] The Accu-Chek Inform II glucose meter has not been approved for testing on patients receiving intensive medical intervention or therapy and results from this point of care glucose test should not be used for patient management decisions in these cases. Inaccurate results may also occur from other interfering factors, such as N-acetylcysteine (blood concentrations of greater than 5mg/dL), galactose, extremes of hematocrit (<10 or >65), or high doses of ascorbic acid (vitamin C) greater than 3mg/dL. Consider alternate testing mechanisms (e.g. core lab, blood gas instrument) in the above situations. Interpretation and review of laboratory results Abnormal [facility] HISTORY PHYSICALon HISTORY PHYSICAL HNO ID: [id number] Author: NELIA KLINE APRN.ANALOG IC DESIGN ENGINEER Service: Anesthesiology Author Type: Nurse Practitioner Type: H&P Filed: 04/10/2024 10:13 Note Text: HANDP completed 04/02/24 by Rivera Victor APRN.ANALOG IC DESIGN ENGINEER. [facility] NURSING PROGon 04-10-2024 NURSING PROG HNO ID: [id number] Author: JUSTINA HALE, RN Service: Nursing Author Type: Registered Nurse Type: Nursing Progress Note Filed: 04/10/2024 12:07 Note Text: Dr Bowie notified of pt c/o abd pain. Pt abd soft. Dr Reyna also notified and also notified of pulse ox. Order for fentanyl received and pt medicated. [facility] SURGICAL PATHOLOGYon 024 CASE REPORT [facility] Comment on above: Order Comment: Speci men Type: TISSUE SPECIMEN Ordering Facility: [facility] Address: [address] [place] [address] Result Comment: Surg ica Pathology Report Case: [id number] Authorizing Provider: Tata Bowie, Collected: 04/10/2024 11:13 AM Ordering Location: [facility] Received: 04/11/2024 09:54 AM Pathologist: Annie Aguilar MD Specimen: Stomach, Antrum, Biopsy, r/o H Pylori, r/o dysplasia, evaluate for GAVE Performed By: #### S #### [facility] CLIA [id number] [address] [place] [address] Roxann Palma reviewed the case and agrees with the diagnosis. [facility] Comment on above: Order Comment: Speci men Type: TISSUE SPECIMEN Ordering Facility: [facility] Address: [address] [place] [address] Performed By: #### S #### [facility] CLIA [id number] [address] FINAL DIAGNOSIS [facility] Comment on above: Order Comment: Speci men Type: TISSUE SPECIMEN Ordering Facility: [facility] Address: [address] [place] [address] Result Comment: A. S tomach, antrum, biopsy: - Reactive gastropathy. No morphologic evidence of Helicobacter pylori. Performed By: #### S #### [facility] CLIA [id number] [address] [place] [address] FINAL PERFORMING LAB Normal [facility] Comment on above: Order Comment: Speci men Type: TISSUE SPECIMEN Ordering Facility: [facility] Address: [address] [place] [address] Result Comment: Diag nostic interpretation performed at [facility], [address] [place] [address] CLIA# [id number] Osteopathic Neurologist: Anthony Ambrosio M.D. Performed By: #### S #### [facility] CLIA [id number] [address] [place] [address] GROSS DESCRIPTION Normal [facility] Comment on above: Order Comment: Speci men Type: TISSUE SPECIMEN Ordering Facility: [facility] Address: [address] [place] [address] Result Comment: A. S tomach, Antrum, Biopsy Received in formalin labeled stomach antrum biopsy R/O H. pylori R/O dysplasia, evaluate for GAVE are multiple pieces of christine, soft tissue aggregating to 0.8 x 0.5 x 0.3 cm. Totally submitted in one cassette. Gross examination performed at [facility], [address] [place] [address] CLIA# [id number] [facility] April 11, 2024 3:35 PM Performed By: #### S #### [facility] CLIA [id number] [address] [place] [address] Small bowel enteroscopyon Small bowel enteroscopy [facility] Gastrointestinal Endoscopy Patient Name: Jen Estrada Procedure Date: 04/10/2024 10:08 AM Date of : 1955 Admit Type: Outpatient Room: [place] [id number] Gender: Female Note Status: Finalized Attending MD: Tata Bowie MD, [id number] Procedure: Small bowel enteroscopy Indications: Obscure gastrointestinal bleeding. History of AVMs. Providers: Tata Bowie MD Patient Profile: Refer to note in patient chart for documentation of history and physical. Referring Physician: Kelvin Campbell MD (Referring MD) Medicines: Monitored Anesthesia Care Complications: No immediate complications. Requesting Provider: Kelvin Campbell MD Procedure: Pre-Anesthesia Assessment: - Prior to the procedure, a History and Physical was performed, and patient medications and allergies were reviewed. The patient is competent. The risks and benefits of the procedure and the sedation options and risks were discussed with the patient. All questions were answered and informed consent was obtained. Patient identification and proposed procedure were verified by the physician, the nurse and the anesthesiologist in the procedure room. Mental Status Examination: alert and oriented. Airway Examination: normal oropharyngeal airway and neck mobility. Respiratory Examination: clear to auscultation. CV Examination: normal. Prophylactic Antibiotics: The patient does not require prophylactic antibiotics. Prior Anticoagulants: The patient has taken no anticoagulant or antiplatelet agents. ASA Grade Assessment: III - A patient with severe systemic disease. After reviewing the risks and benefits, the patient was deemed in satisfactory condition to undergo the procedure. The anesthesia plan was to use monitored anesthesia care (MAC). Immediately prior to administration of medications, the patient was re-assessed for adequacy to receive sedatives. The heart rate, respiratory rate, oxygen saturations, blood pressure, adequacy of pulmonary ventilation, and response to care were monitored throughout the procedure. The physical status of the patient was re-assessed after the procedure. After obtaining informed consent, the endoscope was passed under direct vision. Throughout the procedure, the patient's blood pressure, pulse, and oxygen saturations were monitored continuously. The Colonoscope was introduced through the mouth and advanced to the proximal ileum. I was present and participated during the entire procedure, including non-garcia portions, and during the administration and monitoring of Moderate Sedation. The small bowel enteroscopy was accomplished without difficulty. The patient tolerated the procedure well. Moderate Sedation: An independent trained observer was present and continuously monitored the patient. Findings: The examined esophagus was normal. Diffuse moderately erythematous mucosa with linear erythema without bleeding was found in the gastric antrum. This was suggestive of GAVE. Biopsies were taken with a cold forceps for histology to evaluate for H. Pylori, dysplasia and GAVE. One angiodysplastic lesion with no bleeding was found in the duodenal bulb. Coagulation for hemostasis using argon plasma at 0.8 liters/minute and 20 tatum was successful. Three angiodysplastic lesions, one of them bleeding, were found in the proximal jejunum and in the mid-jejunum. Coagulation for hemostasis using argon beam at 0.8 liters/minute and 20 tatum was successful. An area in the proximal ileum was successfully injected with 1 mL Debi ink for tattooing. Estimated Blood Loss: Estimated blood loss was minimal. Impression: - Normal esophagus. - Diffuse moderately erythematous mucosa with linear erythema without bleeding was found in the gastric antrum. This was suggestive of GAVE. Biopsies were taken with a cold forceps for histology to evaluate for H. Pylori, dysplasia and GAVE - One non-bleeding angiodysplastic lesion in the duodenum. Treated with argon plasma coagulation (APC). - Three angiodysplastic lesions, one of them bleeding, were found in the proximal jejunum and in the mid-jejunum. Treated with argon beam coagulation. - An area in the distal jejunum successfully injected. Recommendation: - Discharge patient to home (ambulatory). - Follow up with referring provider Procedure Code(s): --- Professional --- 76965, Small intestinal endoscopy, enteroscopy beyond second portion of duodenum, including ileum; with biopsy, single or multiple 54219, Unlisted procedure, small intestine --- Technical --- 02732, Small intestinal endoscopy, enteroscopy beyond second portion of duodenum, including ileum; with biopsy, single or multiple 80661, Unlisted procedure, small intestine Diagnosis Code(s): --- Professional --- K31.89, Other diseases (more content not included)... Normal [facility] CBC + DIFFon 04-07-2024 Baso # 0.05 x10EE3/UL Normal 0.00 - 0.10 [facility] Comment on above: Performed By: #### 2 87884 ####[facility],[address] [place] [address] 14738 Basophils/100 WBC (Bld) 0.4 % Normal 0.0 - 2.0 [facility] Comment on above: Performed By: #### 2 70957 ####[facility],[address] [place] [address] 21881 CBC + DIFF Normal [facility] Comment on above: Result Comment: CBC- COMPLETE BLOOD COUNT Performed By: #### 2 74905 ####[facility],[address] [place] [address] 55076 CELL COUNT 100 Normal [facility] Comment on above: Performed By: #### 2 47053 ####[facility],[address] [place] [address] 18569 EO 1.0 % Normal 0.0 - 7.0 [facility] Comment on above: Performed By: #### 2 20636 ####[facility],[address] [place] [address] 72220 EO # 0.12 x10EE3/UL Normal 0.00 - 0.50 [facility] Comment on above: Performed By: #### 2 26988 ####[facility],[address] [place] [address] 57859 Eosinophils/100 WBC (Bld) 0.9 % Normal 0.0 - 7.0 [facility] Comment on above: Performed By: #### 2 73723 ####[facility],[address] [place] [address] 34773 Erythrocyte distribution width (RBC) [Ratio] 18.8 % High 12.0 - 15.6 [facility] Comment on above: Performed By: #### 2 44607 ####[facility],[address] [place] [address] 01891 Hematocrit (Bld) [Volume fraction] 38.3 % Normal 34.0 - 46.0 [facility] Comment on above: Performed By: #### 2 46623 ####[facility],[address] [place] [address] 31055 Hemoglobin (Bld) [Mass/Vol] 12.2 g/dL Normal 12.0 - 16.0 [facility] Comment on above: Performed By: #### 2 01382 ####[facility],[address] [place] [address] 47862 Lymph # 2.09 x10EE3/UL Normal 0.80 - 2.80 [facility] Comment on above: Performed By: #### 2 15086 ####[facility],[address] [place] [address] 10585 Lymphocytes/100 WBC (Bld) 16.2 % Low 20.0 - 45.0 [facility] Comment on above: Performed By: #### 2 80027 ####[facility],[address] [place] [address] 37600 Lymphocytes/100 WBC (Bld) 14 % Low 20 - 45 [facility] Comment on above: Performed By: #### 2 88042 ####[facility],[address] [place] [address] 99528 MANUAL DIFF SEE BELOW Normal [facility] Comment on above: Performed By: #### 2 26247 ####[facility],[address] [place], [place] [address] MCH (RBC) [Entitic mass] 21 pg Low 27 - 33 [facility] Comment on above: Performed By: #### 2 26633 ####[facility],[address] [place] [address] 18277 MCHC 32 X10 3 Normal 32 - 36 [facility] Comment on above: Performed By: #### 2 30464 ####[facility],[address] [place] [address] 70006 MCV (RBC) [Entitic vol] 68 fL Low 80 - 99 [facility] Comment on above: Performed By: #### 2 30794 ####[facility],[address] [place] [address] 07835 MICROCYTES 1+ Normal [facility] Comment on above: Performed By: #### 2 24583 ####[facility],[address] [place] [address] 45524 Hockley # 0.94 x10EE3/UL Normal 0.20 - 1.00 [facility] Comment on above: Performed By: #### 2 69735 ####[facility],[address] [place] [address] 46784 MONOS 4 % Normal 0 - 10 [facility] Comment on above: Performed By: #### 2 66101 ####[facility],[address] [place] [address] 07092 MONOS % 7.3 % Normal 0.0 - 10.0 [facility] Comment on above: Performed By: #### 2 38642 ####[facility],[address] [place] [address] 80378 Morphology Fabian (Bld) [Interp] SEE BELOW Normal [facility] Comment on above: Performed By: #### 2 19617 ####[facility],[address] [place] [address] 02835 Neut # 9.69 x10EE3/UL High 1.50 - 7.10 [facility] Comment on above: Performed By: #### 2 36167 ####[facility],[address] [place] [address] 16405 Neutrophils/100 WBC (Bld) 75.3 % Normal 46.0 - 76.0 [facility] Comment on above: Performed By: #### 2 62429 ####[facility],[address] [place] [address] 85971 PLATELET 446 x10EE3/UL Normal 150 - 450 [facility] Comment on above: Performed By: #### 2 61009 ####[facility],[address] [place] [address] 46023 Platelet mean volume (Bld) [Entitic vol] 7.7 fL Normal 6.6 - 10.5 [facility] Comment on above: Result Comment: AUTO MATED DIFFERENTIAL Performed By: #### 2 39495 ####[facility],[address] [place] [address] 41781 PLT EST INCREASED Normal [facility] Comment on above: Performed By: #### 2 38999 ####[facility],[address] [place], [place] [address] RBC 5.67 x 10EE6/UL High 4.10 - 5.30 [facility] Comment on above: Performed By: #### 2 32763 ####[facility],[address] [place] [address] 30464 SEGS 81 % High 46 - 76 [facility] Comment on above: Performed By: #### 2 82317 ####[facility],[address] [place], [place] [address] WBC 12.9 x 10EE3/UL High 4.5 - 10.8 [facility] Comment on above: Performed By: #### 2 75544 ####[facility],[address] [place], [place] [address] Other FEW GIANT PLATELETS Normal [facility] Comment on above: Performed By: #### 2 99969 ####[facility],[address] [place], [place] [address] CNOVSPon 04-04-2024 CNOVSP Visit (SP) Office (HEMA[facility]) JEN ESTRADA ([id number]) 1955 F CHT Date Time Provider Department 04/04/24 11:00 AM TREATMENT RM [facility] During your visit today, we recorded the following information about you: Temperature Pulse Respiration Blood pressure 97.7 degrees 74/minute 18/minute 122/69 Referring Provider: ANNE-MARIE ALBERTO [[id number]] Allergies As of Date: 04/04/2024 Noted Allergy Reaction ADHESIVE 04/20/2017 14 - Other: See Comments Comments: Blisters skin AMBIEN (ZOLPIDEM TARTRATE) 07/01/2018 14 - Other: See Comments CODEINE 04/20/2017 14 - Other: See Comments Comments: Seizure as a child DEMEROL (MEPERIDINE) 03/06/2023 9 - Itching LATEX, NATURAL RUBBER 04/20/2017 14 - Other: See Comments Comments: blisters NSAIDS (NON-STEROIDAL ANTI-INFLAM*03/08/2020 8 - GI Upset Comments: Has had GI bleed SULFA (SULFONAMIDE ANTIBIOTICS) 04/01/2024 9 - Itching TRAMADOL 12/18/2017 9 - Itching Date Reviewed: 04/02/2024 Reviewed by: Daksha Davidson, RN - Fully Assessed Primary Visit Diagnosis:Gastroesopha geal reflux disease with esophagitis, unspecified whether hemorrhage [K21.00] Other Visit Diagnoses:Adverse effect of iron, subsequent encounter [T45.4X5D] Iron deficiency anemia due to chronic blood loss [D50.0] Iron malabsorption [K90.9] Irritable bowel syndrome with diarrhea [K58.0] Jejunal AV malformation [K55.20] Order(s):TREATMENT PARAMETER-NOT NEEDED [[id number]] Order #: [id number]: 1 BCN NURSING COMMUNICATION [[id number]] Order #: [id number]: 1 STANDING N NURSING COMMUNICATION [[id number]] Order #: [id number]: 1 STANDING [] iron sucrose 200 mg injection (VENOFER)Disp: Rfl: NaCl 0.9% iv infusionDisp: Rfl: diphenhydrAMINE 50 mg injection (BENADRYL)Disp: Rfl: hydrocortisone sodium succinate (PF) 100 mg injection (Solu-CORTEF)Disp: Rfl: EPINEPHrine HCl (PF) 1 mg/mL (1 mL) 0.3 mg injectionDisp: Rfl: N NURSING COMMUNICATION [[id number]] Order #: [id number]: 1 STANDING Prescriptions as of 04/04/2024 - FAMOTIDINE ORAL Take by mouth. - HYDROcodone-Acetaminop hen (NORCO) 7.5-325 mg per tablet Take 1 tablet by mouth every 8 hours as needed for pain. - bumetanide (BUMEX) 1 mg tablet Take 1 mg by mouth two times a day. - dilTIAZem CD (CARTIA XT) 120 mg 24 hr capsule Take 120 mg by mouth once daily. - busPIRone (BUSPAR) 10 mg tablet Take 10 mg by mouth two times a day. - traZODone (DESYREL) 100 mg tablet Take 100 mg by mouth daily at bedtime. - folic acid 1 mg tablet Take 1 mg by mouth once daily. - gabapentin (NEURONTIN) 300 mg capsule Take 300 mg by mouth two times a day. - levothyroxine (SYNTHROID) 300 mcg tablet Take 300 mcg by mouth once daily. - predniSONE (DELTASONE) 10 mg tablet Take 10 mg by mouth once daily. - fluticasone-umeclidin- vilanter (TRELEGY ELLIPTA) 100-62.5-25 mcg inhalation powder Take by mouth DAILY (6 AM). - HYDROcodone-acetaminop hen (NORCO) 5-325 mg per tablet Take 1 tablet by mouth every 8 hours as needed. - cyclobenzaprine (FLEXERIL) 10 mg tablet Take 10 mg by mouth three times daily as needed. - ferrous sulfate (IRON) 325 mg (65 mg iron) tablet Take 1 tablet by mouth twice daily. - levothyroxine (SYNTHROID) 175 mcg tablet Take 175 mcg by mouth every other day. - levothyroxine (SYNTHROID) 200 mcg tablet Take 250 mcg by mouth every other day. - nateglinide (STARLIX) 60 mg tablet Take 60 mg by mouth three times a day before meals. - albuterol (PROVENTIL) 2.5 mg /3 mL (0.083 %) nebulizer solution Use 3 mL via nebulizer every 6 hours as needed for wheezing/shortness of breath. OVER 5-15 MINUTES. FOR WHEEZING AND SHORTNESS OF BREATH. - ipratropium (ATROVENT) 0.02 % nebulizer solution Use 0.5 mg via nebulizer four times daily. PRN - tiZANidine (ZANAFLEX) 4 mg tablet Take 4 mg by mouth every 8 hours as needed. - calcium carbonate (CALCIUM 600 ORAL) Take 1 tablet by mouth two times a day. - omeprazole (PRILOSEC) 40 mg capsule TAKE 1 CAPSULE BY MOUTH TWICE DAILY. TAKE 30 MINUTES BEFORE BREAKFAST AND DINNER - SUMAtriptan (IMITREX) 25 mg tablet Take 25 mg by mouth as needed for Migraine Headache (see administration instructions). - mirtazapine (REMERON) 15 mg tablet Take 15 mg by mouth daily at bedtime. - QUEtiapine (SEROQUEL) 100 mg tablet Take 100 mg by mouth daily at bedtime. - alirocumab (PRALUENT PEN) 75 mg/mL Inject 75 mg subcutaneously every other week. - clonazePAM orally disintegrating (KLONOPIN WAFER) 0.25 mg disintegrating tablet Take 0.5 mg by mouth twice daily as needed. - cholecalciferol (VITAMIN D-3) 5,000 unit tab Take 5,000 Units by mouth once daily. - magnesium oxide 400 mg magnesium tab Take by mouth once daily. - DULoxetine (CYMBALTA) 60 mg capsule Take 60 mg by mouth twice daily. - metoprolol succinate ER (TOPROL XL) 25 mg 24 hr tablet Take 25 mg by mouth twice daily (more content not included)... Normal [facility] Spine Lumbar (Routine)on Spine Lumbar (Routine) [facility] Imaging Services [address] [place] [address] [id number] Spine Lumbar (Routine) MR#: [id number] Acct: [id number] Name: JEN ESTRADA Rep #: [id number] : 1955 F 68 From: Bryan britt DO PCP: Dr. Apolonia Craven MD Status: [facility] Study: Spine Lumbar (Routine) Date of Exam: 04/04/24 Exam# [id number] Ordering Dr: MEMO PLAZA [id number] EXAM: MR LUMBAR SPINE WITHOUT INTRAVENOUS CONTRAST CLINICAL INDICATION: RADICULOPATHY TECHNIQUE: Multiplanar and multisequence MR images of the lumbar spine without intravenous contrast. COMPARISON: CT abdomen and pelvis, 10/30/2023 FINDINGS: VERTEBRAE: There is a T12 vertebral body hemangioma. No suspicious marrow space signal abnormalities are identified. No fracture. Normal lumbar lordosis. No spondylolysis or spondylolisthesis. SPINAL CORD: No significant abnormality. Normal position and signal intensity of the conus medullaris. Nerve roots of the cauda equina appear normal. SOFT TISSUES: No significant abnormality. VASCULATURE: Atherosclerosis of the aorta. DISCS/SPINAL CANAL/NEURAL FORAMINA: L1-L2: Mild bilateral facet arthrosis. No disc herniation, spinal canal stenosis, or neural foraminal narrowing. L2-L3: Mild bilateral facet arthrosis. No disc herniation, spinal canal stenosis, or neural foraminal narrowing. L3-L4: Mild bilateral facet arthrosis. No disc herniation, spinal canal stenosis, or neural foraminal narrowing. L4-L5: Mild bilateral facet arthrosis. No disc herniation, spinal canal stenosis, or neural foraminal narrowing. L5-S1: No significant abnormality. No disc herniation, spinal canal stenosis, or neural foraminal narrowing. MRI/Spine Lumbar (Routine) IMPRESSION: Mild degenerative changes. No disc herniation, spinal canal stenosis, or neural foraminal narrowing. No nerve root impingement. Electronically Signed: Bryan Olson DO at 12:33 EST , CC: MEMO PLAZA; Dr. Apolonia Craven MD Associate Music Professor: Signed [facility] ANES PRE-OPon 04-02-2024 ANES PRE-OP HNO ID: [id number] Author: MARIBEL MAK MD Service: Anesthesiology Author Type: Physician Type: Anesthesia Preprocedure Evaluation Filed: 04/02/2024 13:16 Note Text: ANESTHESIOLOGY DAY OF SURGERY NOTE : 1955 Procedure Information Date/Time: 04/02/24 1400 Scheduled providers: Kelvin Campbell MD Procedure: EGD DIAGNOSTIC Location: [facility] Estimated body mass index is 36.94 kg/m? as calculated from the following: Height as of this encounter: 165.1 cm (5' 5). Weight as of this encounter: 100.7 kg (222 lb). Most recent hematocrit and potassium results: Hematocrit 46.1 08/03/2023 Potassium 4.3 11/17/2021 Relevant Problems CARDIO (+) Angina pectoris without myocardial infarction (HCC) (+) Carotid atherosclerosis (+) Essential hypertension (+) Intractable migraine with aura without status migrainosus (+) Jejunal AV malformation (+) Stenosis of carotid artery ENDO (+) Controlled type 2 diabetes mellitus without complication, without long-term current use of insulin (HCC) (+) Hypothyroidism GI (+) Gastroesophageal reflux disease NEURO-PSYCH (+) Intractable migraine with aura without status migrainosus PULMONARY (+) Pulmonary emphysema (HCC) I - PHYSICAL EVALUATION AIRWAY Patient intubated: No. Tracheostomy tube not present Mallampati: II. TM distance: >3 FB. Neck ROM: full ROM without neurological symptoms. Mouth opening: adequate. Short neck: no. Thick neck: no DENTAL Dental findings: teeth intact. Additional exam findings: no II - ANESTHESIA PLAN ASA Score: 3 Anesthetic Plan: MAC The patient is a current smoker. 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 Beta Rusty Monitoring Plan Monitoring plan: standard ASA. Post Procedure Analgesic Plan Postoperative analgesic plan: multimodal analgesia. Informed Consent Anesthetic risks, benefits, alternatives, personnel and consent discussed: yes. Patient / Responsible Alliance Party agrees to proceed: yes Patient / Surrogate agrees to blood products: blood products not planned Significant changes in the patient condition since the History and Physical, not otherwise documented in primary service progress note: no. Potential Anesthesia issues that may suggest increased risk of complications or contraindication to planned procedure: none. Vitals Value Taken Time BP 128/60 04/02/24 1254 Pulse 77 04/02/24 1254 Resp 20 04/02/24 1254 Temp 36 ?C (96.8 ?F) 04/02/24 1254 SpO2 96 % 04/02/24 1254 Outpatient Medications as of 04/02/2024 Medication Sig HYDROcodone-Acetaminop hen (NORCO) 7.5-325 mg per tablet Take 1 tablet by mouth every 8 hours as needed for pain. bumetanide (BUMEX) 1 mg tablet Take 1 mg by mouth two times a day. dilTIAZem CD (CARTIA XT) 120 mg 24 hr capsule Take 120 mg by mouth once daily. busPIRone (BUSPAR) 10 mg tablet Take 10 mg by mouth two times a day. folic acid 1 mg tablet Take 1 mg by mouth once daily. gabapentin (NEURONTIN) 300 mg capsule Take 300 mg by mouth two times a day. levothyroxine (SYNTHROID) 300 mcg tablet Take 300 mcg by mouth once daily. fluticasone-umeclidin- vilanter (TRELEGY ELLIPTA) 100-62.5-25 mcg inhalation powder Take by mouth DAILY (6 AM). ferrous sulfate (IRON) 325 mg (65 mg iron) tablet Take 1 tablet by mouth twice daily. nateglinide (STARLIX) 60 mg tablet Take 60 mg by mouth three times a day before meals. ipratropium (ATROVENT) 0.02 % nebulizer solution Use 0.5 mg via nebulizer four times daily. PRN calcium carbonate (CALCIUM 600 ORAL) Take 1 tablet by mouth two times a day. SUMAtriptan (IMITREX) 25 mg tablet Take 25 mg by mouth as needed for Migraine Headache (see administration instructions). alirocumab (PRALUENT PEN) 75 mg/mL Inject 75 mg subcutaneously every other week. magnesium oxide 400 mg magnesium tab Take by mouth once daily. metoprolol succinate ER (TOPROL XL) 25 mg 24 hr tablet Take 25 mg by mouth twice daily. isosorbide mononitrate ER (IMDUR) 30 mg 24 hr tablet Take 30 mg by mouth once daily. potassium chloride 20 mEq TbER Take 1 tablet by mouth once daily. fluticasone (FLONASE) 50 mcg/actuation nasal spray Use 1 Mosier in each nostril once daily. FAMOTIDINE ORAL Take by mouth. (Patient not taking: Reported on 04/02/2024) traZODone (DESYREL) 100 mg tablet Take 100 mg by mouth daily at bedtime. (Patient not taking: Reported on 04/02/2024) predniSONE (DELTASONE) 10 mg tablet Take 10 mg by mouth once daily. HYDROcodone-acetaminop hen (NORCO) 5-325 mg per tablet Take 1 tablet by mouth every 8 hours as needed. cyclobenzaprine (FLEXERIL) 10 mg tablet Take 10 mg by mouth three times daily as needed. levothyroxine (SYNTHROID) 175 mcg tablet Take 175 mcg by mouth every other day. (Patient not taking: Reported on 02/23/2023) levothyroxine (SYNTHROID) 200 mcg tablet Take 250 mcg by mouth (more content not included)... Normal [facility] HISTORY PHYSICALon 4 HISTORY PHYSICAL HNO ID: [id number] Author: RIVERA VICTOR APRN.ANALOG IC DESIGN ENGINEER Service: Anesthesiology Author Type: Nurse Practitioner Type: H&P Filed: 04/02/2024 13:27 Note Text: HISTORY AND PHYSICAL EXAMINATION SERVICE DATE: 04/02/2024 SERVICE TIME: 1:03 PM PRIMARY CARE PHYSICIAN: Apolonia Craven MD REASON FOR VISIT: The reason for this visit is To perform a comprehensive review of the patients past medical history, assess their current health status and obtain any additional testing required based on anesthesia guidelines. To assess and identify potential anesthesia problems, particularly those that may suggest potential complications or contraindications to the planned procedure. The patient has the following: ACTIVE PROBLEM LIST Iron Deficiency Anemia Due to Chronic Blood Loss Gastroesophageal Reflux Disease Essential Hypertension Angina Pectoris Without Myocardial Infarction (Hcc) Controlled Type 2 Diabetes Mellitus Without Complication, Without Long-Term Current Use of Insulin ([facility]) Hyperlipidemia Irritable Bowel Syndrome With Diarrhea Intractable Migraine With Aura Without Status Migrainosus Iron Adverse Reaction Iron Deficiency Anemia Heavy Cigarette Smoker Iron Malabsorption Jejunal Av Malformation Thalassemia Pulmonary Emphysema (Hcc) Secondary Polycythemia Carotid Atherosclerosis Hypothyroidism Obesity Peripheral Vascular Disease (Hcc) Stenosis of Carotid Artery Small Bowel Bleed Not Requiring More Than 4 Units of Blood in 24 Hours, Icu, Or Surgery Pre-Op Examination Subjective CHIEF COMPLAINT: Preoperative Examination HPI: Patient present to [facility] for the above procedure. Patient here for routine Upper GI Endoscopy screening. Patient reports diarrhea, and blood in stool. Reports she had several EGDs prior. 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 Denies any abdominal pain. Patient denies any other problems at this time. Denies any family history of Colon cancer or other Gastric ca. Patient agreed to planned procedure. METS: Walk indoors, such as around the house (1.75 METs) Patient denies any CP/SOB with above activity. PAST MEDICAL HISTORY Diagnosis Date Anemia Angina at rest (HCC) pt denies at this time Anxiety Asthma COPD (chronic obstructive pulmonary disease) (HCC) Degenerative disc disease, lumbar Depression Diabetes (HCC) Fibromyalgia GERD (gastroesophageal reflux disease) History of transfusion Hypertension Hypothyroid IBS (irritable bowel syndrome) diarrhea predominant Mental disorder anxiety Migraines Migraines Neuropathy Presacral mass Snoring PAST SURGICAL HISTORY Procedure Laterality Date ANKLE SURGERY HX right ankle positive hardware APPENDECTOMY HX BREAST REDUCTION CARPAL TUNNEL right and left wrist surgery SECTION HX CHOLECYSTECTOMY HX COLONOSCOPY AND POLYPECTOMY 2015 [place] -benign polyp COLONOSCOPY FLX DX W/COLLJ SPEC WHEN PFRMD 04/24/2017 Colonoscopy ESOPHAGOGASTRODUODENOS COPY TRANSORAL DIAGNOSTIC 04/24/2017 EGD F EGD WITH DILATATION ESOPHAGEAL in [place] FOOT SURGERY HX left foot HERNIA REPAIR HX abdomen HYSTERECTOMY HYSTERECTOMY HX OTHER right and left shoulder surgery OTHER 5 goiters removed PAST SURGICAL HISTORY OF cardiac cath THYROIDECTOMY TOTAL/COMPLETE TONSILLECTOMY AND ADENOIDECTOMY HX TOTAL KNEE REPLACEMENT right knee FAMILY HISTORY Problem Relation Age of Onset other (bleeding liver) Mother COPD Father other (sarcoidosis) Sister Heart Brother Hypertension Brother Stroke Sister Hypertension Sister SOCIAL HISTORY: Social History Tobacco Use Smoking status: Every Day Current packs/day: 1.50 Average packs/day: 1.5 packs/day for 50.0 years (75.0 ttl pk-yrs) Types: Cigarettes Smokeless tobacco: Never Vaping Use Vaping status: Never Used Substance Use Topics Alcohol use: No Drug use: No Prior to Admission medications as of 04/02/24 1318 Medication Sig Last Dose Taking HYDROcodone-Acetaminop hen (NORCO) 7.5-325 mg per tablet Take 1 tablet by mouth every 8 hours as needed for pain. 04/01/2024 Yes bumetanide (BUMEX) 1 mg tablet Take 1 mg by mouth two times a day. 04/01/2024 Yes dilTIAZem CD (CARTIA XT) 120 mg 24 hr capsule Take 120 mg by mouth once daily. 04/02/2024 at 0830 Yes busPIRone (BUSPAR) 10 mg tablet Take 10 mg by mouth two times a day. 04/01/2024 Yes folic acid 1 mg tablet Take 1 mg by mouth once daily. 03/31/2024 Yes gabapentin (NEURONTIN) 300 mg capsule Take 300 mg by mouth two times a day. 04/01/2024 Yes levothyroxine (SYNTHROID) 300 mcg tablet Take 300 mcg by mouth once daily. 04/02/2024 at 0830 Yes fluticasone-umeclidin- vilanter (TRELEGY ELLIPTA) 100-62.5-25 mcg inhalation powder Take by mouth DAILY (6 AM). 04/02/2024 at 0830 Yes ferrous sulfate (IRON) 325 mg (65 mg iron) tablet Take 1 tablet by mouth twice daily. 04/01/2024 Yes nateglinide (STARLIX) 60 mg tablet Take 60 mg b (more content not included)... Normal [facility] [place] 03-27-2024 [place] Telephone (GENJAMARCUS) JEN ESTRADA ([id number]) 1955 [facility] Date Time Provider Department 03/27/24 SUSANNE WILDE During your visit today, we recorded the following information about you: Susanne Wilde LPN 03/27/2024 4:08 PM Signed Spoke with patient and patient today. Offered 04/02 appointment for EGD [address] Dr. Campbell at 2pm in [facility]. Patient accepted. No other questions. Susanne Wilde LPN Allergies As of Date: 03/27/2024 Noted Allergy Reaction ADHESIVE 04/20/2017 14 - Other: See Comments Comments: Blisters skin AMBIEN (ZOLPIDEM TARTRATE) 07/01/2018 14 - Other: See Comments CODEINE 04/20/2017 14 - Other: See Comments Comments: Seizure as a child DEMEROL (MEPERIDINE) 03/06/2023 9 - Itching LATEX, NATURAL RUBBER 04/20/2017 14 - Other: See Comments Comments: blisters NSAIDS (NON-STEROIDAL ANTI-INFLAM*03/08/2020 8 - GI Upset Comments: Has had GI bleed TRAMADOL 12/18/2017 9 - Itching Date Reviewed: 08/03/2023 Reviewed by: Anne-Marie Alberto - Fully Assessed Reason for Visit: Appointment [[id number]] Prescriptions as of 03/27/2024 - HYDROcodone-Acetaminop hen (NORCO) 7.5-325 mg per tablet Take 1 tablet by mouth every 8 hours as needed for pain. - bumetanide (BUMEX) 1 mg tablet Take 1 mg by mouth two times a day. - dilTIAZem CD (CARTIA XT) 120 mg 24 hr capsule Take 120 mg by mouth once daily. - busPIRone (BUSPAR) 10 mg tablet Take 10 mg by mouth two times a day. - traZODone (DESYREL) 100 mg tablet Take 100 mg by mouth daily at bedtime. - folic acid 1 mg tablet Take 1 mg by mouth once daily. - gabapentin (NEURONTIN) 300 mg capsule Take 300 mg by mouth two times a day. - levothyroxine (SYNTHROID) 300 mcg tablet Take 300 mcg by mouth once daily. - predniSONE (DELTASONE) 10 mg tablet Take 10 mg by mouth once daily. - fluticasone-umeclidin- vilanter (TRELEGY ELLIPTA) 100-62.5-25 mcg inhalation powder Take by mouth DAILY (6 AM). - HYDROcodone-acetaminop hen (NORCO) 5-325 mg per tablet Take 1 tablet by mouth every 8 hours as needed. - cyclobenzaprine (FLEXERIL) 10 mg tablet Take 10 mg by mouth three times daily as needed. - ferrous sulfate (IRON) 325 mg (65 mg iron) tablet Take 1 tablet by mouth twice daily. - levothyroxine (SYNTHROID) 175 mcg tablet Take 175 mcg by mouth every other day. - levothyroxine (SYNTHROID) 200 mcg tablet Take 250 mcg by mouth every other day. - nateglinide (STARLIX) 60 mg tablet Take 60 mg by mouth three times a day before meals. - albuterol (PROVENTIL) 2.5 mg /3 mL (0.083 %) nebulizer solution Use 3 mL via nebulizer every 6 hours as needed for wheezing/shortness of breath. OVER 5-15 MINUTES. FOR WHEEZING AND SHORTNESS OF BREATH. - ipratropium (ATROVENT) 0.02 % nebulizer solution Use 0.5 mg via nebulizer four times daily. PRN - tiZANidine (ZANAFLEX) 4 mg tablet Take 4 mg by mouth every 8 hours as needed. - calcium carbonate (CALCIUM 600 ORAL) Take 1 tablet by mouth two times a day. - omeprazole (PRILOSEC) 40 mg capsule TAKE 1 CAPSULE BY MOUTH TWICE DAILY. TAKE 30 MINUTES BEFORE BREAKFAST AND DINNER - SUMAtriptan (IMITREX) 25 mg tablet Take 25 mg by mouth as needed for Migraine Headache (see administration instructions). - mirtazapine (REMERON) 15 mg tablet Take 15 mg by mouth daily at bedtime. - QUEtiapine (SEROQUEL) 100 mg tablet Take 100 mg by mouth daily at bedtime. - alirocumab (PRALUENT PEN) 75 mg/mL Inject 75 mg subcutaneously every other week. - clonazePAM orally disintegrating (KLONOPIN WAFER) 0.25 mg disintegrating tablet Take 0.5 mg by mouth twice daily as needed. - cholecalciferol (VITAMIN D-3) 5,000 unit tab Take 5,000 Units by mouth once daily. - magnesium oxide 400 mg magnesium tab Take by mouth once daily. - DULoxetine (CYMBALTA) 60 mg capsule Take 60 mg by mouth twice daily. - metoprolol succinate ER (TOPROL XL) 25 mg 24 hr tablet Take 25 mg by mouth twice daily. - tiotropium bromide (SPIRIVA RESPIMAT) 1.25 mcg/actuation mist Inhale 1 Puff as instructed once daily. - divalproex DR (DEPAKOTE) 250 mg EC tablet Take 250 mg by mouth once daily. - dicyclomine (BENTYL) 20 mg tablet Take 20 mg by mouth every 6 hours. - isosorbide mononitrate ER (IMDUR) 30 mg 24 hr tablet Take 30 mg by mouth once daily. - escitalopram oxalate (LEXAPRO) 20 mg tablet Take 20 mg by mouth once daily. - potassium chloride 20 mEq TbER Take 1 tablet by mouth once daily. - pyridoxine HCl, vitamin B6, (VITAMIN B-6 ORAL) Take 1 tablet by mouth once daily. - CYANOCOBALAMIN, VITAMIN B-12, (VITAMIN B-12 ORAL) Take 1,000 mg by mouth once daily. - fluticasone (FLONASE) 50 mcg/actuation nasal spray Use 1 Mosier in each nostril once daily. - NITROGLYCERIN (NITROSTAT SUBLINGUAL) Dissolve under the tongue as needed. - furosemide (LASIX) 20 mg tablet Take 20 mg by mouth ev (more content not included)... Normal [facility] Telephone ([facility]) JEN ESTRADA ([id number]) 1955 F T Date Time Provider Department 03/27/24 RISSA PERSON GASTPR During your visit today, we recorded the following information about you: Rissa Person RN 03/27/2024 10:29 AM Signed GI Pre-Procedure Spoke with patient: Yes Confirmed date scheduled and patient report time: Yes Procedure Planned:Esophagogastro duodenoscopy(EGD) for control of bleeding,dilation(any means),imaging,tube placement Is the patient on blood thinners?no Procedure Instructions given to patient: Yes, and they verbalized their understanding of instructions given Patient instructed to take prescribed preparation prior to procedure:Yes, and they verbalized their understanding of instructions given Patient instructed to have family/friend present for procedure transport home:Patient/patient insurance claims representative was told that if they do not have a responsible adult accompany them to their procedure; and remain in the endoscopy area until they are discharged; that their procedure cannot be done with sedation or anesthesia and may be cancelled. and They verbalized their understanding and agree to have a responsible adult accompany the patient to their procedure and remain in the endoscopy area. Any barriers to Patient learning: Patient/Patient Bakelite Molder responded appropriately on phone. Type of instruction given: Verbal by telephone contact. Rissa Person RN Allergies As of Date: 03/27/2024 Noted Allergy Reaction ADHESIVE 04/20/2017 14 - Other: See Comments Comments: Blisters skin AMBIEN (ZOLPIDEM TARTRATE) 07/01/2018 14 - Other: See Comments CODEINE 04/20/2017 14 - Other: See Comments Comments: Seizure as a child DEMEROL (MEPERIDINE) 03/06/2023 9 - Itching LATEX, NATURAL RUBBER 04/20/2017 14 - Other: See Comments Comments: blisters NSAIDS (NON-STEROIDAL ANTI-INFLAM*03/08/2020 8 - GI Upset Comments: Has had GI bleed TRAMADOL 12/18/2017 9 - Itching Date Reviewed: 08/03/2023 Reviewed by: Anne-Marie Alberto - Fully Assessed Prescriptions as of 03/27/2024 - HYDROcodone-Acetaminop hen (NORCO) 7.5-325 mg per tablet Take 1 tablet by mouth every 8 hours as needed for pain. - bumetanide (BUMEX) 1 mg tablet Take 1 mg by mouth two times a day. - dilTIAZem CD (CARTIA XT) 120 mg 24 hr capsule Take 120 mg by mouth once daily. - busPIRone (BUSPAR) 10 mg tablet Take 10 mg by mouth two times a day. - traZODone (DESYREL) 100 mg tablet Take 100 mg by mouth daily at bedtime. - folic acid 1 mg tablet Take 1 mg by mouth once daily. - gabapentin (NEURONTIN) 300 mg capsule Take 300 mg by mouth two times a day. - levothyroxine (SYNTHROID) 300 mcg tablet Take 300 mcg by mouth once daily. - predniSONE (DELTASONE) 10 mg tablet Take 10 mg by mouth once daily. - fluticasone-umeclidin- vilanter (TRELEGY ELLIPTA) 100-62.5-25 mcg inhalation powder Take by mouth DAILY (6 AM). - HYDROcodone-acetaminop hen (NORCO) 5-325 mg per tablet Take 1 tablet by mouth every 8 hours as needed. - cyclobenzaprine (FLEXERIL) 10 mg tablet Take 10 mg by mouth three times daily as needed. - ferrous sulfate (IRON) 325 mg (65 mg iron) tablet Take 1 tablet by mouth twice daily. - levothyroxine (SYNTHROID) 175 mcg tablet Take 175 mcg by mouth every other day. - levothyroxine (SYNTHROID) 200 mcg tablet Take 250 mcg by mouth every other day. - nateglinide (STARLIX) 60 mg tablet Take 60 mg by mouth three times a day before meals. - albuterol (PROVENTIL) 2.5 mg /3 mL (0.083 %) nebulizer solution Use 3 mL via nebulizer every 6 hours as needed for wheezing/shortness of breath. OVER 5-15 MINUTES. FOR WHEEZING AND SHORTNESS OF BREATH. - ipratropium (ATROVENT) 0.02 % nebulizer solution Use 0.5 mg via nebulizer four times daily. PRN - tiZANidine (ZANAFLEX) 4 mg tablet Take 4 mg by mouth every 8 hours as needed. - calcium carbonate (CALCIUM 600 ORAL) Take 1 tablet by mouth two times a day. - omeprazole (PRILOSEC) 40 mg capsule TAKE 1 CAPSULE BY MOUTH TWICE DAILY. TAKE 30 MINUTES BEFORE BREAKFAST AND DINNER - SUMAtriptan (IMITREX) 25 mg tablet Take 25 mg by mouth as needed for Migraine Headache (see administration instructions). - mirtazapine (REMERON) 15 mg tablet Take 15 mg by mouth daily at bedtime. - QUEtiapine (SEROQUEL) 100 mg tablet Take 100 mg by mouth daily at bedtime. - alirocumab (PRALUENT PEN) 75 mg/mL Inject 75 mg subcutaneously every other week. - clonazePAM orally disintegrating (KLONOPIN WAFER) 0.25 mg disintegrating tablet Take 0.5 mg by mouth twice daily as needed. - cholecalciferol (VITAMIN D-3) 5,000 unit tab Take 5,000 Units by mouth once daily. - magnesium oxide 400 mg magnesium tab Take by mouth once daily. - DULoxetine (CYMBALTA) 60 mg capsule Take 60 mg by mouth twice daily. - metoprolol succinate ER (TOPROL XL) 25 mg 24 hr tablet T (more content not included)... Normal [facility] OVA & PARASITE EXAM [CCL]on 03-24-2024 OVA AND PARASITE EXAM See Below Normal [facility] Comment on above: Result Comment: OVA AND PARASITE EXAM No Parasites SeenThis test can not identify the presence of Cryptosporidium, Cyclospora orCystoisospora (order CRYSPO); Microsporidia (order MICSPO) or considerordering STGIPI (molecular test to detect common infectious causes ofdiarrhea).A single negative test result does not rule out a parasitic infection. Due tointermittent shedding of parasites, it is recommended that three specimenscollected over a 7 day period are submitted to improve detection sensitivity.SOURCE: [facility] [place], [place] [address]Pwvsnc Andrez PIERRE M.D.[id number] Performed By: #### [id number] ####[address] [address] C DIFF COMPLETEon 03-20-2024 C DIFF COMPLETE Normal [facility] Comment on above: Performed By: #### [id number] ####[address] [address] O+P Spec Microon 03-20-2024 Ova and parasites identified LM Nom (Unsp spec) OVA AND PARASITE EXAM: No Parasites Seen Normal [facility] Comment on above: Performed By: #### 5 [id number] #### [facility] CLIA [id number] [address] [place] [address] [place] STOOL CULTURE [KATELYN]on Stool culture STOOL CULTURE [KATELYN] 03/25/24.1025.DNP.COMP LETE Normal [facility] Comment on above: Performed By: #### 2 [id number] ####[facility],[address] [place] [id number] CNPNon 03-18-2024 CNPN Telephone (HEMAWS) JEN ESTRADA ([id number]) 1955 F [facility] Date Time Provider Department 03/18/24 RUI GRIDER During your visit today, we recorded the following information about you: Connie Mittal 03/18/2024 9:51 AM Signed Patient called stating her PCP told her to make appointment with office. Her iron is down to 3. Patient was not sure if PCP sent lab results to office or not. Please advise. Rosalba Lay LPN 03/18/2024 10:30 AM Signed Requested lab results. TANISHA Vyas Melanie, LPN 03/18/2024 3:29 PM Signed Lab results placed on Dr. Grider's desk. TANISHA Vyas Brianna 03/19/2024 3:20 PM Signed OSH labs reviewed. No anemia HGB 13 HCT 39.6. Would recommend PO iron MWF with vit c or OJ. PCP can recheck labs in 3 months, can repeat IV iron if no improvements on PO. Anne-Marie Alberto APRN.Fern Barnes RN 03/20/2024 2:14 PM Signed Call to patient, no answer. Left message to call back. Please give patient instructions per Anne-Marie Alberto CNP. JEREMY Coates Cathleen, JEREMY 03/20/2024 3:43 PM Signed Call to patient, states she takes 2 iron pills daily and has been for years. JEREMY Coates Brianna 03/21/2024 2:07 PM Signed In that case. She could probably use a little IV iron. Looks like she had another GI bleed recently. Has follow up with GI scheduled. I don't know that the PO iron is truly giving her much benefit. Plan for IV iron sucrose 200 mg weekly x4 PSR: Can you please schedule ? Thank you, Anne-Marie Alberto APRN. Rosalba Magallanes LPN 03/24/2024 10:39 AM Signed Plan for IV iron sucrose 200 mg weekly x4 PSR: Can you please schedule ? Connie Mittal 03/24/2024 11:47 AM Signed Scheduled with patient Start email sent Allergies As of Date: 03/18/2024 Noted Allergy Reaction ADHESIVE 04/20/2017 14 - Other: See Comments Comments: Blisters skin AMBIEN (ZOLPIDEM TARTRATE) 07/01/2018 14 - Other: See Comments CODEINE 04/20/2017 14 - Other: See Comments Comments: Seizure as a child DEMEROL (MEPERIDINE) 03/06/2023 9 - Itching LATEX, NATURAL RUBBER 04/20/2017 14 - Other: See Comments Comments: blisters NSAIDS (NON-STEROIDAL ANTI-INFLAM*03/08/2020 8 - GI Upset Comments: Has had GI bleed TRAMADOL 12/18/2017 9 - Itching Date Reviewed: 08/03/2023 Reviewed by: Anne-Marie Alberto - Fully Assessed Reason for Visit: Appointment [186] Prescriptions as of 03/24/2024 - HYDROcodone-Acetaminop hen (NORCO) 7.5-325 mg per tablet Take 1 tablet by mouth every 8 hours as needed for pain. - bumetanide (BUMEX) 1 mg tablet Take 1 mg by mouth two times a day. - dilTIAZem CD (CARTIA XT) 120 mg 24 hr capsule Take 120 mg by mouth once daily. - busPIRone (BUSPAR) 10 mg tablet Take 10 mg by mouth two times a day. - traZODone (DESYREL) 100 mg tablet Take 100 mg by mouth daily at bedtime. - folic acid 1 mg tablet Take 1 mg by mouth once daily. - gabapentin (NEURONTIN) 300 mg capsule Take 300 mg by mouth two times a day. - levothyroxine (SYNTHROID) 300 mcg tablet Take 300 mcg by mouth once daily. - predniSONE (DELTASONE) 10 mg tablet Take 10 mg by mouth once daily. - fluticasone-umeclidin- vilanter (TRELEGY ELLIPTA) 100-62.5-25 mcg inhalation powder Take by mouth DAILY (6 AM). - HYDROcodone-acetaminop hen (NORCO) 5-325 mg per tablet Take 1 tablet by mouth every 8 hours as needed. - cyclobenzaprine (FLEXERIL) 10 mg tablet Take 10 mg by mouth three times daily as needed. - ferrous sulfate (IRON) 325 mg (65 mg iron) tablet Take 1 tablet by mouth twice daily. - levothyroxine (SYNTHROID) 175 mcg tablet Take 175 mcg by mouth every other day. - levothyroxine (SYNTHROID) 200 mcg tablet Take 250 mcg by mouth every other day. - nateglinide (STARLIX) 60 mg tablet Take 60 mg by mouth three times a day before meals. - albuterol (PROVENTIL) 2.5 mg /3 mL (0.083 %) nebulizer solution Use 3 mL via nebulizer every 6 hours as needed for wheezing/shortness of breath. OVER 5-15 MINUTES. FOR WHEEZING AND SHORTNESS OF BREATH. - ipratropium (ATROVENT) 0.02 % nebulizer solution Use 0.5 mg via nebulizer four times daily. PRN - tiZANidine (ZANAFLEX) 4 mg tablet Take 4 mg by mouth every 8 hours as needed. - calcium carbonate (CALCIUM 600 ORAL) Take 1 tablet by mouth two times a day. - omeprazole (PRILOSEC) 40 mg capsule TAKE 1 CAPSULE BY MOUTH TWICE DAILY. TAKE 30 MINUTES BEFORE BREAKFAST AND DINNER - SUMAtriptan (IMITREX) 25 mg tablet Take 25 mg by mouth as needed for Migraine Headache (see administration instructions). - mirtazapine (REMERON) 15 mg tablet Take 15 mg by mouth daily at bedtime. - QUEtiapine (SEROQUEL) 100 mg tablet Take 100 mg by mouth daily at bedtime. - alirocumab (PRALUENT PEN) 75 mg/mL Inject 75 mg subcutaneously every other week. - clonazePAM orally disintegratin (more content not included)... Normal [facility] CBC + DIFFon 03-13-2024 Baso # 0.07 x10EE3/UL Normal 0.00 - 0.10 [facility] Comment on above: Performed By: #### 2 97051 ####[place] [address] Basophils/100 WBC (Bld) 0.4 % Normal 0.0 - 2.0 [facility] Comment on above: Performed By: #### 2 59916 ####[facility],[address] [place] [address] CBC + DIFF Normal [facility] Comment on above: Result Comment: CBC- COMPLETE BLOOD COUNT Performed By: #### 2 54264 ####[place] [address] EO # 0.11 x10EE3/UL Normal 0.00 - 0.50 [facility] Comment on above: Performed By: #### 2 60363 ####[facility],[address] [place] [address] Eosinophils/100 WBC (Bld) 0.7 % Normal 0.0 - 7.0 [facility] Comment on above: Performed By: #### 2 84138 ####[place] [address] Erythrocyte distribution width (RBC) [Ratio] 17.1 % High 12.0 - 15.6 [facility] Comment on above: Performed By: #### 2 16870 ####[facility],[address] [place] [address] Hematocrit (Bld) [Volume fraction] 39.6 % Normal 34.0 - 46.0 [facility] Comment on above: Performed By: #### 2 41405 ####[facility],[address] [place] [address] Hemoglobin (Bld) [Mass/Vol] 13.0 g/dL Normal 12.0 - 16.0 [facility] Comment on above: Performed By: #### 2 07252 ####[facility],[address] [place] [address] Lymph # 1.90 x10EE3/UL Normal 0.80 - 2.80 [facility] Comment on above: Performed By: #### 2 91656 ####[facility],[address] [place] [address] Lymphocytes/100 WBC (Bld) 11.6 % Low 20.0 - 45.0 [facility] Comment on above: Performed By: #### 2 16835 ####[facility],[address] [place], [place] [id number] MANUAL DIFF N/A Normal [facility] Comment on above: Performed By: #### 2 89596 ####[facility],[address] [place], [place] [address] MCH (RBC) [Entitic mass] 23 pg Low 27 - 33 [facility] Comment on above: Performed By: #### 2 08250 ####[facility],[address] [place], [place] [address] MCHC 33 X10 3 Normal 32 - 36 [facility] Comment on above: Performed By: #### 2 57716 ####[facility],[address] [place], [place] [address] MCV (RBC) [Entitic vol] 69 fL Low 80 - 99 [facility] Comment on above: Performed By: #### 2 62373 ####[facility],[address] [place] [address]27[address] Hockley # 1.41 x10EE3/UL High 0.20 - 1.00 [facility] Comment on above: Performed By: #### 2 80010 ####[facility],[address] [place] [address] 34918 MONOS % 8.6 % Normal 0.0 - 10.0 [facility] Comment on above: Performed By: #### 2 61767 ####[facility],[address] [place] [address]9628 Morphology Fabian (Bld) [Interp] N/A Normal [facility] Comment on above: Performed By: #### 2 35714 ####[facility],[address] [place] [address]7800 Neut # 12.85 x10EE3/UL High 1.50 - 7.10 [facility] Comment on above: Performed By: #### 2 99962 ####[facility],[address] [place] [address] 87926 Neutrophils/100 WBC (Bld) 78.7 % High 46.0 - 76.0 [facility] Comment on above: Performed By: #### 2 84142 ####[facility],[address] [place] [address] 27183 PLATELET 407 x10EE3/UL Normal 150 - 450 [facility] Comment on above: Performed By: #### 2 01518 ####[facility],[address] [place] [address] 16827 Platelet mean volume (Bld) [Entitic vol] 7.8 fL Normal 6.6 - 10.5 [facility] Comment on above: Result Comment: AUTO MATED DIFFERENTIAL Performed By: #### 2 40309 ####[facility],[address] [place] [address] 83156 RBC 5.71 x 10EE6/UL High 4.10 - 5.30 [facility] Comment on above: Performed By: #### 2 53533 ####[facility],[address] [place] [address] 76658 WBC 16.3 x 10EE3/UL High 4.5 - 10.8 [facility] Comment on above: Performed By: #### 2 70861 ####[facility],[address] [place] [address] 77800 FERRITINon 03-13-2024 Ferritin [Mass/Vol] 19 ng/mL Normal 8 - 388 [facility] Comment on above: Performed By: #### 2 53534 ####[facility],[address] [place] [address] 35177 FOLATESon 03-13-2024 FOLATES 41.8 ng/ml Normal 8.6 - 58.9 [facility] Comment on above: Performed By: #### 2 69709 ####[facility],[address] [place] [address] 71166 HEMOGLOBIN A1C (POM)on 03-13 Glucose [Mass/Vol] 154.2 mg/dL High 0.0 - 0.0 [facility] Comment on above: Result Comment: BLDo HEMOGLOBIN A1C REFERENCE RANGESBLDo Suggested Diagnosis HbA1c(%) HbA1C (mmol/mol Diabetic >/=6.5 >/=48 Prediabetes 5.7 - 6.4 39 - 47 Normal <5.7 <39 Performed By: #### 2 96868 ####[facility],[address] [place] [address] 88032 HbA1c (Bld) [Mass fraction] 7.0 % High 0.0 - 6.5 [facility] Comment on above: Performed By: #### 2 91611 ####[facility],[address] [place] [address] 54893 IRON AND TIBCon 03-13-2024 %SATURATION 3 % Normal [facility] Comment on above: Performed By: #### 2 05729 ####[facility],[address] [place] [address] 74598 Iron [Mass/Vol] 13 ug/dL Low 50 - 170 [facility] Comment on above: Performed By: #### 2 35178 ####[facility],[address] [place] [address] 92420 TIBC 421 ug/dl Normal 250 - 450 [facility] Comment on above: Performed By: #### 2 56750 ####[facility],[address] [place] [address] 77957 UIBC 408 ug/dL High 155 - 355 [facility] Comment on above: Performed By: #### 2 57855 ####[facility],[address] [place] [address] 19594 MICROALBUMIN RANDOM URINE W/ CREATININEon 03-13-2024 CREATININE UR 217.13 mg/dl Normal [facility] Comment on above: Result Comment: Micr oalbumin/Creat Ratio Performed By: #### 2 81150 ####[facility],[address] [place] [address] 04377 MICROALBUMIN UR 0.6 mg/dL Normal 0.1 - 11.6 [facility] Comment on above: Performed By: #### 2 78093 ####[facility],[address] [place] [address] 29926 UACR 3 mg/g Normal [facility] Comment on above: Performed By: #### 2 28271 ####[facility],[address] [place] [address] 69638 US BREAST BILAT COMPLETEon 1 US BREAST BILAT COMPLETE Normal [facility] VITAMIN B-12on 03-13-2024 Cobalamin (Vitamin B12) [Mass/Vol] 484 pg/mL Normal 193 - 986 [facility] Comment on above: Performed By: #### 2 77164 ####[facility],[address] [place] [address] 99468 ANALYST FOOD AND BEVERAGE REPORTon 03-12-20 ANALYST FOOD AND BEVERAGE REPORT Normal [facility] 3D MAMM BILAT DIAGNOSTICon 0 02-28-2024 3D MAMM BILAT DIAGNOSTIC Normal [facility] CBC + DIFFon 02-14-2024 Baso # 0.07 x10EE3/UL Normal 0.00 - 0.10 [facility] Comment on above: Performed By: #### 2 91866 ####[facility],[address] [place] [address] 99523 Basophils/100 WBC (Bld) 0.4 % Normal 0.0 - 2.0 [facility] Comment on above: Performed By: #### 2 39702 ####[facility],[address] [place] [address] 50983 Basophils/100 WBC (Bld) 2.0 % Normal 0.0 - 2.0 [facility] Comment on above: Performed By: #### 2 29830 ####[facility],[address] [place] [address] 95670 CBC + DIFF Normal [facility] Comment on above: Result Comment: CBC- COMPLETE BLOOD COUNT Performed By: #### 2 96119 ####[facility],[address] [place] [address] 86507 CELL COUNT 100 Normal [facility] Comment on above: Performed By: #### 2 81977 ####[facility],[address] [place] [address] 18902 EO # 0.09 x10EE3/UL Normal 0.00 - 0.50 [facility] Comment on above: Performed By: #### 2 55428 ####[facility],[address] [place] [address] 38132 Eosinophils/100 WBC (Bld) 0.5 % Normal 0.0 - 7.0 [facility] Comment on above: Performed By: #### 2 98550 ####[facility],[address] [place] [address] 95624 Erythrocyte distribution width (RBC) [Ratio] 17.2 % High 12.0 - 15.6 [facility] Comment on above: Performed By: #### 2 06698 ####[facility],[address] [place] [address] 01122 Hematocrit (Bld) [Volume fraction] 42.0 % Normal 34.0 - 46.0 [facility] Comment on above: Performed By: #### 2 41532 ####[facility],[address] [place] [address] 22296 Hemoglobin (Bld) [Mass/Vol] 13.8 g/dL Normal 12.0 - 16.0 [facility] Comment on above: Performed By: #### 2 37099 ####[facility],[address] [place] [address] 37045 Lymph # 2.68 x10EE3/UL Normal 0.80 - 2.80 [facility] Comment on above: Performed By: #### 2 27656 ####[facility],[address] [place] [address] 83218 Lymphocytes/100 WBC (Bld) 16.3 % Low 20.0 - 45.0 [facility] Comment on above: Performed By: #### 2 48697 ####[facility],[address] [place] [address] 81093 Lymphocytes/100 WBC (Bld) 17 % Low 20 - 45 [facility] Comment on above: Performed By: #### 2 37858 ####[facility],[address] [place] [address] 98727 MANUAL DIFF SEE BELOW Normal [facility] Comment on above: Performed By: #### 2 73159 ####[facility],[address] [place] [address] 98628 MCH (RBC) [Entitic mass] 24 pg Low 27 - 33 [facility] Comment on above: Performed By: #### 2 48129 ####[facility],[address] [place] [address] 72510 MCHC 33 X10 3 Normal 32 - 36 [facility] Comment on above: Performed By: #### 2 06347 ####[facility],[address] [place] [address] MCV (RBC) [Entitic vol] 72 fL Low 80 - 99 [facility] Comment on above: Performed By: #### 2 78209 ####[facility],[address] [place] [address] MICROCYTES 2+ Normal [facility] Comment on above: Performed By: #### 2 60188 ####[facility],[address] [place] [address] Hockley # 1.26 x10EE3/UL High 0.20 - 1.00 [facility] Comment on above: Performed By: #### 2 83625 ####[facility],[address] [place] [address] MONOS 11 % High 0 - 10 [facility] Comment on above: Performed By: #### 2 68901 ####[facility],[address] [place] [address] MONOS % 7.7 % Normal 0.0 - 10.0 [facility] Comment on above: Performed By: #### 2 29259 ####[facility],[address] [place] [address] Morphology Fabian (Bld) [Interp] SEE BELOW Normal [facility] Comment on above: Performed By: #### 2 48283 ####[facility],[address] [place] [address] Neut # 12.32 x10EE3/UL High 1.50 - 7.10 [facility] Comment on above: Performed By: #### 2 46294 ####[facility],[address] [place] [address] Neutrophils/100 WBC (Bld) 75.0 % Normal 46.0 - 76.0 [facility] Comment on above: Performed By: #### 2 72702 ####[facility],[address],[place] [address] PLATELET 387 x10EE3/UL Normal 150 - 450 [facility] Comment on above: Performed By: #### 2 30085 ####[facility],[address] [place] [address] 36119 Platelet mean volume (Bld) [Entitic vol] 8.0 fL Normal 6.6 - 10.5 [facility] Comment on above: Result Comment: AUTO MATED DIFFERENTIAL Performed By: #### 2 56812 ####[facility],[address] [place] [address] 26205 RBC 5.85 x 10EE6/UL High 4.10 - 5.30 [facility] Comment on above: Performed By: #### 2 88732 ####[facility],[address] [place] [address] 06602 SEGS 70 % Normal 46 - 76 [facility] Comment on above: Performed By: #### 2 18788 ####[facility],[address] [place] [address] 17955 WBC 16.4 x 10EE3/UL High 4.5 - 10.8 [facility] Comment on above: Performed By: #### 2 55019 ####[facility],[address] [place] [address] 99717 FERRITINon 02-14-2024 Ferritin [Mass/Vol] 22 ng/mL Normal 8 - 388 [facility] Comment on above: Performed By: #### 2 55013 ####[facility],[address] [place] [address] 71830 FOLATESon 02-14-2024 FOLATES 57.2 ng/ml Normal 8.6 - 58.9 [facility] Comment on above: Performed By: #### 2 92251 ####[facility],[address] [place] [address] 16875 HEMOGLOBIN A1C (POM)on 02-13 Glucose [Mass/Vol] 145.6 mg/dL High 0.0 - 0.0 [facility] Comment on above: Result Comment: BLDo HEMOGLOBIN A1C REFERENCE RANGESBLDo Suggested Diagnosis HbA1c(%) HbA1C (mmol/mol Diabetic >/=6.5 >/=48 Prediabetes 5.7 - 6.4 39 - 47 Normal <5.7 <39 Performed By: #### 2 13745 ####[facility],[address] [place] [address] 09551 HbA1c (Bld) [Mass fraction] 6.7 % High 0.0 - 6.5 [facility] Comment on above: Performed By: #### 2 20570 ####[facility],[address] [place] [address] 70927 IRON AND TIBCon 02-14-2024 %SATURATION 4 % Normal [facility] Comment on above: Performed By: #### 2 33518 ####[facility],[address] [place] [address] 96632 Iron [Mass/Vol] 16 ug/dL Low 50 - 170 [facility] Comment on above: Performed By: #### 2 59214 ####[facility],[address] [place] [address] 77690 TIBC 407 ug/dl Normal 250 - 450 [facility] Comment on above: Performed By: #### 2 02165 ####[facility],[address] [place] [address] 82043 UIBC 391 ug/dL High 155 - 355 [facility] Comment on above: Performed By: #### 2 06502 ####[facility],[address] [place] [address] 94647 URINE MICROALBUMIN W/CREATIN INE, RANDOMon 02-14-2024 CREATININE UR 67.43 mg/dl Normal [facility] Comment on above: Performed By: #### 2 67911 ####[facility],[address] [place] [address] 96074 MICROALBUMIN UR 0.7 mg/dL Normal 0.1 - 11.6 [facility] Comment on above: Performed By: #### 2 10471 ####[facility],[address] [place] [address] 98285 UACR 10 mg/g Normal [facility] Comment on above: Performed By: #### 2 50825 ####[facility],[address] [place] [address] 78622 VITAMIN B-12on 02-14-2024 Cobalamin (Vitamin B12) [Mass/Vol] 555 pg/mL Normal 193 - 986 [facility] Comment on above: Performed By: #### 2 27242 ####[facility],[address] [place] [address] 19525 3D MAMM BILAT SCREENon 02-04 3D MAMM BILAT SCREEN Normal [facility] CREATININE FINGERSTICKon CREATININE WB < 1.0 Normal 0.55-1.02 [facility] Comment on above: Performed By: #### L 9100.0200 #### [facility] [address] [place], [place], [address] Pelvis W/WO Contraston 01-15 Pelvis W/WO Contrast [facility] [address] [place], [place] [address] Pelvis W/WO Contrast MR#: [id number] Acct: [id number] Name: JEN ESTRADA Rep #: [id number] : 1955 F 68 From: Itz Lehman MD PCP: Dr. Apolonia Craven MD Status: [facility] CL Study: Pelvis W/WO Contrast Date of Exam: 01/16/24 Exam# [id number] Ordering Dr: Apolonia Craven [place] [id number] EXAM: MR PELVIS WITHOUT AND WITH INTRAVENOUS CONTRAST CLINICAL INDICATION: SOFT TTISSUE MASS TECHNIQUE: Multiplanar and multisequence MR images of the pelvis without and with intravenous contrast. CONTRAST: IV 20ml clariscan COMPARISON: CT abdomen and pelvis October 30, 2023 FINDINGS: BOWEL: Circumferential thickening of the wall of the rectum. No adjacent fluid. APPENDIX: No evidence of acute appendicitis. INTRAPERITONEAL SPACE: Unremarkable. No ascites or other fluid collection. BLADDER: Unremarkable. OVARIES: Unremarkable as visualized. No mass or complex cyst. UTERUS/CERVIX: Unremarkable. No mass. Endometrial stripe is normal in thickness and appearance. SUBPERITONEAL SPACE: 5.5 x 3.9 cm solid enhancing mass in the presacral region, is unchanged in size compared to prior study. Along the posterior superior aspect of this mass there is at least one if not 2 other similar appearing masses which are likely related. BONES/JOINTS: Unremarkable. No suspicious lytic or blastic abnormality. SOFT TISSUES: Enhancement/signal alteration along the left greater trochanter. No pelvic wall hernia. LYMPH NODES: Unremarkable. No enlarged lymph nodes. MRI/Pelvis W/WO Contrast IMPRESSION: 1. 5.5 x 3.9 cm solid enhancing mass in the presacral region, is unchanged in size compared to prior study. Along the posterior superior aspect of this mass there is at least one if not 2 other similar appearing masses which are likely related. There is nonspecific and differential includes benign and malignant neoplasms including the possibility of sarcoma. Consider PET/CT for further evaluation as well as the possibility of CT-guided tissue diagnosis. 2. Circumferential thickening of the wall of the rectum. This may be inflammatory or related to nondistention of the rectum and is less likely neoplastic. Follow-up suggested however. 3. Mild left trochanteric bursitis suggested. Electronically Signed: Itz Lehman MD at 22:55 EDT , CC: Dr. Apolonia Craven MD Associate Music Professor: Signed Normal [facility] Celiac Disease Profileon ENDOMYSIAL IGA Negative Normal Negative [facility] Comment on above: Performed By: #### L 100.0500, L101.9900, L501.6710, L3410.2400 ####[facility] [address] [place], [address] IMMUNOGLOB A QN 181 mg/dL Normal 87-352 [facility] Comment on above: Result Comment: Perf ormed at: - [facility] [address] [id number] Thermodynamics Professor: Crescencio Mcclendon PhD, Phone: [phone] Performed By: #### L 100.0500, L101.9900, L501.6710, L3410.2400 ####[facility] [address] [place], [place], [id number] tTG IGA <2 Normal 0-3 [facility] Comment on above: Result Comment: Nega tive 0 - 3 Weak Positive 4 - 10 Positive >10 Tissue Transglutaminase (tTG) has been identified as the endomysial antigen. Studies have demonstr- ated that endomysial IgA antibodies have over 99% specificity for gluten sensitive enteropathy. Performed By: #### L 100.0500, L101.9900, L501.6710, L3410.2400 ####[facility] [address] [place], [place], [id number] CBC-Complete Blood Cnt No Di ffon 11-28-2023 Erythrocyte distribution width (RBC) [Ratio] 19.8 % High 11.6-14.6 [facility] Comment on above: Performed By: #### L 100.0500, L101.9900, L501.6710, L3410.2400 #### [facility] [address] [place], [place], [id number] Hematocrit (Bld) [Volume fraction] 42.9 % Normal 37-47 [facility] Comment on above: Performed By: #### L 100.0500, L101.9900, L501.6710, L3410.2400 #### [facility] [address] [place], [place], [id number] Hemoglobin (Bld) [Mass/Vol] 13.5 g/dL Normal 12.0-15.0 [facility] Comment on above: Performed By: #### L 100.0500, L101.9900, L501.6710, L3410.2400 #### [facility] [address] [place], [address] MCH (RBC) [Entitic mass] 23.0 pg Low 27.0-32.0 [facility] Comment on above: Performed By: #### L 100.0500, L101.9900, L501.6710, L3410.2400 #### [facility] [address] [place], [address] MCHC (RBC) [Mass/Vol] 31.5 g/dL Low 32-36 [facility] Comment on above: Performed By: #### L 100.0500, L101.9900, L501.6710, L3410.2400 #### [facility] [address] [place], [address] MCV (RBC) [Entitic vol] 73.0 fL Low 81-99 [facility] Comment on above: Performed By: #### L 100.0500, L101.9900, L501.6710, L3410.2400 #### [facility] [address] [place], [address] Platelet mean volume (Bld) [Entitic vol] 9.3 fL Normal 6.2-12.0 [facility] Comment on above: Performed By: #### L 100.0500, L101.9900, L501.6710, L3410.2400 #### [facility] [address] [place], [address] Platelets (Bld) [#/Vol] 241 10*3/uL Normal 150-450 [facility] Comment on above: Performed By: #### L 100.0500, L101.9900, L501.6710, L3410.2400 #### [facility] [address] [place], [address] RBC (Bld) [#/Vol] 5.88 10*6/uL High 4.2-5.4 [facility] Comment on above: Performed By: #### L 100.0500, L101.9900, L501.6710, L3410.2400 #### [facility] [address] [place], [address] RDW SD 48.4 fl High 35.1-43.9 [facility] Comment on above: Performed By: #### L 100.0500, L101.9900, L501.6710, L3410.2400 #### [facility] [address] [place], [address] WBC (Bld) [#/Vol] 9.9 10*3/uL Normal 4.4-11.0 [facility] Comment on above: Performed By: #### L 100.0500, L101.9900, L501.6710, L3410.2400 #### [facility] [address] [place], [address] CRPon 11-28-2023 C-REACTIVE PROT 59.90 mg/L High 0.0-3.0 [facility] Comment on above: Result Comment: C-Re active Protein (CRP) provides useful information for the diagnosis, therapy and monitoring of inflammatory processes and associated diseases. For the evaluation of Relative Risk for Cardiovascular Disease, a High Sensitivity CRP (HSCRP) should be ordered. Performed By: #### L 100.0500, L101.9900, L501.6710, L3410.2400 #### [facility] [address] [place], [address] Erythrocyte Sed Rateon 11-27 SED RATE 35 mm/hr High 0-30 [facility] Comment on above: Performed By: #### L 100.0500, L101.9900, L501.6710, L3410.2400 ####[facility] [address] [place], [address] Potassiumon 11-09-2023 Potassium [Moles/Vol] 3.9 mmol/L Normal 3.5-5.1 [facility] Comment on above: Performed By: #### L 501.5600 #### [facility] [address] [place], [place], [address] CBC W/Diff, Automatedon 10-03 PATH REV Reviewed Normal [facility] Comment on above: Result Comment: MILD MATURE MONOCYTOSIS Microcytic anemia. Clinical correlation suggested. Ranjeet Metzger D.O. 10/31/23 AMENDED REPORT 10/31/23 1405 PATH REV previously reported as: October alphonso Performed By: #### L 500.2500, L100.0100 #### [facility] [address] [place], [place], [address] Abdomen/Pelvis W IV Cont ONL Yon 10-30-2023 Abdomen/Pelvis W IV Cont ONLY [facility] Imaging Services [address] [place] [address] Abdomen/Pelvis W IV Cont ONLY MR#: [id number] Acct: [id number] Name: JEN ESTRADA Rep #: [id number] : 1955 F 67 From: Rk steve MD PCP: Dr. Apolonia Craven MD Status: REG ER Study: Abdomen/Pelvis W IV Cont ONLY Date of Exam: Exam# [id number] Ordering Dr: Yue Arreguin [place] [id number] INDICATION: colitis EXAMINATION: CT Abdomen And Pelvis W/ Contrast Injection TECHNIQUE: Helically acquired images were obtained of the abdomen and pelvis after IV contrast. A radiation dose optimization technique was used for this scan. IV Contrast dosage and agent: IV 100mL Isovue-300 Oral contrast: None. COMPARISON: None. FINDINGS: Visualized lung bases: Unremarkable Liver: Unremarkable Gallbladder: Surgically absent. Spleen: Unremarkable Pancreas: Unremarkable Adrenal Glands: Unremarkable Kidneys: Unremarkable Vasculature: Severe aortoiliac atherosclerotic disease. GI Tract: There is circumferential long segment wall thickening of nearly the entire colon with minimal surrounding mesenteric fat stranding. Lymphadenopathy: None Peritoneum: Low-density masslike lesion in the presacral space measuring 4.6 x 4.3 x 4.1 cm. Bladder: Unremarkable Reproductive organs: Status post hysterectomy. Bones/Soft tissues: Mild scattered degenerative changes of the visualized spine. CT/Abdomen/Pelvis W IV Cont ONLY IMPRESSION: Findings suspicious for infectious versus inflammatory colitis. No focal fluid collection or free air. 4.6 cm masslike lesion in the presacral space is indeterminate. Recommend pelvic MRI with and without contrast. Electronically Signed: Rk Armenta MD at 17:18 EDT , CC: Dr. Apolonia Craven MD; Dr. Yue Arreguin MD Associate Music Professor: Signed Normal [facility] Basic Metabolic Profile (BMP )on 10-30-2023 BUN/CRE 11.1 RATIO Normal 10-20 [facility] Comment on above: Performed By: #### L 500.2500, L100.0100 #### [facility] [address] [place], [address] CA,Total 9.9 mg/dL Normal 8.5-10.1 [facility] Comment on above: Performed By: #### L 500.2500, L100.0100 #### [facility] [address] [place], [address] Chloride [Moles/Vol] 106 mmol/L Normal 98-107 [facility] Comment on above: Performed By: #### L 500.2500, L100.0100 #### [facility] [address] [place], [address] CO2 [Moles/Vol] 30.0 mmol/L Normal 21.0-32.0 [facility] Comment on above: Performed By: #### L 500.2500, L100.0100 #### [facility] [address] [place], [address] Creatinine [Mass/Vol] 0.63 mg/dL Normal 0.55-1.02 [facility] Comment on above: Result Comment: The validity of the calculated GFR GFRAA in patients over 70 years has not been determined. Clinical correlation is essential. Performed By: #### L 500.2500, L100.0100 #### [facility] [address] [place], [address] ECRCL 79.91 ml/min Normal [facility] Comment on above: Performed By: #### L 500.2500, L100.0100 #### [facility] [address] [place], [address] EST GFR - AA 120 mL/min Normal >60 [facility] Comment on above: Result Comment: Afri can [place] GFR Calc Performed By: #### L 500.2500, L100.0100 #### [facility] [address] [place], [address] GAP 5 Normal 5-15 [facility] Comment on above: Performed By: #### L 500.2500, L100.0100 #### [facility] [address] [place], [address] GFR/1.73 sq M.predicted among non-blacks MDRD (S/P/Bld) [Vol rate/Area] 99 mL/min/{1.73_m2} Normal >60 [facility] Comment on above: Result Comment: Non- GFR Calc Performed By: #### L 500.2500, L100.0100 #### [facility] [address] [place], [address] Glucose [Mass/Vol] 122 mg/dL High 74-106 [facility] Comment on above: Result Comment: Fast ing Glucose result from 100 to 125 mg/dL suggests IMPAIRED HOMEOSTASIS per A.D.A. criteria. Performed By: #### L 500.2500, L100.0100 #### [facility] [address] [place], [address] Potassium [Moles/Vol] 3.4 mmol/L Low 3.5-5.1 [facility] Comment on above: Performed By: #### L 500.2500, L100.0100 #### [facility] [address] [place], [address] Sodium [Moles/Vol] 141 mmol/L Normal 136-145 [facility] Comment on above: Performed By: #### L 500.2500, L100.0100 #### [facility] [address] [place], [address] Urea nitrogen [Mass/Vol] 7 mg/dL Normal 7-18 [facility] Comment on above: Performed By: #### L 500.2500, L100.0100 #### [facility] [address] [place], [address] Emergency Department Summary on 10-30-2023 Emergency Department Summary [facility] Medical Records Department [address] [place] [address] Emergency Department Summary 10/30/23 MR#: [id number] Acct: [id number] Name: JEN ESTRADA Rep #: [id number] : 1955 67 From: Yue Arreguin MD PCP: Dr. Apolonia Craven MD Status:DEP ER Location: ED HPI History of Present Illness Chief Complaint: Diarrhea Informant: patient Onset/Context/Timing Onset: Weeks Narrative Narrative: Patient presents with 3-week history of diarrhea. She states she is having multiple episodes of diarrhea daily. She does not know if there is blood in the stool as she does take iron supplements chronically. She does have a history of IBS but does not follow with a GI doctor regularly. She does not believe this is consistent with her prior IBS flares. She has not been on recent antibiotics. She has been taking Lomotil brme-uaa-uwepsie without improvement. She called her PCP a week ago and he put her on famotidine twice a day. [facility] Medical History Obesity Prediabetes Postoperative primary hypothyroidism Vitamin deficiency Vision problem Thyroid disease Rheumatoid arthritis GERD (gastroesophageal reflux disease) Osteoporosis Osteoarthritis IBS (irritable bowel syndrome) Hearing problem Frequent headaches Calcium deficiency High cholesterol High triglycerides Blood transfusion during current hospitalization Goiter COPD (chronic obstructive pulmonary disease) Diabetes Chronic bronchitis Breast lump Bleeding disorder UTI (urinary tract infection) Bone fracture Back problem Arthritis Anemia Home Medications ???Medication ???Instructions ???Recorded ???Last Taken ???Type cyanocobalamin (vitamin B-12) 1,000 mcg PO DAILY SUPPLEMENT 12/11/17 03/01/18 09:00 History 1,000 mcg tablet 1000 MCG dicyclomine 20 mg tablet 20 mg PO DAILY 12/11/17 03/01/18 09:00 History 20 MG divalproex 250 mg tablet,extended 250 mg PO BID MIGRAINES 12/11/17 03/01/18 09:00 History release 24 hr 250 MG furosemide 20 mg tablet 20 mg PO MOWEFR 12/11/17 Unknown History isosorbide dinitrate 30 mg tablet 30 mg PO DAILY HEART 12/11/17 03/01/18 09:00 History 30 MG metoprolol succinate 25 mg 12.5 mg PO BID BP 12/11/17 01/24/19 09:00 History tablet,extended release 24 hr nitroglycerin 0.4 mg sublingual 0.4 mg sublingual Q5M PRN Chest 12/11/17 Unknown History tablet Pain omeprazole 40 mg capsule,delayed 40 mg PO DAILY GERD 12/11/17 01/24/19 09:00 History release alirocumab 75 mg/mL subcutaneous 75 mg subcut .qow 10/29/20 Unknown History pen injector clonazepam 0.5 mg tablet 0.5 mg PO BID PRN 10/29/20 Unknown History gabapentin 300 mg capsule 300 mg PO TID 10/29/20 Unknown History levothyroxine 137 mcg tablet 137 mcg PO DAILY 10/29/20 Unknown History magnesium 250 mg tablet 250 mg PO DAILY 10/29/20 Unknown History ondansetron 4 mg disintegrating 4 mg PO Q8H 10/29/20 Unknown History tablet potassium chloride 20 mEq 20 meq PO DAILY 10/29/20 Unknown History tablet,extended release(part/cryst) (Klor-Con M) pyridoxine (vitamin B6) 50 mg 100 mg PO DAILY SUPPLEMENT 10/29/20 Unknown History tablet quetiapine 100 mg tablet 100 mg PO QHS 10/29/20 Unknown History similia 2 puff inhalation BID 10/29/20 Unknown History sumatriptan succinate 25 mg tablet tablet PO 10/29/20 Unknown History tizanidine 4 mg tablet 4 mg PO ONCE 10/29/20 Unknown History ciprofloxacin HCl 500 mg tablet 500 mg PO BID #20 tabs 10/30/23 Unknown Rx (Cipro) metronidazole 500 mg tablet 500 mg PO BID 10 days #20 tabs 10/30/23 Unknown Rx Allergy/AdvReac Type Severity Reaction Status Date / Time Sulfa (Sulfonamide Allergy Intermediate unknown Verified 10/30/23 13:47 Antibiotics) adhesive Allergy Rash Verified 10/30/23 13:47 latex Allergy Rash Verified 10/30/23 13:47 codeine AdvReac Other Verified 10/30/23 13:47 tramadol AdvReac Itching Verified 10/30/23 13:47 Family History Other Anemia Angina at rest Anxiety Arthritis Bleeding disorder Blood clot in vein Blood transfusion during current hospitalisation Bowel disease Colon cancer Depression Diabetes High cholesterol Hypertension Osteoporosis Respiratory disease Severe allergic reaction Thyroid disorder Surgical History H/O endoscopy h/o 5 goiters removed H/O: h/o hysterectomy h/o appendectomy h/o bilateral carpal tunnel surgery h/o right ankle surgery h/o bilateral shoulder surgery h/o right knee replacement Social History Smoking Status: Current every day smoker tobacco type: cigarettes alcohol i (more content not included)... Normal [facility] Urinalysis, Completeon 10-29 EPI,SQUAMOUS 0-5 SEEN Normal 5-10 [facility] Comment on above: Order Comment: COLLE CTOR TO SPECIFY Performed By: #### L 400.0001 #### [facility] [address] [place], [address] BACTERIA 0 SEEN Normal None Seen [facility] Comment on above: Order Comment: BOBBY CTOR TO SPECIFY Performed By: #### L 400.0001 #### [facility] [address] [place], [address] Mucus Ql (Urine sed) 0 SEEN Normal [facility] Comment on above: Order Comment: BOBBY CTOR TO SPECIFY Performed By: #### L 400.0001 #### [facility] [address] [place], [address] RBC 0 SEEN Normal 0-5 [facility] Comment on above: Order Comment: BOBBY CTOR TO SPECIFY Performed By: #### L 400.0001 #### [facility] [address] [place], [address] WBC 0 SEEN Normal 0-5 [facility] Comment on above: Order Comment: BOBBY CTOR TO SPECIFY Performed By: #### L 400.0001 #### [facility] [address] [place], [address] US CAROTID ARTERIES [facility] LABon 09-14-2023 US CAROTID ARTERIES [facility] Non-Invasive V[facility] Carotid Duplex Bilateral/Complete Date of service/time: 09/14/2023 3:41:16 PM Name: MRS. JEN ESTRADA Date of : 1955 Age: 67 years Gender: F Clinical Indication Carotid stenosis. TECHNIQUE -------- A carotid duplex ultrasound examination was performed, including grayscale imaging and color Doppler and spectral Doppler examination of the below mentioned arteries. FINDINGS -------- RIGHT SIDE Common carotid artery: Proximal: PSV: 80 cm/s. EDV: 23 cm/s. Distal: PSV: 71 cm/s. EDV: 22 cm/s. Internal carotid artery: Proximal: PSV: 76 cm/s. EDV: 26 cm/s. Distal: PSV: 96 cm/s. EDV: 24 cm/s. Moderate calcified plaque at proximal. ICA/CCA Ratio: 1.3 External carotid artery: Proximal: PSV: 146 cm/s. EDV: 20 cm/s. Subclavian artery: Proximal: PSV: 153 cm/s. Vertebral artery: PSV: 55 cm/s. EDV: 14 cm/s. LEFT SIDE Common carotid artery: Proximal: PSV: 90 cm/s. EDV: 25 cm/s. Distal: PSV: 65 cm/s. EDV: 27 cm/s. Internal carotid artery: Proximal: PSV: 298 cm/s. EDV: 80 cm/s. Distal: PSV: 100 cm/s. EDV: 28 cm/s. Severe calcified, shadowing and irregular plaque at proximal. ICA/CCA Ratio: 4.6 External carotid artery: Proximal: PSV: 239 cm/s. EDV: 22 cm/s. Subclavian artery: Proximal: PSV: 108 cm/s. Vertebral artery: PSV: 52 cm/s. EDV: 15 cm/s. IMPRESSION RIGHT SIDE Internal carotid artery: 20-39% stenosis. Vertebral artery: Patent and antegrade flow noted. LEFT SIDE Internal carotid artery: 60-79% stenosis. Vertebral artery: Patent and antegrade flow noted. Technologist: Lona Chau RVT, RN Ordering physician: JARED ROWLAND Interpreting physician: Toni Garg MD Final CC [email or web address] [facility] Image : [id number] See Link below for Image Normal [facility] US Carotid arteries - bilate ralon 09-14-2023 [facility] Enteroscopy Study observatio n Narrativeon 07-19-2023 [facility] GLUCOSE, BLOOD (POC)on 07-19 Glucose [Mass/Vol] 124 mg/dL Abnormal 74 - 99 mg/dL [facility] CNTHERAPYon 01-18-2023 CNTHERAPY OT/PT/Speech Visit ([facility]) NATALIEJEN ([id number]) 1955 F Date Time Provider Department 01/18/23 9:50 AM BORIS TOMLINSON [facility] Date Time Provider Department Center 01/18/2023 9:50 AM [id number], MEGAN [facility] Reason for Visit: Speech Instrumental Swallow Eval [3660] Speech Discharge [3488] Primary Visit Diagnosis:Dysphagia, unspecified type [R13.10] Allergies As of Date: 01/18/2023 Noted Allergy Reaction ADHESIVE 04/20/2017 14 - Other: See Comments Comments: Blisters skin AMBIEN (ZOLPIDEM TARTRATE) 07/01/2018 14 - Other: See Comments CODEINE 04/20/2017 14 - Other: See Comments Comments: Seizure as a child LATEX, NATURAL RUBBER 04/20/2017 14 - Other: See Comments Comments: blisters NSAIDS (NON-STEROIDAL ANTI-INFLAM*03/08/2020 8 - GI Upset Comments: Has had GI bleed TRAMADOL 12/18/2017 9 - Itching Date Reviewed: 08/10/2021 Reviewed by: Alisha Peña Ma, MA - Fully Assessed Prescriptions as of 01/18/2023 - ferrous sulfate (IRON) 325 mg (65 mg iron) tablet Take 1 tablet by mouth twice daily. - levothyroxine (SYNTHROID) 175 mcg tablet Take 175 mcg by mouth every other day. - levothyroxine (SYNTHROID) 200 mcg tablet Take 200 mcg by mouth every other day. - nateglinide (STARLIX) 60 mg tablet TAKE 1 TABLET BY MOUTH ONCE DAILY BEFORE SUPPER - albuterol (PROVENTIL) 2.5 mg /3 mL (0.083 %) nebulizer solution Use 3 mL via nebulizer every 6 hours as needed for wheezing/shortness of breath. OVER 5-15 MINUTES. FOR WHEEZING AND SHORTNESS OF BREATH. - ipratropium (ATROVENT) 0.02 % nebulizer solution Use 0.5 mg via nebulizer four times daily. PRN - tiZANidine (ZANAFLEX) 4 mg tablet Take 4 mg by mouth every 8 hours as needed. - calcium carbonate (CALCIUM 600 ORAL) Take 1 tablet by mouth once daily. - omeprazole (PRILOSEC) 40 mg capsule TAKE 1 CAPSULE BY MOUTH TWICE DAILY. TAKE 30 MINUTES BEFORE BREAKFAST AND DINNER - SUMAtriptan (IMITREX) 25 mg tablet Take 25 mg by mouth as needed for Migraine Headache (see administration instructions). - mirtazapine (REMERON) 15 mg tablet Take 15 mg by mouth daily at bedtime. - QUEtiapine (SEROQUEL) 100 mg tablet Take 100 mg by mouth daily at bedtime. - alirocumab (PRALUENT PEN) 75 mg/mL Inject 75 mg subcutaneously every other week. - clonazePAM orally disintegrating (KLONOPIN WAFER) 0.25 mg disintegrating tablet Take 0.5 mg by mouth twice daily as needed. - cholecalciferol (VITAMIN D-3) 5,000 unit tab Take 5,000 Units by mouth once daily. - magnesium oxide 400 mg magnesium tab Take by mouth once daily. - DULoxetine (CYMBALTA) 60 mg capsule Take 60 mg by mouth twice daily. - metoprolol succinate ER (TOPROL XL) 25 mg 24 hr tablet Take 25 mg by mouth twice daily. - tiotropium bromide (SPIRIVA RESPIMAT) 1.25 mcg/actuation mist Inhale 1 Puff as instructed once daily. - divalproex DR (DEPAKOTE) 250 mg EC tablet Take 250 mg by mouth once daily. - dicyclomine (BENTYL) 20 mg tablet Take 20 mg by mouth every 6 hours. - isosorbide mononitrate ER (IMDUR) 30 mg 24 hr tablet Take 30 mg by mouth once daily. - escitalopram oxalate (LEXAPRO) 20 mg tablet Take 20 mg by mouth once daily. - potassium chloride 20 mEq TbER Take 1 tablet by mouth once daily. - pyridoxine HCl, vitamin B6, (VITAMIN B-6 ORAL) Take 1 tablet by mouth once daily. - CYANOCOBALAMIN, VITAMIN B-12, (VITAMIN B-12 ORAL) Take 1,000 mg by mouth once daily. - fluticasone (FLONASE) 50 mcg/actuation nasal spray Use 1 [place]ier in each nostril once daily. - NITROGLYCERIN (NITROSTAT SUBLINGUAL) Dissolve under the tongue as needed. - furosemide (LASIX) 20 mg tablet Take 20 mg by mouth every Sunday,Sunday, y. Normal [facility] XR MOD BARIUM SWALLOW W SPEE Peggy 01-18-2023 XR MOD BARIUM SWALLOW W SPEECH * * *Final Report* * * DATE OF EXAM: Jan 18 2023 10:31AM FVX [id number] - XR MOD BARIUM SWALLOW W SPEECH / PROCEDURE REASON: Oropharyngeal dysphagia * * * * Physician Interpretation * * * * MODIFIED BARIUM SWALLOW CLINICAL DATA: Dysphagia. TECHNIQUE: The examination was performed by the speech pathologist. Fluoroscopic guidance was provided. Fluoroscopic Radiation Summary: Plane A, Air Kerma: 86.0 mGy Plane B, Air Kerma: Dose Area Product (DAP): Fluoro time: 2:45 min:sec RESULT: ... (See speech pathologist's report.) Associate Music Professor: JOHNY Transcribe Date/Time: Jan 18 2023 3:27P Dictated by : RAOUL SOARES MD This examination was interpreted and the report reviewed and electronically signed by: RAOUL SOARES MD on Jan 18 2023 3:28PM EST [id number] [facility] XR MODIFIED BARIUM SWALLOW W SPEECH THERAPYon 01-18-2023 [facility] Absolute lymphocyte counton 06-02-2022 Lymphocytes Auto (Unsp spec) [#/Vol] 1.43 10*3/uL 0.83-4.51 [facility] Work Phone: Basophil percentageon 2021 Basophils/100 WBC (Bld) 0.2 % 0-1 [facility] Work Phone: Eosinophils/100 WBC (Bld) 0.1 % 0-5 [facility] Work Phone: Neutrophils (Bld) [#/Vol] 12.5 10*3/uL 2.0-7.7 [facility] Work Phone: Neutrophils/100 WBC (Bld) 83.4 % 47-70 [facility] Work Phone: WBC (Bld) [#/Vol] 15.0 10*3/uL 4.4-11.0 [facility] Work Phone: Blood erythrocytes count (nu mber/volume)on 06-02-2022 RBC (Bld) [#/Vol] 5.76 10*6/uL 4.2-5.4 [facility] Work Phone: Blood hemoglobin measurement (mass/volume)on 06-02-2022 Hemoglobin (Bld) [Mass/Vol] 15.4 g/dL 12.0-15.0 [facility] Work Phone: Blood lymphocytes/100 leukoc yteson 06-02-2022 Lymphocytes/100 WBC (Bld) 9.5 % 19-41 [facility] Work Phone: Blood monocytes/100 leukocyt eson 06-02-2022 Monocytes/100 WBC (Bld) 5.5 % 0-10 [facility] Work Phone: Blood platelet mean volumeon 06-02-2022 Platelet mean volume (Bld) [Entitic vol] 9.0 fL 6.2-12.0 [facility] Work Phone: Determination of erythrocyte mean corpuscular volume (MCV)on 06-02-2022 MCV (RBC) [Entitic vol] 80.4 fL 81-99 [facility] Work Phone: Hematocrit Auto (Bld) [Volum e fraction]on 06-02-2022 Hematocrit (Bld) [Volume fraction] 46.3 % 37-47 [facility] Work Phone: Laboratory - Chemistry and C hemistry - challengeon 06-02-2022 Free T4 [Mass/Vol] 1.36 ng/dL 0.76-1.46 [facility] Work Phone: Laboratory - Hematology and Cell countson 06-02-2022 Erythrocyte distribution width (RBC) [Entitic vol] 44.6 fL 35.1-43.9 [facility] Work Phone: Erythrocyte distribution width (RBC) [Ratio] 15.6 % 11.6-14.6 [facility] Work Phone: Immature granulocytes/100 WBC (Bld) 1.300 % 0.0-0.9 [facility] Work Phone: Comment on above: IG% - Immature Granu locytes (promyelocytes, myelocytes and metamyelocytes) > 1% indicates that a LEFT SHIFT is Present. MCH (RBC) [Entitic mass] 26.7 pg 27.0-32.0 [facility] Work Phone: Nucleated RBC/100 WBC (Bld) [Ratio] 0 % 0-5 [facility] Work Phone: MCHC Auto (RBC) [Mass/Vol]on 06-02-2022 MCHC (RBC) [Mass/Vol] 33.3 g/dL 32-36 [facility] Work Phone: No Panel Informationon 06-02 Follicle Stimulating Hormone 80.7 mIU/mL [facility] Work Phone: Comment on above: NORMAL REFERENCE RAN GES FEMALE FOLLICULAR 2.3 - 12.6 mIU/mL MID-CYCLE PEAK 5.2 - 17.5 mIU/mL LUTEAL 1.7 - 12.9 mIU/mL POST-MENOPAUSAL ON MHT 5.9 - 72.8 mIU/mL NOT ON MHT 12.7 - 132.2 mlU/mL MALE 0.7 - 10.8 mIU/mL Luteinizing Hormone 63.9 mIU/mL [facility] Work Phone: Comment on above: NORMAL REFERENCE RAN GES FEMALE FOLLICULAR 1.9 - 26.2 mIU/mL MID-CYCLE PEAK 22.8 - 76.1 mIU/mL LUTEAL 0.6 - 16.6 mIU/mL POST-MENOPAUSAL ON MHT 1.1 - 52.4 mIU/mL NOT ON MHT 8.6 - 61.8 mIU/mL MALE 1.2 - 10.6 mIU/mL Thyroid Stimulating Hormone (TSH) 1.99 uIU/mL 0.358-3.74 [facility] Work Phone: Platelets bldon 06-02-2022 Platelets (Bld) [#/Vol] 364 10*3/uL 150-450 [facility] Work Phone: Serum or plasma estradiol (E 2) measurement (mass/volume)on 06-02-2022 E2 [Mass/Vol] 11.4 pg/mL [facility] Work Phone: Comment on above: NORMAL REFERENCE RAN GES FEMALE FOLLICULAR 21.4 - 164.8 pg/mL MID-CYCLE PEAK 49.9 - 367.2 pg/mL LUTEAL 40.2 - 259.0 pg/mL POST-MENOPAUSAL ON MHT <11.0 - 462.1 pg/mL NOT ON MHT <11.0 - 58.3 pg/mL MALE <11.0 - 52.5 pg/mL NOTE:[employer] HAS CONFIRMED THE DRUG FULVETRANT (FASLODEX) MAY CAUSE FALSELY ELEVATED ESTRADIOL RESULTS WHEN USING THIS TEST METHOD. IF PATIENT IS TAKING FULVESTRANT AN ALTERNATIVE METHOD SHOULD BE USED TO DETERMINE ESTRADIOL CONCENTRATION. .Auto Diffon 04-08-2022 Basophil, Absolute 0.2 10 3/mcL Normal 0.0-0.3 [facility] ([place]) Comment on above: Performed By: #### B MP, LIPID, TSH, GFR #### [address] [address] Basophils/100 WBC (Bld) 1.4 % Normal 0.0-2.5 [facility] ([place]) Comment on above: Performed By: #### B MP, LIPID, TSH, GFR #### [address] [address] Eosinophil, Absolute 0.0 10 3/mcL Normal 0.0-0.7 [facility] ([place]) Comment on above: Performed By: #### B MP, LIPID, TSH, GFR #### [address] [address] Eosinophils/100 WBC (Bld) 0.0 % Normal 0.0-6.0 [facility] ([place]) Comment on above: Performed By: #### B MP, LIPID, TSH, GFR #### [address] [address] Lymphocyte, Absolute 1.2 10 3/mcL Normal 0.9-4.3 [facility] ([place]) Comment on above: Performed By: #### B MP, LIPID, TSH, GFR #### [address] [address] Lymphocytes/100 WBC (Bld) 10.4 % Low 20.0-40.0 [facility] ([place] Comment on above: Performed By: #### B MP, LIPID, TSH, GFR #### [address] [address] Monocyte, Absolute 1.0 10 3/mcL Normal 0.1-1.4 [facility] ([place]) Comment on above: Performed By: #### B MP, LIPID, TSH, GFR #### [address] [address] Monocytes/100 WBC (Bld) 8.5 % Normal 2.0-13.0 [facility] ([place] Comment on above: Performed By: #### B MP, LIPID, TSH, GFR #### [address] [address] Neutrophils/100 WBC (Bld) 79.7 % High 50.0-75.0 [facility] ([place] Comment on above: Performed By: #### B MP, LIPID, TSH, GFR #### [address] [address] .GFRon 04-08-2022 GFR Non- >60 Normal [facility] ([place] Comment on above: Result Comment: GFR Population mean for , Non- Americans Ages 20-29 = 116 mL/min/1.73 sq.m. Ages 30-39 = 107 mL/min/1.73 sq.m. Ages 40-49 = 99 mL/min/1.73 sq.m. Ages 50-59 = 93 mL/min/1.73 sq.m. Ages 60-69 = 85 mL/min/1.73 sq.m. Ages 70+ = 75 mL/min/1.73 sq.m. Chronic Kidney Disease: Less than 60 mL/min/1.73 square meters End Stage Renal Disease: Less than 15 mL/min/1.73 square meters Performed By: #### T SH #### [address] [address] GFR >60 Normal [facility] ([place]) Comment on above: Result Comment: GFR Population mean for , Non- Americans Ages 20-29 = 116 mL/min/1.73 sq.m. Ages 30-39 = 107 mL/min/1.73 sq.m. Ages 40-49 = 99 mL/min/1.73 sq.m. Ages 50-59 = 93 mL/min/1.73 sq.m. Ages 60-69 = 85 mL/min/1.73 sq.m. Ages 70+ = 75 mL/min/1.73 sq.m. Chronic Kidney Disease: Less than 60 mL/min/1.73 square meters End Stage Renal Disease: Less than 15 mL/min/1.73 square meters Performed By: #### T SH #### [address] [address] GFR >60 Normal [facility] ([place] Comment on above: Result Comment: GFR Population mean for , Non- Americans Ages 20-29 = 116 mL/min/1.73 sq.m. Ages 30-39 = 107 mL/min/1.73 sq.m. Ages 40-49 = 99 mL/min/1.73 sq.m. Ages 50-59 = 93 mL/min/1.73 sq.m. Ages 60-69 = 85 mL/min/1.73 sq.m. Ages 70+ = 75 mL/min/1.73 sq.m. Chronic Kidney Disease: Less than 60 mL/min/1.73 square meters End Stage Renal Disease: Less than 15 mL/min/1.73 square meters Performed By: #### M G, GFR, TROPHS, CMP #### [address] [address] GFR Non- >60 Normal [facility] ([place] Comment on above: Result Comment: GFR Population mean for , Non- Americans Ages 20-29 = 116 mL/min/1.73 sq.m. Ages 30-39 = 107 mL/min/1.73 sq.m. Ages 40-49 = 99 mL/min/1.73 sq.m. Ages 50-59 = 93 mL/min/1.73 sq.m. Ages 60-69 = 85 mL/min/1.73 sq.m. Ages 70+ = 75 mL/min/1.73 sq.m. Chronic Kidney Disease: Less than 60 mL/min/1.73 square meters End Stage Renal Disease: Less than 15 mL/min/1.73 square meters Performed By: #### M G, GFR, TROPHS, CMP #### [address] [address] .NEUABSon 04-08-2022 Neutrophil, Absolute 9.4 10 3/mcL High 2.3-8.1 [facility] ([place] Comment on above: Performed By: #### B MP, LIPID, TSH, GFR #### [address] [address] BMPon 04-08-2022 BUN/Creatinine Ratio 20.0 ratio Normal 10.0-22.0 [facility] ([place] Comment on above: Performed By: #### B MP, LIPID, TSH, GFR #### [address] [address] Calcium [Mass/Vol] 9.0 mg/dL Normal 8.7-10.4 [facility] ([place]) Comment on above: Performed By: #### B MP, LIPID, TSH, GFR #### [address] [address] Chloride [Moles/Vol] 108 mmol/L Normal 98-110 [facility] ([place] Comment on above: Performed By: #### B MP, LIPID, TSH, GFR #### [address] [address] CO2 [Moles/Vol] 29 mmol/L Normal 22-32 [facility] ([place] Comment on above: Performed By: #### B MP, LIPID, TSH, GFR #### [address] [address] Creatinine [Mass/Vol] 0.55 mg/dL Normal 0.50-1.20 [facility] ([place]) Comment on above: Performed By: #### B MP, LIPID, TSH, GFR #### [address] [address] Electrolyte Balance 3.0 mEq/L Low 4.0-15.0 [facility] ([place]) Comment on above: Performed By: #### B MP, LIPID, TSH, GFR #### [place] [id number] Glucose [Mass/Vol] 145 mg/dL High 82-115 [facility] ([place] Comment on above: Performed By: #### B MP, LIPID, TSH, GFR #### [place] [address] Potassium [Moles/Vol] 4.4 mmol/L Normal 3.5-5.0 [facility] ([place] Comment on above: Result Comment: Spec imen slightly hemolyzed. Performed By: #### B MP, LIPID, TSH, GFR #### [address] [address] Sodium [Moles/Vol] 140 mmol/L Normal 136-145 [facility] ([place] Comment on above: Performed By: #### B MP, LIPID, TSH, GFR #### [address] [address] Urea nitrogen [Mass/Vol] 11.0 mg/dL Normal 8.0-22.0 [facility] ([place] Comment on above: Performed By: #### B MP, LIPID, TSH, GFR #### [address] [address] CBCon 04-08-2022 Erythrocyte distribution width (RBC) [Ratio] 22.7 % High 11.5-15.5 [facility] ([place] Comment on above: Performed By: #### B MP, LIPID, TSH, GFR #### [place] [address] Hematocrit (Bld) [Volume fraction] 44.0 % Normal 34.0-46.0 [facility] ([place] Comment on above: Performed By: #### B MP, LIPID, TSH, GFR #### [place] [id number] Hgb 14.1 G/dL Normal 12.0-16.0 [facility] ([place] Comment on above: Performed By: #### B MP, LIPID, TSH, GFR #### [place] [address] MCH (RBC) [Entitic mass] 24.9 pg Low 27.0-33.0 [facility] [place] Comment on above: Performed By: #### B MP, LIPID, TSH, GFR #### [place] [address] MCHC 32.0 G/dL Normal 32.0-36.0 [facility] ([place] Comment on above: Performed By: #### B MP, LIPID, TSH, GFR #### [place] [address] MCV (RBC) [Entitic vol] 77.8 fL Low 80.0-99.0 [facility] ([place] Comment on above: Performed By: #### B MP, LIPID, TSH, GFR #### [place] [address] Platelet 252 10 3/mcL Normal 150-450 [facility] ([place] Comment on above: Performed By: #### B MP, LIPID, TSH, GFR #### [place] [address] Platelet mean volume (Bld) [Entitic vol] 7.3 fL Normal 6.6-10.5 [facility] ([place] Comment on above: Performed By: #### B MP, LIPID, TSH, GFR #### [place] [id number] RBC 5.65 10 6/mcL High 4.10-5.30 [facility] ([place] Comment on above: Performed By: #### B MP, LIPID, TSH, GFR #### [address] [address] WBC 11.8 10 3/mcL High 4.5-10.8 [facility] ([place] Comment on above: Performed By: #### B MP, LIPID, TSH, GFR #### [place] [phone] CMPon 04-08-2022 Albumin Level 3.3 G/dL Normal 3.2-4.8 [facility] ([place] Comment on above: Performed By: #### M G, GFR, TROPHS, CMP #### [place] [address] Albumin/Globulin [Mass ratio] 1.1 {ratio} Normal 0.9-1.6 [facility] ([place] Comment on above: Performed By: #### M G, GFR, TROPHS, CMP #### [place] [address] ALP [Catalytic activity/Vol] 67 U/L Normal 38-126 [facility] ([place] Comment on above: Performed By: #### M G, GFR, TROPHS, CMP #### [place] [address] ALT [Catalytic activity/Vol] 19 U/L Normal 10-49 [facility] ([place] Comment on above: Performed By: #### M G, GFR, TROPHS, CMP #### [place] [address] AST [Catalytic activity/Vol] 24 U/L Normal 8-34 [facility] ([place] Comment on above: Performed By: #### M G, GFR, TROPHS, CMP #### [place] [address] Bili Total 0.20 mg/dL Normal 0.20-1.20 [facility] ([place] Comment on above: Result Comment: Use of this assay is not recommended for patients undergoing treatment with eltrombopag due to the potential for falsely elevated results. Performed By: #### M G, GFR, TROPHS, CMP #### [address] [address] BUN/Creatinine Ratio 18.9 ratio Normal 10.0-22.0 [facility] ([place] Comment on above: Performed By: #### M G, GFR, TROPHS, CMP #### [address] [address] Calcium [Mass/Vol] 9.0 mg/dL Normal 8.7-10.4 [facility] ([place] Comment on above: Performed By: #### M G, GFR, TROPHS, CMP #### [address] [address] Chloride [Moles/Vol] 105 mmol/L Normal 98-110 [facility] ([place] Comment on above: Performed By: #### M G, GFR, TROPHS, CMP #### [address] [address] CO2 [Moles/Vol] 26 mmol/L Normal 22-32 [facility] ([place] Comment on above: Performed By: #### M G, GFR, TROPHS, CMP #### [address] [address] Creatinine [Mass/Vol] 0.53 mg/dL Normal 0.50-1.20 [facility] ([place] Comment on above: Performed By: #### M G, GFR, TROPHS, CMP #### [address] [address] Electrolyte Balance 5.0 mEq/L Normal 4.0-15.0 [facility] ([place] Comment on above: Performed By: #### M G, GFR, TROPHS, CMP #### [address] [address] Globulin 2.9 G/dL Normal 1.5-3.8 [facility] ([place] Comment on above: Performed By: #### M G, GFR, TROPHS, CMP #### [address] [address] Glucose [Mass/Vol] 158 mg/dL High 82-115 [facility] ([place] Comment on above: Performed By: #### M G, GFR, TROPHS, CMP #### [address] [address] Potassium [Moles/Vol] 4.5 mmol/L Normal 3.5-5.0 [facility] ([place] Comment on above: Result Comment: Spec imen slightly hemolyzed. Performed By: #### M G, GFR, TROPHS, CMP #### [address] [address] Sodium [Moles/Vol] 136 mmol/L Normal 136-145 [facility] ([place] Comment on above: Performed By: #### M G, GFR, TROPHS, CMP #### [address] [address] Total Protein 6.2 G/dL Normal 5.7-8.2 [facility] ([place] Comment on above: Result Comment: No te - New Reference Range in effect 19 Performed By: #### M G, GFR, TROPHS, CMP #### [address] [address] Urea nitrogen [Mass/Vol] 10.0 mg/dL Normal 8.0-22.0 [facility] ([place] Comment on above: Performed By: #### M G, GFR, TROPHS, CMP #### [address] [address] LABORATORYOrdered By: Zena Yee on 04-08-2022 Blood Glucose Testing Reason Routine (04/08/22 11:17 AM) [facility] Glucose [Mass/Vol] 196 mg/dL Invalid Interpretation Code 82 - 115 mg/dL [facility] Blood Glucose Testing Reason Routine (04/08/22 6:58 AM) [facility] Glucose [Mass/Vol] 109 mg/dL Invalid Interpretation Code 82 - 115 mg/dL [facility] LABORATORYOrdered By: SYSTEM SYSTEM on 04-08-2022 Basophils (Bld) [#/Vol] 0.2 103/mcL Invalid Interpretation Code 0.0 - 0.3 10^3/mcL Workflow SS Basophils/100 WBC (Bld) 1.4 % Invalid Interpretation Code 0.0 - 2.5 % AH Workflow SS Calcium [Mass/Vol] 9.0 mg/dL Invalid Interpretation Code 8.7 - 10.4 mg/dL ADM SS Chloride [Moles/Vol] 108 mmol/L Invalid Interpretation Code 98 - 110 mEq/L ADM SS CO2 [Moles/Vol] 29 mmol/L Invalid Interpretation Code 22 - 32 mEq/L ADM SS Creatinine [Mass/Vol] 0.55 mg/dL Invalid Interpretation Code 0.50 - 1.20 mg/dL ADM SS Electrolyte Balance 3.0 mEq/L Invalid Interpretation Code 4.0 - 15.0 mEq/L ADM SS Eosinophils (Bld) [#/Vol] 0.0 103/mcL Invalid Interpretation Code 0.0 - 0.7 10^3/mcL Workflow SS Eosinophils/100 WBC (Bld) 0.0 % Invalid Interpretation Code 0.0 - 6.0 % Workflow SS Erythrocyte distribution width (RBC) [Ratio] 22.7 % Invalid Interpretation Code 11.5 - 15.5 % Workflow SS GFR/1.73 sq M.predicted among blacks MDRD (S/P/Bld) [Vol rate/Area] ml/min/1.73sqm Invalid Interpretation Code ADM SS GFR/1.73 sq M.predicted among non-blacks MDRD (S/P/Bld) [Vol rate/Area] ml/min/1.73sqm Invalid Interpretation Code ADM SS Glucose [Mass/Vol] 145 mg/dL Invalid Interpretation Code 82 - 115 mg/dL ADM SS Hematocrit (Bld) [Volume fraction] 44.0 % Invalid Interpretation Code 34.0 - 46.0 % Workflow SS Hemoglobin (Bld) [Mass/Vol] 14.1 G/dL Invalid Interpretation Code 12.0 - 16.0 G/dL Workflow SS Lymphocytes (Bld) [#/Vol] 1.2 103/mcL Invalid Interpretation Code 0.9 - 4.3 10^3/mcL Workflow SS Lymphocytes/100 WBC (Bld) 10.4 % Invalid Interpretation Code 20.0 - 40.0 % AH Workflow SS MCH (RBC) [Entitic mass] 24.9 pg Invalid Interpretation Code 27.0 - 33.0 pg AH Workflow SS MCHC 32.0 G/dL Invalid Interpretation Code 32.0 - 36.0 G/dL AH Workflow SS MCV (RBC) [Entitic vol] 77.8 fL Invalid Interpretation Code 80.0 - 99.0 fL AH Workflow SS Monocytes (Bld) [#/Vol] 1.0 103/mcL Invalid Interpretation Code 0.1 - 1.4 10^3/mcL AH Workflow SS Monocytes/100 WBC (Bld) 8.5 % Invalid Interpretation Code 2.0 - 13.0 % AH Workflow SS Neutrophils (Bld) [#/Vol] 9.4 103/mcL Invalid Interpretation Code 2.3 - 8.1 10^3/mcL AH Workflow SS Neutrophils/100 WBC (Bld) 79.7 % Invalid Interpretation Code 50.0 - 75.0 % AH Workflow SS Platelet mean volume (Bld) [Entitic vol] 7.3 fL Invalid Interpretation Code 6.6 - 10.5 fL AH Workflow SS Platelets (Bld) [#/Vol] 252 103/mcL Invalid Interpretation Code 150 - 450 10^3/mcL AH Workflow SS Potassium [Moles/Vol] 4.4 mmol/L Invalid Interpretation Code 3.5 - 5.0 mEq/L ADM SS Comment on above: Result Comment: Spec imen slightly hemolyzed. RBC (Bld) [#/Vol] 5.65 106/mcL Invalid Interpretation Code 4.10 - 5.30 10^6/mcL AH Workflow SS Sodium [Moles/Vol] 140 mmol/L Invalid Interpretation Code 136 - 145 mEq/L ADM SS TSH Qn 0.700 mIU/mL Invalid Interpretation Code 0.550 - 4.780 mIU/mL AH ADM SS Urea nitrogen [Mass/Vol] 11.0 mg/dL Invalid Interpretation Code 8.0 - 22.0 mg/dL ADM SS Urea nitrogen/Creatinine [Mass ratio] 20.0 ratio Invalid Interpretation Code 10.0 - 22.0 ratio AH ADM SS WBC (Bld) [#/Vol] 11.8 103/mcL Invalid Interpretation Code 4.5 - 10.8 10^3/mcL AH Workflow SS Troponin I.cardiac DL <= 0.01 ng/mL [Mass/Vol] ng/L Invalid Interpretation Code 0.00 - 34.00 ng/L AH ADM SS TSH Qn 0.630 mIU/mL Invalid Interpretation Code 0.550 - 4.780 mIU/mL AH ADM SS LABORATORYOrdered By: Darlene welsh on 04-08-2022 Cholesterol [Mass/Vol] 130 mg/dL Invalid Interpretation Code 50 - 199 mg/dL ADM SS Cholesterol in HDL [Mass/Vol] 50 mg/dL Invalid Interpretation Code 40 - 59 mg/dL ADM SS Cholesterol in LDL [Mass/Vol] 59 mg/dL Invalid Interpretation Code 0 - 129 mg/dL ADM SS Triglyceride [Mass/Vol] 107 mg/dL Invalid Interpretation Code 3 - 149 mg/dL ADM SS LIPIDon 04-08-2022 Cholesterol [Mass/Vol] 130 mg/dL Normal 50-199 [facility] ([place] Comment on above: Result Comment: Chol esterol Reference Interval: Less than 200 Desirable 200-239 Borderline high risk 240 and above High risk Performed By: #### T SH #### [address] [address] Cholesterol in HDL [Mass/Vol] 50 mg/dL Normal 40-59 [facility] ([place] Comment on above: Performed By: #### T SH #### [address] [address] Cholesterol in LDL [Mass/Vol] 59 mg/dL Normal 0-129 [facility] ([place] Comment on above: Performed By: #### T SH #### [address] [address] Triglyceride [Mass/Vol] 107 mg/dL Normal 3-149 [facility] ([place] Comment on above: Performed By: #### T SH #### [address] [address] MGon 04-08-2022 Magnesium [Mass/Vol] 1.8 mg/dL Normal 1.6-2.4 [facility] ([place] Comment on above: Performed By: #### M G, GFR, TROPHS, CMP #### [address] [address] NM MYOCARDIAL SPECT STRESS/R ESTon 04-08-2022 NM MYOCARDIAL SPECT STRESS/REST ORIGINAL EXAMINATION: CARDIAC SPECT04/08/2022 10:29 am TECHNIQUE: Lexiscan dose: 0.4 mg IV Radiopharmaceutical (rest and stress doses): Tc-99m Sestamibi IV 8.5 and 27 mCi SPECT acquisition and processing: Images reconstructed into short, vertical long, and horizontal long axis planes. Wall motion evaluation and quantitative LVEF assessment. COMPARISON: November 27, 2018 HISTORY: ORDERING SYSTEM PROVIDED HISTORY: CP FINDINGS: Decreased perfusion involving the inferior wall non attenuation corrected post stress images resolves on attenuation corrected post-stress images, likely represents soft tissue attenuation. There is no stress-induced reversible perfusion abnormality. No fixed perfusion defect is seen to suggest infarction. The left ventricular end-diastolic volume is 82 mL. Gated imaging demonstrates no regional wall motion abnormality. Estimated left ventricular ejection fraction is 56 %. TID ratio is normal at 0.96. Low-dose attenuation correction CT demonstrates no coronary atherosclerotic calcifications. The heart is normal in size. No pericardial or pleural effusion is seen. There is no focal consolidation. IMPRESSION: 1. No stress-induced reversible perfusion abnormality is seen. 2. Cardiac systolic function is normal with estimated ejection fraction of 56 %. Interpreted by: Braydon Padilla MD Preliminary Report By: Braydon Padilla MD Electronically signed By Braydon Padilla MD Dictated Date: 04/08/2022 11:29:52 AM Prelim Date: 04/08/2022 11:38:34 AM Sign Date: 04/08/2022 11:38:34 AM Ordering Provider: YESSENIA Cummings [facility] 04-08-2022 Troponin I High Sensitivity <2.50 Normal 0.00-34.00 [facility]) Comment on above: Result Comment: If t he High Sensitive Troponin result is below the 99th percentile value (<45 ng/L) at the first blood draw, at least two additional blood samples should be drawn before results are interpreted as negative for AMI. Performed By: #### T #### [place] [address] Troponin I High Sensitivity 2.62 ng/L Normal 0.00-34.00 [facility]) Comment on above: Result Comment: If t he High Sensitive Troponin result is below the 99th percentile value (<45 ng/L) at the first blood draw, at least two additional blood samples should be drawn before results are interpreted as negative for AMI. Performed By: #### M G, GFR, TROPHS, CMP #### [place] [address] TSHon 04-08-2022 TSH 0.700 mIU/mL Normal 0.550-4.780 [facility] ([place]) Comment on above: Result Comment: No te - New Reference Range in effect 19 Performed By: #### T SH #### [place] [address] TSH 0.630 mIU/mL Normal 0.550-4.780 [facility] ([place] Comment on above: Result Comment: No te - New Reference Range in effect 19 Performed By: #### T SH #### [place] [address] LABORATORYOrdered By: SYSTEM SYSTEM on 04-07-2022 Albumin BCP dye [Mass/Vol] 3.3 G/dL Invalid Interpretation Code 3.2 - 4.8 G/dL ADM SS Albumin/Globulin [Mass ratio] 1.1 {ratio} Invalid Interpretation Code 0.9 - 1.6 ratio ADM SS ALP [Catalytic activity/Vol] 67 U/L Invalid Interpretation Code 38 - 126 U/L ADM SS ALT No additional P-5'-P [Catalytic activity/Vol] 19 U/L Invalid Interpretation Code 10 - 49 U/L ADM SS AST [Catalytic activity/Vol] 24 U/L Invalid Interpretation Code 8 - 34 U/L ADM SS Bilirubin [Mass/Vol] 0.20 mg/dL Invalid Interpretation Code 0.20 - 1.20 mg/dL ADM SS Calcium [Mass/Vol] 9.0 mg/dL Invalid Interpretation Code 8.7 - 10.4 mg/dL ADM SS Chloride [Moles/Vol] 105 mmol/L Invalid Interpretation Code 98 - 110 mEq/L ADM SS CO2 [Moles/Vol] 26 mmol/L Invalid Interpretation Code 22 - 32 mEq/L ADM SS Creatinine [Mass/Vol] 0.53 mg/dL Invalid Interpretation Code 0.50 - 1.20 mg/dL ADM SS Electrolyte Balance 5.0 mEq/L Invalid Interpretation Code 4.0 - 15.0 mEq/L AH ADM SS GFR/1.73 sq M.predicted among blacks MDRD (S/P/Bld) [Vol rate/Area] ml/min/1.73sqm Invalid Interpretation Code AH ADM SS GFR/1.73 sq M.predicted among non-blacks MDRD (S/P/Bld) [Vol rate/Area] ml/min/1.73sqm Invalid Interpretation Code ADM SS Globulin 2.9 G/dL Invalid Interpretation Code 1.5 - 3.8 G/dL ADM SS Glucose [Mass/Vol] 158 mg/dL Invalid Interpretation Code 82 - 115 mg/dL ADM SS Magnesium [Mass/Vol] 1.8 mg/dL Invalid Interpretation Code 1.6 - 2.4 mg/dL ADM SS Potassium [Moles/Vol] 4.5 mmol/L Invalid Interpretation Code 3.5 - 5.0 mEq/L ADM SS Comment on above: Result Comment: Spec imen slightly hemolyzed. Protein [Mass/Vol] 6.2 G/dL Invalid Interpretation Code 5.7 - 8.2 G/dL ADM SS Sodium [Moles/Vol] 136 mmol/L Invalid Interpretation Code 136 - 145 mEq/L ADM SS Troponin I.cardiac DL <= 0.01 ng/mL [Mass/Vol] 2.62 ng/L Invalid Interpretation Code 0.00 - 34.00 ng/L ADM SS Urea nitrogen [Mass/Vol] 10.0 mg/dL Invalid Interpretation Code 8.0 - 22.0 mg/dL ADM SS Urea nitrogen/Creatinine [Mass ratio] 18.9 ratio Invalid Interpretation Code 10.0 - 22.0 ratio ADM SS LABORATORYOrdered By: Brandy Grimes on 04-07-2022 Blood Glucose Testing Reason Routine (04/07/22 8:36 PM) [facility] Glucose [Mass/Vol] 142 mg/dL Invalid Interpretation Code 82 - 115 mg/dL [facility] Comment on above: Result Comment: JEREMY cruz otified Hemoglobin A1con 06-04-2021 Glucose [Mass/Vol] 114 mg/dL Normal [facility] Comment on above: Performed By: #### H BA1C #### [facility] Routine Lab [address] [place], [place] [address] HbA1c (Bld) [Mass fraction] 5.6 % Normal 4.3-5.6 [facility] Comment on above: Performed By: #### H BA1C #### [facility] Routine Lab [address] [place], [place] [address] Hemoglobin A1con 12-30-2020 Glucose [Mass/Vol] 146 mg/dL Normal [facility] Reference Lab Comment on above: Performed By: #### H BA1C #### [facility] Routine Lab [address] [place], [place] [address] HbA1c (Bld) [Mass fraction] 6.7 % High 4.3-5.6 [facility] Comment on above: Performed By: #### H BA1C #### [facility] Routine Lab [address] [place], [place] [address] Hemoglobin A1con 10-27-2020 Glucose [Mass/Vol] 134 mg/dL Normal [facility] Reference [facility] Comment on above: Performed By: #### H BA1C #### [facility] Routine Lab [address] [place], [place] [address] HbA1c (Bld) [Mass fraction] 6.3 % High 4.3-5.6 [facility] Comment on above: Performed By: #### H BA1C #### [facility] Routine Lab [address] [place], [place] [address] Hemoglobin A1con 10-26-2020 Glucose [Mass/Vol] 134 mg/dL Normal [facility] Comment on above: Performed By: #### H BA1C #### [facility] Routine Lab [address] [place], [place] [address] HbA1c (Bld) [Mass fraction] 6.3 % High 4.3-5.6 [facility] Comment on above: Performed By: #### H BA1C #### [facility] Routine Lab [address] [place], [place] [address] Hemoglobin A1con 08-27-2020 Glucose [Mass/Vol] 128 mg/dL Normal [facility] Comment on above: Performed By: #### H BA1C #### [facility] Routine Lab [address] [place], [place] [address] HbA1c (Bld) [Mass fraction] 6.1 % High 4.3-5.6 [facility] Comment on above: Performed By: #### H BA1C #### [facility] Routine Lab [address] [place], [place] [address] Hemoglobin A1con 07-24-2020 Glucose [Mass/Vol] 105 mg/dL Normal [facility] Comment on above: Performed By: #### H BA1C #### [facility] Routine Lab [address] [place], [place] [address] HbA1c (Bld) [Mass fraction] 5.3 % Normal 4.3-5.6 [facility] Comment on above: Performed By: #### H BA1C #### [facility] Routine Lab [address] [place] [address] PROGRESSon 07-30-2018 Protein mass conc HNO ID: [id number] Author: Rama HernandezCt) TOBIAS Tiwari Service: (none) Author Type: Clinical Survey Technologist Type: Progress Notes Filed: 07/30/2018 10:38 AM Note Text: NAME:Jen Estrada DATE: July 30, 2018 [facility]#: [id number] Lower Extremity X-Ray(s): Knee, AP / Lat / Merchant Right and Wt. Bearing COMPLETED TECH ID SIGN: JOSE MICHAEL [facility] XR KNEE 3V AP/LAT/MERCHANT R Ton 07-30-2018 XR KNEE 3V AP/LAT/MERCHANT RT * * *Final Report* * * DATE OF EXAM: Jul 30 2018 10:37AM MDO 5209 - XR KNEE 3V AP/LAT/MERCHANT RT / PROCEDURE REASON: M25.561-Right knee pain, unspecified chronicity * * * * Physician Interpretation * * * * EXAMINATION: XR KNEE 3V AP/LAT/MERCHANT RT CLINICAL HISTORY: RIGHT KNEE PAIN-TKA Right knee pain, unspecified chronicity Technique: XR KNEE 3V AP/LAT/MERCHANT RT -- RIGHT knee with 3 views on 3 images Comparison: None RESULT: Patient is status post right total knee arthroplasty. The orthopedic hardware appears intact without radiographic evidence of loosening. No acute fracture. No right knee joint effusion. IMPRESSION: Right total hip arthroplasty without acute osseous abnormality or joint effusion. Associate Music Professor: PSCB Transcribe Date/Time: Jul 30 2018 11:53A Dictated by : NICOLE DUNLAP MD This examination was interpreted and the report reviewed and electronically signed by: NICOLE DUNLAP MD on Jul 30 2018 11:55AM EST [id number] Normal [facility] LUNG SCREENINGon 01-23-[address] LUNG SCREENINGOrdering Physician: Erick Sales MD01/22/2017 1:30 PMLOW-DOSE NONCONTRAST SCREENING CHEST CTClinical Statement: Screening for malignant neoplasm of respiratorytract, high risk patient, smoking history, patient also states pain,cough and shortness of breathComparison: Chest CT February 28, 2016 and January 22, 2015FINDINGS: Routine low-dose noncontrast chest CT was performed perscreening protocol. Lack of contrast and low-dose technique, limitsoverall evaluation.The heart size is normal. There is no pericardial effusion. Thethoracic aorta is mildly atherosclerotic but nonaneurysmal. There isno mediastinal mass, fluid, or lymphadenopathy. There is no hilar massor adenopathy within the confines of a noncontrast study. Esophagus isunremarkable. There are post surgical changes at the thoracic inletwith surgical clips indicating prior thyroidectomy.The trachea and main bronchi are widely patent. The lungs are clearand well-expanded. There is no acute infiltrate or parenchymalconsolidati on. No pleural effusion. There is a stable noncalcified 4-5mm nodule within the right upper lobe anteriorly, just above the rightminor fissure, image #[id number]. No additional or new lung nodules.Limited imaging through the upper abdomen is compromised by artifactfrom low-dose technique. Cholecystectomy clips are noted. There ismoderate degenerative disease of the mid and lower thoracic spine withpartial bridging endplate spurring at multiple levels. No concerningbone lesions. No axillary lymphadenopathy.IMPRES SHAILESH:Stable noncalcified 4-5 mm right upper lobe nodule. Stability fromAugust 2014 implies a benign process.Otherwise, no acute intrathoracic process.Lung RADS category 2: Benign findings. Recommend follow-up low-dosescreening chest CT in 12 months per NCCN clinical guidelines. ---- Electronic Signature on File ----Signed By: Alee [email or web address] ictated: 01/22/2017 2:38 PMSigned: 01/22/2017 2:48 PM Reported By: MIGUEL A BHATT M.D. Signed By: MIGUEL A BHATT M.D. [facility] Vital Signs Date Time Vital Sign Value Performing Clinician [place] 08-29-2024 15:26-0400 Body temperature 98.01 [degF] Treatment Wstr Work Phone: [facility] 08-29-2024 15:26-0400 Diastolic blood pressure 67 mm[Hg] Treatment Wstr Work Phone: [facility] 08-29-2024 15:26-0400 Heart rate 78 /min Treatment Wstr Work Phone: [facility] 08-29-2024 15:26-0400 Respiratory rate 18 /min Treatment Wstr Work Phone: [facility] 08-29-2024 15:26-0400 SaO2% (BldA) [Mass fraction] 95 % Treatment Wstr Work Phone: [facility] 08-29-2024 15:26-0400 Systolic blood pressure 119 mm[Hg] Treatment Wstr Work Phone: [facility] 08-22-2024 15:05-0400 Body temperature 98.2 [degF] Treatment Wstr Work Phone: [facility] 08-22-2024 15:05-0400 Diastolic blood pressure 83 mm[Hg] Treatment Wstr Work Phone: [facility] 08-22-2024 15:05-0400 Heart rate 82 /min Treatment Wstr Work Phone: [facility] 08-22-2024 15:05-0400 SaO2% (BldA) [Mass fraction] 97 % Treatment Wstr Work Phone: [facility] 08-22-2024 15:05-0400 Systolic blood pressure 144 mm[Hg] Treatment Wstr Work Phone: [facility] 08-15-2024 15:28-0400 Body temperature 96.8 [degF] Treatment Wstr Work Phone: [facility] 08-15-2024 15:28-0400 Diastolic blood pressure 53 mm[Hg] Treatment Wstr Work Phone: [facility] 08-15-2024 15:28-0400 Heart rate 70 /min Treatment Wstr Work Phone: [facility] 08-15-2024 15:28-0400 SaO2% (BldA) [Mass fraction] 97 % Treatment Wstr Work Phone: [facility] 08-15-2024 15:28-0400 Systolic blood pressure 116 mm[Hg] Treatment Wstr Work Phone: [facility] 08-04-2024 15:52-0500 Diastolic blood pressure 71 mm[Hg] Treatment Wstr Work Phone: [facility] 08-04-2024 15:52-0500 Heart rate 79 /min Treatment Wstr Work Phone: [facility] 08-04-2024 15:52-0500 Systolic blood pressure 137 mm[Hg] Treatment Wstr Work Phone: [facility] 08-04-2024 15:28-0500 Body temperature 98.29 [degF] Treatment Wstr Work Phone: [facility] 08-04-2024 15:28-0500 Respiratory rate 18 /min Treatment Wstr Work Phone: [facility] 08-04-2024 15:28-0500 SaO2% (BldA) [Mass fraction] 97 % Treatment Wstr Work Phone: [facility] 04-10-2024 12:50-0500 Diastolic blood pressure 64 mm[Hg] Tata Bowie MD Work Phone: [facility] 04-10-2024 12:50-0500 Heart rate 68 /min Tata Bowie MD Work Phone: [facility] 04-10-2024 12:50-0500 Respiratory rate 16 /min Tata Bowie MD Work Phone: [facility] 04-10-2024 12:50-0500 SaO2% (BldA) [Mass fraction] 94 % Tata Bowie MD Work Phone: [facility] 04-10-2024 12:50-0500 Systolic blood pressure 120 mm[Hg] Tata Bowie MD Work Phone: [facility] 04-10-2024 11:17-0500 Body temperature 97.3 [degF] Tata Bowie MD Work Phone: [facility] 04-10-2024 10:13-0500 Body height 165.1 cm Taat Bowie MD Work Phone: [facility] 04-10-2024 10:13-0500 Body mass index (BMI) [Ratio] 36.94 kg/m2 Tata Bowie MD Work Phone: [facility] 04-10-2024 10:13-0500 Body weight 100.7 kg Tata Bowie MD Work Phone: [facility] 04-04-2024 11:02-0400 Body temperature 97.7 [degF] Treatment Wstr Work Phone: [facility] 04-04-2024 11:02-0400 Diastolic blood pressure 69 mm[Hg] Treatment Wstr Work Phone: [facility] 04-04-2024 11:02-0400 Heart rate 74 /min Treatment Wstr Work Phone: [facility] 04-04-2024 11:02-0400 Respiratory rate 18 /min Treatment Wstr Work Phone: [facility] 04-04-2024 11:02-0400 SaO2% (BldA) [Mass fraction] 96 % Treatment Wstr Work Phone: [facility] 04-04-2024 11:02-0400 Systolic blood pressure 122 mm[Hg] Treatment Wstr Work Phone: [facility] 04-02-2024 12:54-0400 Body height 165.1 cm Kelvin Campbell MD Work Phone: [facility] 04-02-2024 12:54-0400 Body mass index (BMI) [Ratio] 36.94 kg/m2 Kelvin Campbell MD Work Phone: [facility] 04-02-2024 12:54-0400 Body temperature 96.8 [degF] Kelvin Campbell MD Work Phone: [facility] 04-02-2024 12:54-0400 Body weight 100.7 kg Kelvin Campbell MD Work Phone: [facility] 04-02-2024 12:54-0400 Diastolic blood pressure 60 mm[Hg] Kelvin Campbell MD Work Phone: [facility] 04-02-2024 12:54-0400 Heart rate 77 /min Kelvin Campbell MD Work Phone: [facility] 04-02-2024 12:54-0400 Respiratory rate 20 /min Kelvin Campbell MD Work Phone: [facility] 04-02-2024 12:54-0400 SaO2% (BldA) [Mass fraction] 96 % Kelvin Campbell MD Work Phone: [facility] 04-02-2024 12:54-0400 Systolic blood pressure 128 mm[Hg] Kelvin Campbell MD Work Phone: [facility] 08-03-2023 09:23-0500 Body temperature 97.3 [degF] Anne-Marie Alberto Work Phone: [facility] 08-03-2023 09:23-0500 Body weight 111.58 kg Anne-Marie Alberto Work Phone: [facility] 08-03-2023 09:23-0500 Diastolic blood pressure 84 mm[Hg] Anne-Marie Alberto Work Phone: [facility] 08-03-2023 09:23-0500 Heart rate 101 /min Anne-Marie Alberto Work Phone: [facility] 08-03-2023 09:23-0500 SaO2% (BldA) [Mass fraction] 97 % Anne-Marie Alberto Work Phone: [facility] 08-03-2023 09:23-0500 Systolic blood pressure 116 mm[Hg] Anne-Marie Alberto Work Phone: [facility] 07-19-2023 08:40-0500 Diastolic blood pressure 74 mm[Hg] Ronnie Hoffmann MD Work Phone: [facility] 07-19-2023 08:40-0500 Heart rate 91 /min Ronnie Hoffmann MD Work Phone: [facility] 07-19-2023 08:40-0500 Respiratory rate 16 /min Ronnie Hoffmann MD Work Phone: [facility] 07-19-2023 08:40-0500 SaO2% (BldA) [Mass fraction] 96 % Ronnie Hoffmann MD Work Phone: [facility] 07-19-2023 08:40-0500 Systolic blood pressure 162 mm[Hg] Ronnie Hoffmann MD Work Phone: [facility] 07-19-2023 08:25-0500 Body temperature 96.8 [degF] Ronnie Hoffmann MD Work Phone: [facility] 07-19-2023 07:25-0500 Body height 162.6 cm Ronnie Hoffmann MD Work Phone: [facility] 07-19-2023 07:25-0500 Body weight 110.22 kg Ronnie Hoffmann MD Work Phone: [facility] 04-25-2023 13:48-0500 Body temperature 97.39 [degF] Rui Grider MD Work Phone: [facility] 04-25-2023 13:48-0500 Body weight 111.58 kg Rui Grider MD Work Phone: [facility] 04-25-2023 13:48-0500 Diastolic blood pressure 72 mm[Hg] Rui Grider MD Work Phone: [facility] 04-25-2023 13:48-0500 Heart rate 90 /min Rui Grider MD Work Phone: [facility] 04-25-2023 13:48-0500 SaO2% (BldA) [Mass fraction] 96 % Rui Grider MD Work Phone: [facility] 04-25-2023 13:48-0500 Systolic blood pressure 110 mm[Hg] Rui Grider MD Work Phone: [facility] 04-11-2023 13:00-0500 Body temperature 98.29 [degF] Treatment Wstr Work Phone: [facility] 04-11-2023 13:00-0500 Diastolic blood pressure 66 mm[Hg] Treatment Wstr Work Phone: [facility] 04-11-2023 13:00-0500 Heart rate 90 /min Treatment Wstr Work Phone: [facility] 04-11-2023 13:00-0500 Systolic blood pressure 145 mm[Hg] Treatment Wstr Work Phone: [facility] 03-30-2023 14:30-0400 Body temperature 98.91 [degF] Treatment Wstr Work Phone: [facility] 03-30-2023 14:30-0400 Diastolic blood pressure 84 mm[Hg] Treatment Wstr Work Phone: [facility] 03-30-2023 14:30-0400 Heart rate 89 /min Treatment Wstr Work Phone: [facility] 03-30-2023 14:30-0400 SaO2% (BldA) [Mass fraction] 95 % Treatment Wstr Work Phone: [facility] 03-30-2023 14:30-0400 Systolic blood pressure 126 mm[Hg] Treatment Wstr Work Phone: [facility] 02-23-2023 15:16-0400 Body height 165 cm Rui Grider MD Work Phone: [facility] 02-23-2023 15:16-0400 Body temperature 98.4 [degF] Rui Grider MD Work Phone: [facility] 02-23-2023 15:16-0400 Body weight 108.86 kg Rui Grider MD Work Phone: [facility] 02-23-2023 15:16-0400 Diastolic blood pressure 75 mm[Hg] Rui Grider MD Work Phone: [facility] 02-23-2023 15:16-0400 Heart rate 83 /min Rui Grider MD Work Phone: [facility] 02-23-2023 15:16-0400 SaO2% (BldA) [Mass fraction] 93 % Rui Grider MD Work Phone: [facility] 02-23-2023 15:16-0400 Systolic blood pressure 113 mm[Hg] Rui Grider MD Work Phone: [facility] 04-08-2022 14:54-0400 Body temperature 97.34 [degF] LITA SCALES MD [facility] 04-08-2022 14:54-0400 Diastolic blood pressure 74 mm[Hg] LITA SCALES MD [address] [place] [id number] 04-08-2022 14:54-0400 Heart rate 75 /min LITA SCALES MD [address] [place] [id number] 04-08-2022 14:54-0400 Respiratory rate 20 /min LITA SCALES MD [address] [place] [id number] 04-08-2022 14:54-0400 Systolic blood pressure 116 mm[Hg] LITA SCALES MD [address] [place] [id number] 04-08-2022 11:20-0400 Heart rate 95 /min LITA SCALES MD [address] [place] [id number] 04-08-2022 11:20-0400 Respiratory rate 20 /min LITA SCALES MD [address] [place] [id number] 04-08-2022 11:01-0400 Body temperature 97.88 [degF] LITA SCALES MD [address] [place] [id number] 04-08-2022 11:01-0400 Diastolic blood pressure 76 mm[Hg] LITA SCALES MD [address] [place] [id number] 04-08-2022 11:01-0400 Heart rate 95 /min LITA SCALES MD [address] [place] [id number] 04-08-2022 11:01-0400 Mean blood pressure 101 mm[Hg] LITA SCALES MD [address] [place] [id number] 04-08-2022 11:01-0400 Reason For Taking VItal Signs LITA SCALES MD [address] [place] [id number] 04-08-2022 11:01-0400 Respiratory rate 20 /min LITA SCALES MD [address] [place] [id number] 04-08-2022 11:01-0400 Systolic blood pressure 152 mm[Hg] LITA SCALES MD [address] [place] [id number] 11-05-2022 10:52-0400 Heart rate 95 /min LITA SCALES MD [address] [place] [id number] 04-08-2022 10:46-0400 Heart rate 98 /min LITA SCALES MD [address] [place] [id number] 04-08-2022 10:46-0400 Reason For Taking VItal Signs LITA SCALES MD [address] [place] [id number] 04-08-2022 06:48-0400 Heart rate 94 /min LITA SCALES MD [address] [place] [id number] 04-08-2022 05:44-0400 Body temperature 97.7 [degF] LITA SCALES MD [address] [place] [id number] 04-08-2022 05:44-0400 diastolic 94 mm[Hg] LITA SCALES MD [address] [place] [id number] 04-08-2022 05:44-0400 Diastolic blood pressure 80 mm[Hg] LITA SCALES MD [address] [place] [id number] 04-08-2022 05:44-0400 Mean blood pressure 127 mm[Hg] LITA SCALES MD [address] [place] [id number] 04-08-2022 05:44-0400 Mean blood pressure 103 mm[Hg] LITA SCALES MD [address] [place] [id number] 04-08-2022 05:44-0400 Reason For Taking VItal Signs LITA SCALES MD [address] [place] [id number] 04-08-2022 05:44-0400 systolic 195 mm[Hg] LITA SCALES MD [address] [place] [id number] 04-08-2022 05:44-0400 Systolic blood pressure 148 mm[Hg] LITA SCALES MD [address] [place] [id number] 04-08-2022 04:36-0400 Diastolic Blood Pressure NBP 62 1 LITA SCALES MD [address] [place] [id number] 04-08-2022 04:36-0400 Systolic Blood Pressure NBP 158 1 LITA SCALES MD [facility] 04-07-2022 23:29-0400 Heart rate 74 /min LITA SCALES MD [facility] 04-07-2022 23:14-0400 Diastolic Blood Pressure NBP 54 1 LITA SCALES MD [facility] 04-07-2022 23:14-0400 Systolic Blood Pressure NBP 152 1 LITA SCALES MD [address] 04-07-2022 19:05-0400 Body height 165.1 cm LITA SCALES MD [facility] 04-07-2022 19:05-0400 Body weight 105.7 kg LITA SCALES MD [facility] 04-07-2022 19:05-0400 Body weight 38.78 kg/m2 LITA SCALES MD [facility] Encounters Encounter Date Encounter Type Care Provider Facility Start: 01-19-2025 ambulatory MEMO PLAZA [facility] Start: 01-17-2025 End: 01-17-2025 [facility] Start: 01-15-2025 End: 01-23-2025 Telephone encounter Anne-Marie Alberto Work Phone: Hematology/Oncology Comment on above: Patient Question Start: 12-26-2024 End: 12-26-2024 ambulatory CARTER PANCHAL [facility] Start: 11-18-2024 End: 11-18-2024 ambulatory MEMO PLAZA [facility] Start: 11-14-2024 End: 11-14-2024 ambulatory APOLONIA CRAVEN Facility:[facility] Start: 10-30-2024 End: 10-30-2024 ambulatory APOLONIA STOREY [facility] Start: 10-27-2024 End: 10-27-2024 Emergency department patient visit APRIL DO COOKIE [facility] Start: 10-24-2024 ambulatory APOLONIA STOREY [facility] Start: 10-17-2024 End: 10-17-2024 Emergency department patient visit APOLONIA STOREY [facility] Start: 10-03-2024 ambulatory Monico Babb Facility :[facility] Start: 10-02-2024 End: 10-02-2024 Emergency department patient visit APOLONIA STOREY [facility] Start: 09-30-2024 End: 09-30-2024 ambulatory APOLONIA STOREY [facility] Start: 09-29-[address] APOLONIA WATSON MD Facility:A Start: 09-26-2024 End: 09-26-[address] APOLONIA CRAVEN MD Facility:[facility] Start: 09-26-2024 End: 09-26-[address] APOLONIA CRAVEN MD Facility:[facility] Start: 09-26-2024 End: 09-26-2024 Patient encounter procedure PJ LAYNE [facility] Start: 09-24-2024 End: 09-24-2024 Emergency department patient visit APOLONIA STOREY [facility] Start: 09-24-2024 End: 09-24-2024 ambulatory MEMO PLAZA [facility] Start: 09-23-2024 End: 09-23-2024 ambulatory Monico Babb Facility:[facility] Start: 09-04-2024 End: 09-04-2024 Emergency department patient visit APOLONIA STOREY [facility] Start: 09-02-2024 End: 09-03-2024 Telephone encounter Rui Grider MD Work Phone: Hematology/Oncology Comment on above: Appointment Start: 08-29-2024 End: 08-29-2024 ambulatory Treatment Rm 15 [facility] Work Phone: Hematology/Oncology Comment on above: Gastroesophageal ref lux disease with esophagitis, unspecified whether hemorrhage (Primary Dx); Adverse effect of iron, subsequent encounter; Iron deficiency anemia due to chronic blood loss; Iron malabsorption; Irritable bowel syndrome with diarrhea; Jejunal AV malformation Start: 08-26-2024 End: 08-26-2024 ambulatory APOLONIA STOREY [facility] Start: 08-22-2024 End: 08-22-2024 ambulatory Treatment Rm 15 [facility] Work Phone: Hematology/Oncology Comment on above: Gastroesophageal ref lux disease with esophagitis, unspecified whether hemorrhage (Primary Dx); Adverse effect of iron, subsequent encounter; Iron deficiency anemia due to chronic blood loss; Iron malabsorption; Irritable bowel syndrome with diarrhea; Jejunal AV malformation Start: 08-15-2024 End: 08-15-2024 ambulatory Treatment 14 [facility] Work Phone: Hematology/Oncology Comment on above: Gastroesophageal ref lux disease with esophagitis, unspecified whether hemorrhage (Primary Dx); Adverse effect of iron, subsequent encounter; Iron deficiency anemia due to chronic blood loss; Iron malabsorption; Irritable bowel syndrome with diarrhea; Jejunal AV malformation Start: 08-05-2024 End: 08-05-[address] APOLONIA CRAVEN MD Facility:[facility] Start: 08-04-2024 End: 08-04-2024 ambulatory Treatment 17 [facility] Work Phone: Hematology/Oncology Comment on above: Gastroesophageal ref lux disease with esophagitis, unspecified whether hemorrhage (Primary Dx); Adverse effect of iron, subsequent encounter; Iron deficiency anemia due to chronic blood loss; Iron malabsorption; Irritable bowel syndrome with diarrhea; Jejunal AV malformation Start: 07-22-2024 End: 07-25-2024 Telephone encounter Rui Grider MD Work Phone: Hematology/Oncology Comment on above: Appointment Start: 07-03-2024 End: 07-04-2024 ambulatory APOLONIA ANDREWSNick [facility] Start: 07-02-2024 End: 07-02-2024 [facility] Start: 05-13-2024 ambulatory MEMO PLAZA [facility] Start: 04-13-2024 End: 04-13-2024 Emergency department patient visit Jos Westfall Facility:[facility] Start: 04-10-2024 ambulatory TATA BOWIE Facility:[facility] Start: 04-10-2024 End: 04-10-2024 Subsequent hospital visit by physician Tata Bowie MD Work Phone: [facility] Comment on above: Small bowel bleed no t requiring more than 4 units of blood in 24 hours, ICU, or surgery [K92.2] Start: 04-07-2024 End: 04-07-2024 ambulatory KELVIN CAMPBELL [facility] Start: 04-04-2024 End: 04-04-2024 ambulatory ANNE-MARIE ALBERTO Hematology/Oncology Comment on above: Gastroesophageal ref lux disease with esophagitis, unspecified whether hemorrhage (Primary Dx); Adverse effect of iron, subsequent encounter; Iron deficiency anemia due to chronic blood loss; Iron malabsorption; Irritable bowel syndrome with diarrhea; Jejunal AV malformation Start: 04-04-2024 End: 04-04-2024 Patient encounter procedure Treatment Rm 16 J[facility] Work Phone: Hematology/Oncology Start: 04-04-2024 End: 04-04-2024 ambulatory CHRISTA COTTRELL Facility:[facility] Start: 04-02-2024 End: 04-02-2024 Orders Only Kelvin Campbell MD Work Phone: [facility] Comment on above: Small bowel bleed no t requiring more than 4 units of blood in 24 hours, ICU, or surgery (Primary Dx); Arteriovenous malformation of gastrointestinal tract; Abnormal findings on examination of gastrointestinal tract; Blood in stool Start: 04-02-2024 End: 04-02-2024 Preprocedural examination done Kelvin Campbell MD Work Phone: [facility] Start: 03-27-2024 End: 03-27-2024 Telephone encounter Rissa Person RN Gastroenterology Comment on above: Appointment Start: 03-20-2024 End: 03-20-2024 ambulatory APOLONIA CRAVEN [facility] Start: 03-18-2024 End: 03-24-2024 Telephone encounter Rui Grider MD Work Phone: Hematology/Oncology Comment on above: Appointment Start: 03-13-2024 End: 03-13-2024 [facility] Start: 03-10-2024 End: 03-10-2024 ambulatory MEMO PLAZA [facility] Start: 02-28-2024 End: 02-28-2024 [facility] Start: 02-18-2024 End: 02-18-2024 Telephone encounter Monico Potts MD Work Phone: Gastroenterology Comment on above: Patient Question Start: 02-14-2024 End: 02-14-2024 ambulatory APOLONIA STOREY [facility] Start: 02-05-2024 End: 02-05-2024 ambulatory APOLONIA STOREY [facility] Start: 01-16-2024 End: 01-16-2024 ambulatory [facility] Facility:[facility] Start: 11-28-2023 End: 11-28-2023 ambulatory [facility] Facility:[facility] Start: 11-09-2023 End: 11-09-2023 ambulatory [facility] Facility:[facility] Start: 10-30-2023 End: 10-30-2023 Emergency department patient visit [facility] Facility:[facility] Start: 09-14-2023 ambulatory JARED ROWLAND Facil ity:[id number] Start: 09-14-2023 End: 09-14-2023 Subsequent hospital visit by physician Alka Ignacio [place] [facility] Comment on above: Stenosis of carotid artery, unspecified laterality [I65.29] Start: 09-03-2023 Transcribe Orders Jared camacho MD Work Phone: [facility] Comment on above: Stenosis of carotid artery, unspecified laterality (Primary Dx) Start: 08-21-2023 Telephone encounter Rui rosario MD Work Phone: Hematology/Oncology Comment on above: Results Start: 08-03-2023 End: 08-03-2023 ambulatory Anne-Marie Alberto Work Phone: Hematology/Oncology Comment on above: Iron deficiency anem ia due to chronic blood loss (Primary Dx); Chronic obstructive pulmonary disease, unspecified COPD type (HCC); AVM (arteriovenous malformation) Start: 08-03-2023 End: 08-03-2023 Patient encounter procedure Anne-Marie Alberto Work Phone[facility] Start: 07-19-2023 End: 07-19-2023 Subsequent hospital visit by physician Ronnie Hoffmann MD Work Phone: Gastroenterology Comment on above: Iron deficiency anem ia, unspecified iron deficiency anemia type [D50.9] Start: 07-13-2023 Non-patient / Non-visit Dr. Rodney Craven Work Phone: [facility] Start: 07-13-2023 End: 07-13-[address] Apolonia Craven Work Phone: [facility] Work Phone: Start: 07-13-2023 End: 07-13-[address] [facility]olonia Craven [facility] Phone: Start: 07-12-2023 Telephone encounter Natacha Parks RNresearch worker encyclopedia Comment on above: Appointment Confirma tion (Pre-procedure instructions) Start: 07-06-2023 End: 07-06-[address] Apolonia Craven Work Phone: [facility] Work Phone: Start: 04-25-2023 End: 04-25-2023 ambulatory Rui Grider MD Work Phone: Hematology/Oncology Comment on above: Iron deficiency anem ia due to chronic blood loss (Primary Dx) Start: 04-25-2023 End: 04-25-2023 Patient encounter procedure Rui Grider MD Work Phone: [facility] Start: 04-11-2023 End: 04-11-2023 ambulatory Treatment Rm 5 [facility] Work Phone: Hematology/Oncology Comment on above: Iron malabsorption ( Primary Dx); Iron deficiency anemia due to chronic blood loss; Adverse effect of iron, subsequent encounter Start: 03-30-2023 End: 03-30-2023 ambulatory Treatment Rm 11 [facility] Work Phone: Hematology/Oncology Comment on above: Iron malabsorption ( Primary Dx); Iron deficiency anemia due to chronic blood loss; Adverse effect of iron, subsequent encounter Start: 03-27-2023 Telephone encounter Rui rosario MD Work Phone: Hematology/Oncology Comment on above: Appointment Start: 02-27-2023 Telephone encounter Rui rosario MD Work Phone: Hematology/Oncology Comment on above: Appointment Start: 02-26-2023 Telephone encounter Rui rosario MD Work Phone: Hematology/Oncology Comment on above: Orders Start: 02-23-2023 End: 02-23-2023 ambulatory Rui Grider MD Work Phone: Hematology/Oncology Comment on above: Iron deficiency anem ia due to chronic blood loss (Primary Dx) Start: 02-23-2023 End: 02-23-2023 Patient encounter procedure Rui Grider MD Work Phone: [facility] Start: 01-18-2023 End: 01-18-2023 ambulatory MONICO POTTS Facility:[facility] Start: 01-18-2023 End: 01-18-2023 ambulatory Boris Tomlinson CCC-RESEARCH ENVIRONMENTAL SCIENTIST Work Phone: [facility] Comment on above: Dysphagia, unspecifi ed type (Primary Dx) Start: 01-18-2023 End: 01-18-2023 Subsequent hospital visit by physician Gi/Gu 1 [facility] Work Phone: Radiology Comment on above: Oropharyngeal dyspha melchor [R13.12] Start: 08-23-2022 Telephone encounter Monico lobato MD Work Phone: Gastroenterology Comment on above: Patient Update Start: 06-02-2022 End: 06-02-2022 ambulatory [facility] Work Phone: Start: 06-02-2022 End: 06-02-2022 Patient encounter procedure [facility], [place] bi solutions architect Off Start: 04-07-2022 End: 04-08-2022 ambulatory MD LITA SCALES Facility:A Start: 04-07-2022 End: 04-08-2022 Observation LITA SCALES MD [facility] Start: 01-30-2022 Telephone encounter Holly Bowden MD Work Phone: Hematology/Oncology Comment on above: Patient Question Start: 01-24-2022 End: 01-24-2022 ambulatory [facility] Work Phone: Start: 01-24-2022 End: 01-24-2022 Patient encounter procedure [facility], [place] Start: 12-27-2021 End: 12-28-2021 ambulatory JARED ROWLAND MD Facility:A Start: 11-22-2021 Telephone encounter Holly Bowden MD Work Phone: Hematology/Oncology Comment on above: Results Start: 11-11-2021 ambulatory JARED ROWLAND MD Faci lity:A Start: 11-04-2021 Telephone encounter Holly Bowden MD Work Phone: Hematology/Oncology Comment on above: Orders Start: 10-28-2021 Telephone encounter Holly Bowden MD Work Phone: Hematology/Oncology Comment on above: Patient Update Start: 07-30-2018 End: 07-30-2018 [facility] encounter procedure [facility] Start: 07-03-2017 Ambulatory [facility] Facility: [facility] Start: 01-22-2017 Ambulatory PROVIDER UNKNOWN Facili ty:[facility] Procedures Date Procedure Procedure Detail Performing Clinician Start: 04-10-2024 Gluc bld gluc mntr d ev cleared fda spec home use Tata Bowie MD Work Phone: Start: 04-10-2024 Endoscopy upper smal l intestine Kelvin Campbell MD Work Phone: Start: 02-05-2024 Bone density scan BRADY CRAVEN Start: 09-14-2023 Duplex scan extracra nial art compl bi study Jared Rowland MD Work Phone: Start: 07-19-2023 Gluc bld gluc mntr d ev cleared fda spec home use Atif Snow APRN.COLLECT ON DELIVERY CLERK Work Phone: Start: 07-19-2023 Endoscopy upper smal l intestine Monico Potts MD Work Phone: Start: 07-06-[address] Apolonia Craven Work Phone: Start: 01-18-2023 Radiologic exam swal low function contrast study Monico Potts MD Work Phone: Start: 04-08-2022 Cardiovascular stres s testing PJ LAYNE PARADI TENDER-ANALOG IC DESIGN ENGINEER Start: 01-24-2022 Plain chest X-ray Start: 12-27-2021 Echocardiography PJ LAYNE PARADI TENDER-ANALOG IC DESIGN ENGINEER Start: 03-21-2018 Adult depression scr eening assessment Holly Bowden MD Work Phone: Start: 04-24-2017 Colonoscopy Holly Bowden MD Work Phone: Start: 03-07-2010 Cardiac catheterization LITA SCALES MD Appendectomy LITA AQUINO MD Arthroplasty of knee VICENTA SCALES MD Comment on above: R section LITA PRESSLEY MD Cholecystectomy LITA COOLEY MD Decompression of med mark nerve LITA SCALES MD Gallbladder structur e (body structure) LITA SCALES MD H/O: hysterectomy h/o hysterectomy Hernia repair LITA LOVE MD History of appendectomy h/o appendectomy Hysterectomy LITA AQUINO MD Reduction mammoplast y, bilateral LITA SCALES MD Repair of shoulder LITA SCALES MD Comment on above: bilateral Thyroidectomy LITA LOVE MD Tonsillectomy LITA LOVE MD Plan of Treatment Date Care Activity Detail Author Start: 04-04-2025 BP Controlled (<130/80) BP Controlled (<130/80) [facility] Start: 02-02-2025 Influenza vaccination Influenza Vaccine (#1) [facility] Start: 11-05-2024 End: 11-05-2024 ambulatory 11/05/2024 11:30 AM EDT Visit (SP) Office Hematology/Oncology [address] [place] [address] Anne-Marie Alberto [address] [place] [address] 8 WK OV/LABS 10/28* Hematology/Oncology Comment on above: 8 WK OV/LABS 10/28* Start: 10-28-2024 End: 10-28-2024 ambulatory 10/28/2024 3:00 PM EDT Results Only [facility] [address] [place] [address] CBC/IRON STUDIES* [facility] Comment on above: CBC/IRON STUDIES* Start: 10-28-2024 End: 01-27-2025 CBC W Auto Differential panel - Blood COMPLETE BLOOD COUNT AND DIFFERENTIAL Lab STAT Iron deficiency anemia due to chronic blood loss Expected: 10/28/2024 (Approximate), Expires: 01/27/2025 [facility] Work Phone: Comment on above: Expected: 10/28/2024 (Approximate), Expi res: 01/27/2025 Start: 10-28-2024 End: 01-27-2025 Ferritin [Mass/volume] in Serum or Plasma FERRITIN Lab Routine Iron deficiency anemia due to chronic blood loss Expected: 10/28/2024 (Approximate), Expires: 01/27/2025 [facility] Comment on above: Expected: 10/28/2024 (Approximate), Expi res: 01/27/2025 Start: 10-28-2024 End: 01-27-2025 Iron and Iron binding capacity panel - Serum or Plasma IRON AND TIBC Lab Routine Iron deficiency anemia due to chronic blood loss Expected: 10/28/2024 (Approximate), Expires: 01/27/2025 [facility] Comment on above: Expected: 10/28/2024 (Approximate), Expi res: 01/27/2025 Start: 08-29-2024 End: 08-29-2024 ambulatory 08/29/2024 3:00 PM EDT Infusion Center Hematology/Oncology [address] [place] [address] 2ND Hematology/Oncology Comment on above: 2ND Start: 08-25-2024 End: 08-25-2024 ambulatory 08/25/2024 3:30 PM EDT Infusion Center Hematology/Oncology [address] [place] [address] 2ND Hematology/Oncology Comment on above: 2ND Start: 08-22-2024 End: 08-22-2024 ambulatory 08/22/2024 3:00 PM EDT Infusion Center Hematology/Oncology [address] [place] [address] 2ND Hematology/Oncology Comment on above: 2ND Start: 08-18-2024 End: 08-18-2024 ambulatory 08/18/2024 3:00 PM EDT Infusion Center Hematology/Oncology [address] [place] [address] 2ND Hematology/Oncology Comment on above: 2ND Start: 08-11-2024 End: 08-11-2024 ambulatory 08/11/2024 3:00 PM EDT Infusion Center Hematology/Oncology [address] [place] [address] 2ND Hematology/Oncology Comment on above: 2ND Start: 08-04-2024 End: 08-04-2024 ambulatory 08/04/2024 3:30 PM EST [facility] Hematology/Oncology [address] [place] [address] 2ND Hematology/Oncology Comment on above: 2ND Start: 06-04-2024 Advance Directive Discussion Advance Directive Discussion [facility] Start: 06-04-2024 Medicare Advantage Annual Wellness Visit Medicare Advantage Annual Wellness Visit [facility] Start: 04-25-2024 BP Controlled (<130/80) BP Controlled (<130/80) [facility] Start: 04-17-2024 End: 04-17-2024 ambulatory Hematology/Oncology Comment on above: 2ND Start: 04-11-2024 End: 04-11-2024 ambulatory Hematology/Oncology Comment on above: 2ND Start: 04-10-2024 End: 04-10-2024 Patient encounter procedure 04/10/2024 10:30 AM EST Appointment [facility] [address] [place] [address] Tata Bowie MD [address] [place] [address] [facility] Start: 04-04-2024 End: 04-04-2024 ambulatory 04/04/2024 11:00 AM EDT Visit (SP) Office Hematology/Oncology [address] [place] [address] 2ND Hematology/Oncology Comment on above: 2ND Start: 04-03-2024 End: 04-03-2024 Patient encounter procedure 04/03/2024 9:00 AM EDT Appointment Gastroenterology [address] [place] [id number] Ronnie Hoffmann MD [address] [place] [id number] Small bowel bleed not requiring more than 4 units of blood in 24 hours, ICU, or ... Gastroenterology Comment on above: Small bowel bleed not requiring more manpreet n 4 units of blood in 24 hours, ICU, or ... Start: 04-02-2024 End: 07-02-2024 CBC W Auto Differential panel - Blood COMPLETE BLOOD COUNT AND DIFFERENTIAL Lab Routine Small bowel bleed not requiring more than 4 units of blood in 24 hours, ICU, or surgery Blood in stool Expected: 04/02/2024, Expires: 07/02/2024 [facility] Comment on above: Expected: 04/02/2024, Expires: Start: 03-28-2024 End: 03-28-2024 ambulatory 03/28/2024 2:00 PM EDT Visit (SP) Office Hematology/Oncology [address] [place], [place] [address] 2ND Hematology/Oncology Comment on above: 2ND Start: 02-24-2024 BP Controlled (<130/80) BP Controlled (<130/80) [facility] Start: 02-03-2024 Covid-19 Vaccine () Covid-19 Vaccine () [facility] Start: 02-03-2024 Covid-19 Vaccine () Covid-19 Vaccine () [facility] Start: 02-03-2024 Influenza vaccination [facility] Start: 07-25-2023 Hepatitis B screening URINE ALBUMIN:CREATININE RATIO [facility] Start: 07-25-2023 Hepatitis B surface antibody level LDL CHOLESTEROL [facility] Start: 06-29-2023 Hemoglobin A1c measurement HbA1C [facility] Start: 06-29-2023 Hemoglobin A1c/Hemoglobin.total in Blood HBA1C [facility] Start: 06-04-2023 Advance Directive Discussion Advance Directive Discussion [facility] Start: 06-04-2023 Behavioral Health Screening Behavioral Health Screening [facility] Start: 06-04-2023 Depression Assessment Depression Assessment [facility] Start: 04-06-2023 Shingrix Vaccine (2 of 2) Shingrix Vaccine (2 of 2) [facility] Start: 03-29-2023 Hepatitis B screening URINE ALBUMIN:CREATININE RATIO [facility] Start: 03-07-2023 End: 02-24-2024 Cobalamin (Vitamin B12) [Mass/volume] in Serum or Plasma VITAMIN B12 BLOOD Lab Routine Iron deficiency anemia due to chronic blood loss Expected: 03/07/2023 (Approximate), Expires: 02/24/2024 [facility] Work Phone: Comment on above: Expected: 03/07/2023 (Approximate), Expi res: 02/24/2024 Start: 03-07-2023 End: 02-24-2024 Ferritin [Mass/volume] in Serum or Plasma FERRITIN BLD Lab Routine Iron deficiency anemia due to chronic blood loss Expected: 03/07/2023 (Approximate), Expires: 02/24/2024 [facility] Work Phone: Comment on above: Expected: 03/07/2023 (Approximate), Expi res: 02/24/2024 Start: 03-07-2023 End: 02-24-2024 Iron and Iron binding capacity panel - Serum or Plasma IRON + TIBC Lab Routine Iron deficiency anemia due to chronic blood loss Expected: 03/07/2023 (Approximate), Expires: 02/24/2024 [facility] Work Phone: Comment on above: Expected: 03/07/2023 (Approximate), Expi res: 02/24/2024 Start: 02-02-2023 Covid-19 Vaccine () Covid-19 Vaccine () [facility] Start: 02-02-2023 Influenza vaccination [facility] Start: 01-22-2023 Hemoglobin A1c/Hemoglobin.total in Blood HBA1C [facility] Start: 09-27-2022 Hemoglobin A1c/Hemoglobin.total in Blood HBA1C [facility] Start: 08-10-2022 BP CONTROLLED (<130/80) BP CONTROLLED (<130/80) [facility] Start: 06-25-2022 Hemoglobin A1c/Hemoglobin.total in Blood HBA1C [facility] Start: 06-04-2022 ADVANCE DIRECTIVE DISCUSSION ADVANCE DIRECTIVE DISCUSSION [facility] Start: 06-04-2022 DEPRESSION ASSESSMENT DEPRESSION ASSESSMENT [facility] Start: 04-24-2022 Colonoscopy COLONOSCOPY [facility] Start: 04-24-2022 COLORECTAL CANCER SCREENING COLORECTAL CANCER SCREENING [facility] Start: 04-24-2022 Screening for malignant neoplasm of colon [facility] Start: 03-17-2022 Hemoglobin A1c/Hemoglobin.total in Blood HBA1C [facility] Start: 02-02-2022 Influenza vaccination INFLUENZA (#1) [facility] Start: 09-10-2021 COVID-19 VACCINE (4 - Booster for Pfizer series) COVID-19 VACCINE (4 - Booster for Pfizer series) [facility] Start: 07-07-2021 COVID-19 VACCINE (4 - Booster for Pfizer series) COVID-19 VACCINE (4 - Booster for Pfizer series) [facility] Start: 07-07-2021 COVID-19 VACCINE (4 - Pfizer series) COVID-19 VACCINE (4 - Pfizer series) [facility] Start: 06-04-2021 ADVANCE DIRECTIVE DISCUSSION ADVANCE DIRECTIVE DISCUSSION [facility] Start: 12-08-2019 BONE DENSITY BONE DENSITY [facility] Start: 12-08-2019 Bone Density Screening Bone Density Screening [facility] Start: 12-08-2019 Screening for osteoporosis Bone Density Screening [facility] Start: 03-21-2019 Adult depression screening assessment DEPRESSION SCREENING [facility] Start: 2014 Hepatitis B Vaccine (1 of 3 - Risk 3-dose series) Hepatitis B Vaccine (1 of 3 - Risk 3-dose series) [facility] Start: 2014 RSV Vaccine (1 - 1-dose 60+ series) RSV Vaccine (1 - 1-dose 60+ series) [facility] Start: 2004 Influenza vaccination LUNG CANCER SCREENING [facility] Start: 2004 Screening for malignant neoplasm of lung Lung Cancer Screening [facility] Start: 2004 SHINGRIX VACCINE (1 of 2) SHINGRIX VACCINE (1 of 2) [facility] Start: 12-08-1999 COLOGUARD (FIT-DNA) COLOGUARD (FIT-DNA) [facility] Start: 12-08-[address] COLONOGRAPHY [facility] Start: 12-08-1999 FECAL OCCULT BLOOD FECAL OCCULT BLOOD [facility] Start: 12-08-1999 Screening for malignant neoplasm of colon [facility] Start: 12-08-1999 SIGMOIDOSCOPY SIGMOIDOSCOPY [facility] Start: 1994 Mammography [facility] Start: 1994 Screening for malignant neoplasm of breast Mammogram Screening [facility] Start: 1984 Zoledronic acid therapy ALPHA-1 ANTITRYPSIN DEFICIENCY SCREENING [facility] Start: 1973 SHINGRIX VACCINE (1 of 2) SHINGRIX VACCINE (1 of 2) [facility] Start: 1973 Urine microalbumin profile [facility] Start: 1972 ANNUAL PCP TEAM CHRONIC DISEASE VISIT ANNUAL PCP TEAM CHRONIC DISEASE VISIT [facility] Start: 1972 Anxiety Screening Anxiety Screening [facility] Start: 1972 BP CONTROLLED (<130/80) BP CONTROLLED (<130/80) [facility] Start: 1972 Depression Screening Depression Screening [facility] Start: 1972 Hepatitis B surface antibody level LDL CHOLESTEROL [facility] Start: 1972 HEPATITIS C SCREENING HEPATITIS C SCREENING [facility] Start: 1972 Hepatitis C screening Hepatitis C Screening [facility] Start: 1972 SPIROMETRY SPIROMETRY [facility] Start: 1964 3 comp foot exam completed DIABETIC FOOT EXAM [facility] Start: 1964 Diabetic foot examination Diabetic Foot Exam [facility] Start: 1964 Glaucoma screening Dilated Retinal Exam [facility] Start: 1964 Hepatitis B screening URINE ALBUMIN:CREATININE RATIO [facility] Start: 1964 Hepatitis C antibody, confirmatory test DILATED RETINAL EXAM [facility] Start: 1964 Meningococcal B Vaccine (1 of 4 - Increased Risk) Meningococcal B Vaccine (1 of 4 - Increased Risk) [facility] Start: 1960 Pneumococcal Vaccine: 65+ (1 - PCV) Pneumococcal Vaccine: 65+ (1 - PCV) [facility] Start: 1960 PNEUMOCOCCAL: 65+ (1 - PCV) PNEUMOCOCCAL: 65+ (1 - PCV) [facility] Start: 1956 Meningococcal Conjugate Vaccine (1 - Risk 2-dose series) Meningococcal Conjugate Vaccine (1 - Risk 2-dose series) [facility] Start: 03-09-1956 Hib Vaccine (1 of 1 - Risk 1-dose series) Hib Vaccine (1 of 1 - Risk 1-dose series) [facility] End: 02-23-2024 CBC W Auto Differential panel - Blood CBC + DIFF Lab Routine Iron deficiency anemia due to chronic blood loss Once per week for 6 Occurrences starting 02/23/2023 until 02/23/2024 [facility] Work Phone: Comment on above: Once per week for 6 Occurrences starting 02/23/2023 until 02/23/2024 End: 04-24-2024 CBC W Auto Differential panel - Blood CBC + DIFF Lab Routine Iron deficiency anemia due to chronic blood loss Once per month for 12 Occurrences starting 04/25/2023 until 04/24/2024 [facility] Work Phone: Comment on above: Once per month for 12 Occurrences starti ng 04/25/2023 until 04/24/2024 End: 04-02-2025 ENTEROSCOPY ENTEROSCOPY Endoscopy Routine Small bowel bleed not requiring more than 4 units of blood in 24 hours, ICU, or surgery Arteriovenous malformation of gastrointestinal tract Abnormal findings on examination of gastrointestinal tract Blood in stool 1 Occurrences starting 04/02/2024 until 04/02/2025 [facility] Work Phone: Comment on above: 1 Occurrences starting 04/02/2024 until 04/02/2025 SURGICAL PATHOLOGY SURGICAL PATH OLOGY Lab Routine Small bowel bleed not requiring more than 4 units of blood in 24 hours, ICU, or surgery Arteriovenous malformation of gastrointestinal tract Abnormal findings on examination of gastrointestinal tract Blood in stool Release Upon Ordering for 1 Occurrences starting 04/10/2024 [facility] Work Phone: Comment on above: Release Upon Ordering for 1 Occurrences starting 04/10/2024 End: 09-02-2024 US Carotid arteries - bilateral US CAROTID ARTERIES [facility] Vascular Lab Routine Stenosis of carotid artery, unspecified laterality 1 Occurrences starting 09/03/2023 until 09/02/2024 [facility] Work Phone: Comment on above: 1 Occurrences starting 09/03/2023 until 09/02/2024 [facility] Immunizations Immunization Date Immunization Notes Care Provider Fa [facility] 03-03-2022 influenza virus vacc ine, unspecified formulation Rui Grider MD Work Phone: [facility] 08-18-2020 SARS-CoV-2 mRNA (tozinameran) vaccine LITA SCALES MD [facility] [place] Comment on above: Result Comment: 2nd Dose Given this Date 01-10-2011 pneumococcal polysaccharide vaccine, 23 valyudi SCALES MD [facility] Payers Date Payer Category Payer Medicare (Managed Care) GABRIELE RUEDA HMO [id number] 2023 Self-pay [id number] 2023 Medicare HUMANA MEDICARE HU[employer]NA GOLD PLUS [id number] 2023-Present [phone] [address] [address] [place] [address] O [id number] 2022 Private Health Insurance [facility] [id number] 2019 Unknown GABRIELE GAMBINO S AND [employer] O [id number] 2019-Present [phone] [address] [place] [address] O [id number] 2019 Unknown [id number] [id number]. [id number] 2019 Unknown [id number] 2017 Medicaid MEDICAID [facility] MEDICAID [id number] 2017-Present [phone] [address] [place] [address] Medicaid [id number] 2017 Medicaid [id number]. [id number]. [id number] 2017 Medicaid [id number] 2009 Private Health Insurance [id number] 1954 Unknown [id number] 2.16.840.1.376043.3.579.2. 627 1954 Unknown [id number] 2.16840.1.550269.3.579.2. 627 1954 Unknown [id number] 2.16.840.1.507564.3.579.2. 627 1954 Unknown [id number] 2.16.840.1.474978.3.579.2. 627 1954 Unknown [id number] 2.16840.1.125439.3.579.2. 627 1954 Unknown [id number] 2.16840.1.875029.3.579.2. 627 1954 Unknown [id number] 2.16.840.1.501586.3.579.2. 627 1954 Unknown [id number] 2.16.840.1.934163.3.579.2. 651 1954 Unknown [id number] 2.16.840.1.676477.3.579.2. 651 1954 Unknown [id number] 2.16.840.1.329635.3.579.2. 651 1954 Unknown [id number] 2.16.840.1.973328.3.579.2. 651 1954 Unknown [id number] 2.16.840.1.818443.3.579.2. 1954 Unknown [id number] 2.16.840.1.024919.3.579.2. 1954 Unknown [id number] 2.16.840.1.926197.3.579.2. 1954 Unknown [id number] 2.16.840.1.502904.3.579.2. 1954 Unknown [id number] 2.16.840.1.955423.3.579.2. 1954 Unknown [id number] 2.16.840.1.563933.3.579.2. 1954 Unknown [id number] 2.16.840.1.344508.3.579.2. 1954 Unknown [id number] 2.16.840.1.744951.3.579.2. 1954 Unknown [id number] 2.16.840.1.303709.3.579.2. 1954 Unknown [id number] 2.16.840.1.109778.3.579.2. 1954 Unknown [id number] 2.16.840.1.298198.3.579.2. 1954 Unknown [id number] 2.16.840.1.278956.3.579.2. 1954 Unknown [id number] 2.16.840.1.603798.3.579.2. 1954 Unknown [id number] 2.16.840.1.829454.3.579.2. 1954 Unknown [id number] 2.16.840.1.941753.3.579.2. 651 1954 Unknown [id number] 2.16.840.1.209913.3.579.2. 651 1954 Unknown [id number] 2.16.840.1.174365.3.579.2. 64 1954 Unknown [id number] 2.16.840.1.844584.3.579.2. 64 1954 Unknown [id number] 2.16.840.1.342950.3.579.2. 64 1954 Unknown [id number] 2.16.840.1.435463.3.579.2. 1954 Unknown [id number] 2.16.840.1.951709.3.579.2. 1954 Unknown [id number] 2.16.840.1.200463.3.579.2. 1954 Unknown [id number] 2.16.840.1.595076.3.579.2. 64 Medicare MEDICARE PART A B [id number] Unknown [id number] 2.16.840.1.452060.3.579.2. 462 Unknown [id number] 2.16.840.1.761426.3.579.2. 462 Unknown [id number] 2.16.840.1.403053.3.579.2. 462 Unknown [id number] 2.16.840.1.194638.3.579.2. 462 Unknown [id number] 2.16.840.1.115894.3.579.2. 462 Unknown [id number] 2.16.840.1.429619.3.579.2. 462 Unknown [id number] 2.16.840.1.148538.3.579.2. 462 Unknown [id number] 2.16.840.1.209071.3.579.2. 462 Social History Date Type Detail Facility Start: 04-12-2017 End: 08-10-2021 Tobacco smoking status NHIS Smokes tobacco daily [facility] History of tobacco use Cigarette Smoker C [facility] Start: 04-12-2017 End: 12-25-2022 Cigarettes smoked current (pack per day) - Reported 1.5 [facility] Start: 04-12-2017 End: 08-10-2021 Tobacco use and exposure Smokeless tobacco non-user [facility] Start: 08-10-2021 End: 04-10-2024 Alcohol intake Current non-drinker of alcohol (finding) [facility] Start: 1955 Sex Assigned At Not on file C [facility] Start: 10-29-2020 End: 10-29-2020 Tobacco smoking status NHIS Unknown if ever smoked [facility] Start: 01-23-2019 Cigarettes [facility] Start: 1955 Sex Assigned At Female A [facility] Start: 08-19-2020 End: 09-26-2024 Tobacco smoking status Heavy tobacco smoker (finding) [facility] Start: 08-10-2021 End: 12-25-2022 Tobacco use panel [facility] Start: 05-05-2012 Adult Depression Screening Assessment 5 [facility] Sexual Orientation [facility] [place] Start: 04-29-2019 Sex Female (finding) [facility] Functional Status Date Assessment Result Facility 04-08-2022 Functional Status Non-Slip footw ear, Room check performed [facility] 04-08-2022 Functional Status Setup [facility] 04-08-2022 Functional Status [facility] 04-08-2022 Functional Status [facility] 04-07-2022 Functional Status [facility] 04-07-2022 Functional Status Sensory Deficits None A [facility] Mental Status Date Assessment Result Facility 04-08-2022 Mental Status Orientation Oriented x 4 [facility] 04-08-2022 Mental Status [facility] 04-08-2022 Mental Status [facility] 04-08-2022 Mental Status [facility] Clinical Notes 11-01-2021 to 01-23-2025 Telephone Encounter - Angie Drummond LPN - 01/23/2025 8:31 AM EDTTelephone Encounter - Angie Drummond LPN - 01/23/2025 8:31 AM EDTTelephone Encounter - Anne-Marie Alberto - 01/22/2025 4:06 PM EDT Note Date & Type Note Facility 01-23-2025 Telephone encounter Note Spoke with pts. Daughter informed her mother should follow up with whoever is managing thyroid though. TSH is low and T4 is high, not sure what she is currently taking but her synthroid may need to be adjusted. No anemia, HGB is normal and continues to improve. Daughter voiced understanding. Angie Drummond LPN [facility] 01-23-2025 Miscellaneous Notes Spoke with pts. Daughter informed her mother should follow up with whoever is managing thyroid though. TSH is low and T4 is high, not sure what she is currently taking but her synthroid may need to be adjusted. No anemia, HGB is normal and continues to improve. Daughter voiced understanding. Angie Drummond LPN Left message for pt. To contact office concerning results. Angie Drummond LPN Her Hgb is normal 13.6 and has continued to improve. No anemia. She should follow up with whoever is managing thyroid though. TSH is low and T4 is high, not sure what she is currently taking but her synthroid may need to be adjusted. Anne-Marie Alberto APRN.ANALOG IC DESIGN ENGINEER Scanned. Erlinda Yanes LPN Contacted [facility] and requested lab results. They are faxing. Erlinda Yanes LPN Patient called stating Dr. Craven retired before providing blood results for her. Blood work was done at [facility] 2-3 weeks ago. Patient is asking if we can request the results and review them with her. Stating she knows she lost a lot of blood, feeling very tired, grumpy and pale. Please advise Lona Gonzalez documented in this encounter [facility] 01-23-2025 Telephone encounter Note Left message for pt. To contact office concerning results. Angie Drummond LPN [facility] 01-22-2025 Telephone encounter Note Her Hgb is normal 13.6 and has continued to improve. No anemia. She should follow up with whoever is managing thyroid though. TSH is low and T4 is high, not sure what she is currently taking but her synthroid may need to be adjusted. Anne-Marie Alberto APRN.ANALOG IC DESIGN ENGINEER [facility] Work Phone: 01-22-2025 Telephone encounter Note Scanned. Erlinda Yanes LPN [facility] 01-16-2025 Telephone encounter Note Contacted [facility] and requested lab results. They are faxing. Erlinda Yanes LPN [facility] 01-15-2025 Telephone encounter Note Patient called stating Dr. Craven retired before providing blood results for her. Blood work was done at [facility] 2-3 weeks ago. Patient is asking if we can request the results and review them with her. Stating she knows she lost a lot of blood, feeling very tired, grumpy and pale. Please advise Lona Gonzalez [facility] 09-03-2024 Telephone encounter Note Scheduled with patient [facility] Work Phone: 09-03-2024 Miscellaneous Notes Scheduled with patient She just completed IV iron series. Ferritin is high at 221. Hgb is normal. She does not need additional IV iron at this time. It was too soon to check her labs following IV iron administration. Repeat labs in 8 weeks with OV with following week. CBC, iron studies. Happy to speak with Dr. Craven's office if they have questions. Anne-Marie Alberto APRN.ANALOG IC DESIGN ENGINEER Anne-Marie- She just completed 4 doses of Iron on 08/29/24. Care everywhere has labs from 08/26 and 08/29/24. Milka Obregon, JEREMY Patient called stating her iron is down to 5 and PCP informed her to call office for infusions. Please advise. documented in this encounter [facility] 09-02-2024 Telephone encounter Note She just completed IV iron series. Ferritin is high at 221. Hgb is normal. She does not need additional IV iron at this time. It was too soon to check her labs following IV iron administration. Repeat labs in 8 weeks with OV with following week. CBC, iron studies. Happy to speak with Dr. Craven's office if they have questions. Anne-Marie Alberto APRN.ANALOG IC DESIGN ENGINEER [facility] 09-02-2024 Telephone encounter Note Anne-Marie- She just completed 4 doses of Iron on 08/29/24. Care everywhere has labs from 08/26 and 08/29/24. Milka Obregon RN [facility] Work Phone: 09-02-2024 Telephone encounter Note Patient called stating her iron is down to 5 and PCP informed her to call office for infusions. Please advise. [facility] 07-25-2024 Telephone encounter Note Scheduled remaining appointments. Start email sent [facility] Work Phone: 07-25-2024 Miscellaneous Notes Scheduled remaining appointments. Start email sent Pt should be scheduled for 4 doses. Labs were drawn at OSH by PCP. Anne-Marie Alberto APRN.ANALOG IC DESIGN ENGINEER Spoke with patient and scheduled 1 Iron appointment. Patient wanted to schedule 4 doses. Does patient need labs and OV? Please file new order as auth has now Please advise Please assist in rescheduling her IV iron, was scheduled in Apr and no showed. Erlinda Ynaes LPN Looks like she No Showed her 3 month OV in November with Dr. Ayon as well as the last series of IV iron that we scheduled based off of her labs in April. Her iron was very low in Mar if she has not received iron elsewhere she still needs IV iron. Does she want to come here or schedule elsewhere? Anne-Marie Alberto APRN.ANALOG IC DESIGN ENGINEER Called and left a VM at the PCP office asking for lab results. Does not have a follow up. Last apt here August 03 2023 AVS F/U in 3 months Erlinda Yanes LPN Patient called stating she had labs drawn at [place] and Dr. Craven informed her she needs iron. She states her number was at 3. documented in this encounter [facility] 07-25-2024 Telephone encounter Note Pt should be scheduled for 4 doses. Labs were drawn at OSH by PCP. Anne-Marie Alberto APRN.ANALOG IC DESIGN ENGINEER [facility] Work Phone: 07-24-2024 Telephone encounter Note Spoke with patient and scheduled 1 Iron appointment. Patient wanted to schedule 4 doses. Does patient need labs and OV? Please file new order as auth has now Please advise [facility] 07-24-2024 Telephone encounter Note Please assist in rescheduling her IV iron, was scheduled in Apr and no showed. Erlinda Yanes LPN [facility] 07-24-2024 Telephone encounter Note Looks like she No Showed her 3 month OV in November with Dr. Ayon as well as the last series of IV iron that we scheduled based off of her labs in April. Her iron was very low in Mar if she has not received iron elsewhere she still needs IV iron. Does she want to come here or schedule elsewhere? Anne-Marie Alberto APRN.ANALOG IC DESIGN ENGINEER [facility] 07-23-2024 Telephone encounter Note Called and left a VM at the PCP office asking for lab results. Does not have a follow up. Last apt here August 03 2023 AVS F/U in 3 months Erlinda Yanes LPN [facility] 07-22-2024 Telephone encounter Note Patient called stating she had labs drawn at [place] and Dr. Craven informed her she needs iron. She states her number was at 3. [facility] 04-10-[address] Bowie notified of pt c/o abd pain. Pt abd soft. Dr Reyna also notified and also notified of pulse ox. Order for fentanyl received and pt medicated. [facility] 04-10-[address] Bowie notified of pt c/o abd pain. Pt abd soft. Dr Reyna also notified and also notified of pulse ox. Order for fentanyl received and pt medicated. documented in this encounter [facility] 04-10-2024 History and physical note H&P completed 04/02/24 by Rivera Victor APRN.CNP. [facility] Work Phone: 04-10-2024 History and physical note H&P completed 04/02/24 by Rivera Victor APRN.CNP. documented in this encounter [facility] 04-02-2024 History and physical note HISTORY AND PHYSICAL EXAMINATION SERVICE DATE: 04/02/2024 SERVICE TIME: 1:03 PM PRIMARY CARE PHYSICIAN: Apolonia Craven MD REASON FOR VISIT: The reason for this visit is To perform a comprehensive review of the patients past medical history, assess their current health status and obtain any additional testing required based on anesthesia guidelines. To assess and identify potential anesthesia problems, particularly those that may suggest potential complications or contraindications to the planned procedure. The patient has the following: ACTIVE PROBLEM LIST Iron Deficiency Anemia Due to Chronic Blood Loss Gastroesophageal Reflux Disease Essential Hypertension Angina Pectoris Without Myocardial Infarction (Hcc) Controlled Type 2 Diabetes Mellitus Without Complication, Without Long-Term Current Use of Insulin (Hcc) Hyperlipidemia Irritable Bowel Syndrome With Diarrhea Intractable Migraine With Aura Without Status Migrainosus Iron Adverse Reaction Iron Deficiency Anemia Heavy Cigarette Smoker Iron Malabsorption Jejunal Av Malformation Thalassemia Pulmonary Emphysema (Hcc) Secondary Polycythemia Carotid Atherosclerosis Hypothyroidism Obesity Peripheral Vascular Disease (Hcc) Stenosis of Carotid Artery Small Bowel Bleed Not Requiring More Than 4 Units of Blood in 24 Hours, Icu, Or Surgery Pre-Op Examination Subjective CHIEF COMPLAINT: Preoperative Examination HPI: Patient present to [facility] for the above procedure. Patient here for routine Upper GI Endoscopy screening. Patient reports diarrhea, and blood in stool. Reports she had several EGDs prior. 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 Denies any abdominal pain. Patient denies any other problems at this time. Denies any family history of Colon cancer or other Gastric ca. Patient agreed to planned procedure. METS: Walk indoors, such as around the house (1.75 METs) Patient denies any CP/SOB with above activity. PAST MEDICAL HISTORY Diagnosis Date Anemia Angina at rest (HCC) pt denies at this time Anxiety Asthma COPD (chronic obstructive pulmonary disease) (HCC) Degenerative disc disease, lumbar Depression Diabetes (HCC) Fibromyalgia GERD (gastroesophageal reflux disease) History of transfusion Hypertension Hypothyroid IBS (irritable bowel syndrome) diarrhea predominant Mental disorder anxiety Migraines Migraines Neuropathy Presacral mass Snoring PAST SURGICAL HISTORY Procedure Laterality Date ANKLE SURGERY HX right ankle positive hardware APPENDECTOMY HX BREAST REDUCTION CARPAL TUNNEL right and left wrist surgery SECTION HX CHOLECYSTECTOMY HX COLONOSCOPY & POLYPECTOMY 2015 [place] -benign polyp COLONOSCOPY FLX DX W/COLLJ SPEC WHEN PFRMD 04/24/2017 Colonoscopy ESOPHAGOGASTRODUODENOSCOPY TRANSORAL DIAGNOSTIC 04/24/2017 EGD F EGD WITH DILATATION ESOPHAGEAL in [place] FOOT SURGERY HX left foot HERNIA REPAIR HX abdomen HYSTERECTOMY HYSTERECTOMY HX OTHER right and left shoulder surgery OTHER 5 goiters removed PAST SURGICAL HISTORY OF cardiac cath THYROIDECTOMY TOTAL/COMPLETE TONSILLECTOMY AND ADENOIDECTOMY HX TOTAL KNEE REPLACEMENT right knee FAMILY HISTORY Problem Relation Age of Onset other (bleeding liver) Mother COPD Father other (sarcoidosis) Sister Heart Brother Hypertension Brother Stroke Sister Hypertension Sister SOCIAL HISTORY: Social History Tobacco Use Smoking status: Every Day Current packs/day: 1.50 Average packs/day: 1.5 packs/day for 50.0 years (75.0 ttl pk-yrs) Types: Cigarettes Smokeless tobacco: Never Vaping Use Vaping status: Never Used Substance Use Topics Alcohol use: No Drug use: No Prior to Admission medications as of 04/02/24 1318 Medication Sig Last Dose Taking HYDROcodone-Acetaminophen (NORCO) 7.5-325 mg per tablet Take 1 tablet by mouth every 8 hours as needed for pain. 04/01/2024 Yes bumetanide (BUMEX) 1 mg tablet Take 1 mg by mouth two times a day. 04/01/2024 Yes dilTIAZem CD (CARTIA XT) 120 mg 24 hr capsule Take 120 mg by mouth once daily. 04/02/2024 at 0830 Yes busPIRone (BUSPAR) 10 mg tablet Take 10 mg by mouth two times a day. 04/01/2024 Yes folic acid 1 mg tablet Take 1 mg by mouth once daily. 03/31/2024 Yes gabapentin (NEURONTIN) 300 mg capsule Take 300 mg by mouth two times a day. 04/01/2024 Yes levothyroxine (SYNTHROID) 300 mcg tablet Take 300 mcg by mouth once daily. 04/02/2024 at 0830 Yes etuwbwdazav-cuxyqgcrh-fbtiyrbd (TRELEGY ELLIPTA) 100-62.5-25 mcg inhalation powder Take by mouth DAILY (6 AM). 04/02/2024 at 0830 Yes ferrous sulfate (IRON) 325 mg (65 mg iron) tablet Take 1 tablet by mouth twice daily. 04/01/2024 Yes nateglinide (STARLIX) 60 mg tablet Take 60 mg by mouth three times a day before meals. 04/01/2024 Yes ipratropium (ATROVENT) 0.02 % nebulizer solution Use 0.5 mg via nebulizer four times daily. PRN Yes calcium carbonate (CALCIUM 600 ORAL) Take 1 tablet by mouth two times a day. 03/31/2024 Yes SUMAtriptan (IMITREX) 25 mg tablet Take 25 mg by mouth as needed for Migraine Headache (see administration instructions). Yes alirocumab (PRALUENT PEN) 75 mg/mL Inject 75 mg subcutaneously every other week. Yes magnesium oxide 400 mg magnesium tab Take by mouth once daily. 04/01/2024 Yes metoprolol succinate ER (TOPROL XL) 25 mg 24 hr tablet Take 25 mg by mouth twice daily. 04/02/2024 at 9830 Yes isosorbide mononitrate ER (IMDUR) 30 mg 24 hr tablet Take 30 mg by mouth once daily. 04/02/2024 at 0830 Yes potassium chloride 20 mEq TbER Take 1 tablet by mouth once daily. 04/01/2024 Yes fluticasone (FLONASE) 50 mcg/actuation nasal spray Use 1 [place] in each nostril once daily. Yes FAMOTIDINE ORAL Take by mouth. Patient not taking: Reported on 04/02/2024 Not Taking traZODone (DESYREL) 100 mg tablet Take 100 mg by mouth daily at bedtime. Patient not taking: Reported on 04/02/2024 Not Taking predniSONE (DELTASONE) 10 mg tablet Take 10 mg by mouth once daily. HYDROcodone-acetaminophen (NORCO) 5-325 mg per tablet Take 1 tablet by mouth every 8 hours as needed. cyclobenzaprine (FLEXERIL) 10 mg tablet Take 10 mg by mouth three times daily as needed. levothyroxine (SYNTHROID) 175 mcg tablet Take 175 mcg by mouth every other day. Patient not taking: Reported on 02/23/2023 levothyroxine (SYNTHROID) 200 mcg tablet Take 250 mcg by mouth every other day. albuterol (PROVENTIL) 2.5 mg /3 mL (0.083 %) nebulizer solution Use 3 mL via nebulizer every 6 hours as needed for wheezing/shortness of breath. OVER 5-15 MINUTES. FOR WHEEZING AND SHORTNESS OF BREATH. tiZANidine (ZANAFLEX) 4 mg tablet Take 4 mg by mouth every 8 hours as needed. omeprazole (PRILOSEC) 40 mg capsule TAKE 1 CAPSULE BY MOUTH TWICE DAILY. TAKE 30 MINUTES BEFORE BREAKFAST AND DINNER Patient taking differently: Take 40 mg by mouth once daily. 03/29/2024 mirtazapine (REMERON) 15 mg tablet Take 15 mg by mouth daily at bedtime. QUEtiapine (SEROQUEL) 100 mg tablet Take 100 mg by mouth daily at bedtime. clonazePAM orally disintegrating (KLONOPIN WAFER) 0.25 mg disintegrating tablet Take 0.5 mg by mouth twice daily as needed. cholecalciferol (VITAMIN D-3) 5,000 unit tab Take 5,000 Units by mouth once daily. DULoxetine (CYMBALTA) 60 mg capsule Take 60 mg by mouth twice daily. tiotropium bromide (SPIRIVA RESPIMAT) 1.25 mcg/actuation mist Inhale 1 Puff as instructed once daily. Patient not taking: Reported on 02/23/[address] (DEPAKOTE) 250 mg EC tablet Take 250 mg by mouth once daily. dicyclomine (BENTYL) 20 mg tablet Take 20 mg by mouth every 6 hours. escitalopram oxalate (LEXAPRO) 20 mg tablet Take 20 mg by mouth once daily. pyridoxine HCl, vitamin B6, (VITAMIN B-6 ORAL) Take 1 tablet by mouth once daily. CYANOCOBALAMIN, VITAMIN B-12, (VITAMIN B-12 ORAL) Take 1,000 mg by mouth once daily. NITROGLYCERIN (NITROSTAT SUBLINGUAL) Dissolve under the tongue as needed. furosemide (LASIX) 20 mg tablet Take 20 mg by mouth every Sunday,Sunday,Sunday. No medication comments found. ALLERGIES Allergen Reactions Adhesive Other: See Comments Blisters skin Ambien [Zolpidem Ta* Other: See Comments Codeine Other: See Comments Seizure as a child Demerol [Meperidine] Itching Latex, Natural Rubb* Other: See Comments blisters Nsaids (Non-Steroid* GI Upset Has had GI bleed Sulfa (Sulfonamide * Itching Tramadol Itching COMPLETE REVIEW OF SYSTEMS: PAIN ASSESSMENT: Pain Pain Level: 0 Pain Assessment: Assessment Tool: Verbal (Numeric Rating or Visual Analog Scale) General: No weight loss, malaise or fevers. Neuro: No neurological symptoms or problems; no hx of seizure or stroke, + migraines Respiratory: No history of current cough, wheezing, dyspnea, or recent pneumonia; no hx of asthma, +COPD, + smoker, no ALEX Cardiovascular: + HTN requiring medication, + history of chest pain, no palpitations, CHF, [place], cardiac surgery or stents, + carotid atherosclerosis, + PVD, + hx of angina GI: see HPI : No history of dysuria, frequency or incontinence, stones or chronic kidney disease Endocrine: + Diabetes, +thyroid disease Hematology: No history of bleeding or clotting disorder. + anemia Oncology: No history of oncological symptoms or problems. Psych: No history of psychiatric symptoms or problems. Musculoskeletal: Negative for joint pain or swelling, back pain or muscle pain. Skin: Negative for lesions, rash and itching. Objective PHYSICAL EXAM: MENTAL STATUS: alert, oriented to person, place and time HEENT: Normocephalic/atraumatic, pharynx clear LUNGS: CTA, no wheezing CARDIAC: RRR, no murmur ABDOMEN: Abdomen soft, non-tender, BS normal, No masses or organomegaly EXTREMITIES: 2+ pedal pulses, no pedal edema 04/02/24 1254 BP: 128/60 Pulse: 77 Resp: 20 Temp: 36 C (96.8 F) TempSrc: Temporal Artery SpO2: 96% Weight: 100.7 kg (222 lb) Height: 165.1 cm (5' 5) Body mass index is 36.94 kg/m . Patient has the following medical conditions which may affect franky-operative course Problem List Items Addressed This Visit Unprioritized Carotid atherosclerosis - Primary Overview Comment on above: Last ABIs on 03/14/2010 demonstrated a ileq-ln-hmkkgdje obstructive disease. Current Assessment & Plan US 09/14/23 RIGHT SIDE Internal carotid artery: 20-39% stenosis. Vertebral artery: Patent and antegrade flow noted. LEFT SIDE Internal carotid artery: 60-79% stenosis. Vertebral artery: Patent and antegrade flow noted. Controlled type 2 diabetes mellitus without complication, without long-term current use of insulin ([facility]) Current Assessment & Plan On Starlix 03/13/24 - 7% Essential hypertension Current Assessment & Plan Stable on bumex, diltiazem, metoprolol , imdur Follows by [facility] Gastroesophageal reflux disease Current Assessment & Plan EGD today Heavy cigarette smoker Current Assessment & Plan Daily 1.5 ppd smoker x 50 + years Hypothyroidism Current Assessment & Plan Stable on synthroid Intractable migraine with aura without status migrainosus Current Assessment & Plan Reports haven't had one in several months Iron deficiency anemia Current Assessment & Plan 03/13/24 H&H = 13.0/39.6 Iron - 13 TIBC - 421 Ferritin - 19 %Saturation - 3 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 Current Assessment & Plan Reports had KATHERINE that demonstrated moderate obstructive ds Pre-op examination Current Assessment & Plan Medical conditions which may affect the perioperative course were address in today's visit. Pulmonary emphysema (HCC) Current Assessment & Plan On Albuterol, Spiriva, Trelegy Pt uses rescue inhaler as needed - maybe once a month. Denies hospitalization or pneumonia in the last 6 months. Instructed to use inhaler as prescribed and bring DOS. Small bowel bleed not requiring more than 4 units of blood in 24 hours, ICU, or surgery Current Assessment & Plan EGD today Relevant Orders EGD DIAGNOSTIC Diagnosis: Small bowel bleed not requiring more than 4 units of blood in 24 hours, ICU, or surgery [K92.2] Planned Procedure: EGD The Following Tests/Procedures Have Been Initiated: IV start and Maintenance fluid for the procedure. ANESTHESIA FINDINGS: Significant Anesthesia Considerations: None FAMILY PROBLEMS WITH ANESTHESIA: no history of adverse anesthetic event Planned Anesthetic: MAC I spent a total of 20 minutes on the date of the service which included preparing to see the patient, xfdo-sa-[id number] patient care, completing clinical documentation, and performing a medically appropriate examination. Instructions Given to Patient: Patient given verbal preop instructions and voices comprehension and compliance. SIGNATURE: Rivera Victor APRN.CNP PATIENT NAME: Jen Estrada DATE: April 02, 2024 TIME: 12:35 PM PAGER/CONTACT #: [facility] 04-02-2024 History and physical note HISTORY AND PHYSICAL EXAMINATION SERVICE DATE: 04/02/2024 SERVICE TIME: 1:03 PM PRIMARY CARE PHYSICIAN: Apolonia Craven MD REASON FOR VISIT: The reason for this visit is To perform a comprehensive review of the patients past medical history, assess their current health status and obtain any additional testing required based on anesthesia guidelines. To assess and identify potential anesthesia problems, particularly those that may suggest potential complications or contraindications to the planned procedure. The patient has the following: ACTIVE PROBLEM LIST Iron Deficiency Anemia Due to Chronic Blood Loss Gastroesophageal Reflux Disease Essential Hypertension Angina Pectoris Without Myocardial Infarction (Hcc) Controlled Type 2 Diabetes Mellitus Without Complication, Without Long-Term Current Use of Insulin (Hcc) Hyperlipidemia Irritable Bowel Syndrome With Diarrhea Intractable Migraine With Aura Without Status Migrainosus Iron Adverse Reaction Iron Deficiency Anemia Heavy Cigarette Smoker Iron Malabsorption Jejunal Av Malformation Thalassemia Pulmonary Emphysema (Hcc) Secondary Polycythemia Carotid Atherosclerosis Hypothyroidism Obesity Peripheral Vascular Disease (Hcc) Stenosis of Carotid Artery Small Bowel Bleed Not Requiring More Than 4 Units of Blood in 24 Hours, Icu, Or Surgery Pre-Op Examination Subjective CHIEF COMPLAINT: Preoperative Examination HPI: Patient present to [facility] for the above procedure. Patient here for routine Upper GI Endoscopy screening. Patient reports diarrhea, and blood in stool. Reports she had several EGDs prior. 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 Denies any abdominal pain. Patient denies any other problems at this time. Denies any family history of Colon cancer or other Gastric ca. Patient agreed to planned procedure. METS: Walk indoors, such as around the house (1.75 METs) Patient denies any CP/SOB with above activity. PAST MEDICAL HISTORY Diagnosis Date Anemia Angina at rest (HCC) pt denies at this time Anxiety Asthma COPD (chronic obstructive pulmonary disease) (HCC) Degenerative disc disease, lumbar Depression Diabetes (HCC) Fibromyalgia GERD (gastroesophageal reflux disease) History of transfusion Hypertension Hypothyroid IBS (irritable bowel syndrome) diarrhea predominant Mental disorder anxiety Migraines Migraines Neuropathy Presacral mass Snoring PAST SURGICAL HISTORY Procedure Laterality Date ANKLE SURGERY HX right ankle positive hardware APPENDECTOMY HX BREAST REDUCTION CARPAL TUNNEL right and left wrist surgery SECTION HX CHOLECYSTECTOMY HX COLONOSCOPY & POLYPECTOMY 2015 [place] -benign polyp COLONOSCOPY FLX DX W/COLLJ SPEC WHEN PFRMD 04/24/2017 Colonoscopy ESOPHAGOGASTRODUODENOSCOPY TRANSORAL DIAGNOSTIC 04/24/2017 EGD F EGD WITH DILATATION ESOPHAGEAL in [place] FOOT SURGERY HX left foot HERNIA REPAIR HX abdomen HYSTERECTOMY HYSTERECTOMY HX OTHER right and left shoulder surgery OTHER 5 goiters removed PAST SURGICAL HISTORY OF cardiac cath THYROIDECTOMY TOTAL/COMPLETE TONSILLECTOMY AND ADENOIDECTOMY HX TOTAL KNEE REPLACEMENT right knee FAMILY HISTORY Problem Relation Age of Onset other (bleeding liver) Mother COPD Father other (sarcoidosis) Sister Heart Brother Hypertension Brother Stroke Sister Hypertension Sister SOCIAL HISTORY: Social History Tobacco Use Smoking status: Every Day Current packs/day: 1.50 Average packs/day: 1.5 packs/day for 50.0 years (75.0 ttl pk-yrs) Types: Cigarettes Smokeless tobacco: Never Vaping Use Vaping status: Never Used Substance Use Topics Alcohol use: No Drug use: No Prior to Admission medications as of 04/02/24 1318 Medication Sig Last Dose Taking HYDROcodone-Acetaminophen (NORCO) 7.5-325 mg per tablet Take 1 tablet by mouth every 8 hours as needed for pain. 04/01/2024 Yes bumetanide (BUMEX) 1 mg tablet Take 1 mg by mouth two times a day. 04/01/2024 Yes dilTIAZem CD (CARTIA XT) 120 mg 24 hr capsule Take 120 mg by mouth once daily. 04/02/2024 at 0830 Yes busPIRone (BUSPAR) 10 mg tablet Take 10 mg by mouth two times a day. 04/01/2024 Yes folic acid 1 mg tablet Take 1 mg by mouth once daily. 03/31/2024 Yes gabapentin (NEURONTIN) 300 mg capsule Take 300 mg by mouth two times a day. 04/01/2024 Yes levothyroxine (SYNTHROID) 300 mcg tablet Take 300 mcg by mouth once daily. 04/02/2024 at 0830 Yes jnjluahdfqf-frbhdumlw-unbvxcov (TRELEGY ELLIPTA) 100-62.5-25 mcg inhalation powder Take by mouth DAILY (6 AM). 04/02/2024 at 0830 Yes ferrous sulfate (IRON) 325 mg (65 mg iron) tablet Take 1 tablet by mouth twice daily. 04/01/2024 Yes nateglinide (STARLIX) 60 mg tablet Take 60 mg by mouth three times a day before meals. 04/01/2024 Yes ipratropium (ATROVENT) 0.02 % nebulizer solution Use 0.5 mg via nebulizer four times daily. PRN Yes calcium carbonate (CALCIUM 600 ORAL) Take 1 tablet by mouth two times a day. 03/31/2024 Yes SUMAtriptan (IMITREX) 25 mg tablet Take 25 mg by mouth as needed for Migraine Headache (see administration instructions). Yes alirocumab (PRALUENT PEN) 75 mg/mL Inject 75 mg subcutaneously every other week. Yes magnesium oxide 400 mg magnesium tab Take by mouth once daily. 04/01/2024 Yes metoprolol succinate ER (TOPROL XL) 25 mg 24 hr tablet Take 25 mg by mouth twice daily. 04/02/2024 at 9830 Yes isosorbide mononitrate ER (IMDUR) 30 mg 24 hr tablet Take 30 mg by mouth once daily. 04/02/2024 at 0830 Yes potassium chloride 20 mEq TbER Take 1 tablet by mouth once daily. 04/01/2024 Yes fluticasone (FLONASE) 50 mcg/actuation nasal spray Use 1 [place] in each nostril once daily. Yes FAMOTIDINE ORAL Take by mouth. Patient not taking: Reported on 04/02/2024 Not Taking traZODone (DESYREL) 100 mg tablet Take 100 mg by mouth daily at bedtime. Patient not taking: Reported on 04/02/2024 Not Taking predniSONE (DELTASONE) 10 mg tablet Take 10 mg by mouth once daily. HYDROcodone-acetaminophen (NORCO) 5-325 mg per tablet Take 1 tablet by mouth every 8 hours as needed. cyclobenzaprine (FLEXERIL) 10 mg tablet Take 10 mg by mouth three times daily as needed. levothyroxine (SYNTHROID) 175 mcg tablet Take 175 mcg by mouth every other day. Patient not taking: Reported on 02/23/2023 levothyroxine (SYNTHROID) 200 mcg tablet Take 250 mcg by mouth every other day. albuterol (PROVENTIL) 2.5 mg /3 mL (0.083 %) nebulizer solution Use 3 mL via nebulizer every 6 hours as needed for wheezing/shortness of breath. OVER 5-15 MINUTES. FOR WHEEZING AND SHORTNESS OF BREATH. tiZANidine (ZANAFLEX) 4 mg tablet Take 4 mg by mouth every 8 hours as needed. omeprazole (PRILOSEC) 40 mg capsule TAKE 1 CAPSULE BY MOUTH TWICE DAILY. TAKE 30 MINUTES BEFORE BREAKFAST AND DINNER Patient taking differently: Take 40 mg by mouth once daily. 03/29/2024 mirtazapine (REMERON) 15 mg tablet Take 15 mg by mouth daily at bedtime. QUEtiapine (SEROQUEL) 100 mg tablet Take 100 mg by mouth daily at bedtime. clonazePAM orally disintegrating (KLONOPIN WAFER) 0.25 mg disintegrating tablet Take 0.5 mg by mouth twice daily as needed. cholecalciferol (VITAMIN D-3) 5,000 unit tab Take 5,000 Units by mouth once daily. DULoxetine (CYMBALTA) 60 mg capsule Take 60 mg by mouth twice daily. tiotropium bromide (SPIRIVA RESPIMAT) 1.25 mcg/actuation mist Inhale 1 Puff as instructed once daily. Patient not taking: Reported on 02/23/[address] (DEPAKOTE) 250 mg EC tablet Take 250 mg by mouth once daily. dicyclomine (BENTYL) 20 mg tablet Take 20 mg by mouth every 6 hours. escitalopram oxalate (LEXAPRO) 20 mg tablet Take 20 mg by mouth once daily. pyridoxine HCl, vitamin B6, (VITAMIN B-6 ORAL) Take 1 tablet by mouth once daily. CYANOCOBALAMIN, VITAMIN B-12, (VITAMIN B-12 ORAL) Take 1,000 mg by mouth once daily. NITROGLYCERIN (NITROSTAT SUBLINGUAL) Dissolve under the tongue as needed. furosemide (LASIX) 20 mg tablet Take 20 mg by mouth every Sunday,Sunday,Sunday. No medication comments found. ALLERGIES Allergen Reactions Adhesive Other: See Comments Blisters skin Ambien [Zolpidem Ta* Other: See Comments Codeine Other: See Comments Seizure as a child Demerol [Meperidine] Itching Latex, Natural Rubb* Other: See Comments blisters Nsaids (Non-Steroid* GI Upset Has had GI bleed Sulfa (Sulfonamide * Itching Tramadol Itching COMPLETE REVIEW OF SYSTEMS: PAIN ASSESSMENT: Pain Pain Level: 0 Pain Assessment: Assessment Tool: Verbal (Numeric Rating or Visual Analog Scale) General: No weight loss, malaise or fevers. Neuro: No neurological symptoms or problems; no hx of seizure or stroke, + migraines Respiratory: No history of current cough, wheezing, dyspnea, or recent pneumonia; no hx of asthma, +COPD, + smoker, no ALEX Cardiovascular: + HTN requiring medication, + history of chest pain, no palpitations, CHF, [place], cardiac surgery or stents, + carotid atherosclerosis, + PVD, + hx of angina GI: see HPI : No history of dysuria, frequency or incontinence, stones or chronic kidney disease Endocrine: + Diabetes, +thyroid disease Hematology: No history of bleeding or clotting disorder. + anemia Oncology: No history of oncological symptoms or problems. Psych: No history of psychiatric symptoms or problems. Musculoskeletal: Negative for joint pain or swelling, back pain or muscle pain. Skin: Negative for lesions, rash and itching. Objective PHYSICAL EXAM: MENTAL STATUS: alert, oriented to person, place and time HEENT: Normocephalic/atraumatic, pharynx clear LUNGS: CTA, no wheezing CARDIAC: RRR, no murmur ABDOMEN: Abdomen soft, non-tender, BS normal, No masses or organomegaly EXTREMITIES: 2+ pedal pulses, no pedal edema 04/02/24 1254 BP: 128/60 Pulse: 77 Resp: 20 Temp: 36 C (96.8 F) TempSrc: Temporal Artery SpO2: 96% Weight: 100.7 kg (222 lb) Height: 165.1 cm (5' 5) Body mass index is 36.94 kg/m . Patient has the following medical conditions which may affect franky-operative course Problem List Items Addressed This Visit Unprioritized Carotid atherosclerosis - Primary Overview Comment on above: Last ABIs on 03/14/2010 demonstrated a ngpc-eg-dbpfljog obstructive disease. Current Assessment & Plan US 09/14/23 RIGHT SIDE Internal carotid artery: 20-39% stenosis. Vertebral artery: Patent and antegrade flow noted. LEFT SIDE Internal carotid artery: 60-79% stenosis. Vertebral artery: Patent and antegrade flow noted. Controlled type 2 diabetes mellitus without complication, without long-term current use of insulin ([facility]) Current Assessment & Plan On Starlix 03/13/24 - 7% Essential hypertension Current Assessment & Plan Stable on bumex, diltiazem, metoprolol , imdur Follows by [place] [facility] Gastroesophageal reflux disease Current Assessment & Plan EGD today Heavy cigarette smoker Current Assessment & Plan Daily 1.5 ppd smoker x 50 + years Hypothyroidism Current Assessment & Plan Stable on synthroid Intractable migraine with aura without status migrainosus Current Assessment & Plan Reports haven't had one in several months Iron deficiency anemia Current Assessment & Plan 03/13/24 H&H = 13.0/39.6 Iron - 13 TIBC - 421 Ferritin - 19 %Saturation - 3 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 Current Assessment & Plan Reports had KATHERINE that demonstrated moderate obstructive ds Pre-op examination Current Assessment & Plan Medical conditions which may affect the perioperative course were address in today's visit. Pulmonary emphysema (HCC) Current Assessment & Plan On Albuterol, Spiriva, Trelegy Pt uses rescue inhaler as needed - maybe once a month. Denies hospitalization or pneumonia in the last 6 months. Instructed to use inhaler as prescribed and bring DOS. Small bowel bleed not requiring more than 4 units of blood in 24 hours, ICU, or surgery Current Assessment & Plan EGD today Relevant Orders EGD DIAGNOSTIC Diagnosis: Small bowel bleed not requiring more than 4 units of blood in 24 hours, ICU, or surgery [K92.2] Planned Procedure: EGD The Following Tests/Procedures Have Been Initiated: IV start and Maintenance fluid for the procedure. ANESTHESIA FINDINGS: Significant Anesthesia Considerations: None FAMILY PROBLEMS WITH ANESTHESIA: no history of adverse anesthetic event Planned Anesthetic: MAC I spent a total of 20 minutes on the date of the service which included preparing to see the patient, qffs-ox-tfrd patient care, completing clinical documentation, and performing a medically appropriate examination. Instructions Given to Patient: Patient given verbal preop instructions and voices comprehension and compliance. SIGNATURE: Rivera Victor APRN.CNP PATIENT NAME: Jen Estrada DATE: April 02, 2024 TIME: 12:35 PM PAGER/CONTACT #: documented in this encounter [facility] 03-27-2024 Telephone encounter Note Spoke with patient and patient today. Offered 04/02 appointment for EGD with Dr. Campbell at 2pm in [facility]. Patient accepted. No other questions. Susanne Wilde LPN [facility] Work Phone: 03-27-2024 Miscellaneous Notes Spoke with patient and patient today. Offered 04/02 appointment for EGD with Dr. Campbell at 2pm in [facility]. Patient accepted. No other questions. Susanne Wilde LPN documented in this encounter [facility] 03-27-2024 Telephone encounter Note GI Pre-Procedure Spoke with patient: Yes Confirmed date scheduled and patient report time: Yes Procedure Planned:Esophagogastroduodenoscop y(EGD) for control of bleeding,dilation(any means),imaging,tube placement Is the patient on blood thinners?no Procedure Instructions given to patient: Yes, and they verbalized their understanding of instructions given Patient instructed to take prescribed preparation prior to procedure:Yes, and they verbalized their understanding of instructions given Patient instructed to have family/friend present for procedure transport home:Patient/patient insurance claims representative was told that if they do not have a responsible adult accompany them to their procedure; and remain in the endoscopy area until they are discharged; that their procedure cannot be done with sedation or anesthesia and may be cancelled. and They verbalized their understanding and agree to have a responsible adult accompany the patient to their procedure and remain in the endoscopy area. Any barriers to Patient learning: Patient/Patient Bakelite Molder responded appropriately on phone. Type of instruction given: Verbal by telephone contact. Rissa Person RN [facility] 03-27-2024 Miscellaneous Notes GI Pre-Procedure Spoke with patient: Yes Confirmed date scheduled and patient report time: Yes Procedure Planned:Esophagogastroduodenoscop y(EGD) for control of bleeding,dilation(any means),imaging,tube placement Is the patient on blood thinners?no Procedure Instructions given to patient: Yes, and they verbalized their understanding of instructions given Patient instructed to take prescribed preparation prior to procedure:Yes, and they verbalized their understanding of instructions given Patient instructed to have family/friend present for procedure transport home:Patient/patient insurance claims representative was told that if they do not have a responsible adult accompany them to their procedure; and remain in the endoscopy area until they are discharged; that their procedure cannot be done with sedation or anesthesia and may be cancelled. and They verbalized their understanding and agree to have a responsible adult accompany the patient to their procedure and remain in the endoscopy area. Any barriers to Patient learning: Patient/Patient Bakelite Molder responded appropriately on phone. Type of instruction given: Verbal by telephone contact. Rissa Person RN documented in this encounter [facility] 03-24-2024 Note . MICRO - Microbiology PROCEDURE: Shiga Toxins 1 and 2 [[id number]: [id number] ^1 *1] SOURCE: Stool BODY SITE: COLLECTED DATE/TIME: 03/21/2024 16:04 EDT RECEIVED DATE/TIME: 03/21/2024 16:04 EDT START DATE/TIME: 03/21/2024 16:04 EDT FREE TEXT SOURCE: FINAL REPORTS Final Report [] Verified Date/Time/Personnel: 03/24/2024 14:40 EDT Absence of Shiga toxin 1 Absence of Shiga toxin 2 Order Comments O1: Shiga Toxins 1 and 2 ordered by lab as part of Culture Stool Panel Interpretive Data ^1: Shiga Toxins 1 and 2 Testing performed by immunochromatography. Performing Locations *1: This test was performed at: [facility], [address] [place] [address], [facility] , [facility] 03-24-2024 Telephone encounter Note Scheduled with patient Start email sent [facility] Work Phone: 03-24-2024 Miscellaneous Notes Scheduled with patient Start email sent Plan for IV iron sucrose 200 mg weekly x4 PSR: Can you please schedule ? In that case. She could probably use a little IV iron. Looks like she had another GI bleed recently. Has follow up with GI scheduled. I don't know that the PO iron is truly giving her much benefit. Plan for IV iron sucrose 200 mg weekly x4 PSR: Can you please schedule ? Thank you, Anne-Marie Alberto APRN. ANALOG IC DESIGN ENGINEER Call to patient, states she takes 2 iron pills daily and has been for years. Milka Obregon, RN Call to patient, no answer. Left message to call back. Please give patient instructions per Anne-Marie Alberto CNP. Milka Obregon RN OSH labs reviewed. No anemia HGB 13 HCT 39.6. Would recommend PO iron MWF with vit c or OJ. PCP can recheck labs in 3 months, can repeat IV iron if no improvements on PO. Anne-Marie Alberto APRN.ANALOG IC DESIGN ENGINEER Lab results placed on Dr. Grider's desk. Rosalba Lay LPN Requested lab results. Rosalba Lay LPN Patient called stating her PCP told her to make appointment with office. Her iron is down to 3. Patient was not sure if PCP sent lab results to office or not. Please advise. documented in this encounter [facility] 03-24-2024 Telephone encounter Note Plan for IV iron sucrose 200 mg weekly x4 PSR: Can you please schedule ? [facility] 03-24-2024 Note . MICRO - Microbiology PROCEDURE: Stool Culture [^1 *1] SOURCE: Stool BODY SITE: COLLECTED DATE/TIME: 03/20/2024 17:01 EDT RECEIVED DATE/TIME: 03/21/2024 16:03 EDT START DATE/TIME: 03/21/2024 16:04 EDT FREE TEXT SOURCE: FINAL REPORTS Final Report [] Verified Date/Time/Personnel: 03/24/2024 09:40 EDT Normal stool mana present. Salmonella: Negative Shigella: Negative Campylobacter: Negative PRELIMINARY REPORTS Preliminary Report [] Verified Date/Time/Personnel: 03/23/2024 11:05 EDT Normal stool mana present. Negative for stool pathogens at 48 hours. Final report to follow. Interpretive Data ^1: Culture Stool Requests for alternative pathogens including Yersinia, E. coli 0157, C. difficile toxin, Rotavirus, Giardia and parasites require specific requests. Performing Locations *1: This test was performed at: [facility], [address] [place] [address], [facility] , [facility] 03-21-2024 Telephone encounter Note In that case. She could probably use a little IV iron. Looks like she had another GI bleed recently. Has follow up with GI scheduled. I don't know that the PO iron is truly giving her much benefit. Plan for IV iron sucrose 200 mg weekly x4 PSR: Can you please schedule ? Thank you, Anne-Marie Alberto APRN. ANALOG IC DESIGN ENGINEER [facility] Work Phone: 03-20-2024 Telephone encounter Note Call to patient, states she takes 2 iron pills daily and has been for years. Milka Obregon, JEREMY [facility] Work Phone: 03-20-2024 Telephone encounter Note Call to patient, no answer. Left message to call back. Please give patient instructions per Anne-Marie Alberto CNP. Milka Obregon, RN [facility] 03-19-2024 Telephone encounter Note OSH labs reviewed. No anemia HGB 13 HCT 39.6. Would recommend PO iron MWF with vit c or OJ. PCP can recheck labs in 3 months, can repeat IV iron if no improvements on PO. Anne-Marie Alberto APRN.ANALOG IC DESIGN ENGINEER [facility] 03-18-2024 Telephone encounter Note Lab results placed on Dr. Grider's desk. Rosalba Lay LPN [facility] 03-18-2024 Telephone encounter Note Requested lab results. Rosalba aLy LPN [facility] 03-18-2024 Telephone encounter Note Patient called stating her PCP told her to make appointment with office. Her iron is down to 3. Patient was not sure if PCP sent lab results to office or not. Please advise. [facility] 02-18-2024 Telephone encounter Note Either is ok [facility] 02-18-2024 Miscellaneous Notes Either is ok Patient's PCP Dr. Apolonia Craven's office called stating that the patient is showing a significant amount of osteoporosis and they would like to start her on a new med called Alendronate 70 mg once each week. Or Prolia injections 60mg every 6 months. Both of these meds can interfere and upset GI symptoms. They are asking if Dr. Potts objects to the pt starting either if these meds? If Dr. Potts wants to review the scans for osteoporosis, I can requests that they be faxed to our office for review. The nurse for Dr Craven's office [phone]. documented in this encounter [facility] 02-18-2024 Telephone encounter Note Patient's PCP Dr. Apolonia Craven's office called stating that the patient is showing a significant amount of osteoporosis and they would like to start her on a new med called Alendronate 70 mg once each week. Or Prolia injections 60mg every 6 months. Both of these meds can interfere and upset GI symptoms. They are asking if Dr. Potts objects to the pt starting either if these meds? If Dr. Potts wants to review the scans for osteoporosis, I can requests that they be faxed to our office for review. The nurse for Dr Craven's office [phone]. [facility] 08-22-2023 Miscellaneous Notes Patient notified. Rosalba Lay LPN Can follow up in November as scheduled. Rui Grider MD August 22, 2023 Labs received, placed on physicians desk for review. scanned into epic as well. Erlinda Yanes LPN Patient called stating she had recent labs completed and they are being faxed to [phone]. She states PCP told her to contact the office due to lab levels being at 8. Patient did not know what lab it was for. documented in this encounter [facility] 08-03-2023 History of Present illness Narrative Jen Estrada 1955 08/03/[address] Grider HISTORY OF PRESENT ILLNESS: Jen Estrada is a 67 year old female h/o small bowel bleed, sees GI, needs IV iron now and again. Here due to recurrent anemia. Positive pica, chews ice. Per Dr. 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 Patient has previous evaluation and iron infusion for iron deficiency anemia. She had a history of irritable bowel and colitis. She also had a benign polyp removed several years ago by Dr. Steve Garg. She saw Dr. Agustin in 2016 for evaluation of abdominal pain and iron deficiency anemia. Patient has long history of irritable bowel symptoms predominantly diarrhea occasional constipation but no rectal bleeding. CT abdomen and pelvis in June 2016 show a franky-sacral mass with left side fat stranding suggestive of inflammation. Repeat CT scan of the abdomen and pelvis in 2018 showed increased size of left franky-sacral nodularity with fat stranding 2.7 x 2.0 x 1.7 cm, increased from previous 1.9 x 1.8 x 1.5cm. She has no rectal pain, constipation or rectal bleeding. MRI of her pelvis showed a 2 x x 2 x 4 cm mass intermixed with fatty and soft tissue component in the left presacral area. The mass shows restricted diffusion with post contrast enhancement. CT biopsy showed (extra medullary hemopoiesis) on 01/14/2018 consistent with her hemoglobinopathy diagnosis. 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 She had small bowel endoscopy and argon plasma coagulation treatment at the main [facility] for AV malformations of the jejunum in July 2020. She had multiple IV iron infusion in August for iron deficiency and malabsorption and again recently this month. Interval History: Ms. Estrada presents today for follow up of ANA PAULA. Since last being seen she has followed up with GI and had recent scope on 07/19/23. AV malformation again treated. CBC appears to have improved. She denies any new issues. No current/obvious signs of bleeding. Denies worsening SOB, CP. Hx of COPD. No recent illnesses, fevers, chills or NS. No changes in bowel or bladder habits. Denies N/V. Continues to chew ice but not as much. She states that she has been doing that forever. Energy and appetite are stable. Reviewed labs today. CBC improved, iron studies pending. PAST MEDICAL HISTORY Diagnosis Date Anemia Angina at rest (HCC) Anxiety Asthma COPD (chronic obstructive pulmonary disease) (HCC) Degenerative disc disease, lumbar Depression Diabetes (HCC) Fibromyalgia GERD (gastroesophageal reflux disease) History of transfusion Hypertension Hypothyroid IBS (irritable bowel syndrome) diarrhea predominant Mental disorder anxiety Migraines Migraines Neuropathy Presacral mass Snoring PAST SURGICAL HISTORY Procedure Laterality Date ANKLE SURGERY HX right ankle APPENDECTOMY HX BREAST REDUCTION CARPAL TUNNEL right and left wrist surgery SECTION HX CHOLECYSTECTOMY HX COLONOSCOPY & POLYPECTOMY 2015 [place] -benign polyp COLONOSCOPY FLX DX W/COLLJ SPEC WHEN PFRMD 04/24/2017 Colonoscopy ESOPHAGOGASTRODUODENOSCOPY TRANSORAL DIAGNOSTIC 04/24/2017 EGD F EGD WITH DILATATION ESOPHAGEAL in [place] FOOT SURGERY HX left foot HERNIA REPAIR HX abdomen HYSTERECTOMY HYSTERECTOMY HX OTHER right and left shoulder surgery OTHER 5 goiters removed THYROIDECTOMY TOTAL/COMPLETE TONSILLECTOMY AND ADENOIDECTOMY HX TOTAL KNEE REPLACEMENT right knee FAMILY HISTORY Problem Relation Age of Onset other (bleeding liver) Mother COPD Father other (sarcoidosis) Sister Heart Brother Hypertension Brother Stroke Sister Hypertension Sister Social History Tobacco Use Smoking status: Every Day Packs/day: 1.50 Years: 50.00 Additional pack years: 0.00 Total pack years: 75.00 Types: Cigarettes Smokeless tobacco: Never Vaping Use Vaping Use: Never used Substance Use Topics Alcohol use: No Drug use: No ALLERGIES: ALLERGIES Allergen Reactions Adhesive Other: See Comments Blisters skin Ambien [Zolpidem Ta* Other: See Comments Codeine Other: See Comments Seizure as a child Demerol [Meperidine] Itching Latex, Natural Rubb* Other: See Comments blisters Nsaids (Non-Steroid* GI Upset Has had GI bleed Tramadol Itching CURRENT OUTPATIENT MEDICATIONS: HYDROcodone-Acetaminophen (NORCO) 7.5-325 mg per tablet Take 1 tablet by mouth every 8 hours as needed for pain. bumetanide (BUMEX) 1 mg tablet Take 1 mg by mouth two times a day. dilTIAZem CD (CARTIA XT) 120 mg 24 hr capsule Take 120 mg by mouth once daily. busPIRone (BUSPAR) 10 mg tablet Take 10 mg by mouth two times a day. traZODone (DESYREL) 100 mg tablet Take 100 mg by mouth daily at bedtime. folic acid 1 mg tablet Take 1 mg by mouth once daily. gabapentin (NEURONTIN) 300 mg capsule Take 300 mg by mouth two times a day. levothyroxine (SYNTHROID) 300 mcg tablet Take 300 mcg by mouth once daily. hzxujinqgmg-etlbkwpic-gttvnbxf (TRELEGY ELLIPTA) 100-62.5-25 mcg inhalation powder Take by mouth DAILY (6 AM). cyclobenzaprine (FLEXERIL) 10 mg tablet Take 10 mg by mouth three times daily as needed. ferrous sulfate (IRON) 325 mg (65 mg iron) tablet Take 1 tablet by mouth twice daily. nateglinide (STARLIX) 60 mg tablet Take 60 mg by mouth three times a day before meals. albuterol (PROVENTIL) 2.5 mg /3 mL (0.083 %) nebulizer solution Use 3 mL via nebulizer every 6 hours as needed for wheezing/shortness of breath. OVER 5-15 MINUTES. FOR WHEEZING AND SHORTNESS OF BREATH. ipratropium (ATROVENT) 0.02 % nebulizer solution Use 0.5 mg via nebulizer four times daily. PRN tiZANidine (ZANAFLEX) 4 mg tablet Take 4 mg by mouth every 8 hours as needed. calcium carbonate (CALCIUM 600 ORAL) Take 1 tablet by mouth two times a day. omeprazole (PRILOSEC) 40 mg capsule TAKE 1 CAPSULE BY MOUTH TWICE DAILY. TAKE 30 MINUTES BEFORE BREAKFAST AND DINNER (Patient taking differently: Take 40 mg by mouth once daily.) SUMAtriptan (IMITREX) 25 mg tablet Take 25 mg by mouth as needed for Migraine Headache (see administration instructions). alirocumab (PRALUENT PEN) 75 mg/mL Inject 75 mg subcutaneously every other week. cholecalciferol (VITAMIN D-3) 5,000 unit tab Take 5,000 Units by mouth once daily. magnesium oxide 400 mg magnesium tab Take by mouth once daily. DULoxetine (CYMBALTA) 60 mg capsule Take 60 mg by mouth twice daily. metoprolol succinate ER (TOPROL XL) 25 mg 24 hr tablet Take 25 mg by mouth twice daily. isosorbide mononitrate ER (IMDUR) 30 mg 24 hr tablet Take 30 mg by mouth once daily. potassium chloride 20 mEq TbER Take 1 tablet by mouth once daily. pyridoxine HCl, vitamin B6, (VITAMIN B-6 ORAL) Take 1 tablet by mouth once daily. fluticasone (FLONASE) 50 mcg/actuation nasal spray Use 1 Mosier in each nostril once daily. NITROGLYCERIN (NITROSTAT SUBLINGUAL) Dissolve under the tongue as needed. predniSONE (DELTASONE) 10 mg tablet Take 10 mg by mouth once daily. HYDROcodone-acetaminophen (NORCO) 5-325 mg per tablet Take 1 tablet by mouth every 8 hours as needed. levothyroxine (SYNTHROID) 175 mcg tablet Take 175 mcg by mouth every other day. (Patient not taking: Reported on 02/23/2023) levothyroxine (SYNTHROID) 200 mcg tablet Take 250 mcg by mouth every other day. mirtazapine (REMERON) 15 mg tablet Take 15 mg by mouth daily at bedtime. QUEtiapine (SEROQUEL) 100 mg tablet Take 100 mg by mouth daily at bedtime. clonazePAM orally disintegrating (KLONOPIN WAFER) 0.25 mg disintegrating tablet Take 0.5 mg by mouth twice daily as needed. tiotropium bromide (SPIRIVA RESPIMAT) 1.25 mcg/actuation mist Inhale 1 Puff as instructed once daily. (Patient not taking: Reported on 02/23/2023) divalproex DR (DEPAKOTE) 250 mg EC tablet Take 250 mg by mouth once daily. dicyclomine (BENTYL) 20 mg tablet Take 20 mg by mouth every 6 hours. escitalopram oxalate (LEXAPRO) 20 mg tablet Take 20 mg by mouth once daily. CYANOCOBALAMIN, VITAMIN B-12, (VITAMIN B-12 ORAL) Take 1,000 mg by mouth once daily. furosemide (LASIX) 20 mg tablet Take 20 mg by mouth every Sunday,Sunday,Sunday. REVIEW OF SYSTEMS: GENERAL: No fever, night sweats, weight loss or malaise. All other reviewed and negative other than HPI. All systems reviewed on 08/03/2023 with pertinent positives and negatives as outlined in the interval history. PHYSICAL EXAMINATION: VITAL SIGNS: BP 116/84 Pulse 101 Temp (Src) 97.3 (Temporal) Wt 246 lb (111.6kg) SpO2 97% GENERAL APPEARANCE: Well appearing, in no acute distress, alert and oriented x3, well-hydrated, well nourished. HEENT: Normocephalic, no sclera icterus, external ears normal Neck: Supple, no JVD. Chest: Clear bilaterally, not labored. Heart: RRR Abdomen: Soft, nontender, nondistended Extremities: No edema Neurological: Grossly intact Skin: Warm and dry with no rashes or ulcerations. Hematologic: no bruising or petechiae. Psychiatric: Alert and oriented x3. Emotional well-being assessment was performed. Pt denies depression, distress, and or problems with coping or adjustment. I have performed the physical exam today (08/03/2023) and have edited the note to correlate with current findings. 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 Iron studies pending - OV in 3 months with CBC, iron studies. Anne-Marie Alberto APRN.ANALOG IC DESIGN ENGINEER I spent >30 minutes in the visit, with more than 50% of the total [id number] time of the visit in counseling / coordination of care. Portions of this note including HPI, ROS, impression/plan may have been copied forward as to provide important historical information essential in contributing to medical decision making. Documentation has been reviewed and edited as necessary to support clinical decision making for today's visit and to reflect my own independent evaluation of this patient. documented in this encounter [facility] 07-19-2023 Nurse Note AMBULATORY PATIENT EDUCATION NOTE TOPIC: GI PROCEDURES: Esophagogastroduodenoscopy(EGD) with or without biopies based on clinical findings, removal of polyps or lesions READINESS TO LEARN INSTRUCTION PROVIDED TO: Patient, readness to learn accessed prior to procedure COGNITIVE ABILITY: Alert and oriented PTED MOTIVATION TO LEARN: Interested FAMILY SUPPORT: High - Very involved in pt care IPATIENT LEARNS BEST BY: Individual Instruction FACTORS AFFECTING LEARNING: None PHYSICAL LIMITATIONS AFFECTING LEARNING: None LEARNING RESPONSE METHOD OF INSTRUCTION: Individual instruction PATIENT / FAMILY RESPONSE: Verbalizes understanding of: WORSENING CONDITION-Signs and symptoms of a worsening condition that warrant a call to the physician FOLLOW-UP PLAN: Complete - No need for follow-up SUPPLEMENTAL MATERIAL: Procedure Discharge Instructions REFERRAL (RECOMMENDATION): None PRE OP LEARNING ASSESSMENT PROCEDURE/SURGERY: GI PROCEDURES: enteroscopy READINESS TO LEARN COGNITIVE ABILITY: Alert and oriented MOTIVATION TO LEARN: Interested FAMILY SUPPORT: Unable to assess - Family not present PATIENT LEARNS BEST BY: Individual Instruction FACTORS AFFECTING LEARNING: None PHYSICAL LIMITATIONS AFFECTING LEARNING: None Electronically Signed By: Evette Spaulding RN In Department: GASTROENTEROLOGY documented in this encounter [facility] 07-12-2023 Miscellaneous Notes GI Pre-Procedure -Spoke with patient: Yes -Confirmed date scheduled and patient report time: Yes -Procedure Planned: Enteroscopy -Is the patient on blood thinners? No -Procedure Instructions given to patient: Yes, and they verbalized their understanding of instructions given -Patient instructed to take prescribed preparation prior to procedure: Not applicable -Patient instructed to have family/friend present for procedure transport home: Patient was told that if they do not have a responsible adult accompany them to their procedure; and remain in the endoscopy area until they are discharged; that their procedure cannot be done with sedation or anesthesia and may be cancelled; and they verbalized their understanding and agree to have a responsible adult accompany the patient to their procedure and remain in the endoscopy area. -Any barriers to Patient learning: Patient responded appropriately on phone. -Type of instruction given: Verbal by telephone contact. Natacha Parks RN BSN documented in this encounter [facility] 04-25-2023 History of Present illness Narrative (Elements copied from my note dated February 23, 2023, have been reviewed and updated where appropriate, and all reflect current assessment and medical decision making from today's encounter, April 25, 2023) HISTORY OF PRESENT ILLNESS: Jen Estrada is a 67 year old female h/o small bowel bleed, sees GI, needs IV iron now and again. Here due to recurrent anemia. Positive pica, chews ice. Here for follow up Feels better, not chewing ice. Reviewed labs Stools still black takes 2 iron tabs a day She has not yet gotten GI for scope. CLINICAL IMPRESSION: Reported ANA PAULA due to GI blood loss, has received IV iron in past for this Now better post 4 doses venofer RECOMMENDATION/PLAN: 1. Watch cbc 2, she'll hold iron, if stool remain black she knows she needs a scope. 3, then go back to 1 iron tab a day 4. Recheck cbc in 2 months Written and verbal health teaching given to patient, patient verbalizes understanding and agrees with treatment plan. PAST MEDICAL HISTORY Diagnosis Date Anemia Angina at rest Anxiety Asthma COPD (chronic obstructive pulmonary disease) (HCC) Degenerative disc disease, lumbar Depression Diabetes (HCC) Fibromyalgia GERD (gastroesophageal reflux disease) History of transfusion Hypertension Hypothyroid IBS (irritable bowel syndrome) diarrhea predominant Mental disorder anxiety Migraines Migraines Neuropathy Presacral mass Snoring PAST SURGICAL HISTORY Procedure Laterality Date ANKLE SURGERY HX right ankle APPENDECTOMY HX BREAST REDUCTION CARPAL TUNNEL right and left wrist surgery SECTION HX CHOLECYSTECTOMY HX COLONOSCOPY & POLYPECTOMY 2015 [place] -benign polyp COLONOSCOPY FLX DX W/COLLJ SPEC WHEN PFRMD 04/24/2017 Colonoscopy ESOPHAGOGASTRODUODENOSCOPY TRANSORAL DIAGNOSTIC 04/24/2017 EGD F EGD WITH DILATATION ESOPHAGEAL in [place] FOOT SURGERY HX left foot HERNIA REPAIR HX abdomen HYSTERECTOMY HYSTERECTOMY HX OTHER right and left shoulder surgery OTHER 5 goiters removed THYROIDECTOMY TOTAL/COMPLETE TONSILLECTOMY AND ADENOIDECTOMY HX TOTAL KNEE REPLACEMENT right knee FAMILY HISTORY Problem Relation Age of Onset other (bleeding liver) Mother COPD Father other (sarcoidosis) Sister Heart Brother Hypertension Brother Stroke Sister Hypertension Sister Social History Tobacco Use Smoking status: Every Day Packs/day: 1.50 Years: 50.00 Additional pack years: 0.00 Total pack years: 75.00 Types: Cigarettes Smokeless tobacco: Never Vaping Use Vaping Use: Never used Substance Use Topics Alcohol use: No Drug use: No ALLERGIES: ALLERGIES Allergen Reactions Adhesive Other: See Comments Blisters skin Ambien [Zolpidem Ta* Other: See Comments Codeine Other: See Comments Seizure as a child Demerol [Meperidine] Itching Latex, Natural Rubb* Other: See Comments blisters Nsaids (Non-Steroid* GI Upset Has had GI bleed Tramadol Itching CURRENT OUTPATIENT MEDICATIONS: levothyroxine (SYNTHROID) 300 mcg tablet Take 300 mcg by mouth once daily. predniSONE (DELTASONE) 10 mg tablet Take 10 mg by mouth once daily. fbymqgtlmpq-prabxnzwj-stwapqjd (TRELEGY ELLIPTA) 100-62.5-25 mcg inhalation powder Take by mouth DAILY (6 AM). HYDROcodone-acetaminophen (NORCO) 5-325 mg per tablet Take 1 tablet by mouth every 8 hours as needed. cyclobenzaprine (FLEXERIL) 10 mg tablet Take 10 mg by mouth three times daily as needed. ferrous sulfate (IRON) 325 mg (65 mg iron) tablet Take 1 tablet by mouth twice daily. nateglinide (STARLIX) 60 mg tablet Take 60 mg by mouth three times a day before meals. albuterol (PROVENTIL) 2.5 mg /3 mL (0.083 %) nebulizer solution Use 3 mL via nebulizer every 6 hours as needed for wheezing/shortness of breath. OVER 5-15 MINUTES. FOR WHEEZING AND SHORTNESS OF BREATH. ipratropium (ATROVENT) 0.02 % nebulizer solution Use 0.5 mg via nebulizer four times daily. PRN tiZANidine (ZANAFLEX) 4 mg tablet Take 4 mg by mouth every 8 hours as needed. calcium carbonate (CALCIUM 600 ORAL) Take 1 tablet by mouth once daily. omeprazole (PRILOSEC) 40 mg capsule TAKE 1 CAPSULE BY MOUTH TWICE DAILY. TAKE 30 MINUTES BEFORE BREAKFAST AND DINNER SUMAtriptan (IMITREX) 25 mg tablet Take 25 mg by mouth as needed for Migraine Headache (see administration instructions). mirtazapine (REMERON) 15 mg tablet Take 15 mg by mouth daily at bedtime. QUEtiapine (SEROQUEL) 100 mg tablet Take 100 mg by mouth daily at bedtime. alirocumab (PRALUENT PEN) 75 mg/mL Inject 75 mg subcutaneously every other week. clonazePAM orally disintegrating (KLONOPIN WAFER) 0.25 mg disintegrating tablet Take 0.5 mg by mouth twice daily as needed. cholecalciferol (VITAMIN D-3) 5,000 unit tab Take 5,000 Units by mouth once daily. magnesium oxide 400 mg magnesium tab Take by mouth once daily. DULoxetine (CYMBALTA) 60 mg capsule Take 60 mg by mouth twice daily. metoprolol succinate ER (TOPROL XL) 25 mg 24 hr tablet Take 25 mg by mouth twice daily. divalproex DR (DEPAKOTE) 250 mg EC tablet Take 250 mg by mouth once daily. dicyclomine (BENTYL) 20 mg tablet Take 20 mg by mouth every 6 hours. isosorbide mononitrate ER (IMDUR) 30 mg 24 hr tablet Take 30 mg by mouth once daily. escitalopram oxalate (LEXAPRO) 20 mg tablet Take 20 mg by mouth once daily. potassium chloride 20 mEq TbER Take 1 tablet by mouth once daily. pyridoxine HCl, vitamin B6, (VITAMIN B-6 ORAL) Take 1 tablet by mouth once daily. CYANOCOBALAMIN, VITAMIN B-12, (VITAMIN B-12 ORAL) Take 1,000 mg by mouth once daily. fluticasone (FLONASE) 50 mcg/actuation nasal spray Use 1 Mosier in each nostril once daily. NITROGLYCERIN (NITROSTAT SUBLINGUAL) Dissolve under the tongue as needed. furosemide (LASIX) 20 mg tablet Take 20 mg by mouth every Sunday,Sunday,Sunday. levothyroxine (SYNTHROID) 175 mcg tablet Take 175 mcg by mouth every other day. (Patient not taking: Reported on 02/23/2023) levothyroxine (SYNTHROID) 200 mcg tablet Take 250 mcg by mouth every other day. tiotropium bromide (SPIRIVA RESPIMAT) 1.25 mcg/actuation mist Inhale 1 Puff as instructed once daily. (Patient not taking: Reported on 02/23/2023) REVIEW OF SYSTEMS: GENERAL: No fever, night sweats, weight loss or malaise. All other reviewed and negative other than HPI. PHYSICAL EXAMINATION: VITAL SIGNS: BP 110/72 Pulse 90 Temp (Src) 97.4 (Temporal) Wt 246 lb (111.6kg) SpO2 96% GENERAL APPEARANCE: Well appearing, in no acute distress, alert and oriented x3, well-hydrated, well nourished. I spent a total of 20 minutes on the date of the service which included preparing to see the patient, [id number] patient care, completing clinical documentation, obtaining and/or reviewing separately obtained history, counseling and educating the patient/family/caregiver, ordering medications, tests, or procedures, independently interpreting results (not separately reported), and communicating results to the patient/family/caregiver. Electronically Signed: Rui Grider MD April 25, 2023 documented in this encounter [facility] 03-27-2023 Miscellaneous Notes Informed patient. She states she will stop at desk and schedule 2 more iron infusions along with lab and office visit. Adding above notes to appointment notes for desk. We can push back a few weeks if she wants.Can cancel appt. For tomorrow and make a couple weeks out. Patient called stating she is feeling better and wanted to reschedule iron appointments. Informed her she has an appt on 03/30 for 2nd infusion. She is asking if 03/28 lab and office visit is needed since she canceled last few infusions. Please advise. documented in this encounter [facility] 02-27-2023 Miscellaneous Notes [address] in 2hr time slot. PSR's notified. documented in this encounter [facility] 02-26-2023 Miscellaneous Notes Orders faxed as directed. Angie Drummond LPN Patient states she is currently at [facility] and is needing orders to be faxed to [phone] documented in this encounter [facility] 02-23-2023 History of Present illness Narrative HISTORY OF PRESENT ILLNESS: Jen Estrada is a 67 year old female h/o small bowel bleed, sees GI, needs IV iron now and again. Here due to recurrent anemia. Positive pica, chews ice. She is set up with GI for scope. CLINICAL IMPRESSION: Reported ANA PAULA due to GI blood loss, has received IV iron in past for this RECOMMENDATION/PLAN: 1. Plan IV iron, pending review of labs done at [place] Written and verbal health teaching given to patient, patient verbalizes understanding and agrees with treatment plan. PAST MEDICAL HISTORY Diagnosis Date Anemia Angina at rest (HCC) Anxiety Asthma COPD (chronic obstructive pulmonary disease) (HCC) Degenerative disc disease, lumbar Depression Diabetes (HCC) Fibromyalgia GERD (gastroesophageal reflux disease) History of transfusion Hypertension Hypothyroid IBS (irritable bowel syndrome) diarrhea predominant Mental disorder anxiety Migraines Migraines Neuropathy Presacral mass Snoring PAST SURGICAL HISTORY Procedure Laterality Date ANKLE SURGERY HX right ankle APPENDECTOMY HX BREAST REDUCTION CARPAL TUNNEL right and left wrist surgery SECTION HX CHOLECYSTECTOMY HX COLONOSCOPY & POLYPECTOMY 2015 [place] -benign polyp COLONOSCOPY FLX DX W/COLLJ SPEC WHEN PFRMD 04/24/2017 Colonoscopy ESOPHAGOGASTRODUODENOSCOPY TRANSORAL DIAGNOSTIC 04/24/2017 EGD F EGD WITH DILATATION ESOPHAGEAL in [place] FOOT SURGERY HX left foot HERNIA REPAIR HX abdomen HYSTERECTOMY HYSTERECTOMY HX OTHER right and left shoulder surgery OTHER 5 goiters removed THYROIDECTOMY TOTAL/COMPLETE TONSILLECTOMY AND ADENOIDECTOMY HX TOTAL KNEE REPLACEMENT right knee FAMILY HISTORY Problem Relation Age of Onset other (bleeding liver) Mother COPD Father other (sarcoidosis) Sister Heart Brother Hypertension Brother Stroke Sister Hypertension Sister Social History Tobacco Use Smoking status: Every Day Packs/day: 1.50 Years: 50.00 Additional pack years: 0.00 Total pack years: 75.00 Types: Cigarettes Smokeless tobacco: Never Vaping Use Vaping Use: Never used Substance Use Topics Alcohol use: No Drug use: No ALLERGIES: ALLERGIES Allergen Reactions Adhesive Other: See Comments Blisters skin Ambien [Zolpidem Ta* Other: See Comments Codeine Other: See Comments Seizure as a child Latex, Natural Rubb* Other: See Comments blisters Nsaids (Non-Steroid* GI Upset Has had GI bleed Tramadol Itching CURRENT OUTPATIENT MEDICATIONS: cajjtqxskqf-xxgwymoxm-wdfnxvdo (TRELEGY ELLIPTA) 100-62.5-25 mcg inhalation powder Take by mouth DAILY (6 AM). HYDROcodone-acetaminophen (NORCO) 5-325 mg per tablet Take 1 tablet by mouth every 8 hours as needed. cyclobenzaprine (FLEXERIL) 10 mg tablet Take 10 mg by mouth three times daily as needed. ferrous sulfate (IRON) 325 mg (65 mg iron) tablet Take 1 tablet by mouth twice daily. levothyroxine (SYNTHROID) 200 mcg tablet Take 250 mcg by mouth every other day. nateglinide (STARLIX) 60 mg tablet TAKE 1 TABLET BY MOUTH ONCE DAILY BEFORE SUPPER albuterol (PROVENTIL) 2.5 mg /3 mL (0.083 %) nebulizer solution Use 3 mL via nebulizer every 6 hours as needed for wheezing/shortness of breath. OVER 5-15 MINUTES. FOR WHEEZING AND SHORTNESS OF BREATH. ipratropium (ATROVENT) 0.02 % nebulizer solution Use 0.5 mg via nebulizer four times daily. PRN tiZANidine (ZANAFLEX) 4 mg tablet Take 4 mg by mouth every 8 hours as needed. calcium carbonate (CALCIUM 600 ORAL) Take 1 tablet by mouth once daily. omeprazole (PRILOSEC) 40 mg capsule TAKE 1 CAPSULE BY MOUTH TWICE DAILY. TAKE 30 MINUTES BEFORE BREAKFAST AND DINNER SUMAtriptan (IMITREX) 25 mg tablet Take 25 mg by mouth as needed for Migraine Headache (see administration instructions). mirtazapine (REMERON) 15 mg tablet Take 15 mg by mouth daily at bedtime. QUEtiapine (SEROQUEL) 100 mg tablet Take 100 mg by mouth daily at bedtime. alirocumab (PRALUENT PEN) 75 mg/mL Inject 75 mg subcutaneously every other week. clonazePAM orally disintegrating (KLONOPIN WAFER) 0.25 mg disintegrating tablet Take 0.5 mg by mouth twice daily as needed. cholecalciferol (VITAMIN D-3) 5,000 unit tab Take 5,000 Units by mouth once daily. magnesium oxide 400 mg magnesium tab Take by mouth once daily. DULoxetine (CYMBALTA) 60 mg capsule Take 60 mg by mouth twice daily. metoprolol succinate ER (TOPROL XL) 25 mg 24 hr tablet Take 25 mg by mouth twice daily. divalproex DR (DEPAKOTE) 250 mg EC tablet Take 250 mg by mouth once daily. dicyclomine (BENTYL) 20 mg tablet Take 20 mg by mouth every 6 hours. isosorbide mononitrate ER (IMDUR) 30 mg 24 hr tablet Take 30 mg by mouth once daily. escitalopram oxalate (LEXAPRO) 20 mg tablet Take 20 mg by mouth once daily. potassium chloride 20 mEq TbER Take 1 tablet by mouth once daily. pyridoxine HCl, vitamin B6, (VITAMIN B-6 ORAL) Take 1 tablet by mouth once daily. CYANOCOBALAMIN, VITAMIN B-12, (VITAMIN B-12 ORAL) Take 1,000 mg by mouth once daily. fluticasone (FLONASE) 50 mcg/actuation nasal spray Use 1 Mos[place] in each nostril once daily. NITROGLYCERIN (NITROSTAT SUBLINGUAL) Dissolve under the tongue as needed. furosemide (LASIX) 20 mg tablet Take 20 mg by mouth every Sunday,Sunday,Sunday. levothyroxine (SYNTHROID) 175 mcg tablet Take 175 mcg by mouth every other day. (Patient not taking: Reported on 02/23/2023) tiotropium bromide (SPIRIVA RESPIMAT) 1.25 mcg/actuation mist Inhale 1 Puff as instructed once daily. (Patient not taking: Reported on 02/23/2023) REVIEW OF SYSTEMS: GENERAL: No fever, night sweats, weight loss or malaise. All other reviewed and negative other than HPI. PHYSICAL EXAMINATION: VITAL SIGNS: BP 113/75 Pulse 83 Temp 98.4 Ht 5' 4.961 (1.65m) Wt 240 lb (108.9kg) SpO2 93% BMI 39.99 kg/(m^2). GENERAL APPEARANCE: Well appearing, in no acute distress, alert and oriented x3, well-hydrated, well nourished. I spent a total of 30 minutes on the date of the service which included preparing to see the patient, [id number] patient care, completing clinical documentation, obtaining and/or reviewing separately obtained history, counseling and educating the patient/family/caregiver, ordering medications, tests, or procedures, independently interpreting results (not separately reported), and communicating results to the patient/family/caregiver. Electronically Signed: Rui Grider MD February 23, 2023 3:38 PM documented in this encounter [facility] 01-18-2023 Note HNO ID: [id number] Author: Boris Tomlinson CCC-RESEARCH ENVIRONMENTAL SCIENTIST Service: ? Author Type: Speech Language Pathologist Type: Progress Notes Filed: 01/18/2023 1:48 PM Note Text: Summary: MBSS Episode Visit Count: Visit count could not be calculated. Make sure you are using a visit which is associated with an episode. Start of Care Date: 01/18/23 Onset Date: 01/18/23 Patient Identified by Name and Date of : Yes [facility] MODIFIED BARIUM SWALLOW PLAN OF CARE: Impression: Patient presents with functional oropharyngeal swallowing abilities, and concern for esophageal dysphagia. Patient appears safe to continue an oral diet at this time. Would recommend consult to ENT for concern regarding LPRD (hoarse vocal quality, history of GERD, history of pneumonia, dry oral cavity, coughing in the night, thick mucus). Evidence of: Functional oropharyngeal phases of swallow, without identified risk for aspiration, Concern for possible esophageal impairment An elevated risk for aspiration: No Swallow Efficiency: Preserved RECOMMENDATION: Diet Recommendations: Regular Consistency, Thin Liquids IDDSI Level 0 Swallowing Precautions Recommendations: Throat clear, reswallow, Sit upright 90 degrees for all PO, Maintain an upright position 20-30 minutes following all oral intake, Rigid Oral Hygiene Recommended Consults: ENT Results and Recommendations Discussed With: Patient, Family Goals for Modified Barium Swallow: created for 01/18/2023 only. The patient and daughter will be able to demonstrate adequate return of knowledge of today's fluoroscopic assessment and recommendations to maximize overall safety with oral intake. (baseline = no knowledge). GOAL MET 01/18/23 Planned Interventions, Frequency, and Duration: Current Frequency: Discontinue Therapy Services SUBJECTIVE: Jen Estrada is a 67 year old female seen today for a Modified Barium Swallow (MBS) Study. Patient seen with her daughter. Patient arrived in wheelchair but was able to transfer independently and stand for a few minutes. Patient endorses history of pneumonia, voice changes, dry mouth, coughing in the night, thick mucus. Denies unintentional weight loss. Patient Goals: Understanding why she is coughing and feeling choked while eating/drinking. Prior Functional Level: Within Functional Limits OBJECTIVE: MEASURES WITH LEVEL OF FUNCTION: Instrumental Swallow Assessment Type: Modified Barium Swallow Study Modified Barium Swallow Views: Lateral position, Anterior-posterior position Position Of Patient During Assessment: Upright In Chair, Standing Response to Consistencies Presented: Patient fed self. MBS Consistencies Tested: Thin Barium Liquids, Mildly Thick Barium Liquids ([place] Thick), Pureed with Barium Paste, Solid with Barium Paste, 13 mm Barium Tablet Oral Phase: As Follows Lip Closure: No labial escape/anterior loss of bolus Tongue Control During Bolus Hold: Cohesive bolus between tongue to palatal seal Bolus Preparation/Mastication: Timely and efficient mastication skills Bolus Transport/Lingual Motion: Delayed initiation of tongue motion for A-P movement of the bolus Oral Residue: Residue collection on oral structure Initiation Of Pharyngeal Swallow: Bolus head at vallecular pit Pharyngeal Phase: As Follows Soft Palate Elevation: Trace column of contrast or air between soft palate and pharyngeal wall Laryngeal Elevation: Complete superior movement of thyroid cartilage with contact of arytenoids to epiglottic petiole Anterior Hyoid Excursion: Complete anterior movement Epiglottic Movement: Complete inversion Laryngeal Vestibular Closure/Height of the Swallow: Incomplete - narrow column of air/contrast in laryngeal vestibule Pharyngeal Stripping Wave: Present, however, diminished Pharyngeal Contraction (A/P View Only): Complete Pharyngoesophageal Segment Opening: Complete distension and complete duration/no obstruction of flow of bolus (Noted to have posterior bulging at PES, 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 bar without obstruction of bolus flow.) Tongue Base Retraction: Trace column of contrast or air between tongue base and pharyngeal wall Pharyngeal Residue: Trace residue within or on the pharyngeal structures Esophageal Clearance In An Upright Position: Esophageal retention with retrograde flow below the pharyngoesophageal segment Penetration: During the swallow Penetration With: Thin Liquids IDDSI Level 0 Penetration-Aspiration Scale for MBSS: Completed Penetration-Aspiration Scale (adapted from Bala et al., 1996): Consistency Penetration/Aspiration Thin liquids via cup; Mildly-thick liquids; Puree; Regular PAS-1: Material does not enter airway. Th (more content not included)... [facility] 01-18-2023 History of Present illness Narrative Summary: MBSS Episode Visit Count: Visit count could not be calculated. Make sure you are using a visit which is associated with an episode. Start of Care Date: 01/18/23 Onset Date: 01/18/23 Patient Identified by Name and Date of : Yes [facility] MODIFIED BARIUM SWALLOW PLAN OF CARE: Impression: Patient presents with functional oropharyngeal swallowing abilities, and concern for esophageal dysphagia. Patient appears safe to continue an oral diet at this time. Would recommend consult to ENT for concern regarding LPRD (hoarse vocal quality, history of GERD, history of pneumonia, dry oral cavity, coughing in the night, thick mucus). Evidence of: Functional oropharyngeal phases of swallow, without identified risk for aspiration, Concern for possible esophageal impairment An elevated risk for aspiration: No Swallow Efficiency: Preserved RECOMMENDATION: Diet Recommendations: Regular Consistency, Thin Liquids IDDSI Level 0 Swallowing Precautions Recommendations: Throat clear, reswallow, Sit upright 90 degrees for all PO, Maintain an upright position 20-30 minutes following all oral intake, Rigid Oral Hygiene Recommended Consults: ENT Results and Recommendations Discussed With: Patient, Family Goals for Modified Barium Swallow: created for 01/18/2023 only. The patient and daughter will be able to demonstrate adequate return of knowledge of today's fluoroscopic assessment and recommendations to maximize overall safety with oral intake. (baseline = no knowledge). GOAL MET 01/18/23 Planned Interventions, Frequency, and Duration: Current Frequency: Discontinue Therapy Services SUBJECTIVE: Jen Estrada is a 67 year old female seen today for a Modified Barium Swallow (MBS) Study. Patient seen with her daughter. Patient arrived in wheelchair but was able to transfer independently and stand for a few minutes. Patient endorses history of pneumonia, voice changes, dry mouth, coughing in the night, thick mucus. Denies unintentional weight loss. Patient Goals: Understanding why she is coughing and feeling choked while eating/drinking. Prior Functional Level: Within Functional Limits OBJECTIVE: MEASURES WITH LEVEL OF FUNCTION: Instrumental Swallow Assessment Type: Modified Barium Swallow Study Modified Barium Swallow Views: Lateral position, Anterior-posterior position Position Of Patient During Assessment: Upright In Chair, Standing Response to Consistencies Presented: Patient fed self. MBS Consistencies Tested: Thin Barium Liquids, Mildly Thick Barium Liquids ([place] Thick), Pureed with Barium Paste, Solid with Barium Paste, 13 mm Barium Tablet Oral Phase: As Follows Lip Closure: No labial escape/anterior loss of bolus Tongue Control During Bolus Hold: Cohesive bolus between tongue to palatal seal Bolus Preparation/Mastication: Timely and efficient mastication skills Bolus Transport/Lingual Motion: Delayed initiation of tongue motion for A-P movement of the bolus Oral Residue: Residue collection on oral structure Initiation Of Pharyngeal Swallow: Bolus head at vallecular pit Pharyngeal Phase: As Follows Soft Palate Elevation: Trace column of contrast or air between soft palate and pharyngeal wall Laryngeal Elevation: Complete superior movement of thyroid cartilage with contact of arytenoids to epiglottic petiole Anterior Hyoid Excursion: Complete anterior movement Epiglottic Movement: Complete inversion Laryngeal Vestibular Closure/Height of the Swallow: Incomplete - narrow column of air/contrast in laryngeal vestibule Pharyngeal Stripping Wave: Present, however, diminished Pharyngeal Contraction (A/P View Only): Complete Pharyngoesophageal Segment Opening: Complete distension and complete duration/no obstruction of flow of bolus (Noted to have posterior bulging at PES, 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 bar without obstruction of bolus flow.) Tongue Base Retraction: Trace column of contrast or air between tongue base and pharyngeal wall Pharyngeal Residue: Trace residue within or on the pharyngeal structures Esophageal Clearance In An Upright Position: Esophageal retention with retrograde flow below the pharyngoesophageal segment Penetration: During the swallow Penetration With: Thin Liquids IDDSI Level 0 Penetration-Aspiration Scale for MBSS: Completed Penetration-Aspiration Scale (adapted from Bala et al., 1996): Consistency Penetration/Aspiration Thin liquids via cup; Mildly-thick liquids; Puree; Regular PAS-1: Material does not enter airway. Thin liquids via straw PAS-2: Material enters airway, remains above the vocal folds, and is ejected from airway. PAS-3: Material enters airway, remains above vocal folds, and is not ejected from airway. PAS-4: Material enters airway, contacts vocal folds, and is ejected from airway. PAS-5: Material enters airway, contacts vocal folds, and is not ejected from airway. PAS-6: Material enters airway, passes below vocal folds, and is ejected into larynx or out of airway. PAS-7: Material enters airway, passes below vocal folds, and is not ejected from the trachea despite effort. PAS-8: Material enters airway, passes below vocal folds, and no effort is made to eject. Education: Education Learning Preferences: Explanation Barriers: None Education Provided: Yes, see treatment interventions for education provided Education Provided To: Patient, Family Education Mode/Type: Explanation/Discussion Response to Education/Teach Back: States/Identifies TREATMENT: Performed Modified Barium Swallowing Study (95088). Evaluation: Modified Barium Swallow Evaluation (39022) Swallow / Dysphagia (77182): Skilled Intervention: Provided education related to a typical swallowing mechanism in a compare and contrast manner compared to this patient's current skill set. Education regarding findings from today's Modified Barium Swallowing study (fluoroscopic study) and suggested plans for treatment were provided to the patient and daughter through verbal instruction, images and/or demonstration. Patient and daughter were able to demonstrate understanding of education provided this date. Billing: Modified Barium Swallow (34691) and Dysphagia Treatment (32986) Total time: 33 minutes Session Start Time : 1006 Session Stop Time : 1039 Boris Tomlinson CCC-RESEARCH ENVIRONMENTAL SCIENTIST documented in this encounter [facility] 01-18-2023 Note HNO ID: [id number] Author: Alexandr Palomo RT(R) Service: Radiology Author Type: Technologist Type: Progress Notes Filed: 01/18/2023 10:31 AM Note Text: Radiology Service Progress Note PATIENT NAME: Jen Estrada DATE OF SERVICE: January 18, 2023 TIME: 10:08 AM PATIENT IDENTITY VERIFICATION COMPLETED USING TWO (2) IDENTIFIERS: Name and Date of confirmed by patient verbally and Name and Date of confirmed by identification band. FALL SCREENING: Has the patient had 2 falls in the last year or 1 fall with injury or currently using an Ambulatory Assistive Device (Walker, Cane, Wheelchair, Crutches, etc.)? No PATIENT GENDER DATA: Female. status: : No status: N/A PATIENT RELEVANT IMPLANT DATA REVIEWED: Not Applicable RADIOLOGY DEPARTMENT: General X-ray: Exam(s) Completed: GI/ Procedure(s): Modified barium swallow with barium contrast PERIPHERAL IV DATA: Not applicable SIGNED BY: RT Courtney(R) January 18, 2023 10:08 AM [facility] 01-18-2023 History of Present illness Narrative Radiology Service Progress Note PATIENT NAME: Jen Estrada DATE OF SERVICE: January 18, 2023 TIME: 10:08 AM PATIENT IDENTITY VERIFICATION COMPLETED USING TWO (2) IDENTIFIERS: Name and Date of confirmed by patient verbally and Name and Date of confirmed by identification band. FALL SCREENING: Has the patient had 2 falls in the last year or 1 fall with injury or currently using an Ambulatory Assistive Device (Walker, Cane, Wheelchair, Crutches, etc.)? No PATIENT GENDER DATA: Female. status: : No status: N/A PATIENT RELEVANT IMPLANT DATA REVIEWED: Not Applicable RADIOLOGY DEPARTMENT: General X-ray: Exam(s) Completed: GI/ Procedure(s): Modified barium swallow with barium contrast PERIPHERAL IV DATA: Not applicable SIGNED BY: RT Courtney(R) January 18, 2023 10:08 AM documented in this encounter [facility] 08-23-2022 Miscellaneous Notes It looks like this is a referral for abdominal pain (I had previously seen for dysphagia). I am happy to see her in follow up Received Outside Medical Records Consult- GI, 38 pages total External Clinical Docs See Scanned Docs Tab documented in this encounter [facility] 04-08-2022 Hospital Discharge instructions Patient Education 04/08/2022 15:51:47 Angina, [id number] Angina Angina is very bad discomfort or pain in the chest, neck, arm, jaw, or back. The discomfort is caused by a lack of blood in the middle layer of the heart wall (myocardium). What are the causes? This condition is caused by a buildup of fat and cholesterol (plaque) in your arteries (atherosclerosis). This buildup narrows the arteries and makes it hard for blood to flow. What increases the risk? You are more likely to develop this condition if: You have high levels of cholesterol in your blood. You have high blood pressure (hypertension). You have diabetes. You have a family history of heart disease. You are not active, or you do not exercise enough. You feel sad (depressed). You have been treated with high energy rays (radiation) on the left side of your chest. Other risk factors are: Using tobacco. Being very overweight (obese). Eating a diet high in unhealthy fats (saturated fats). Having stress, or being exposed to things that cause stress. Using drugs, such as cocaine. Women have a greater risk for angina if: They are older than 55. They have stopped having their period (are in postmenopause). What are the signs or symptoms? Common symptoms of this condition in both men and women may include: Chest pain, which may: ?Feel like a crushing or squeezing in the chest. ?Feel like a tightness, pressure, fullness, or heaviness in the chest. ?Last for more than a few minutes at a time. ?Stop and come back (recur) after a few minutes. Pain in the neck, arm, jaw, or back. Heartburn or upset stomach (indigestion) for no reason. Being short of breath. Feeling sick to your stomach (nauseous). Sudden cold sweats. Women and people with diabetes may have other symptoms that are not usual, such as feeling: Tired (fatigue). Worried or nervous (anxious) for no reason. Weak for no reason. Dizzy or passing out (fainting). How is this treated? This condition may be treated with: Medicines. These are given to: ?Prevent blood clots. ?Prevent heart attack. ?Relax blood vessels and improve blood flow to the heart (nitrates). ?Reduce blood pressure. ?Improve the pumping action of the heart. ?Reduce fat and cholesterol in the blood. A procedure to widen a narrowed or blocked artery in the heart (angioplasty). Surgery to allow blood to go around a blocked artery (coronary artery bypass surgery). Follow these instructions at home: Medicines Take [id number] and prescription medicines only as told by your doctor. Do not take these medicines unless your doctor says that you can: ?NSAIDs. These include: ?Ibuprofen. ?Naproxen. ?Vitamin supplements that have vitamin A, vitamin E, or both. ?Hormone therapy that contains estrogen with or without progestin. Eating and drinking Eat a heart-healthy diet that includes: ?Lots of fresh fruits and vegetables. ?Whole grains. ?Low-fat (lean) protein. ?Low-fat dairy products. Follow instructions from your doctor about what you cannot eat or drink. Activity Follow an exercise program that your doctor tells you. Talk with your doctor about joining a program to help improve the health of your heart (cardiac rehab). When you feel tired, take a break. Plan breaks if you know you are going to feel tired. Lifestyle Do not use any products that contain nicotine or tobacco. This includes cigarettes, e-cigarettes, and chewing tobacco. If you need help quitting, ask your doctor. If your doctor says you can drink alcohol: ?Limit how much you use to: ?0 1 drink a day for women who are not . ? 0 2 drinks a day for men. ?Be aware of how much alcohol is in your drink. In the [place] one drink equals: ?One 12 oz bottle of beer (355 mL). ?One 5 oz glass of wine (148 mL). ?One 1 oz glass of hard liquor (44 mL). General instructions Stay at a healthy weight. If your doctor tells you to do so, work with him or her to lose weight. Learn to deal with stress. If you need help, ask your doctor. Keep your vaccines up to date. Get a flu shot every year. Talk with your doctor if you feel sad. Take a screening test to see if you are at risk for depression. Work with your doctor to manage any other health problems that you have. These may include diabetes or high blood pressure. Keep all follow-up visits as told by your doctor. This is important. Get help right away if: You have pain in your chest, neck, arm, jaw, or back, and the pain: ?Lasts more than a few minutes. ?Comes back. ?Does not get better after you take medicine under your tongue (sublingual nitroglycerin). ?Keeps getting worse. ?Comes more often. You have any of these problems for no reason: ?Sweating a lot. ?Heartburn or upset stomach. ?Shortness of breath. ?Trouble breathing. ?Feeling sick to your stomach. ?Throwing up (vomiting). ?Feeling more tired than normal. ?Feeling nervous or worrying more than normal. ?Weakness. You are suddenly dizzy or light-headed. You pass out. These symptoms may be an emergency. Do not wait to see if the symptoms will go away. Get medical help right away. Call your local emergency services (911 in the [place] Do not drive yourself to the hospital. Summary Angina is very bad discomfort or pain in the chest, neck, arm, neck, or back. Symptoms include chest pain, heartburn or upset stomach for no reason, and shortness of breath. Women or people with diabetes may have symptoms that are not usual, such as feeling nervous or worried for no reason, weak for no reason, or tired. Take all medicines only as told by your doctor. You should eat a heart-healthy diet and follow an exercise program. This information is not intended to replace advice given to you by your health care provider. Make sure you discuss any questions you have with your health care provider. Document Released: 11/06/2008 Document Revised: 01/06/2019 Document Reviewed: 01/06/2019 [employer] Patient Education 2020 [employer]. Follow Up Care 04/07/2022 17:34:53 With:JARED ROWLAND Address: [address] [place] [address]- Business (1) When:Within 4 Week(s) [facility] 04-08-2022 Note Discharge Instructions Thank you for allowing [facility] to assist you with your healthcare needs. The following is important discharge information regarding your hospital visit. Your Care Team APOLONIA CRAVEN MD What to do next Follow Up Appointments Follow Up with JARED ROWLAND When In 4 weeks Where: [address] [place] [address]- Business (1) The Following Activity and Diet Have Been Ordered for You Discharge Activity - Ordered -- Resume your pre-hospitalization activity, 04/08/22 15:40:00 EDT Discharge Diet - Ordered -- 04/08/22 15:40:00 EDT The Following Equipment Has Been Ordered for You No qualifying data available. The Following Treatments Have Been Ordered for You Discharge Labs No qualifying data available. Discharge Radiology No qualifying data available. Other Therapies No qualifying data available. Post Acute Orders No qualifying data available. Someone Will Contact You Regarding These Home Health Referrals No home referrals have been ordered for you. No one will call you. Allergies Ambien Keflex Latex (Blisters) Statins (Muscle ache) Tape (Blisters) aspirin codeine (Generalized seizures) ezetimibe (Unknown) meperidine sulfa drug traMADol Medications Please ask your primary doctor or pharmacist before taking any other medication not listed, including over the counter drugs, herbal medications, vitamins and or supplements as they may interact with your home medications. What How Much When Instructions Last Dose Changed busPIRone (busPIRone 5 mg oral tablet) 7.5 by mouth Two (2) times a day Unchanged albuterol 0.5 Unchanged alirocumab (Praluent Pen 75 mg/ mL subcutaneous solution) 1 Milliliter Subcutaneous Every other week Unchanged calcium carbonate (calcium (as carbonate) 600 mg oral tablet) 1 tab(s) by mouth Every day Unchanged cholecalciferol (Vitamin D3 5000 intl units oral capsule) 1 cap by mouth Daily at 12 noon Unchanged cyanocobalamin (Vitamin B12 100 mcg oral tablet) 1 tab(s) by mouth Once a day Unchanged dicyclomine (Bentyl 20 mg oral tablet) 1 tab(s) by mouth Four (4) times a day Unchanged divalproex sodium (divalproex sodium 250 mg oral delayed release tablet) 1 tab(s) by mouth Every day Unchanged DULoxetine (DULoxetine 60 mg oral delayed release capsule) See instructions Take 2 capsules by mouth once daily Unchanged ferrous sulfate (IRON (ferrous sulfate 325 mg) 65 mg oral tablet) 1 tab(s) by mouth Twice daily with meals Take with food. Unchanged fluconazole 150 Milligram by mouth Every day Unchanged fluticasone nasal (fluticasone 0.05 mg/ inh nasal spray) 2 spray(s) in the nose Daily at bedtime Unchanged fluticasone/ umeclidinium/ vilanterol (Trelegy Ellipta 100 mcg-62.5 mcg-25 mcg/ inh inhalation powder) INHALE 1 PUFF DAILY WITH GOOD ORAL CARE AFTER USE Unchanged furosemide (furosemide 20 mg oral tablet) 1 tab(s) by mouth Sunday / Sunday / Sunday Unchanged isosorbide mononitrate (isosorbide mononitrate 30 mg oral tablet, extended release) 1 tab(s) by mouth Once a day (in the morning) Unchanged levothyroxine (levothyroxine 175 mcg (0.175 mg) oral tablet) TAKE 1 TABLET BY MOUTH EVERY OTHER MORNING ALTERNATING WITH 200 MCG EVERY OTHER MORNING Unchanged levothyroxine (levothyroxine 200 mcg (0.2 mg) oral tablet) TAKE 1 TABLET BY MOUTH EVERY OTHER DAY ALTERNATING WITH 175 MCG Unchanged magnesium oxide (magnesium oxide 400 mg (240 mg elemental magnesium) oral tablet) 1 tab(s) by mouth Once a day Unchanged metoprolol (metoprolol tartrate 25 mg oral tablet) 1 tab(s) by mouth Two (2) times a day Take with food Unchanged mirtazapine (mirtazapine 15 mg oral tablet) 1 tab(s) by mouth Daily at bedtime Unchanged nateglinide (nateglinide 60 mg oral tablet) 1 tab(s) by mouth Daily before supper Unchanged nitroGLYcerin (Nitrostat 0.4 mg sublingual tablet) 1 tab(s) under the tongue Every 5 minutes as needed for for chest pain Unchanged nystatin topical (nystatin 100,000 units/ g topical cream) 1 application Topical Two (2) times a day Unchanged omeprazole (NF) (omeprazole 40 mg oral delayed release capsule (NF)) 1 cap by mouth Two (2) times a day Unchanged ondansetron (Zofran 4 mg oral tablet) 1 tab(s) by mouth Every 8 hours Unchanged potassium chloride (potassium chloride 20 mEq oral tablet, extended release) 1 tab(s) by mouth Daily at 12 noon Take with food Unchanged pyridoxine (Vitamin B6 100 mg oral tablet) 1 tab(s) by mouth Once a day (in the morning) Unchanged QUEtiapine (QUEtiapine 100 mg oral tablet) 1 tab(s) by mouth Daily at bedtime as needed for NEEDED FOR SLEEP Unchanged SUMAtriptan (SUMAtriptan 25 mg oral tablet) 1 tab(s) by mouth Once a day as needed for as needed for migraine headache 1 tab onset , may repeat in 2 hrs. MAX 8 tab(s)/ 24hrs Unchanged tiZANidine (tiZANidine 4 mg oral capsule) 1 cap by mouth Every 8 hours What How Much When Comments Stop Taking tiotropium (Spiriva 18 mcg inhalation capsule) 1 cap by inhalation Once a day Please take this list to your next doctor s visit. Bring all medications you take, including over the counter medications, herbals and other supplements with you to your doctor s visit. Patients and families are reminded to discard old lists and to update any records with all medication providers or retail pharmacies. Medication Leaflets nitroglycerin (oral/sublingual) (KASIA graham GLI ser in (OR al/sub MICHAEL gwal)) GoNitro, Nitrolingual, Nitromist, Nitrostat, Nitro-Time What is the most important information I should know about nitroglycerin? Get emergency medical help if you still have chest pain after using a total of 3 doses in 15 minutes, or if you have chest pain that seems unusual. What is nitroglycerin? Nitroglycerin is used to treat or prevent attacks of chest pain (angina). Nitroglycerin may also be used for purposes not listed in this medication guide. What should I discuss with my healthcare provider before taking nitroglycerin? You may not be able to use nitroglycerin if you have: severe anemia (low red blood cells); increased pressure inside the skull; circulation problems or shock (pale or clammy skin, cold sweat, numbness or tingling, fast or irregular heartbeats, or feeling like you might pass out); or if you also take riociguat or vericiguat. Do not use erectile dysfunction medicine (such as Viagra, Cialis, or Levitra) or you could have a sudden and serious decrease in blood pressure. Tell your doctor if you have ever had: an allergic reaction to nitroglycerin; a heart attack or other heart problems; or low blood pressure. Tell your doctor if you are or . Not approved for use by anyone younger than 18 years old. How should I take nitroglycerin? Follow all directions on your prescription label and read all medication guides or instruction sheets. Use the medicine exactly as directed. Try to rest or stay seated when you take nitroglycerin (may cause dizziness or fainting). Read and carefully follow any Instructions for Use provided with your medicine. Ask your doctor or pharmacist if you do not understand these instructions. Use this medicine at the first sign of chest pain. Use another dose every 5 minutes as needed, up to a total of 3 doses. Get emergency medical help if you still have chest pain after using a total of 3 doses in 15 minutes, or if your chest pain seems unusual. You may use nitroglycerin sublingual within 5 to 10 minutes before an activity that might cause chest pain. This medicine can affect the results of certain medical tests. Tell any doctor who treats you that you are using nitroglycerin. If you take nitroglycerin on a regular schedule to prevent angina, do not stop taking it suddenly or you could have a severe attack of angina. Keep this medicine on hand at all times. Get your prescription refilled before you run out of medicine completely. Store nitroglycerin at room temperature away from moisture and heat. Keep the spray away from open flame or high heat, such as in a car on a hot day. The canister may explode if it gets too hot. What happens if I miss a dose? If you take nitroglycerin on a regular schedule, skip any missed dose if it's almost time for your next dose. Do not use two doses at one time. What happens if I overdose? Seek emergency medical attention or call the Poison Help line at . An overdose of nitroglycerin can be fatal. Overdose symptoms may include a throbbing headache, confusion, pounding heartbeats, vision problems, vomiting, bloody diarrhea, sweating, clammy skin, blue lips, weak or shallow breathing, loss of movement, seizure, or fainting. What should I avoid while taking nitroglycerin? Avoid getting up too fast from a sitting or lying position, or you may feel dizzy. Drinking alcohol can increase certain side effects such as dizziness, drowsiness, feeling light-headed, or fainting. What are the possible side effects of nitroglycerin? Get emergency medical help if you have signs of an allergic reaction: hives, sweating, pale skin; nausea, vomiting; feeling weak or light-headed; difficult breathing; swelling of your face, lips, tongue, or throat. Call your doctor at once if you have: severe or throbbing headaches that do not become less severe with continued use of nitroglycerin; pounding heartbeats or fluttering in your chest; slow heart rate; a light-headed feeling, like you might pass out; blurred vision or dry mouth; or heart attack symptoms--chest pain or pressure, pain spreading to your jaw or shoulder, nausea, sweating. Nitroglycerin can cause severe headaches that should become less severe as you continue to use the medicine. Common side effects may include: flushing (sudden warmth, redness, or tingly feeling); feeling light-headed, fainting; headache, dizziness; or numbness, tingling, burning pain. This is not a complete list of side effects and others may occur. Call your doctor for medical advice about side effects. You may report side effects to FDA at 7-287-ZLA-0454. What other drugs will affect nitroglycerin? Tell your doctor about all your current medicines, especially: aspirin, heparin; a diuretic (water pill); any medicine to treat erectile dysfunction; medicine to treat depression or psychiatric illness; medicine used to treat blood clots; heart or blood pressure medicine; or migraine headache medicine, such as ergot medicine (dihydroergotamine, ergotamine, ergonovine, methylergonovine). This list is not complete and many other drugs may affect nitroglycerin. This includes prescription and ijvv-sua-qsfusut medicines, vitamins, and herbal products. Not all possible drug interactions are listed here. Where can I get more information? Your pharmacist can provide more information about nitroglycerin. Remember, keep this and all other medicines out of the reach of children, never share your medicines with others, and use this medication only for the indication prescribed. Every effort has been made to ensure that the information provided by [employer]. ('[employer]') is accurate, up-to-date, and complete, but no guarantee is made to that effect. Drug information contained herein may be time sensitive. [employer] information has been compiled for use by healthcare practitioners and consumers in the [place] and therefore [employer] does not warrant that uses outside of the [place] are appropriate, unless specifically indicated otherwise. [employer]'s drug information does not endorse drugs, diagnose patients or recommend therapy. [employer] drug information is an informational resource designed to assist licensed healthcare practitioners in caring for their patients and/or to serve consumers viewing this service as a supplement to, and not a substitute for, the expertise, skill, knowledge and judgment of healthcare practitioners. The absence of a warning for a given drug or drug combination in no way should be construed to indicate that the drug or drug combination is safe, effective or appropriate for any given patient. [employer] does not assume any responsibility for any aspect of healthcare administered with the aid of information [employer] provides. The information contained herein is not intended to cover all possible uses, directions, precautions, warnings, drug interactions, allergic reactions, or adverse effects. If you have questions about the drugs you are taking, check with your doctor, nurse or pharmacist. Copyright 4086-6637 [employer]. Version: 16.01. Revision Date: 11/05/2020. Education Materials Angina Angina is very bad discomfort or pain in the chest, neck, arm, jaw, or back. The discomfort is caused by a lack of blood in the middle layer of the heart wall (myocardium). What are the causes? This condition is caused by a buildup of fat and cholesterol (plaque) in your arteries (atherosclerosis). This buildup narrows the arteries and makes it hard for blood to flow. What increases the risk? You are more likely to develop this condition if: You have high levels of cholesterol in your blood. You have high blood pressure (hypertension). You have diabetes. You have a family history of heart disease. You are not active, or you do not exercise enough. You feel sad (depressed). You have been treated with high energy rays (radiation) on the left side of your chest. Other risk factors are: Using tobacco. Being very overweight (obese). Eating a diet high in unhealthy fats (saturated fats). Having stress, or being exposed to things that cause stress. Using drugs, such as cocaine. Women have a greater risk for angina if: They are older than 55. They have stopped having their period (are in postmenopause). What are the signs or symptoms? Common symptoms of this condition in both men and women may include: Chest pain, which may: ? Feel like a crushing or squeezing in the chest. ? Feel like a tightness, pressure, fullness, or heaviness in the chest. ? Last for more than a few minutes at a time. ? Stop and come back (recur) after a few minutes. Pain in the neck, arm, jaw, or back. Heartburn or upset stomach (indigestion) for no reason. Being short of breath. Feeling sick to your stomach (nauseous). Sudden cold sweats. Women and people with diabetes may have other symptoms that are not usual, such as feeling: Tired (fatigue). Worried or nervous (anxious) for no reason. Weak for no reason. Dizzy or passing out (fainting). How is this treated? This condition may be treated with: Medicines. These are given to: ? Prevent blood clots. ? Prevent heart attack. ? Relax blood vessels and improve blood flow to the heart (nitrates). ? Reduce blood pressure. ? Improve the pumping action of the heart. ? Reduce fat and cholesterol in the blood. A procedure to widen a narrowed or blocked artery in the heart (angioplasty). Surgery to allow blood to go around a blocked artery (coronary artery bypass surgery). Follow these instructions at home: Medicines Take jhdv-ssh-ehgeszt and prescription medicines only as told by your doctor. Do not take these medicines unless your doctor says that you can: ? NSAIDs. These include: ? Ibuprofen. ? Naproxen. ? Vitamin supplements that have vitamin A, vitamin E, or both. ? Hormone therapy that contains estrogen with or without progestin. Eating and drinking Eat a heart-healthy diet that includes: ? Lots of fresh fruits and vegetables. ? Whole grains. ? Low-fat (lean) protein. ? Low-fat dairy products. Follow instructions from your doctor about what you cannot eat or drink. Activity Follow an exercise program that your doctor tells you. Talk with your doctor about joining a program to help improve the health of your heart (cardiac rehab). When you feel tired, take a break. Plan breaks if you know you are going to feel tired. Lifestyle Do not use any products that contain nicotine or tobacco. This includes cigarettes, e-cigarettes, and chewing tobacco. If you need help quitting, ask your doctor. If your doctor says you can drink alcohol: ? Limit how much you use to: ? 0 1 drink a day for women who are not . ? 0 2 drinks a day for men. ? Be aware of how much alcohol is in your drink. In the [place] one drink equals: ? One 12 oz bottle of beer (355 mL). ? One 5 oz glass of wine (148 mL). ? One 1 oz glass of hard liquor (44 mL). General instructions Stay at a healthy weight. If your doctor tells you to do so, work with him or her to lose weight. Learn to deal with stress. If you need help, ask your doctor. Keep your vaccines up to date. Get a flu shot every year. Talk with your doctor if you feel sad. Take a screening test to see if you are at risk for depression. Work with your doctor to manage any other health problems that you have. These may include diabetes or high blood pressure. Keep all follow-up visits as told by your doctor. This is important. Get help right away if: You have pain in your chest, neck, arm, jaw, or back, and the pain: ? Lasts more than a few minutes. ? Comes back. ? Does not get better after you take medicine under your tongue (sublingual nitroglycerin). ? Keeps getting worse. ? Comes more often. You have any of these problems for no reason: ? Sweating a lot. ? Heartburn or upset stomach. ? Shortness of breath. ? Trouble breathing. ? Feeling sick to your stomach. ? Throwing up (vomiting). ? Feeling more tired than normal. ? Feeling nervous or worrying more than normal. ? Weakness. You are suddenly dizzy or light-headed. You pass out. These symptoms may be an emergency. Do not wait to see if the symptoms will go away. Get medical help right away. Call your local emergency services (911 in the [place] Do not drive yourself to the hospital. Summary Angina is very bad discomfort or pain in the chest, neck, arm, neck, or back. Symptoms include chest pain, heartburn or upset stomach for no reason, and shortness of breath. Women or people with diabetes may have symptoms that are not usual, such as feeling nervous or worried for no reason, weak for no reason, or tired. Take all medicines only as told by your doctor. You should eat a heart-healthy diet and follow an exercise program. This information is not intended to replace advice given to you by your health care provider. Make sure you discuss any questions you have with your health care provider. Document Released: 11/06/2008 Document Revised: 01/06/2019 Document Reviewed: 01/06/2019 [employer] Patient Education 2020 [employer] Additional Information VACCINATE! IT SAVES LIVES! Members of the community who have not yet received the COVID-19 vaccine and would like to receive it can visit one of [facility] vaccine clinics. There are many vaccine clinic locations within the [facility]. For locations and available times, please visit [email or web address] It is important to note that some COVID mobile vaccine clinics are held outdoors and may be canceled in rainy or stormy conditions. To learn more about pediatric vaccinations (ages 5-11), we invite you to visit the [facility] webpage. [email or web address] To learn more about the COVID-19 vaccine, we invite you to visit the [facility] website for a list of frequently asked questions. [email or web address] [facility] Access Instructions: Stay connected with your healthcare team and access your personal medical information anytime with the [facility] Patient Portal.If you would like a full copy of your medical records, please contact the [facility] Medical Records Department, Sunday through Sunday between 8a.m. and 4:30p.m. Please follow the directions below to access the portal: 1.Access the email account you provided upon registration to the [facility].2.Look for an invitation email from [facility].3.Open the email and access the invitation link: Accept Invitation to [facility].Fill in the required macario to create your account. Sign into [email or web address] with your username and password that you created in the above steps to stay up to date. You can then view a summary of results, a summary of your visits, and the ability to download your summaries to your computer or send the information securely to a physician. Remember that your healthcare information is confidential, so carefully consider who you will allow to register on the [facility] Patient Portal for access to your information. You can also access the [facility] Patient Portal on the [employer]. Simply click on Health Records under Health Data and then click on the [employer] logo. HOW TO SAFELY DISPOSE OF PRESCRIPTION MEDICATIONS Please use one of the following methods to safely dispose of your unused medications. 1.Use a drug disposal kit: the drug disposal pouch allows you to safely discard your old and unused drugs. Ask your nurse to give you one when you are discharged.2.Visit a local take-back location: Many local pharmacies and police departments have programs that collect old and unwanted prescription drugs. Call your local pharmacy or go to http://bit.Presentain/8X6Op7y to find one close to you.3.Make use of household items: Use cat litter or old coffee grounds to dispose medications if other options are not available. Mix your drugs with these household products, seal them in an airtight container and throw it into the garbage. Call [facility]: [phone] to be sure your drugs can be disposed of in this way. Some medicines may require a different approach.4.Never flush your medications down the toilet. IF YOU HAVE BEEN PRESCRIBED AN OPIOID FOR PAIN If you have been prescribed an opioid (such as hydrocodone, oxycodone or morphine), it is critical to understand the possible side effects and risks of opioid pain medications. Even when taken as directed, opioids can have several side effects including: Tolerance, meaning you might need to take more of a medication for the same pain relief. Nausea, vomiting and/or constipation. Sleepiness, dizziness, dry mouth, confusion, depression or itching. Physical dependence, meaning you have withdrawal symptoms when a medication is stopped, can develop within a few days. KNOW YOUR RESPONSIBILITIES It is important to know exactly how much and how often to take the opioid pain medications you are prescribed. Never take opioids in higher amounts or more often than prescribed. Do not combine opioids with alcohol or other drugs that cause drowsiness, such as benzodiazepines, also known as benzos, including diazepam and alprazolam, muscle relaxants or sleep aids. Never sell or share prescription opioids. This is illegal. Store opioids in a secure place and out of reach of others (including children, family, friends and visitors). The last page of this document has been signed and retained as a CHART COPY. Signatures Patient Education Materials Angina, Asni-tf-Vtgf Medication Leaflets nitroglycerin (oral/sublingual) My discharge plan and instructions have been reviewed and explained to me and INATALIE HELEN J understand my current condition and have read and understand these discharge instructions. I have received a written copy of the plan/instructions. If I have questions, I am aware that I should contact my doctor. 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 Atypical chest pain 2. Hypertension 3. Diabetes 4. History of GI bleeds Patient with multiple invasive and noninvasive tests in the past. Most recent stress test was 2018. In addition, patient is unable to tolerate blood thinners which will make PCI difficult and would need GI clearance prior. Troponin is negative. For this reason we will proceed with nuclear medicine stress test. If normal can discharge home. Future Scheduled Tests Laboratory* Lipid Profile 11/11/21 * Complete Metabolic Panel 11/11/21 [facility] 11-05-2022 Discharge summary Date of Service 04/08/2022 Discharge Diagnosis Noncardiac chest pain Hospital Course This is a 66-year-old female with prior history of hypertension diabetes anxiety hypothyroidism obesity history of CABG carotid artery stenosis tobacco use PTSD who presented to the hospital with atypical chest pain. Troponin was negative. Patient underwent stress test which did not show any evidence of ischemia or infarction. Patient remained stable in the hospital and will be discharged home today with outpatient follow-up. Allergies Ambien Keflex Latex (Blisters) Statins (Muscle ache) Tape (Blisters) aspirin codeine (Generalized seizures) ezetimibe (Unknown) meperidine sulfa drug traMADol Consults No qualifying data available. Objective Vitals and Measurements T: 36.6 C (Oral) TMIN: 36.5 C (Oral) TMAX: 36.9 C (Oral) HR: 95 RR: 20 BP: 152/76 SpO2: 95% HT: 165.1 cm WT: 105.7 kg BMI: 38.78 Weight Dosing Weight: 105.7 kg (04/07/22) General Appearance: in no acute distress. Alert. EENT: No thyroid disease. ocular movements intact Cardiac: RRR. S1 and S2. no murmurs or rubs. Lungs: Clear breath sounds. No wheeze or crackles noted. Abdomen: soft. non tender. bowel sounds audible Musculoskeletal: [strength and sensation intact Neurological: alert and oriented. Skin: warm. dry 12 point ROS reviewed and negative unless stated above. Code Status Code Status - Ordered -- 04/07/22 20:54:00 EDT, Full Code, Constant Order Admission Date 04/07/2022 Discharge Date 04/08/2022 Medications Changed busPIRone (busPIRone 5 mg oral tablet)7.5 by mouth two (2) times a day. Unchanged albuterol0.5. alirocumab (Praluent Pen 75 mg/mL subcutaneous solution)1 Milliliter Subcutaneous every other week.Refills: 2. calcium carbonate (calcium (as carbonate) 600 mg oral tablet)1 tab(s) by mouth every day. cholecalciferol (Vitamin D3 5000 intl units oral capsule)1 cap by mouth daily at 12 noon. cyanocobalamin (Vitamin B12 100 mcg oral tablet)1 tab(s) by mouth once a day. dicyclomine (Bentyl 20 mg oral tablet)1 tab(s) by mouth four (4) times a day. divalproex sodium (divalproex sodium 250 mg oral delayed release tablet)1 tab(s) by mouth every day. DULoxetine (DULoxetine 60 mg oral delayed release capsule)Take 2 capsules by mouth once daily. Refills: 5. ferrous sulfate (IRON (ferrous sulfate 325 mg) 65 mg oral tablet)1 tab(s) by mouth twice daily withmeals. Take with food.. [id number] Milligram by mouth every day. fluticasone nasal (fluticasone 0.05 mg/inh nasal spray)2 spray(s) in the nose daily at bedtime. fluticasone/umeclidinium/vilanterol (Trelegy Ellipta 100 mcg-62.5 mcg-25 mcg/inh inhalation powder)INHALE 1 PUFF DAILY WITH GOOD ORAL CARE AFTER USE. furosemide (furosemide 20 mg oral tablet)1 tab(s) by mouth Sunday / Sunday / Sunday. isosorbide mononitrate (isosorbide mononitrate 30 mg oral tablet, extended release)1 tab(s) by mouth once a day (in the morning). levothyroxine (levothyroxine 175 mcg (0.175 mg) oral tablet)TAKE 1 TABLET BY MOUTH EVERY OTHER MORNING ALTERNATING WITH 200 MCG EVERY OTHER MORNING. levothyroxine (levothyroxine 200 mcg (0.2 mg) oral tablet)TAKE 1 TABLET BY MOUTH EVERY OTHER DAY ALTERNATING WITH 175 MCG. magnesium oxide (magnesium oxide 400 mg (240 mg elemental magnesium) oral tablet)1 tab(s) by mouth once a day. metoprolol (metoprolol tartrate 25 mg oral tablet)1 tab(s) by mouth two (2) times a day. Take with food. Refills: 3. mirtazapine (mirtazapine 15 mg oral tablet)1 tab(s) by mouth daily at bedtime. Refills: 0. nateglinide (nateglinide 60 mg oral tablet)1 tab(s) by mouth daily before supper. nitroGLYcerin (Nitrostat 0.4 mg sublingual tablet)1 tab(s) under the tongue every 5 minutes as needed for chest pain. Refills: 6. nystatin topical (nystatin 100,000 units/g topical cream)1 application Topical two (2) times a day. omeprazole (NF) (omeprazole 40 mg oral delayed release capsule (NF))1 cap by mouth two (2) times a day. ondansetron (Zofran 4 mg oral tablet)1 tab(s) by mouth every 8 hours. potassium chloride (potassium chloride 20 mEq oral tablet, extended release)1 tab(s) by mouth dailyat 12 noon. Take with food. pyridoxine (Vitamin B6 100 mg oral tablet)1 tab(s) by mouth once a day (in the morning). QUEtiapine (QUEtiapine 100 mg oral tablet)1 tab(s) by mouth daily at bedtime as needed NEEDED FOR SLEEP. Refills: 0. SUMAtriptan (SUMAtriptan 25 mg oral tablet)1 tab(s) by mouth once a day as needed as needed for migraine headache. 1 tab onset , may repeat in 2 hrs. MAX 8 tab(s)/24hrs. tiZANidine (tiZANidine 4 mg oral capsule)1 cap by mouth every 8 hours. Discontinued tiotropium (Spiriva 18 mcg inhalation capsule)1 cap by inhalation once a day. Follow Up Appointments No qualifying data available. Follow Up Labs/Studies Discharge Labs No Follow-up Labs Discharge Studies No Follow-up Studies Discharge Diet No qualifying data available. Discharge Activity No qualifying data available. Readmission Risk/Palliative Score No qualifying data available. Digitally Signed by GELA COLBERT MD on 04/08/2022 03:40 PM Digitally Signed by SAMSON COX MD [id number] Note ORIGINAL EXAMINATION: CARDIAC SPECT04/08/2022 10:29 am TECHNIQUE: Lexiscan dose: 0.4 mg IV Radiopharmaceutical (rest and stress doses): Tc-99m Sestamibi IV 8.5 and 27 mCi SPECT acquisition and processing: Images reconstructed into short, vertical long, and horizontal long axis planes. Wall motion evaluation and quantitative LVEF assessment. COMPARISON: November 27, 2018 HISTORY: ORDERING SYSTEM PROVIDED HISTORY: CP FINDINGS: Decreased perfusion involving the inferior wall non attenuation corrected post stress images resolves on attenuation corrected post-stress images, likely represents soft tissue attenuation. There is no stress-induced reversible perfusion abnormality. No fixed perfusion defect is seen to suggest infarction. The left ventricular end-diastolic volume is 82 mL. Gated imaging demonstrates no regional wall motion abnormality. Estimated left ventricular ejection fraction is 56 %. TID ratio is normal at 0.96. Low-dose attenuation correction CT demonstrates no coronary atherosclerotic calcifications. The heart is normal in size. No pericardial or pleural effusion is seen. There is no focal consolidation. IMPRESSION: 1. No stress-induced reversible perfusion abnormality is seen. 2. Cardiac systolic function is normal with estimated ejection fraction of 56 %. Interpreted by: Braydon Padilla MD Preliminary Report By: Braydon Padilla MD Electronically signed By Braydon Padilla MD Dictated Date: 04/08/2022 11:29:52 AM Prelim Date: 04/08/2022 11:38:34 AM Sign Date: 04/08/2022 11:38:34 AM Ordering Provider: [facility] WINN [id number] Note ORIGINAL EXAMINATION: CARDIAC SPECT04/08/2022 10:29 am TECHNIQUE: Lexiscan dose: 0.4 mg IV Radiopharmaceutical (rest and stress doses): Tc-99m Sestamibi IV 8.5 and 27 mCi SPECT acquisition and processing: Images reconstructed into short, vertical long, and horizontal long axis planes. Wall motion evaluation and quantitative LVEF assessment. COMPARISON: November 27, 2018 HISTORY: ORDERING SYSTEM PROVIDED HISTORY: CP FINDINGS: Decreased perfusion involving the inferior wall non attenuation corrected post stress images resolves on attenuation corrected post-stress images, likely represents soft tissue attenuation. There is no stress-induced reversible perfusion abnormality. No fixed perfusion defect is seen to suggest infarction. The left ventricular end-diastolic volume is 82 mL. Gated imaging demonstrates no regional wall motion abnormality. Estimated left ventricular ejection fraction is 56 %. TID ratio is normal at 0.96. Low-dose attenuation correction CT demonstrates no coronary atherosclerotic calcifications. The heart is normal in size. No pericardial or pleural effusion is seen. There is no focal consolidation. IMPRESSION: 1. No stress-induced reversible perfusion abnormality is seen. 2. Cardiac systolic function is normal with estimated ejection fraction of 56 %. Interpreted by: Braydon Padilla MD Preliminary Report By: Braydon Padilla MD Electronically signed By Braydon Padilla MD Dictated Date: 04/08/2022 11:29:52 AM Prelim Date: 04/08/2022 11:38:34 AM Sign Date: 04/08/2022 11:38:34 AM Ordering Provider: [facility]11-05-2022 History and physical note History of Present Illness 66-year-old female with known history of hypertension, diabetes, anxiety, hypothyroidism, obesity, history of GI bleeds, carotid artery stenosis, tobacco use disorder, PTSD Patient presented due to diffuse chest pain over the past day. [place] like someone was sitting on herchest with radiation to her jaw. Not associate with exertion or relieved with rest. She is unsure if nitroglycerin improved pain. Prior to this episode, patient had no chest pain over the past year. Underwent left heart cath in 2018 that demonstrated minimal CAD with 20% RCA lesion. Also do stresstest in 2019 that was negative for inducible ischemia. Also had a left heart cath in 2009 that did not demonstrate any ischemia. Has had history of significant GI bleeds with clips per patient. Said she had a GI bleed last year as well. Told she cannot take ibuprofen or blood thinners such as aspirin. Electrolyetes wnl. Cr 0.66. LFT wnl. WBC 13.1, hgb 14.7 D dimer 211 HS trop 12.4, 4.7 BNP 159 Last echo: 12/2021 Summary: 1. Left ventricle: The cavity size is normal. Wall thickness is mildly increased. Systolic functionis normal. The estimated ejection fraction is 55-60%. Wall motion is normal; there are no regional wall motion abnormalities. Normal diastolic function. 2. Aortic valve: Thickening, consistent with sclerosis. 3. Right ventricle: The RV systolic pressure by Doppler is 28 mm Hg. 4. Right atrium: The estimated right atrial pressure is 3 mm Hg. Review of Systems Constitutional: Negative for fever, negative for fatigue, negative for chills, negative for weight changes HEENT: Negative for reported sleep apnea, negative for swollen neck glands Cardiovascular: Positive for chest pain, negative for palpitations, negative for lightheadedness/syncope, negative for orthopnea, negative for lower extremity swelling Respiratory: Negative for shortness of breath at rest, negative for shortness of breath with activity, for cough, negative for wheezing Gastrointestinal: Negative for abdominal pain, negative for nausea, negative for melena, negative for hematochezia Genitourinary: Negative for dysuria, negative for urgency, negative for urinary frequency Musculoskeletal: Negative for back pain, negative for abnormal joint pains, negative for unusual muscle pains Skin: Negative for rashes, negative for ulcers Neurological: Negative for facial droop, negative for focal numbness, negative for weakness Psychiatric: Negative for anxiety, negative for depression Endocrine: Negative for hot flashes, negative for excessive thirst Hematologic/Lymphatic: No easy bruising, no unusual bleeding Physical Exam Vitals and Measurements T: 36.8 C (Oral) TMIN: 36.8 C (Oral) TMAX: 36.9 C (Oral) HR: 74 RR: 20 BP: 152/54 SpO2: 94% HT: 165.1 cm WT: 105.7 kg BMI: 38.78 Weight Dosing Weight: 105.7 kg (04/07/22) GENERAL: Well nourished; no acute distress. PSYCHIATRIC: Alert and oriented x 3, cooperative, mood normal, affect normal. HEAD: Normocephalic, nontraumatic head. EYES: Pupils equal, round, and reactive to light; conjunctiva clear bilaterally. Lids within normallimits. NECK: Supple, no posterior midline tenderness. Normal range of motion. No thyromegaly noted. CARDIAC: Regular rate, regular rhythm, no murmurs noted. RESPIRATORY: Regular rate and depth; no distress, RIGHT lung clear, LEFT lung clear. Breath sounds normal. ABDOMEN: Soft, nontender. Normal bowel sounds. EXTREMITIES: No trace lower extremity pitting edema. No lymphedema. Dorsalis Pedis pulse +2/4 bilaterally. Posterior Tibialis pulse +2/4 bilaterally. NEURO: Moves all extremities DERM: Warm and dry. Normal turgor. No observed exanthem. No significant dandruff. Lab Results 04/07 22:21 Glucose Level: 158 H Sodium Level: 136 Potassium Level: 4.5 BUN: 10.0 Creatinine Lvl (s): 0.53 Assessment/Plan 1. Atypical chest pain 2. Hypertension 3. Diabetes 4. History of GI bleeds Patient with multiple invasive and noninvasive tests in the past. Most recent stress test was 2018.In addition, patient is unable to tolerate blood thinners which will make PCI difficult and would need GI clearance prior. Troponin is negative. For this reason we will proceed with nuclear medicine stress test. If normal can discharge home. Problem List/Past Medical History Ongoing Anginal pain Anxiety and depression CAROTID ATHEROSCLEROSIS Carotid stenosis CHEST PAIN IN ADULT Chronic pain disorder Claudication Diabetes Dyspnea on exertion GERD (gastroesophageal reflux disease) HISTORY OF COPD HYPERTENSION, BENIGN HYPERTRIGLYCERIDEMIA Hypothyroid INCREASED BMI (Renamed from OVERWEIGHT) Palpitations PREOPERATIVE CLEARANCE Prinzmetal angina PTSD (post-traumatic stress disorder) PVD (Renamed from PERIPHERAL BLOOD VESSEL DISORDER) Spinal stenosis Historical No qualifying data Procedure/Surgical History section Tonsillectomy Knee replacement Cholecystectomy Thyroidectomy Carpal tunnel decompression Hernia repair Hysterectomy Shoulder repair Appendectomy Medications Home Medications (30) Active albuterol 0.5 Bentyl 20 mg oral tablet 20 mg = 1 tab(s), Oral, QID busPIRone 5 mg oral tablet 7.5, Oral, BID calcium (as carbonate) 600 mg oral tablet 600 mg = 1 tab(s), Oral, Daily divalproex sodium 250 mg oral delayed release tablet 250 mg = 1 tab(s), Oral, Daily DULoxetine 60 mg oral delayed release capsule See Instructions fluconazole 150 mg, Oral, Daily fluticasone 0.05 mg/inh nasal spray 2 spray(s), Nasal, qHS furosemide 20 mg oral tablet 20 mg = 1 tab(s), Oral, Mon/Wed/Fri IRON (ferrous sulfate 325 mg) 65 mg oral tablet 325 mg = 1 tab(s), Oral, BIDM isosorbide mononitrate 30 mg oral tablet, extended release 30 mg = 1 tab(s), Oral, qAM levothyroxine 175 mcg (0.175 mg) oral tablet levothyroxine 200 mcg (0.2 mg) oral tablet magnesium oxide 400 mg (240 mg elemental magnesium) oral tablet 400 mg = 1 tab(s), Oral, qDay metoprolol tartrate 25 mg oral tablet 25 mg = 1 tab(s), Oral, BID mirtazapine 15 mg oral tablet 1 tab(s), Oral, qHS nateglinide 60 mg oral tablet 60 mg = 1 tab(s), Oral, acSupper Nitrostat 0.4 mg sublingual tablet 0.4 mg = 1 tab(s), PRN, Sublingual, q5min nystatin 100,000 units/g topical cream 1 benjy, Topical, BID omeprazole 40 mg oral delayed release capsule (NF) 40 mg = 1 cap(s), Oral, BID potassium chloride 20 mEq oral tablet, extended release 20 mEq = 1 tab(s), Oral, 12 (noon) Praluent Pen 75 mg/mL subcutaneous solution 75 mg = 1 mL, Subcutaneous, q2wk QUEtiapine 100 mg oral tablet 1 tab(s), PRN, Oral, qHS SUMAtriptan 25 mg oral tablet 25 mg = 1 tab(s), PRN, Oral, qDay tiZANidine 4 mg oral capsule 4 mg = 1 cap(s), Oral, q8h Trelegy Ellipta 100 mcg-62.5 mcg-25 mcg/inh inhalation powder Vitamin B12 100 mcg oral tablet 100 mcg = 1 tab(s), Oral, qDay Vitamin B6 100 mg oral tablet 100 mg = 1 tab(s), Oral, qAM Vitamin D3 5000 intl units oral capsule 5,000 International_Unit = 1 cap(s), Oral, 12 (noon) Zofran 4 mg oral tablet 4 mg = 1 tab(s), Oral, q8h Allergies Ambien Keflex Latex (Blisters) Statins (Muscle ache) Tape (Blisters) aspirin codeine (Generalized seizures) ezetimibe (Unknown) meperidine sulfa drug traMADol Social History Smoking Status - 06/01/2012 Current every day smoker Alcohol - Denies Alcohol Use, 04/09/2018 Use: Past. Frequency: 1-2 times per year., 11/26/2018 Substance Abuse - Denies Substance Abuse, 04/09/2018 Use: Never., 07/31/2019 Tobacco - High Risk, 04/09/2018 Nicotine Use: 10 or more cigarettes (1/2 pack or more)/day in last 30 days. Type: Cigarettes. Tobacco use per day: 30. Number of years: 40. Started at age: 15 Years. Previous treatment: Nicotine replacement. Ready to change: Yes. Smoking Cessation Information Requests consult to tobacco cessation program., 08/19/2020 Family History COPD - Chronic obstructive pulmonary disease: Mother. Diabetes: Mother and Father. Heart disease: Mother and Father. Hypertension: Mother, Father and Sister. Stroke: Sister. Immunizations pneumococcal 23-valent vaccine(Pneumovax: 0.5 mL (01/10/11) SARS-CoV-2 mRNA (tozinameran) vaccine: 0 unknown unit (08/18/20) Code Status Code Status - Ordered -- 04/07/22 20:54:00 EDT, Full Code, Constant Order Digitally Signed by YESSENIA WINN MD on 04/08/2022 09:22 AM Digitally Signed by SAMSON COX MD [facility] [id number] Respiratory therapy Hospital Progress note Respiratory Therapy Evaluation Entered On: 04/07/2022 23:25 EDT Performed On: 04/07/2022 23:24 EDT by Rubina Degroot RRT Respiratory Therapy Evaluation Chest X-Ray : Clear/not ordered Respiratory Therapy Evaluation Score : 4 Respiratory Evaluation Triage Score : 5 - (0-5) Freq: Q4RT prn RT Assessment [Frequency/Schedule] : Q4 PRN; pt takes albuterol BID at home and trelegy at home. nofrequency change. Rubina Degroot PLASTICS ENGINEER - 04/07/2022 23:30 EDT Pulmonary Status : Pulmonary disorder Surgical Status : No surgeries Breath Sounds (RT) : Clear Respiratory Pattern (RT) : Regular RR=12-20 Cough (RT) : Strong, non-productive Level of Activity : Ambulatory with assistance Mental Status : Alert, oriented Rubina Degroot RRT - 04/07/2022 23:24 EDT Digitally Signed by Rubina Degroot RRT on 04/07/2022 11:30 PM [facility] [id number] Note. MICRO - Microbiology PROCEDURE: Culture Beta Strep Only [*1] SOURCE: Throat BODY SITE: COLLECTED DATE/TIME: 03/31/2022 00:20 EDT RECEIVED DATE/TIME: 03/31/2022 16:10 EDT START DATE/TIME: 03/31/2022 16:11 EDT FREE TEXT SOURCE: FINAL REPORTS Final Report [] Verified Date/Time/Personnel: 04/02/2022 07:27 EDT No Beta Strep isolated at 48hrs. PRELIMINARY REPORTS Preliminary Report [] Verified Date/Time/Personnel: 04/01/2022 09:10 EDT No beta Strep isolated at 24 hours. Performing Locations *1: This test was performed at: [facility], [address] [place] [address], [id number] , [facility] ([place])01-30-2022 Miscellaneous Notes* Telephone Encounter - Holly Bowden MD - 01/30/2022 11:31 AM EDT She is not anemic because of secondary polycythemia, however, her iron saturation and ferritin is still low. I spoke with mrs. Estrada today. Increase iron to twice daily follow-up with Dr. Craven Requested Prescriptions Signed Prescriptions Disp Refills ferrous sulfate (IRON) 325 mg (65 mg iron) tablet 60 tablet 2 Sig: Take 1 tablet by mouth twice daily. Authorizing Provider: HOLLY BOWDEN Order entered - please phone pharmacy and notify patient. Holly Bowden MD * Telephone Encounter - Yue Kinney - 01/30/2022 11:14 AM EDT Pt called to cancel appt with Dr. Bowden. She did not but would like to know if she should see someonein the meantime or if she could r/s once he is back. She also would like to talk to someone about her lab results. documented [facility]-2022 Miscellaneous Notes* Telephone Encounter - Tamiko Quesada - 12/15/2021 8:28 AM EDT Patient is scheduled, aware of date and time. Tamiko Quesada * Telephone Encounter - Boris Alaniz Pss - 11/22/2021 11:33 AM EDT Patient notified. Stated she will call back to schedule at a later date [facility] When patient returns call, please schedule CBC/IRON STUDIES at least 2-3 days prior to OV. Document and close once scheduled. * Telephone Encounter - Mary Robert RN - 11/22/2021 11:19 AM EDT Iron studies are back. Reviewed by Dr Bowden. Order received to cancel Iron Sucrose and schedule CBC/IRON STUDIES/ OV in 3 mo. Please schedule and notify patient. Mary Robert RN documented in this encounterK[facility]06-[facility]-2022 Miscellaneous Notes* Telephone Encounter - Rosalba Lay LPN - 11/04/2021 3:14 PM EDT We are unable to accommodate an earlier appointment. [facility] is requiring precert for iron. We do not precert for other facilities unless we do not offer the service here. Per Dr. Bowden, appointment does not need to be moved up, I called and left a message with Dr. Craven's office stating Dr. Craven could order iron at [facility]. Dr. Craven's office will call back if they are able to do this. Patient is aware and will keep her appointment as is 11/21/2021, unless Dr. Craven orders the iron at [facility]. Rosalba Lay LPN * Telephone Encounter - Holly Bowden MD - 11/04/2021 3:02 PM EDT Schedule her iron sucrose 200mg IV x 5 At [facility] in [place] Holly Bowden MD * Telephone Encounter - Boris Alaniz Pss - 11/04/2021 2:03 PM EDT Patient scheduled first available currently. Please advise if this patient could get her iron at [facility]. * Telephone Encounter - Ana Paula Alcaraz - 11/04/2021 1:[address] Olguin office called wondering if there would be any chance of getting her in any sooner for treatment. Please call office [phone] Ana Paula Alcaraz PSS documented in this encounterK[facility]05-31-2022 Miscellaneous Notes* Telephone Encounter - Anisha Maravilla - 11/01/2021 10:39 AM EDT Spoke with patient and scheduled. Anisha Maravilla * Telephone Encounter - Holly Bowden MD - 10/31/2021 9:20 AM EDT Please schedule for iron sucrose 200mg IV x 5 For iron malabsorption and anemia Holly Bowden MD * Telephone Encounter - Rosalba Lay LPN - 10/28/2021 4:27 PM EDT Labs need to be scanned in before iron can be ordered so the precert doesn't get denied. Rosalba Lay LPN * Telephone Encounter - Rosalba Lay LPN - 10/28/2021 3:57 PM EDT Patient states she saw Dr. Craven and had labs, iron studies are low. Dr. Bowden- awaiting faxed lab results.from Dr. Craven's office. Will this patient need an OV with you? Rosalba Lay LPN * Telephone Encounter - Josee Reilyl - 10/28/2021 3:46 PM EDT Patient calling in stating that she recently had labs with PCP and advise she call our office. Patient was advised to have PCP office fax those lab results to [phone]. documented in [facility] encounterMer[facility] + Plan note Future Scheduled Tests Radiology* [place] Mammo Diagnostic Left w/ Oli 03/28/25 [facility] Evaluation note* Diagnosis Secondary polycythemia- Primary Polycythemia, secondary Iron deficiency anemia due to chronic blood loss Iron deficiency anemia secondary to blood loss (chronic) Other thalassemia (HCC) Other thalassemia documented in this encounter [facility] noteNo assessment information availableWFostoria City Hospital Work Phone: Evaluation note* Diagnosis Dysphagia, unspecified type- Primary [facility]* Diagnosis Oropharyngeal dysphagia Dysphagia, oropharyngeal phase documented [facility]* Diagnosis Iron deficiency anemia due to chronic blood loss- Primary Iron deficiency anemia secondary to blood loss (chronic) [facility]* Diagnosis 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) Adverse effect of iron, subsequent encounter [facility]* Diagnosis 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) Adverse effect of iron, subsequent encounter [facility]* Diagnosis Iron deficiency anemia due to chronic blood loss- Primary Iron deficiency anemia secondary to blood loss (chronic) documented [facility] encounter [facility]* Diagnosis Iron deficiency anemia, unspecified iron deficiency anemia type AVM (arteriovenous malformation) of small bowel, acquired Angiodysplasia of intestine (without mention of hemorrhage) [facility] Diagnosis Iron deficiency anemia due to chronic blood loss- Primary Iron deficiency anemia secondary to blood loss (chronic) Chronic obstructive pulmonary disease, unspecified COPD type (HCC) AVM (arteriovenous malformation) Congenital anomaly of the peripheral vascular system, unspecified site [facility]* Diagnosis Stenosis of carotid artery, unspecified laterality- Primary documented in this encounter [facility]* Diagnosis Stenosis of carotid artery, unspecified laterality documented [facility] this encounter [facility]* Diagnosis Atherosclerosis of both carotid arteries- Primary Occlusion and stenosis of carotid artery without mention of cerebral infarction Small bowel bleed not requiring more than 4 units of blood in 24 hours, ICU, or surgery Hemorrhage of gastrointestinal tract, unspecified Gastroesophageal reflux disease, unspecified whether esophagitis present Hypothyroidism, unspecified type Controlled type 2 diabetes mellitus without complication, without long-term current use of insulin (HCC) Essential hypertension Unspecified essential hypertension Heavy cigarette smoker Tobacco use disorder Pulmonary emphysema, unspecified emphysema type (HCC) Iron deficiency anemia due to chronic blood loss Iron deficiency anemia secondary to blood loss (chronic) Intractable migraine with aura without status migrainosus Migraine with aura, with intractable migraine, so stated, without mention of status migrainosus Peripheral vascular disease (HCC) Peripheral vascular disease, unspecified 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 Pre-op examination Preoperative examination, unspecified Controlled type 2 diabetes mellitus without complication, without long-term current use of insulin (HCC) Essential hypertension Unspecified essential hypertension Gastroesophageal reflux disease Esophageal reflux Heavy cigarette smoker Tobacco use disorder Hyperlipidemia Other and unspecified hyperlipidemia Intractable migraine with aura without status migrainosus Migraine with aura, with intractable migraine, so stated, without mention of status migrainosus Iron deficiency anemia Iron deficiency anemia, unspecified Pulmonary emphysema (HCC) Other emphysema Carotid atherosclerosis Occlusion and stenosis of carotid artery without mention of cerebral infarction Hypothyroidism Unspecified hypothyroidism Peripheral vascular disease (HCC) Peripheral vascular disease, unspecified 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 Pre-op examination Preoperative examination, unspecified Small bowel bleed not requiring more than 4 units of blood in 24 hours, ICU, or surgery- Primary Hemorrhage of gastrointestinal tract, unspecified Arteriovenous malformation of gastrointestinal tract Congenital gastrointestinal vessel anomaly Abnormal findings on examination of gastrointestinal tract Nonspecific (abnormal) findings on radiological and other examination of gastrointestinal tract Blood in stool [facility]* Diagnosis Atherosclerosis of both carotid arteries- Primary Occlusion and stenosis of carotid artery without mention of cerebral infarction Small bowel bleed not requiring more than 4 units of blood in 24 hours, ICU, or surgery Hemorrhage of gastrointestinal tract, unspecified Gastroesophageal reflux disease, unspecified whether esophagitis present Hypothyroidism, unspecified type Controlled type 2 diabetes mellitus without complication, without long-term current use of insulin (HCC) Essential hypertension Unspecified essential hypertension Heavy cigarette smoker Tobacco use disorder Pulmonary emphysema, unspecified emphysema type (HCC) Iron deficiency anemia due to chronic blood loss Iron deficiency anemia secondary to blood loss (chronic) Intractable migraine with aura without status migrainosus Migraine with aura, with intractable migraine, so stated, without mention of status migrainosus Peripheral vascular disease (HCC) Peripheral vascular disease, unspecified 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 Pre-op examination Preoperative examination, unspecified Controlled type 2 diabetes mellitus without complication, without long-term current use of insulin (HCC) Essential hypertension Unspecified essential hypertension Gastroesophageal reflux disease Esophageal reflux Heavy cigarette smoker Tobacco use disorder Hyperlipidemia Other and unspecified hyperlipidemia Intractable migraine with aura without status migrainosus Migraine with aura, with intractable migraine, so stated, without mention of status migrainosus Iron deficiency anemia Iron deficiency anemia, unspecified Pulmonary emphysema (HCC) Other emphysema Carotid atherosclerosis Occlusion and stenosis of carotid artery without mention of cerebral infarction Hypothyroidism Unspecified hypothyroidism Peripheral vascular disease (HCC) Peripheral vascular disease, unspecified 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 * Assessment & Plan Note - Rivera Victor APRN.CNP - 04/02/2024 1:25 PM EDT Associated Problem(s): Small bowel bleed not requiring more than 4 units of blood in 24 hours, ICU,or surgery EGD today * Assessment & Plan Note - Rivera Victor APRN.CNP - 04/02/2024 1:18 PM EDT Associated Problem(s): Peripheral vascular disease (HCC) Reports had KATHERINE that demonstrated moderate obstructive ds * Assessment & Plan Note - Rivrea Victor APRN.CNP - 04/02/2024 1:16 PM EDT Associated Problem(s): Intractable migraine with aura without status migrainosus Reports haven't had one in several months * Assessment & Plan Note - Rivera Victor APRN.CNP - 04/02/2024 1:16 PM EDT Associated Problem(s): Iron deficiency anemia 03/13/24 H&H = 13.0/39.6 Iron - 13 TIBC - 421 Ferritin - 19 %Saturation - 3 * Assessment & Plan Note - Rivera Victor APRN.CNP - 04/02/2024 12:58 PM EDT Associated Problem(s): Pulmonary emphysema (HCC) On Albuterol, Spiriva, Trelegy Pt uses rescue inhaler as needed - maybe once a month. Denies hospitalization or pneumonia in thelast 6 months. Instructed to use inhaler as prescribed and bring DOS. * Assessment & Plan Note - Rivera Victor APRN.CNP - 04/02/2024 12:55 PM EDT Associated Problem(s): Heavy cigarette smoker Daily 1.5 ppd smoker x 50 + years * Assessment & Plan Note - Rivera Victor APRN.CNP - 04/02/2024 12:55 PM EDT Associated Problem(s): Essential hypertension Stable on bumex, diltiazem, metoprolol , imdur Follows by [facility] cardi[facility] * Assessment & Plan Note - Rivera Victor APRN.CNP - 04/02/2024 12:47 PM EDT Associated Problem(s): Controlled type 2 diabetes mellitus without complication, without long-term current use of insulin (HCC) On Starlix 03/13/24 - 7% * Assessment & Plan Note - Rivera Victor APRN.CNP - 04/02/2024 12:42 PM EDT Associated Problem(s): Hypothyroidism Stable on synthroid * Assessment & Plan Note - Rivera Victor APRN.CNP - 04/02/2024 12:42 PM EDT Associated Problem(s): Gastroesophageal reflux disease EGD today * Assessment & Plan Note - Rivera Victor APRN.CNP - 04/02/2024 12:42 PM EDT Associated Problem(s): Carotid atherosclerosis US 09/14/23 RIGHT SIDE Internal carotid artery: 20-39% stenosis. Vertebral artery: Patent and antegrade flow noted. LEFT SIDE Internal carotid artery: 60-79% stenosis. Vertebral artery: Patent and antegrade flow noted. [facility] Diagnosis Atherosclerosis of both carotid arteries- Primary Occlusion and stenosis of carotid artery without mention of cerebral infarction Small bowel bleed not requiring more than 4 units of blood in 24 hours, ICU, or surgery Hemorrhage of gastrointestinal tract, unspecified Gastroesophageal reflux disease, unspecified whether esophagitis present Hypothyroidism, unspecified type Controlled type 2 diabetes mellitus without complication, without long-term current use of insulin (HCC) Essential hypertension Unspecified essential hypertension Heavy cigarette smoker Tobacco use disorder Pulmonary emphysema, unspecified emphysema type (HCC) Iron deficiency anemia due to chronic blood loss Iron deficiency anemia secondary to blood loss (chronic) Intractable migraine with aura without status migrainosus Migraine with aura, with intractable migraine, so stated, without mention of status migrainosus Peripheral vascular disease (HCC) Peripheral vascular disease, unspecified 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 Pre-op examination Preoperative examination, unspecified Controlled type 2 diabetes mellitus without complication, without long-term current use of insulin (HCC) Essential hypertension Unspecified essential hypertension Gastroesophageal reflux disease Esophageal reflux Heavy cigarette smoker Tobacco use disorder Hyperlipidemia Other and unspecified hyperlipidemia Intractable migraine with aura without status migrainosus Migraine with aura, with intractable migraine, so stated, without mention of status migrainosus Iron deficiency anemia Iron deficiency anemia, unspecified Pulmonary emphysema (HCC) Other emphysema Carotid atherosclerosis Occlusion and stenosis of carotid artery without mention of cerebral infarction Hypothyroidism Unspecified hypothyroidism Peripheral vascular disease (HCC) Peripheral vascular disease, unspecified 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 Pre-op examination Preoperative examination, unspecified Gastroesophageal reflux disease with esophagitis, unspecified whether hemorrhage- Primary Adverse effect of iron, subsequent encounter 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 Irritable bowel syndrome with diarrhea Irritable bowel syndrome 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 documented in this encounter [facility] note* Diagnosis Small bowel bleed not requiring more than 4 units of blood in 24 hours, ICU, or surgery Hemorrhage of gastrointestinal tract, unspecified Arteriovenous malformation of gastrointestinal tract Congenital gastrointestinal vessel anomaly Abnormal findings on examination of gastrointestinal tract Nonspecific (abnormal) findings on radiological and other examination of gastrointestinal tract Blood in stool documented in this encounter [facility] note* Diagnosis Gastroesophageal reflux disease with esophagitis, unspecified whether hemorrhage- Primary Adverse effect of iron, subsequent encounter 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 Irritable bowel syndrome with diarrhea Irritable bowel syndrome 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 documented in this encounter [facility] note* Diagnosis Gastroesophageal reflux disease with esophagitis, unspecified whether hemorrhage- Primary Adverse effect of iron, subsequent encounter 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 Irritable bowel syndrome with diarrhea Irritable bowel syndrome 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 documented in this encounter [facility] note* Diagnosis Gastroesophageal reflux disease with esophagitis, unspecified whether hemorrhage- Primary Adverse effect of iron, subsequent encounter 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 Irritable bowel syndrome with diarrhea Irritable bowel syndrome 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 documented in this encounter [facility] note* Diagnosis Gastroesophageal reflux disease with esophagitis, unspecified whether hemorrhage- Primary Adverse effect of iron, subsequent encounter 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 Irritable bowel syndrome with diarrhea Irritable bowel syndrome 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 documented in this encounter [facility] note* Diagnosis Iron deficiency anemia due to chronic blood loss- Primary Iron deficiency anemia secondary to blood loss (chronic) documented in this encounter [facility] course Narrative No data available for this section [facility] Hospital Discharge instructions No data available for this section [facility] Progress note No data available for this section [facility] Reason for referral (narrative)* Diagnostic Procedure Only (Routine) - Closed Specialty Diagnoses / Procedures [facility] To [facility] XR IMAGING Diagnoses Oropharyngeal dysphagia Procedures XR MODIFIED BARIUM SWALLOW W SPEECH THERAPY RADIOLOGIC EXAM SWALLOW FUNCTION CONTRAST STUDY Monico Potts MD [address] [place] [address] Xr Imaging [place] [address] Referral ID Status Reason Start Date Expiration Date V isits Requested Visits Authorized [id number] Closed Auto-Generate d Referral 12/25/2022 01/24/2024 1 1 [facility] for referral (narrative)* Outpatient Procedure (Routine) - Closed Specialty Diagnoses / Procedures Referred By Scott wilson Referred To Contact [facility] Diagnoses Iron deficiency anemia, unspecified iron deficiency anemia type AVM (arteriovenous malformation) of small bowel, acquired Procedures ENTEROSCOPY ENDOSCOPY UPPER SMALL INTESTINE W/BIOPSY Monico Potts MD [address] [place] [id number] [facility] [place] [id number] Referral ID Status Reason Start Date Expiration Date V isits Requested Visits Authorized [id number] Closed Auto-Generate d Referral 06/05/2023 06/05/2024 1 1 [facility] for referral (narrative)* Outpatient Procedure (Routine) - Authorized Specialty Diagnoses / Procedures [facility] Diagnoses Stenosis of carotid artery, unspecified laterality Procedures US CAROTID ARTERIES [facility] DUPLEX SCAN EXTRACRANIAL ART COMPL BI STUDY Jared Rowland MD [address] [address] [facility] [place] [phone] Referral ID Status Reason Start Date Expiration Date Visits Requested Visits Authorized [id number] Authorized Auto-Generat ed Referral 09/03/2023 06/03/2024 1 1 [facility] for referral (narrative)* Outpatient Procedure (Routine) - Closed Specialty Diagnoses / Procedures Referred By Contac t Referred To Contact [facility] [place] Diagnoses Stenosis of carotid artery, unspecified laterality Procedures US CAROTID ARTERIES JUANY VAS LAB DUPLEX SCAN EXTRACRANIAL ART COMPL BI STUDY Jared Rowland MD [address] [address] [facility] V[facility] [place] [phone] Referral ID Status Reason Start Date Expiration Date V isits Requested Visits Authorized [id number] Closed Auto-Generate d Referral 09/03/2023 06/03/2024 1 1 [facility] for referral (narrative)* Outpatient Procedure (Routine) - Authorized Specialty Diagnoses / Procedures [facility] [place] Diagnoses Small bowel bleed not requiring more than 4 units of blood in 24 hours, ICU, or surgery Arteriovenous malformation of gastrointestinal tract Abnormal findings on examination of gastrointestinal tract Blood in stool Procedures ENTEROSCOPY ENTEROSC >2ND PRTN W/ILEUM W/WO COLLJ SPEC SPX Kelvin Campbell MD [address] [place] [address] [facility] [address] [address] Referral ID Status Reason Start Date Expiration Date Visits Requested Visits Authorized [id number] Authorized Auto-Generat ed Referral 4 04/02/2025 1 1 [facility] for referral (narrative)* Outpatient Procedure (Routine) - Closed Specialty Diagnoses / Procedures Referred By Scott wilson Referred To Contact [facility] [place] Diagnoses Small bowel bleed not requiring more than 4 units of blood in 24 hours, ICU, or surgery Arteriovenous malformation of gastrointestinal tract Abnormal findings on examination of gastrointestinal tract Blood in stool Procedures ENTEROSCOPY ENTEROSC >2ND PRTN W/ILEUM W/WO COLLJ SPEC SPX Kelvin Campbell MD [address] [place] [address] [facility] [place] [address] [place] [id number] Referral ID Status Reason Start Date Expiration Date V isits Requested Visits Authorized [id number] Closed Auto-Generate d Referral 04/02/2024 04/02/2025 1 1 [facility] for visit Narrative* Diagnostic Procedure Only (Routine) - Closed Specialty Diagnoses / Procedures Referred By Contac t Referred To Contact XR IMAGING Diagnoses Oropharyngeal dysphagia Procedures XR MODIFIED BARIUM SWALLOW W SPEECH THERAPY RADIOLOGIC EXAM SWALLOW FUNCTION CONTRAST STUDY Monico Potts MD [address] [place] [id number] [place] [address] Referral ID Status Reason Start Date Expiration Date V isits Requested Visits Authorized [id number] Closed Auto-Generate d Referral 12/25/2022 01/24/2024 1 1 [facility] for visit Narrative* Outpatient Procedure (Routine) - Closed Specialty Diagnoses / Procedures Referred By Contac t Referred To Contact [facility] Diagnoses Iron deficiency anemia, unspecified iron deficiency anemia type AVM (arteriovenous malformation) of small bowel, acquired Procedures ENTEROSCOPY ENDOSCOPY UPPER SMALL INTESTINE W/[place] [address] [place] [address] [facility] [place] [address] [place], [place] [phone] Referral ID Status Reason Start Date Expiration Date V isits Requested Visits Authorized [id number] Closed Auto-Generate d Referral 06/05/2023 06/05/2024 1 1 [facility] for visit Narrative* Outpatient Procedure (Routine) - Closed Specialty Diagnoses / Procedures Referred By Contac t Referred To Contact [facility] Diagnoses Stenosis of carotid artery, unspecified laterality Procedures US CAROTID ARTERIES JUANY VAS LAB DUPLEX SCAN EXTRACRANIAL ART COMPL BI STUDY Jared Rowland MD [address] [address] [facility] [place] [address] [place] [address] Referral ID Status Reason Start Date Expiration Date V isits Requested Visits Authorized [id number] Closed Auto-Generate d Referral 09/03/2023 06/03/2024 1 1 [facility] for visit Narrative* Outpatient Procedure (Routine) - Authorized Specialty Diagnoses / Procedures Referred By Contac t Referred To Contact [facility] Diagnoses Small bowel bleed not requiring more than 4 units of blood in 24 hours, ICU, or surgery Procedures EGD DIAGNOSTIC ESOPHAGOGASTRODUODENOS COPY TRANSORAL DIAGNOSTIC Kelvin Campbell MD [address] [facility] [address] [facility] [address] [place] [id number] Referral ID Status Reason Start Date Expiration Date Visits Requested Visits Authorized [id number] Authorized Auto-Generat ed Referral 03/31/2025 1 1 [facility] for visit Narrative* Outpatient Procedure (Routine) - Closed Specialty Diagnoses / Procedures Referred By Contac t Referred To Contact [facility] [place] Diagnoses Small bowel bleed not requiring more than 4 units of blood in 24 hours, ICU, or surgery Arteriovenous malformation of gastrointestinal tract Abnormal findings on examination of gastrointestinal tract Blood in stool Procedures ENTEROSCOPY ENTEROSC >2ND PRTN W/ILEUM W/WO COLLJ SPEC SPX Kelvin Campbell MD [address] [facility] [address] [facility] [address] [place] [id number] Referral ID Status Reason Start Date Expiration Date V isits Requested Visits Authorized [id number] Closed Auto-Generate d Referral 04/02/2024 04/02/2025 1 1 [facility] Summary Purpose Family History No Family History Records Found Relationship Condition Age at Onset Recorded Date/T simran Not Specified Transfusion of blood during current hospitalization Unknown Disorder of intestine Unknown Severe allergic reaction Unknown Malignant neoplasm of colon Unknown Diabetes mellitus Unknown Osteoporosis Unknown High blood cholesterol Unknown Anemia Unknown Angina at rest Unknown Anxiety Unknown Arthritis Unknown Depression Unknown Hemorrhagic disorder Unknown Disorder of respiratory system Unknown Hypertension Unknown Venous thrombosis Unknown Disorder of thyroid Unknown Advance Directives No Advanced Directives Records FoundDocuments on File Type Date 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 Advance Directive(s) 07/19/2020 1:33 PM Advance Directive(s) 07/22/2019 6:48 AM Advance Directive(s) 07/22/2019 6:47 AM Advance Directive(s) 07/03/2019 2:04 PM Advance Directive(s) 07/30/2018 10:26 AM Advance Directive(s) 01/11/2018 7:53 AM Advance Directive(s) 06/21/2017 2:39 PM Advance Directive(s) 04/24/2017 7:57 AM Advance Directive(s) 04/23/2017 4:46 PM Documents on File Type Date 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 Advance Directive(s) 07/22/2019 6:47 AM Advance Directive Response Recorded Date/ Time Advance Directives No February 11:59am Living Will No January 23 9 8:59am Power of Plastic Surgery Coordinator No January 23 2 019 8:59am Advance Directive Response Recorded Date/ Time Advance Directives No February 10:59am Living Will No January 23 9 7:59am Power of Plastic Surgery Coordinator No January 23 2 019 7:59am Documents on File Type Date Recorded 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 New Bag/Syringe/Bottle 03/30/2023 2:48 PM EDT 300 mg 166.67 mL/hr Inactive Administered Medications - up to 3 most recent administrations Medication Order MAR Action Action Date Dose Rate Site iron sucrose 300 mg in NaCl 0.9% 250 mL (VENOFER) 300 mg, INTRAVENOUS, at 166.67 mL/hr, Administer over 90 Minutes, ONCE, 1 dose, On Sun04/11/23 at 1330, Please conduct a 30 minute post dose observation. New Bag/Syringe/Bottle 04/11/2023 1:26 PM EST 300 mg 166.67 mL/hr Additional Source Comments INFORMATION SOURCE (unrecogn ized section and content) DATE CREATED AUTHOR 11/26/2017 [facility] DATE CREATED AUTHOR AUTHOR'S ORGANIZ ATION 11/28/2017 [facility] mary Thoreau DATE CREATED AUTHOR AUTHOR'S ORGANIZ ATION 07/30/2018 [facility] DATE CREATED AUTHOR AUTHOR'S ORGANIZ ATION 06/04/2021 [facility] DATE CREATED AUTHOR AUTHOR'S ORGANIZ ATION 05/05/2022 [facility] ([place]) DATE CREATED AUTHOR AUTHOR'S ORGANIZ ATION 01/19/2023 [facility] DATE CREATED AUTHOR AUTHOR'S ORGANIZ ATION 09/16/2023 [facility] DATE CREATED AUTHOR AUTHOR'S ORGANIZ ATION 04/16/2024 [facility] DATE CREATED AUTHOR AUTHOR'S ORGANIZ ATION 10/02/2024 [facility] DATE CREATED AUTHOR AUTHOR'S ORGANIZ ATION 10/30/2024 [facility] DATE CREATED AUTHOR AUTHOR'S ORGANIZ ATION 01/19/2025 [facility] DATE CREATED AUTHOR AUTHOR'S ORGANIZ ATION 01/25/2025 [facility] Source Comments (unrecognize d section and content) In the event this informatio n is protected by the Federal Confidentiality of Alcohol and Drug Abuse Patient Records regulations: The Federal rules restrict any use of the information to criminally investigate or prosecute any alcohol or drug abuse patient.[facility] the event this information is protected by the Federal Confidentiality of Alcohol and Drug Abuse Patient Records regulations: The Federal rules restrict any use of the information to criminally investigate or prosecute any alcohol or drug abuse patient.[facility] the event this information is protected by the Federal Confidentiality of Alcohol and Drug Abuse Patient Records regulations: The Federal rules restrict any use of the information to criminally investigate or prosecute any alcohol or drug abuse patient.[facility] the event this information is protected by the Federal Confidentiality of Alcohol and Drug Abuse Patient Records regulations: The Federal rules restrict any use of the information to criminally investigate or prosecute any alcohol or drug abuse patient.[facility] the event this information is protected by the Federal Confidentiality of Alcohol and Drug Abuse Patient Records regulations: The Federal rules restrict any use of the information to criminally investigate or prosecute any alcohol or drug abuse patient.[facility] the event this information is protected by the Federal Confidentiality of Alcohol and Drug Abuse Patient Records regulations: The Federal rules restrict any use of the information to criminally investigate or prosecute any alcohol or drug abuse patient.[facility] the event this information is protected by the Federal Confidentiality of Alcohol and Drug Abuse Patient Records regulations: The Federal rules restrict any use of the information to criminally investigate or prosecute any alcohol or drug abuse patient.[facility] the event this information is protected by the Federal Confidentiality of Alcohol and Drug Abuse Patient Records regulations: The Federal rules restrict any use of the information to criminally investigate or prosecute any alcohol or drug abuse patient.[facility] the event this information is protected by the Federal Confidentiality of Alcohol and Drug Abuse Patient Records regulations: The Federal rules restrict any use of the information to criminally investigate or prosecute any alcohol or drug abuse patient.[facility] the event this information is protected by the Federal Confidentiality of Alcohol and Drug Abuse Patient Records regulations: The Federal rules restrict any use of the information to criminally investigate or prosecute any alcohol or drug abuse patient.[facility] the event this information is protected by the Federal Confidentiality of Alcohol and Drug Abuse Patient Records regulations: The Federal rules restrict any use of the information to criminally investigate or prosecute any alcohol or drug abuse patient.[facility] the event this information is protected by the Federal Confidentiality of Alcohol and Drug Abuse Patient Records regulations: The Federal rules restrict any use of the information to criminally investigate or prosecute any alcohol or drug abuse patient.[facility] the event this information is protected by the Federal Confidentiality of Alcohol and Drug Abuse Patient Records regulations: The Federal rules restrict any use of the information to criminally investigate or prosecute any alcohol or drug abuse patient.[facility] the event this information is protected by the Federal Confidentiality of Alcohol and Drug Abuse Patient Records regulations: The Federal rules restrict any use of the information to criminally investigate or prosecute any alcohol or drug abuse patient.[facility] the event this information is protected by the Federal Confidentiality of Alcohol and Drug Abuse Patient Records regulations: The Federal rules restrict any use of the information to criminally investigate or prosecute any alcohol or drug abuse patient.[facility] the event this information is protected by the Federal Confidentiality of Alcohol and Drug Abuse Patient Records regulations: The Federal rules restrict any use of the information to criminally investigate or prosecute any alcohol or drug abuse patient.[facility] the event this information is protected by the Federal Confidentiality of Alcohol and Drug Abuse Patient Records regulations: The Federal rules restrict any use of the information to criminally investigate or prosecute any alcohol or drug abuse patient.[facility] SpringfieldIn the event this information is protected by the Federal Confidentiality of Alcohol and Drug Abuse Patient Records regulations: The Federal rules restrict any use of the information to criminally investigate or prosecute any alcohol or drug abuse patient.[facility] SpringfieldIn the event this information is protected by the Federal Confidentiality of Alcohol and Drug Abuse Patient Records regulations: The Federal rules restrict any use of the information to criminally investigate or prosecute any alcohol or drug abuse patient.[facility] SpringfieldIn the event this information is protected by the Federal Confidentiality of Alcohol and Drug Abuse Patient Records regulations: The Federal rules restrict any use of the information to criminally investigate or prosecute any alcohol or drug abuse patient.[facility] SpringfieldIn the event this information is protected by the Federal Confidentiality of Alcohol and Drug Abuse Patient Records regulations: The Federal rules restrict any use of the information to criminally investigate or prosecute any alcohol or drug abuse patient.[facility] SpringfieldIn the event this information is protected by the Federal Confidentiality of Alcohol and Drug Abuse Patient Records regulations: The Federal rules restrict any use of the information to criminally investigate or prosecute any alcohol or drug abuse patient.[facility] SpringfieldIn the event this information is protected by the Federal Confidentiality of Alcohol and Drug Abuse Patient Records regulations: The Federal rules restrict any use of the information to criminally investigate or prosecute any alcohol or drug abuse patient.[facility] SpringfieldIn the event this information is protected by the Federal Confidentiality of Alcohol and Drug Abuse Patient Records regulations: The Federal rules restrict any use of the information to criminally investigate or prosecute any alcohol or drug abuse patient.[facility] SpringfieldIn the event this information is protected by the Federal Confidentiality of Alcohol and Drug Abuse Patient Records regulations: The Federal rules restrict any use of the information to criminally investigate or prosecute any alcohol or drug abuse patient.[facility] SpringfieldIn the event this information is protected by the Federal Confidentiality of Alcohol and Drug Abuse Patient Records regulations: The Federal rules restrict any use of the information to criminally investigate or prosecute any alcohol or drug abuse patient.[facility] SpringfieldIn the event this information is protected by the Federal Confidentiality of Alcohol and Drug Abuse Patient Records regulations: The Federal rules restrict any use of the information to criminally investigate or prosecute any alcohol or drug abuse patient.[facility] SpringfieldIn the event this information is protected by the Federal Confidentiality of Alcohol and Drug Abuse Patient Records regulations: The Federal rules restrict any use of the information to criminally investigate or prosecute any alcohol or drug abuse patient.[facility] SpringfieldIn the event this information is protected by the Federal Confidentiality of Alcohol and Drug Abuse Patient Records regulations: The Federal rules restrict any use of the information to criminally investigate or prosecute any alcohol or drug abuse patient.[facility] SpringfieldIn the event this information is protected by the Federal Confidentiality of Alcohol and Drug Abuse Patient Records regulations: The Federal rules restrict any use of the information to criminally investigate or prosecute any alcohol or drug abuse patient.[facility] SpringfieldIn the event this information is protected by the Federal Confidentiality of Alcohol and Drug Abuse Patient Records regulations: The Federal rules restrict any use of the information to criminally investigate or prosecute any alcohol or drug abuse patient.[facility] SpringfieldIn the event this information is protected by the Federal Confidentiality of Alcohol and Drug Abuse Patient Records regulations: The Federal rules restrict any use of the information to criminally investigate or prosecute any alcohol or drug abuse patient.[facility] SpringfieldIn the event this information is protected by the Federal Confidentiality of Alcohol and Drug Abuse Patient Records regulations: The Federal rules restrict any use of the information to criminally investigate or prosecute any alcohol or drug abuse patient.[facility] SpringfieldIn the event this information is protected by the Federal Confidentiality of Alcohol and Drug Abuse Patient Records regulations: The Federal rules restrict any use of the information to criminally investigate or prosecute any alcohol or drug abuse patient.[facility] SpringfieldIn the event this information is protected by the Federal Confidentiality of Alcohol and Drug Abuse Patient Records regulations: The Federal rules restrict any use of the information to criminally investigate or prosecute any alcohol or drug abuse patient.[facility] Reason for Visit (unrecogniz ed section and content) Reason Comments Patient Update Reason Comments Orders Reason Comments Patient Question Reason Comments Results Reason Comments Speech Instrumental Swallow Eval Speech Discharge Specialty Diagnoses / Procedures Referred By Contac t Referred To Contact XR IMAGING Diagnoses Oropharyngeal dysphagia Procedures XR MODIFIED BARIUM SWALLOW W SPEECH THERAPY RADIOLOGIC EXAM SWALLOW FUNCTION CONTRAST STUDY Monico Potts MD [address] [place] [address] [place] [address] Referral ID Status Reason Start Date Expiration Date V isits Requested Visits Authorized [id number] Closed Auto-Generate d Referral 12/25/2022 01/24/2024 1 1 Reason Comments Established Patient Reason Comments Appointment Reason Comments Non-Chemotherapy Treatment Specialty Diagnoses / Procedures [facility] Diagnoses Iron deficiency anemia due to chronic blood loss Gastroesophageal reflux disease with esophagitis Adverse effect of iron, subsequent encounter Iron deficiency anemia due to chronic blood loss Iron malabsorption Procedures IRON SUCROSE INJECTION [place] [address] [place] [address] [place] [address] [facility] [address] [place] [address] Referral ID Status Reason Start Date Expiration Date V isits Requested Visits Authorized [id number] Authorized 02/23/2023 05/27/2023 3 3 Reason Comments Appointment Confirmation Pre-procedure i nstructions Specialty Diagnoses / Procedures Referred By [facility] t Referred To Contact Diagnoses Gastroesophageal reflux disease with esophagitis, unspecified whether hemorrhage Adverse effect of iron, subsequent encounter Iron deficiency anemia due to chronic blood loss Iron deficiency anemia due to chronic blood loss Iron malabsorption Irritable bowel syndrome with diarrhea Jejunal AV malformation Procedures IRON SUCROSE INJECTION PER 1 MG Alberto, Anne-Marie [address] [facility] [place] [address] [facility] [address] [place] [address] Referral ID Status Reason Start Date Expiration Date V isits Requested Visits Authorized [id number] Authorized 03/24/2024 06/22/2024 5 5 Specialty Diagnoses / Procedures Referred By [facility] Referred To Contact Diagnoses Gastroesophageal reflux disease with esophagitis, unspecified whether hemorrhage Adverse effect of iron, subsequent encounter Iron deficiency anemia due to chronic blood loss Iron deficiency anemia due to chronic blood loss Iron malabsorption Irritable bowel syndrome with diarrhea Jejunal AV malformation Procedures IRON SUCROSE INJECTION PER 1 MG Alberto, Anne-Marie [address] [facility] [place] [address] Phone: tel: fax: Hematology/Oncology [address] [place] [address] Phone: tel: fax: Referral ID Status Reason Start Date Expiration Date V isits Requested Visits Authorized [id number] Authorized 03/24/2024 10/24/2024 14 14 Referral ID Status Reason Start Date Expiration Date V isits Requested Visits Authorized [id number] Authorized 03/24/2024 11/02/2024 5 5 Specialty Diagnoses / Procedures Referred By Contac t Referred To Contact Diagnoses Gastroesophageal reflux disease with esophagitis, unspecified whether hemorrhage Adverse effect of iron, subsequent encounter Iron deficiency anemia due to chronic blood loss Iron deficiency anemia due to chronic blood loss Iron malabsorption (HCC) Irritable bowel syndrome with diarrhea Jejunal AV malformation Procedures IRON SUCROSE INJECTION PER 1 MG Anne-Marie Alberto [address] [place] [address] Phone: tel: fax: Hematology/Oncology [address] [place] [address] Phone: tel: fax: Care Teams (unrecognized sec tion and content) Track Walker Relationship Specialty Start Date End Date Apolonia Craven MD PCP - General Internal Medicine 04/09/17 Track Walker Relationship Specialty Start Date End Date Apolonia Craven MD PCP - General Internal Medicine 04/09/17 Track Walker Relationship Specialty Start Date End Date Apolonia Craven MD PCP - General Internal Medicine 04/09/17 Track Walker Relationship Specialty Start Date End Date Apolonia Craven MD PCP - General Internal Medicine 04/09/17 Track Walker Relationship Specialty Start Date End Date Apolonia Craven MD PCP - General Internal Medicine 04/09/17 Track Walker Relationship Specialty Start Date End Date Apolonia Craven MD PCP - General Internal Medicine 04/09/17 Track Walker Relationship Specialty Start Date End Date Apolonia Craven MD PCP - General Internal Medicine 04/09/17 Track Walker Relationship Specialty Start Date End Date Apolonia Craven MD PCP - General Internal Medicine 04/09/17 Track Walker Relationship Specialty Start Date End Date Apolonia Craven MD PCP - General Internal Medicine 04/09/17 Track Walker Relationship Specialty Start Date End Date Apolonia Craven MD PCP - General Internal Medicine 04/09/17 Rui Grider MD [address] [facility] [place] [address] Hematology/Oncology 03/08/23 Track Walker Relationship Specialty Start Date End Date Apolonia Craven MD PCP - General Internal Medicine 04/09/17 Rui Grider MD [address] [place] [address] Hematology/Oncology 03/08/23 Track Walker Relationship Specialty Start Date End Date Apolonia Craven MD PCP - General Internal Medicine 04/09/17 Rui Grider MD [address] [place], [place] [address] Hematology/Oncology 03/08/23 Track Walker Relationship Specialty Start Date End Date Apolonia Craven MD PCP - General Internal Medicine 04/09/17 Rui Grider MD [address] [place] [place], [place] [address] Hematology/Oncology 03/08/23 Track Walker Relationship Specialty Start Date End Date Apolonia Craven MD PCP - General Internal Medicine 04/09/17 Rui Grider MD [address] [place], [place] [address] Hematology/Oncology 03/08/23 Team Status: Active Member Role Status Dates Dr. Apolonia Craven MD Family Provider Active Dr. Apolonia Craven MD Primary Care Provider Active Team Status: Active Member Role Status Dates Dr. Apolonia Craven MD Primary Care Provider Active Dr. Anthony Pulido MD Attending Provider Active Team Status: Inactive Member Role Status Dates Dr. Apolonia Craven MD Primary Care Provider Active Dr. Víctor Juarez MD Attending Provider, Referrin g Provider Active Team Status: Inactive Member Role Status Dates Dr. Apolonia Craven MD Primary Care Prov ider, Attending Provider, Referring Provider Active Track Walker Relationship Specialty Start Date End Date Apolonia Craven MD PCP - General Internal Medicine 04/09/17 Rui Grider MD [address] [place], [place] [id number] Hematology/Oncology 03/08/23 Track Walker Relationship Specialty Start Date End Date Apolonia Craven MD PCP - General Internal Medicine 04/09/17 Rui Grider MD [address] [place] [address] Hematology/Oncology 03/08/23 Track Walker Relationship Specialty Start Date End Date Apolonia Craven MD PCP - General Internal Medicine 04/09/17 Rui Grider MD [address] [place] [address] Hematology/Oncology 03/08/23 Track Walker Relationship Specialty Start Date End Date Apolonia Craven MD PCP - General Internal Medicine 04/09/17 Rui Grider MD [address] [place] [address] Hematology/Oncology 03/08/23 Track Walker Relationship Specialty Start Date End Date Apolonia Craven MD PCP - General Internal Medicine 04/09/17 Rui Grider MD [address] [place] [address] Hematology/Oncology 03/08/23 Track Walker Relationship Specialty Start Date End Date Apolonia Craven MD PCP - General Internal Medicine 04/09/17 Rui Grider MD [address] [place] [address] Hematology/Oncology 03/08/23 Track Walker Relationship Specialty Start Date End Date Apolonia Craven MD PCP - General Internal Medicine 04/09/17 Rui Grider MD [address] [place] [address] Hematology/Oncology 03/08/23 Track Walker Relationship Specialty Start Date End Date Apolonia Craven MD PCP - General Internal Medicine 04/09/17 Rui Grider MD [address] [place] [address] Hematology/Oncology 03/08/23 Track Walker Relationship Specialty Start Date End Date Apolonia Craven MD PCP - General Internal Medicine 04/09/17 Rui Grider MD [address] [place] [address] Hematology/Oncology 03/08/23 Track Walker Relationship Specialty Start Date End Date Apolonia Craven MD PCP - General Internal Medicine 04/09/17 Rui Grider MD [address] [place] [address] Hematology/Oncology 03/08/23 Track Walker Relationship Specialty Start Date End Date Apolonia Craven MD PCP - General Internal Medicine 04/09/17 Rui Grider MD [address] [place] [address] Hematology/Oncology 03/08/23 Track Walker Relationship Specialty Start Date End Date Apolonia Craven MD PCP - General Internal Medicine 04/09/17 Rui Grider MD [address] [place] [address] Hematology/Oncology 03/08/23 Track Walker Relationship Specialty Start Date End Date Apolonia Craven MD PCP - General Internal Medicine 04/09/17 Rui Grider MD [address] [place] [address] Hematology/Oncology 03/08/23 Track Walker Relationship Specialty Start Date End Date Apolonia Craven MD PCP - General Internal Medicine 04/09/17 Rui Grider MD [address] [place] [address] Hematology/Oncology 03/08/23 Track Walker Relationship Specialty Start Date End Date Apolonia Craven MD PCP - General Internal Medicine 04/09/17 Rui Grider MD [address] [place], [place] [address] Hematology/Oncology 03/08/23 Track Walker Relationship Specialty Start Date End Date Apolonia Craven MD PCP - General Internal Medicine 04/09/17 Rui Grider MD [address] [place], [place] [address] Hematology/Oncology 03/08/23 Track Walker Relationship Specialty Start Date End Date Apolonia Craven MD PCP - General Internal Medicine 04/09/17 Rui Grider MD [address] [place] [place], [place] [address] Hematology/Oncology 03/08/23 Goals (unrecognized section and content) Goals may be documented in a n alternate section No data available for this sectionGoals may be documented in an alternate sectionGoals may be documented in an alternate section No data available for this section Care Team (unrecognized sect ion and content) Care Team Personnel Name: APOLONIA CRAVEN MD Member Role: Primary Care Physician Address: Address: [address] [place] [id number] [place] [address] Care Team Related Persons Name: MIKAL ESTRADA Address: Home [address] [place] [address] [place] Name: MUNIRA FUNG FOR RECORDS PERTAINING TO PATIENTS WHO ARE OR HAVE BEEN ENROLLED IN A CHEMICAL DEPENDENCY/SUBSTANCEABUSE PROGRAM, SOME INFORMATION MAY BE OMITTED. This clinical summary was aggregated from multiple sources. Caution should be exercised in using it in the provision of clinical care. This summary normalizes information from multiple sources, and as a consequence, information in this document may materially change the coding, format and clinical context of patient data. In addition, data may be omitted in some cases. CLINICAL DECISIONS SHOULD BE BASED ON THE PRIMARY CLINICAL RECORDS. [facility] [employer] [facility]. provides no warranty or guarantee of the accuracy or completeness of information in this document.
[2025-01-25 15:24] LABS: AST(SGOT) 25 U/L (<=31); Alanine Aminotransfer ALT/SGPT 16 U/L (<=34); Albumin, Serum 3.8 g/dL (3.4-4.8); Alkaline Phosphatase 42 U/L (35-104); Anion Gap 13 (5-15); BUN 4 mg/dL (4-19); BUN/Creat Ratio 7.0 RATIO (10-20); Calcium,Total 9.6 mg/dL (7.6-11.0); Carbon Dioxide 23.3 mmol/L (21.0-32.0); Chloride 102 mmol/L (98-108); Estimated Creatinine Clearance 72.06 ml/min (50-250); Globulin 2.8 g/dL (2.2-4.2); Glucose 126 mg/dL (70-99); Lipase 14 U/L (13-75); Potassium 4.1 mmol/L (3.3-5.1)
[2025-01-25 16:15] LABS: Mucous, Urine 0 SEEN /hpf (<or=2+)
[2025-01-25 16:22] LABS: Color, Urine Yellow (Yellow); Glucose, Dipstick Normal (Normal); Ketone-Dipstick Negative (Negative); Leukocyte Esterase-Dipstick 500 /ul (Negative); Nitrite-Dipstick Positive (Negative); Occult Blood-Urine 25 /ul (Negative); Protein-Dipstick 30 mg/dl (Negative); Specific Gravity, Urine 1.010 (1.002-1.030); Urine Bilirubin Dipstick Negative (Negative)
[2025-01-25 17:01] LABS: Red Blood Cells-Urine 0-5 SEEN /hpf (0-5)
[2025-01-25 17:02] LABS: Squamous Epithelial Cells - UA 0-5 SEEN /hpf (5-10)
[2025-01-25 17:44] VITALS: BP 145/77; PULSE 78; RESP 14; TEMP 36.6; O2SAT 97
[2025-01-25 19:31] VITALS: BP 142/75; PULSE 87; RESP 20; TEMP 35.5; O2SAT 96
== END 2025-01-25 19:39 | disposition home or self-care (01) ==
PROVIDERS: Emergency Provider Emergency Medicine; PCP Internal Medicine; Visit Provider Emergency Medicine
DX: R93.5 Abnormal findings on diagnostic imaging of other abdominal regions, including retroperitoneum (principal); J44.9 Chronic obstructive pulmonary disease, unspecified; E11.9 Type 2 diabetes mellitus without complications; N39.0 Urinary tract infection, site not specified; E78.00 Pure hypercholesterolemia, unspecified; R11.2 Nausea with vomiting, unspecified; E03.9 Hypothyroidism, unspecified; K21.9 Gastro-esophageal reflux disease without esophagitis; Z90.49 Acquired absence of other specified parts of digestive tract; F17.210 Nicotine dependence, cigarettes, uncomplicated; R19.7 Diarrhea, unspecified
CPT/HCPCS: 74177; 80053; 81001; 83690; 85025; 87077; 87086; 87088; 87186; 96361; 96365; 96375; 99283; Q9967; A4216; J2405

== ENCOUNTER → 2025-03-04 | Outpatient (CLI) | payer MEDICARE, MEDICAID, SELFPAY ==
--- NOTE | 2025-03-04 09:09 | NM_ITS ---
PROCEDURE: GASTRIC EMPTYING STUDY - 4 HR 03/04/2025 REASON FOR EXAM: DIABETES/NAUSEA COMPARISON: None. TECHNIQUE: Procedure Code: [id number] Modality: NM Procedure: GASTRIC EMPTYING STUDY - 4 HR The patient ingested a standard meal of cooked 2 eggs, 2 slices of toast, 2 pads of butter, and 6 oz of water. The patient ate approximately 85% of the meal. There was no vomiting postprandially. Anterior and posterior planar images of the upper abdomen were obtained for 1 minute immediately following the meal at 1h, 2h and 4h if more than 10% of the activity persisted within the stomach. Regions of interest were drawn, and a geometric mean was used to calculate a [id number]. Medications taken in the past 24 hours that may affect gastric emptying: None RADIOPHARMACEUTICAL: Oral administration of 1.1 mCi technetium 99 M sulfur colloid, within the solid meal. FINDINGS: During the time of the imaging, gastroesophageal reflux was not seen. Linear fit gastric emptying half-time of 113.2 minutes. Percent activity remaining in stomach: 1 hour 57 % (normal 37-90%) 2 hours: 52 % (normal 30-60%) 4 hours: 1 % (normal 0-10%) NM/Gastric Emptying Study - 4 HR IMPRESSION: Normal solid phase gastric emptying. Reading Location: [id number]
--- NOTE | 2025-03-04 09:09 | NM_ITS ---
PROCEDURE: GASTRIC EMPTYING STUDY - 4 HR 03/04/2025 REASON FOR EXAM: DIABETES/NAUSEA COMPARISON: None. TECHNIQUE: Procedure Code: [id number] Modality: NM Procedure: GASTRIC EMPTYING STUDY - 4 HR The patient ingested a standard meal of cooked 2 eggs, 2 slices of toast, 2 pads of butter, and 6 oz of water. The patient ate approximately 85% of the meal. There was no vomiting postprandially. Anterior and posterior planar images of the upper abdomen were obtained for 1 minute immediately following the meal at 1h, 2h and 4h if more than 10% of the activity persisted within the stomach. Regions of interest were drawn, and a geometric mean was used to calculate a [id number]. Medications taken in the past 24 hours that may affect gastric emptying: None RADIOPHARMACEUTICAL: Oral administration of 1.1 mCi technetium 99 M sulfur colloid, within the solid meal. FINDINGS: During the time of the imaging, gastroesophageal reflux was not seen. Linear fit gastric emptying half-time of 113.2 minutes. Percent activity remaining in stomach: 1 hour 57 % (normal 37-90%) 2 hours: 52 % (normal 30-60%) 4 hours: 1 % (normal 0-10%) NM/Gastric Emptying Study - 4 HR IMPRESSION: Normal solid phase gastric emptying. Reading Location: [id number]
== END | disposition home or self-care (01) ==
LOC: NM 09:05
PROVIDERS: Referring Provider Internal Medicine Gastroenterology; Visit Provider Internal Medicine Gastroenterology
DX: R11.0 Nausea (principal); E11.9 Type 2 diabetes mellitus without complications
CPT/HCPCS: 78264; A9541